=== PATIENT | female | born 1990 | race Caucasian/White ===

== ENCOUNTER → 2022-12-15 | Outpatient (CLI) | payer OTHER, SELFPAY ==
--- NOTE | 2022-12-15 13:31 | RAD_ITS ---
STUDY: X-RAY - RIGHT KNEE REASON FOR EXAM: Female, 32 years old. Pain and stiffness TECHNIQUE: 3 view(s) of the knee. COMPARISON: None. FINDINGS: Normal visualized distal femur. Normal visualized proximal tibia and fibula. Normal proximal tibiofibular articulation. Normal medial femorotibial compartment. Normal lateral femorotibial compartment. Normal patellofemoral articulation. The soft tissue structures are unremarkable. RAD/Knee 3 Views IMPRESSION: Normal x-ray examination of the knee. Electronically Signed: Damián Dumont MD at 14:25 EDT ,
== END | disposition home or self-care (01) ==
PROVIDERS: Referring Provider Physician Assistant; Visit Provider Physician Assistant
DX: M25.561 Pain in right knee (principal)
CPT/HCPCS: 73562

== ENCOUNTER 2022-12-22 06:54 | Outpatient (RCR) | payer OTHER, SELFPAY ==
--- NOTE | 2022-12-22 07:49 | HP.PTEVAL_ITS ---
Patient's Visit Information Visit Information Visit Information: NEERAJ CARR is a 32 year old F referred to Physical Therapy by JASMINA Fabian with a diagnosis of Right Knee. Date of Evaluation: 12/22/22 Physical Therapist: Miranda Damon DPT Visit Plan Frequency: 2x /Week Duration: 4 Weeks Plan: Hold- will follow up with ortho- if ortho recommends PT will do aquatic PT- focus on LE and core strength/stabilization, ROM and functional mobility Subjective Subjective: Her co-workers made her go to the doctors as she was limping around at work and they think she has a torn meniscus in her right knee. This has been going on for about 2 weeks- insidious onset- nothing that sticks out. The doctor did x-rays- Ibuprofen and don't over do it, PT and sent her back to work. She has a follow up with Ortho. Pain in the knee is in the posterior knee. The knee is stiff and sore all day and if she bends or twists a certain way its excruciating. Worst in the last week: 12/23. Best: 10 Eases: Ibuprofen, taking the pressure off of it. Does not like ice. No radiating pain- no N/T in the toes. No crutches- she has an sujey bandage but doesn't really think it helps- does not wear a knee brace. Sleep: disturbed- hard to roll around. 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 She sometimes wears orthotics in her shoes but does not wear them very often- but she probably should. Objective Objective: Posture: FH, RS- can correct with verbal cues but does not maintain. Gait: antalgic- decreased stance on the right LE with decreased heel strike- slow meera no AD Observation: no edema notes HR/TR: able but reports discomfort and is hesitant due to pain SLS: 5 sec with reports instability and pain and has increased sway Sit to Stand: can do without UE A with weight shift to the left LE Stairs: asc/desc 8 NON recip with attempts to do recip with tears due to pain Palpation: tender along medial and lateral joint line- patella and posterior knee with light touch ROM: 10-50 degrees with severe discomfort at end ranges Flex: HS: severe Gastroc: severe Strength: Core: fair, Hip: 4/5 throughout, Knee Extn: 3+ Knee Flexion: 3+, Ankle: 5/5 Sensation: WNL to gross touch bilateral Balance/Special Test Scores Lower Extremity Functional Score: 46 Goals Goal 1:: Patient will be I with HEP and progression Goal Time Frame: 4-6 Weeks Goal 2:: Patient will ambulate >300 feet with a normalized gait pattern Goal Time Frame: 4-6 Weeks Goal 3:: Patient will asc/desc 8 stairs recip with no HR Goal Time Frame: 4-6 Weeks Goal 4:: Patient will demo 0-125 degrees ROM Goal Time Frame: 4-6 Weeks Goal 5:: Patient will report 80% improvement Goal Time Frame: 4-6 Weeks Rehabilitation Potential Physical Therapy Diagnosis: Patient presents with hypomobility- she has decreased pain free ROM, LE and core strength/stabilization, flex and muscular endurance leading to abnormal gait and increased pain with ADL's Rehabilitation Potential: Fair Anticipated Interventions Patient/Client Instruction: Educate patient on: Benefits of Fitness Program Therapeutic Exercise to Include: Strength training, Endurance training, Balance training, Coordination, Agility training, Body mechanics, Postural training, Flexibilty training, Gait and locomotor training, Neuromotor development, Relaxation training, In an aquatic setting , Passive ROM, Active ROM, Dynamic Lumbar Stabilization and Scapular Strength/Stabilization Text: Thank you for the opportunity to evaluate your patient. For Medicare and Medicare HMO plans, please review the plan of care and approve it. It will need to be FAXED BACK to us at [phone] for Medicare purposes. For Medicare only, by signing this I certify the plan of care. Please let me know if there are questions or concerns regarding this plan of care. Physician Signature: Date:
--- NOTE | 2023-05-12 09:00 | HP.PT.NRP ---
Patient Information Patient Information: NEERAJ CARR was seen in my office for initial evaluation on 12/22/22. The following Plan of Care was established for this patient: POC Established Initial Frequency: 2x /Week Initial Duration: 4 Weeks Anticipated Interventions Patient/Client Instruction: Educate patient on: Benefits of Fitness Program Therapeutic Exercise to Include: Strength training, Endurance training, Balance training, Coordination, Agility training, Body mechanics, Postural training, Flexibilty training, Gait and locomotor training, Neuromotor development, Relaxation training, In an aquatic setting , Passive ROM, Active ROM, Dynamic Lumbar Stabilization and Scapular Strength/Stabilization Last Seen Last Seen: This patient was last seen in our office . Pertinent comments regarding their Physical therapy will appear below: Patient has not attended PT since initial evaluation- appropriate to be discharged. At this point I will be discontinuing this patient from physical therapy. I would be happy to see this patient again in the future if found appropriate by the physician. Thank you! Miranda Damon, JUANT Balance/Gait/Functional tests Balance/Special Test Scores Lower Extremity Functional Score: 46
== END 2022-12-22 19:00 | disposition home or self-care (01) ==
LOC: PT 06:54
PROVIDERS: Referring Provider Physician Assistant; Visit Provider Physician Assistant
DX: M23.91 Unspecified internal derangement of right knee (principal); S86.911D Strain of unspecified muscle(s) and tendon(s) at lower leg level, right leg, subsequent encounter
CPT/HCPCS: 97162

== ENCOUNTER 2024-03-28 19:18 | Emergency (ER) | payer SELFPAY ==
[2024-03-28 19:18] VITALS: BP 169/90; PULSE 67; RESP 18; TEMP 36.3; O2SAT 100; BMI 43.9
--- NOTE | 2024-03-28 19:52 | EDS_ITS ---
HPI History of Present Illness Chief Complaint: Flank Pain Narrative Narrative: 33-year-old female presents with her significant other/boyfriend secondary to left flank pain that began a few hours ago. They state that they called intake and there was concern for either ovarian cyst or kidney stone. However, she denies any dysuria or hematuria, no problems with bowel movements, no exacerbating or alleviating factors except for seems to be worse with movement. She states it started happening all of a sudden, and it is mainly in her left low back/flank. She took an oxycodone that she had leftover from surgery which is not helping. No recent trauma. Pain does not radiate down her leg. Movement of her leg does not cause pain either. PFSH [facility] Medical History Strain of right knee Internal derangement of right knee FHx: cholecystectomy Home Medications ?Medication ?Instructions ?Recorded ?Last Taken ?Type meloxicam 15 mg tablet 15 mg PO DAILY Pain #30 tabs 01/21/23 Unknown Rx oxycodone-acetaminophen 5 mg-325 1 tab PO Q6H PRN pain 3 days #12 03/28/24 Unknown Rx mg tablet (Percocet) tabs Allergy/AdvReac Type Severity Reaction Status Date / Time No Known Allergies Allergy Verified 03/28/24 19:21 Family History Other Diabetes Surgical History H/O gastric sleeve History of delivery Social History Smoking Status: Never smoker alcohol intake: never ROS ROS ED ROS Narrative Constitutional: No fever, no chills. HEENT: No sore throat. No neck pain. No loss of vision. No rhinorrhea. Cardiovascular: No chest pain. No palpitations. No pedal edema. Respiratory: No cough, no shortness of breath. Abdominal: No abdominal pain. No nausea. No vomiting. Genitourinary: No dysuria. No hematuria. Positive left flank pain Musculoskeletal: No myalgias. No arthralgias. Positive left flank pain/low back pain. Neurologic: No headaches. No dizziness. No lightheadedness. Skin: No rash. No change in color. EXAM Physical Exam Narrative Exam Narrative: Afebrile. Vital signs noted. Nontoxic-appearing. Cardiovascular examination reveals a regular rate and rhythm. Lungs are clear to auscultation bilaterally. The abdomen is soft and nontender with normal active bowel sounds, no guarding or rebound. There is mild tenderness to palpation in the left flank with questionable CVA tenderness. More mildly reproducible. No vertebral point tenderness or bony step-off of the lumbar spine. Straight leg raising is negative, and she is able to flex and extend at the left hip. Const Vital Signs: 03/28/24 19:18 03/28/24 21:18 03/28/24 23:00 Temperature 97.4 F L Temperature Source Temporal Pulse Rate 67 57 L 61 Respiratory Rate 18 18 18 Blood Pressure 169/90 H Blood Pressure Mean 116 Pulse Ox 100 98 97 Oxygen Delivery Method Room Air Room Air Room Air MDM MDM MDM Narrative Medical decision making narrative: Differential diagnosis includes but not limited to ureterolithiasis versus pyelonephritis versus musculoskeletal back pain. I have low concern for ovarian cyst because the history and physical does not support this. She is not really having abdominal pain she is having more left flank pain. She was administered morphine and ketorolac for analgesia. Patient has history of remote hysterectomy so I do not feel that test is indicated. I feel she can go for imaging and we will obtain UA as well as CBC and BMP. I reviewed her laboratory work and she has slightly elevated white count of 11.7 which I think is nonspecific, hemoglobin 12.6 with hematocrit 37.6, platelet count normal at 257. Chloride is 111 with normal sodium of 141 and potassium 3.6. BUN normal at 15 with creatinine 0.92. Urinalysis is negative for infection with 0-5 WBCs and 0 RBCs. I reviewed the radiology report of the CT of the abdomen pelvis given her flank pain, and there is no evidence of ureterolithiasis or hydronephrosis. There is noted to be an 8 cm cystlike structure in the central pelvis, most likely ovarian in etiology. Given the size of the cyst, there would be concern for intermittent torsion as a cause of her pain, but she did have more pain in the flank. Patient states that she started having abdominal pain, then it shifted more to the left. Patient did have a hysterectomy at [facility] by Dr. Avelar with the [facility]. She states that she had a hysterectomy because of multiple ovarian cysts and pelvic issues. I reviewed her ultrasound which shows an 8.9 cm cystic structure most consistent with hemorrhagic cyst. There is good flow to both ovaries. Hence, I have lower suspicion for torsion. She started having slight return of her pain but it was improved over previous so she was administered fentanyl 50 mcg intravenously as she states the morphine made her lightheaded and she experienced side effects from it. I discussed patient with Dr. Garg [employer]PER[employer] on-call who agrees with close outpatient follow-up within the next few days to weeks. At this point in time, she was written a prescription for a few Percocet tablets and return instructions were reviewed. She is motivated for discharge. She will return with increased pain, intractable pain, fever, new or worsening symptoms. She states she will call her [employer] tomorrow morning. She was also given the number to the P[employer] M[employer] SUPERVISOR on-call. Disposition is discharged home in stable condition. History & Record Review Discussion w/independent historian: Patient Lab Data Attestation: I reviewed the patient's lab results. Labs: Laboratory Results - last 24 hr 03/28/24 03/28/24 19:55 20:19 WBC 11.7 H RBC 4.24 Hgb 12.6 Hct 37.6 MCV 88.7 MCH 29.7 MCHC 33.5 RDW Std Deviation 39.5 RDW Coeff of Deidre 12.3 Plt Count 257 MPV 10.4 Immature Gran % (Auto) 0.400 Neut % (Auto) 69.2 Lymph % (Auto) 24.4 [place] % (Auto) 4.3 Eos % (Auto) 1.4 Baso % (Auto) 0.3 Absolute Neuts (auto) 8.1 H Absolute Lymphs (auto) 2.86 Nucleated RBC % 0 Sodium 141 Potassium 3.6 Chloride 111 H Carbon Dioxide 24.0 Anion Gap 6 BUN 15 Creatinine 0.92 Estim Creat Clear Calc 106.80 Est GFR (MDRD) Af Amer 89 Est GFR (MDRD) Non-Af 74 BUN/Creatinine Ratio 16.3 Glucose 130 H Calcium 8.8 Urine Color Yellow Urine Clarity Clear Urine pH 6.0 Ur Specific [place] 1.025 Urine Protein Negative Urine Glucose (UA) Normal Urine Ketones Negative Urine Occult Blood 25 H Urine Nitrite Negative Urine Bilirubin Negative Urine Urobilinogen Normal Ur Leukocyte Esterase Negative Urine RBC 0 SEEN Urine WBC 0-5 SEEN Ur Squamous Epith Cells 0-5 SEEN Urine Bacteria RARE Urine Mucus 0 SEEN Radiography Diagnostic Testing: Clinical Impression(s) from Imaging Studies Abdomen/Pelvis CT 03/28/24 19:52 IMPRESSION: Large 8 cm Irregular thick-walled cystic lesion of the central pelvis, likely ovarian in origin. Although may represent hemorrhagic ovarian cyst, cystic neoplastic process is not excluded. Appendix is not definitely identified, however, there are no significant right lower quadrant inflammatory fat changes or focal fluid collection to suggest acute appendicitis. Otherwise, no acute abdominal abnormality is identified, to include no evidence of obstructing ureteral calculus. Electronically Signed: Sudhakar Miller MD at 21:57 EST , Transvaginal US 03/28/24 22:13 IMPRESSION: 9 cm hemorrhagic ovarian cyst. Recommend follow-up ultrasound imaging in 6-10 weeks to document resolution. Small 1.2 cm right ovarian dominant follicle. Electronically Signed: Sudhakar Miller MD at 23:43 EST , Discharge Plan Triage Chief Complaint: Flank Pain ED Provider: Tez Howard Dx/Rx/DC Orders Clinical Impression: Left flank pain, Hemorrhagic cyst of left ovary Instructions: ED Flank Pain, Uncertain Cause, ED Ovarian Cyst Prescriptions: New oxycodone-acetaminophen [Percocet] 5-325 mg tablet 1 tab PO Q6H PRN (Reason: pain) 3 Days Qty: 12 0RF No Action meloxicam 15 mg tablet 15 mg PO DAILY Qty: 30 0RF Rx Instructions: Do not take in conjunction with other NSAIDs. Tylenol is okay. Primary Care Provider: Care Physician,No Primary Referrals: Monica Garg MD [Med Staff - Active Staff] - 3-5 Days Care Physician,No Primary [Primary Care Provider] - Activity Restrictions/Additional Instructions: Return with increased pain, fever, new or worsening symptoms. Follow-up with your [facility] at [facility] within the next few days. Call first thing tomorrow morning. Return with increased pain, intractable pain as well. You are also given the number to Dr. Garg who is the P[employer] M[employer] SUPER[employer]OR on-call today. Print Language: Filipino Disposition Disposition: Home, Self Care
--- NOTE | 2024-03-28 19:52 | CT_ITS ---
INDICATION: Kidney Stone COMPARISON: None. A radiation dose optimization technique was used for this scan. RADIATION DOSAGE (If Supplied By Facility): CTDIvol/DLP = ( 21.47 ) / ( 1104.97 ) mGy/mGycm FINDINGS: Noncontrast serial CT axial images through the abdomen and pelvis with coronal and sagittal reformatted series. PANCREAS: No peripancreatic fat stranding. APPENDIX: Appendix is not definitely identified, however, there are no significant right lower quadrant inflammatory fat changes or focal fluid collection to suggest acute appendicitis. UTERUS/ADNEXA: Large 8 cm Irregular thick-walled cystic lesion of the central pelvis, likely ovarian in origin. Trace amount of bilateral dependent pelvic fluid. Uterus appears to be absent. BOWEL/MESENTERY: No dilated bowel loops. No free air. GALLBLADDER: Absent gallbladder with surgical clips in the gallbladder fossa. LIVER/STOMACH: Gastric suture line. URINARY COLLECTING SYSTEM/ KIDNEYS: No obstructing ureteral calculus. No significant renal parenchymal abnormality. LUNG BASES: Medial right posterior lung base linear atelectasis versus scarring. BONES: Unremarkable for age. CT/Abdomen/Pelvis without Cont IMPRESSION: Large 8 cm Irregular thick-walled cystic lesion of the central pelvis, likely ovarian in origin. Although may represent hemorrhagic ovarian cyst, cystic neoplastic process is not excluded. Appendix is not definitely identified, however, there are no significant right lower quadrant inflammatory fat changes or focal fluid collection to suggest acute appendicitis. Otherwise, no acute abdominal abnormality is identified, to include no evidence of obstructing ureteral calculus. Electronically Signed: Sudhakar Miller MD at 21:57 EST ,
[2024-03-28 20:06] LABS: Mucous, Urine 0 SEEN /hpf (<or=2+); Red Blood Cells-Urine 0 SEEN /hpf (0-5)
[2024-03-28 20:08] LABS: Color, Urine Yellow (Yellow); Glucose, Dipstick Normal (Normal); Ketone-Dipstick Negative (Negative); Leukocyte Esterase-Dipstick Negative /ul (Negative); Nitrite-Dipstick Negative (Negative); Occult Blood-Urine 25 /ul (Negative); Protein-Dipstick Negative (Negative); Specific Gravity, Urine 1.025 (1.002-1.030); Urine Bilirubin Dipstick Negative (Negative); Urine Clarity Clear (Clear); Urine Urobilinogen Normal (Normal)
[2024-03-28] MEDS: Morphine 4 MG/ML Syringe IV (20:14)
[2024-03-28] MEDS: Ketorolac 30 MG/ML Syringe IV (20:14)
[2024-03-28 20:17] LABS: Bacteria RARE /hpf (None Seen); Squamous Epithelial Cells - UA 0-5 SEEN /hpf (5-10); White Blood Cells 0-5 SEEN /hpf (0-5)
[2024-03-28 20:26] LABS: Absolute Lymphocyte Count 2.86 X10^3/uL (0.83-4.51); Absolute Neutrophil Count 8.1 X10^3/uL (2.0-7.7); Basophil# 0.03 X10^3/uL; Basophil% 0.3 % (0-1); Eosinophil# 0.16 X10^3/uL; Eosinophils% 1.4 % (0-5); Hematocrit 37.6 % (37-47); Hemoglobin 12.6 g/dL (12.0-15.0); Lymphocyte # 2.86 X10^3/ul (0.83-4.51); Lymphocyte % 24.4 % (19-41); Mean Corp Hgb Conc 33.5 g/dL (32-36); Mean Corpuscular Hgb 29.7 pg (27.0-32.0); Mean Corpuscular Volume 88.7 fL (81-99); Mean Platelet Vol. 10.4 fl (6.2-12.0); Monocyte% 4.3 % (0-10); NRBC Flagged by Analyzer 0 % (0-5); Neutrophil % 69.2 % (47-70); Platelet Count 257 K/mm3 (150-450); RBC Distribution Width CV 12.3 % (11.6-14.6); RBC Distribution Width SD 39.5 fl (35.1-43.9); Red Blood Count 4.24 M/mm3 (4.2-5.4); White Blood Count 11.7 K/mm3 (4.4-11.0)
[2024-03-28 20:40] LABS: Anion Gap 6 (5-15); BUN 15 mg/dL (7-18); BUN/Creat Ratio 16.3 RATIO (10-20); Calcium,Total 8.8 mg/dL (8.5-10.1); Chloride 111 mmol/L (98-107); Creatinine, Serum 0.92 mg/dL (0.55-1.02); EST Glomerular Filtration Rate 74 mL/min (>60); Est Glom Filt Rate - Afr Amer 89 mL/min (>60); Glucose 130 mg/dL (74-106); Potassium 3.6 mmol/L (3.5-5.1); Sodium Level 141 mmol/L (136-145)
[2024-03-28 21:18] VITALS: PULSE 57; RESP 18; O2SAT 98
--- NOTE | 2024-03-28 22:13 | US_ITS ---
INDICATION: pain=LLQ. Hysterectomy. EXAMINATION: Ultrasound US Transvaginal Non-OB COMPARISON: Abdominal CT earlier same day. FINDINGS: 59 grayscale ultrasound images of the pelvis obtained both transabdominally and transvaginally. In addition dedicated ovarian color Doppler and Doppler waveform interrogation was performed. UTERUS: Absent as per history. ADNEXA: Flow is documented to bilateral ovaries by color Doppler as well as Doppler waveform. Right ovarian small anechoic 1.2 cm lesion consistent with dominant follicle. Irregular thick-walled central pelvis 8.9 cm mixed cystic and solid lesion containing numerous internal lacelike septae, most consistent with left hemorrhagic ovarian cyst. Small amount of pelvic free fluid. US/Transvaginal Non- IMPRESSION: 9 cm hemorrhagic ovarian cyst. Recommend follow-up ultrasound imaging in 6-10 weeks to document resolution. Small 1.2 cm right ovarian dominant follicle. Electronically Signed: Sudhakar Miller MD at 23:43 EST ,
[2024-03-28 23:00] VITALS: PULSE 61; RESP 18; O2SAT 97
[2024-03-28] MEDS: fentaNYL 100 MCG/2 ML Ampul 50 MCG IV (23:51)
[2024-03-29 00:07] VITALS: BP 123/77; PULSE 88; RESP 18; TEMP 37.1; O2SAT 97
== END 2024-03-29 00:08 | disposition home or self-care (01) ==
PROVIDERS: Emergency Provider Emergency Medicine; Visit Provider Emergency Medicine
DX: N83.202 Unspecified ovarian cyst, left side (principal)
CPT/HCPCS: 74176; 76830; 80048; 81001; 85025; 93976; 96374; 96375; 96376; 99283; A4216

== ENCOUNTER 2024-03-29 15:00 | Emergency (ER) | payer OTHER, SELFPAY ==
[2024-03-29 15:01] VITALS: BP 132/45; PULSE 52; RESP 18; TEMP 36.6; O2SAT 96
--- NOTE | 2024-03-29 15:12 | US_ITS ---
STUDY: ULTRASOUND TRANSVAGINAL CLINICAL: Female, 33 years old. ov cyst. need aterial flow ?? TECHNIQUE: Transvaginal COMPARISON: CT scan 03/28/2024. FINDINGS: There has been hysterectomy. Normal right ovary, measuring 2.9 x 2.1 x 2.0 cm. There is a subcentimeter cyst. There is normal blood flow. Normal left ovary, measuring 8.4 x 8.6 x 6.0 cm. There is a hemorrhagic cyst measuring 7.5 x 6.2 x 5.6 cm. Recommend follow-up in one or 2 menstrual periods. There is normal blood flow. There is mild free fluid in the pelvis. Polycystic ovary disease: No. US/Transvaginal Non- IMPRESSION: 7.5 cm probable hemorrhagic cyst of the left ovary. Recommend follow-up in one or 2 menstrual periods. Normal blood flow to both ovaries/adnexa. Electronically Signed: Josue Edmonds MD at 16:38 EST ,
--- NOTE | 2024-03-29 16:53 | ED.VIS.FEGU ---
HPI HPI - Female History of Present Illness Chief Complaint: Female C/O Informant: patient and spouse/S.O. Pain Pain: Positive for Pelvic Pain Onset: Days Quality: Positive for Cramping and Sharp Current Severity: Moderate Worsened by: Movement Narrative Narrative: 33-year-old female with a history of left lower quadrant pelvic pain. Diagnosed yesterday Emergency Department ultrasound with 9 cm ovarian cyst. Pain worse today. History of prior and prior hysterectomy. Denies any dysuria. Yesterday treated with Toradol and morphine in the ER. Pain improved. She was discharged home on Percocet. She is try to get into a local [facility] office. She previously saw an PATENT PROSECUTION ATTORNEY in my [place] but is unable to get back into that office. She denies any fever. Prior similar symptoms: Yes Recent Illness/Hospitalization: No PFSH PFSH Medical History (Updated 03/29/24 @ 18:[address] Kota Walker MD) Ovarian cyst Strain of right knee Internal derangement of right knee FHx: cholecystectomy Home Medications ?Medication ?Instructions ?Recorded ?Last Taken ?Type meloxicam 15 mg tablet 15 mg PO DAILY Pain #30 tabs 01/21/23 Unknown Rx oxycodone-acetaminophen 5 mg-325 1 tab PO Q6H PRN pain 3 days #12 03/28/24 Unknown Rx mg tablet (Percocet) tabs ondansetron 4 mg disintegrating 4 mg PO Q6H PRN nausea and 03/29/24 Unknown Rx tablet vomiting #10 tabs Allergy/AdvReac Type Severity Reaction Status Date / Time No Known Allergies Allergy Verified 03/28/24 19:21 Family History Other Diabetes Surgical History H/O gastric sleeve History of delivery Social History Smoking Status: Never smoker alcohol intake: never ROS ROS ED ROS Narrative Denies recent illness. Left lower quadrant abdominal/pelvic pain. Constitutional Constitutional ED: Denies chills or fever(s) Eyes Eyes: Denies blurry vision ENT ENT ED: Denies ear pain Cardiovascular Cardiovascular: Denies chest pain Respiratory/Chest Respiratory/Chest: Denies cough or dyspnea Gastrointestinal Gastrointestinal: Reports abdominal pain; Denies constipation, diarrhea, melena, nausea or vomiting Genitourinary Genitourinary ED: Denies dysuria or hematuria Musculoskeletal Musculoskeletal: Denies arthralgias Integumentary Denies abscess Neurologic Neurologic: Denies headache(s) Psychiatric Psychiatric: Denies anxiety Endocrine Endocrinology: Denies heat intolerance Hematologic/Lymphatic Hematologic/Lymphatic: Denies easy bleeding Allergic/Immunologic Allergic/Immunologic ED: Denies mouth swelling or tongue swelling EXAM Physical Exam Narrative Exam Narrative: 33 female that I saw in triage room 2 due to the [employer] acuity time. Vital signs are stable. Current blood pressure 132/45. Heart rate 52. Complaining of pain. H EENT exam unremarkable. Neck nontender. Lungs clear to auscultation bilaterally. Heart regular rate rhythm rate about 60 no murmur. Abdomen soft nondistended. Diffusely tender worse over the left lower quadrant. Moving all 4 extremities. Nontender no edema. Back nontender. She is awake and alert. No focal motor deficits. Const Vital Signs: 03/29/24 15:01 03/29/24 17:10 Temperature 97.9 F Temperature Source Temporal Pulse Rate 52 L 52 L Respiratory Rate 18 18 Blood Pressure 132/45 H 126/75 H Blood Pressure Mean 74 92 Pulse Ox 96 100 Oxygen Delivery Method Room Air Room Air Positive well nourished and well developed; Negative for cachectic or contractures General Appearance ED: well developed; Negative for cachectic, contractures, NAD or pallor Nutritional Appearance: Negative for cachectic HEENT Reports moist mucous membranes Negative for trauma or tenderness Eyes PERRL and EOMs intact bilaterally General Eye ED: Negative for pale conjunctiva or scleral icterus Neck no lymphadenopathy and supple General: Negative for other Thyroid: Negative for tender Lymph Lymphatic: Negative for other Chest Wall inspection of chest normal and palpation of chest normal Resp normal respiratory effort and clear to auscultation bilaterally Effort and Inspection: Negative for pain with movement Auscultation: Negative for rales, rhonchi, wheezes or diminished lung sounds Cardio regular rate, regular rhythm, S1 normal heart sound, no murmurs and no JVD Rate: Negative for tachycardic Rhythm: Negative for abnormal rhythm GI normal to inspection, nondistended, normoactive bowel sounds, soft to palpation, non-distended and no masses; Negative for non-tender GI Narrative: Diffuse tenderness more so in the left lower quadrant. Auscultation: normoactive bowel sounds Palpation: Negative for tender, guarding or rigid Back/Spine no CVA tenderness Extremity normal to inspection and full ROM General Extremety ED: Negative for edema or tenderness General Extremity: Negative for edema Neuro oriented x3 and CN's II-XII intact bilaterally Sensorium / Orientation: alert, oriented to person, oriented to place and oriented to time; Negative for confused or lethargic Motor Exam: strength 5/5 throughout Psych mental status grossly normal Attitude: No agitated Speech: No other Mood & Affect: tearful; Negative for depressed or anxious Skin no rashes or lesions noted and no wounds General Skin Exam: Negative for jaundice or pallor Rashes: No rashes noted Trauma: Negative for other MDM MDM MDM Narrative Medical decision making narrative: 33-year-old female diagnosed with left ovarian cyst yesterday. Repeat ultrasound was done today. She has a 7.5 probable hemorrhagic cyst on left ovary. Normal blood flow is seen in both ovaries. No torsion. She seems to be in a significant mount of pain. Should be taken back to a room from triage have an IV placed and given Dilaudid, Toradol and Zofran for pain and to prevent nausea. She had labs yesterday. She has had a prior hysterectomy. Repeat exam at 5:50 PM patient doing well. We discussed her test results. She requested additional Zofran for nausea. I will call in a prescription for home. She will again follow-up with local [facility] group to see if she can get in sooner. She knows return if worse. She has Percocet at home and can use also Motrin for pain. Lab Data Attestation: I reviewed the patient's lab results. Lab results narrative: CBC shows normal white count of 9. H&H 13.1 and 39 which is actually a higher blood count than the other day. Platelets 251. Labs: Laboratory Results - last 24 hr 03/29/24 17:05 WBC 9.9 RBC 4.46 Hgb 13.1 Hct 39.4 MCV 88.3 MCH 29.4 MCHC 33.2 RDW Std Deviation 40.6 RDW Coeff of Deidre 12.5 Plt Count 251 MPV 9.9 Radiography Diagnostic Testing: Clinical Impression(s) from Imaging Studies Transvaginal US 03/29/24 15:12 IMPRESSION: 7.5 cm probable hemorrhagic cyst of the left ovary. Recommend follow-up in one or 2 menstrual periods. Normal blood flow to both ovaries/adnexa. Electronically Signed: Jsoue Edmonds MD at 16:38 EST , Discharge Plan Triage Chief Complaint: Female C/O ED Provider: Kota Walker Dx/Rx/DC Orders Clinical Impression: Cyst of left ovary Instructions: ED Ovarian Cyst Prescriptions: New ondansetron 4 mg tablet,disintegrating 4 mg PO Q6H PRN (Reason: nausea and vomiting) Qty: 10 0RF No Action meloxicam 15 mg tablet 15 mg PO DAILY Qty: 30 0RF Rx Instructions: Do not take in conjunction with other NSAIDs. Tylenol is okay. oxycodone-acetaminophen [Percocet] 5-325 mg tablet 1 tab PO Q6H PRN (Reason: pain) 3 Days Qty: 12 0RF Primary Care Provider: Care Physician,No Primary Referrals: Karuna Larios DO [Med Staff - Active Staff] - As soon as possible Care Physician,No Primary [Primary Care Provider] - Activity Restrictions/Additional Instructions: Continue your home Percocet for pain. May also use Motrin. Zofran for nausea. Call and follow-up with a local [facility] group tell them you were seen in the emergency department today that may help you get in sooner. Print Language: Stateless Disposition Disposition: Home, Self Care
[2024-03-29] MEDS: Ketorolac 15 MG/ML Vial IV (17:04)
[2024-03-29] MEDS: HYDROmorphone 1 MG/ML Syringe IV (17:04)
[2024-03-29] MEDS: Ondansetron 4 MG/2 ML Vial IV (17:04)
[2024-03-29 17:10] VITALS: BP 126/75; PULSE 52; RESP 18; O2SAT 100
[2024-03-29 17:12] VITALS: BMI 44.5
[2024-03-29 17:12] LABS: Hematocrit 39.4 % (37-47); Hemoglobin 13.1 g/dL (12.0-15.0); Mean Corp Hgb Conc 33.2 g/dL (32-36); Mean Corpuscular Hgb 29.4 pg (27.0-32.0); Mean Corpuscular Volume 88.3 fL (81-99); Mean Platelet Vol. 9.9 fl (6.2-12.0); Platelet Count 251 K/mm3 (150-450); RBC Distribution Width CV 12.5 % (11.6-14.6); RBC Distribution Width SD 40.6 fl (35.1-43.9); Red Blood Count 4.46 M/mm3 (4.2-5.4); White Blood Count 9.9 K/mm3 (4.4-11.0)
[2024-03-29 18:23] VITALS: BP 127/63; PULSE 76; RESP 15; TEMP 36.3; O2SAT 98
== END 2024-03-29 18:28 | disposition home or self-care (01) ==
PROVIDERS: Emergency Provider Emergency Medicine; Visit Provider Emergency Medicine
DX: N83.202 Unspecified ovarian cyst, left side (principal)
CPT/HCPCS: 76830; 85027; 96374; 96375; 99282; A4216; J2405

== ENCOUNTER 2024-04-15 17:24 | Day surgery (SDC) | payer OTHER, SELFPAY ==
[2024-04-15 17:25] VITALS: BP 117/80; PULSE 76; RESP 18; TEMP 36.6; O2SAT 100; BMI 44.2
--- NOTE | 2024-04-15 18:14 | CT_ITS ---
STUDY: CT Abdomen And Pelvis W/ Contrast Injection 04/15/2024 7:20 PM REASON FOR EXAM: Female, 33 years old. ABDOMINAL PAIN Abrupt right lower quadrant pain status post -- Salpingo-oophorectomy and appendectomy 10 days ago TECHNIQUE: Transaxial images were obtained without oral contrast, and IV 100mL Isovue-370 intravenous contrast. Individualized dose optimization techniques were used for this CT. COMPARISON: 03.28.24 FINDINGS: Stable 6 mm and 4.7 mm nodule in the right lower lobe . The visualized portions of the heart are within normal limits. Unremarkable liver. There are surgical clips in the gallbladder fossa consistent with a prior cholecystectomy. Unremarkable spleen. Unremarkable pancreas. Unremarkable bilateral adrenal glands. No acute findings of the right kidney. No acute findings of the left kidney. Unremarkable visualized stomach. Unremarkable small intestine. Unremarkable colon. There are surgical clips in the region of the appendix consistent with a prior appendectomy. There are no acute findings of the abdominal aorta. Unremarkable inferior vena cava. Subcentimeter mesenteric lymph nodes. Unremarkable urinary bladder. There is absence of the uterus consistent with a prior hysterectomy. 64 mm cystic lesion again noted in the right adnexa. Previously this had a dense one. Presently it only has a thickened wall. There is an umbilical hernia containing fat. There are diffuse degenerative changes of the visualized lumbar spine. CT/Abdomen/Pelvis W IV Cont ONLY IMPRESSION: (NOT LISTED IN ORDER OF SIGNIFICANCE) Cystic area in the right adnexa has changed in density since the prior study. This may represent resolution of the hemorrhagic component of a hemorrhagic cyst. Other findings as above. Electronically Signed: Meet Jennings MD at 19:43 EST ,
[2024-04-15 18:40] LABS: Absolute Lymphocyte Count 2.82 X10^3/uL (0.83-4.51); Absolute Neutrophil Count 4.7 X10^3/uL (2.0-7.7); Basophil# 0.02 X10^3/uL; Basophil% 0.2 % (0-1); Eosinophil# 0.17 X10^3/uL; Hematocrit 39.9 % (37-47); Lymphocyte # 2.82 X10^3/ul (0.83-4.51); Lymphocyte % 33.9 % (19-41); Mean Corp Hgb Conc 32.6 g/dL (32-36); Mean Corpuscular Hgb 29.3 pg (27.0-32.0); Mean Corpuscular Volume 89.9 fL (81-99); Mean Platelet Vol. 9.8 fl (6.2-12.0); Monocyte# 0.52 X10^3/uL; Monocyte% 6.3 % (0-10); NRBC Flagged by Analyzer 0 % (0-5); Neutrophil # 4.73 X10^3/uL (2.7-7.7); Platelet Count 372 K/mm3 (150-450); RBC Distribution Width CV 12.2 % (11.6-14.6); RBC Distribution Width SD 40.5 fl (35.1-43.9); Red Blood Count 4.44 M/mm3 (4.2-5.4); White Blood Count 8.3 K/mm3 (4.4-11.0)
[2024-04-15] MEDS: Ondansetron 4 MG/2 ML Vial IV (18:47)
[2024-04-15] MEDS: morphine 8 MG/ML Syringe IV (18:47)
[2024-04-15] MEDS: 0.9% Normal Saline (1000mL) 1,000 ML 250 ML IV (18:47)
--- NOTE | 2024-04-15 18:50 | EX.ED.DYSGE1 ---
HPI <Dr. Ruslan Mooney MD - Last Filed: 04/17/24 15:02> History of Present Illness Chief Complaint: Abd Pain Detail of Chief Complaint: Abrupt onset of right-sided abdominal pain and low back pain Informant: patient and spouse/S.O. Onset/Context/Timing Onset: Today and Hours Context: Sudden Onset Timing: Continuous Quality: Pain Location: Right lower quadrant right lower back Current Severity: Moderate Maximum Severity: Severe Worsened by: Movement Relieved by: Nothing Associated Symptoms Associated Symptoms: Lightheadedness and nausea Narrative Narrative: Patient is a 33-year-old woman. She was seen twice last month. She had a CAT scan and an ultrasound done on first visit which revealed a 9.5 cm right ovarian cyst. Second ultrasound revealed a complex/hemorrhagic right ovarian cyst. PFSH <Dr. Ruslan Mooney MD - Last Filed: 04/17/24 15:02> [facility] Medical History Ovarian cyst Strain of right knee Internal derangement of right knee FHx: cholecystectomy Home Medications ?Medication ?Instructions ?Recorded ?Last Taken ?Type NK 04/15/24 Unknown History oxycodone 5 mg tablet 5 mg PO Q6H PRN PRN severe pain 5 04/16/24 Unknown Rx days #20 TABLETS Allergy/AdvReac Type Severity Reaction Status Date / Time No Known Allergies Allergy Verified 04/15/24 17:44 Family History Other Diabetes Surgical History H/O gastric sleeve History of delivery Social History Smoking Status: Never smoker alcohol intake: never EXAM <Dr. Ruslan Mooney MD - Last Filed: 04/17/24 15:02> Physical Exam Const Vital Signs: 04/15/24 17:25 04/15/24 19:30 04/15/24 21:00 Temperature 97.8 F Temperature Source Temporal Pulse Rate 76 65 63 Respiratory Rate 18 16 16 Blood Pressure 117/80 119/69 128/74 H Blood Pressure Mean 92 85 92 Pulse Ox 100 96 99 Oxygen Delivery Method Room Air Room Air Room Air 04/15/24 23:00 Temperature Temperature Source Pulse Rate 56 L Respiratory Rate 16 Blood Pressure 123/70 H Blood Pressure Mean 87 Pulse Ox 97 Oxygen Delivery Method Room Air <Dr. Cassandra Wiley DO - Last Filed: 04/15/24 23:17> Physical Exam Const Vital Signs: 04/15/24 17:25 04/15/24 19:30 04/15/24 21:00 Temperature 97.8 F Temperature Source Temporal Pulse Rate 76 65 63 Respiratory Rate 18 16 16 Blood Pressure 117/80 119/69 128/74 H Blood Pressure Mean 92 85 92 Pulse Ox 100 96 99 Oxygen Delivery Method Room Air Room Air Room Air 04/15/24 23:00 Temperature Temperature Source Pulse Rate 56 L Respiratory Rate 16 Blood Pressure 123/70 H Blood Pressure Mean 87 Pulse Ox 97 Oxygen Delivery Method Room Air MDM <Dr. Ruslan Mooney MD - Last Filed: 04/17/24 15:02> [facility] MDM Narrative Medical decision making narrative: Patient has a surgical abdomen. She has peritoneal findings. In light of history, physical exam concerned this may represent a abscess, ruptured abscess, ruptured hematoma with bleeding since she gets orthostatic symptoms. Will obtain CBC to assess white count differential and H&H. Electrolyte panel was obtained to assess renal function. Lactate was ordered as well. Because she has peritoneal findings she was treated with 4.5 g of Zosyn. She was medicated with Zofran for nausea and 8 mg of morphine for pain. CT of the abdomen pelvis reveals what appears to be an abscess. There is no evidence of pneumoperitoneum. Awaiting formal read by radiologist. Since patient had surgery at [facility] will transfer to [facility] if radiologist agrees with my interpretation of the CAT scan. Lab Data Attestation: I reviewed the patient's lab results. Lab results narrative: White count is normal. Electrolyte panel is remarked for glucose of 141 with a normal CO2 anion gap. Lactate is elevated 2.4. Labs: Laboratory Results - last 24 hr 04/15/24 04/15/24 17:46 18:20 WBC 8.3 RBC 4.44 Hgb 13.0 Hct 39.9 MCV 89.9 MCH 29.3 MCHC 32.6 RDW Std Deviation 40.5 RDW Coeff of Deidre 12.2 Plt Count 372 MPV 9.8 Immature Gran % (Auto) 0.600 Neut % (Auto) 57.0 Lymph % (Auto) 33.9 Foster % (Auto) 6.3 Eos % (Auto) 2.0 Baso % (Auto) 0.2 Absolute Neuts (auto) 4.7 Absolute Lymphs (auto) 2.82 Nucleated RBC % 0 Sodium 142 Potassium 3.7 Chloride 109 H Carbon Dioxide 26.0 Anion Gap 7 BUN 13 Creatinine 0.94 Estim Creat Clear Calc 104.96 Est GFR (MDRD) Af Amer 88 Est GFR (MDRD) Non-Af 72 BUN/Creatinine Ratio 13.9 Glucose 141 H Lactic Acid 2.4 H* Calcium 8.7 Radiography Diagnostic Testing: Clinical Impression(s) from Imaging Studies Abdomen/Pelvis CT 04/15/24 18:14 IMPRESSION: (NOT LISTED IN ORDER OF SIGNIFICANCE) Cystic area in the right adnexa has changed in density since the prior study. This may represent resolution of the hemorrhagic component of a hemorrhagic cyst. Other findings as above. Electronically Signed: Meet Jennings MD at 19:43 EST , ADDENDUM: 04/15/242014 IMPRESSION: undefined Transvaginal US 04/15/24 21:26 IMPRESSION: 1. Right ovarian torsion. Torsion may be incomplete with a small amount of venous flow detected in a portion of the ovary with the remainder of the ovary avascular. 2. Stable 7.0 cm right hemorrhagic cyst. Electronically Signed: Lauro Dorantes DO at 23:11 EST , ADDENDUM: 04/15/24 2322 IMPRESSION: 1. Right ovarian torsion. Torsion may be incomplete with a small amount of venous flow detected in a portion of the ovary with the remainder of the ovary avascular. 2. Stable 7.0 cm right hemorrhagic cyst. N.B. : The above Results were Read Back by Lauro Dorantes DO to CASSANDRA WILEY MD, and understanding confirmed on 04/15/2024 23:15:12 (ET). Electronically Signed: Lauro Dorantes at 23:11 EST , ADDENDUM: 04/15/24 5681 IMPRESSION: undefined The impression/interpretation by radiologist was reviewed. Radiologist was contacted because patient had recent oophorectomy and appendectomy laparoscopically. Concern is that this represents an abscess and not a hemorrhagic cyst. Management Discussion w/another healthcare provider: Radiologist (Spoke with the radiologist. He states this does not have the appearance of an abscess. He believes it is a ovarian cyst. Unable to access records through [facility]. [facility] was contacted. The field secretary will contact the OB. Also asked for records from [facility] determine if sh) and Other (Records from [facility] revealed patient had a left oophorectomy and appendectomy. She now has developed a right ovarian cyst. With the abrupt onset of pain will contact radiology for stat ultrasound to rule out torsion. Patient is status post hysterectomy.) <Dr. Cassandra Wiley, DO - Last Filed: 04/15/24 23:17> [facility] MDM Narrative Medical decision making narrative: Patient has a surgical abdomen. She has peritoneal findings. In light of history, physical exam concerned this may represent a abscess, ruptured abscess, ruptured hematoma with bleeding since she gets orthostatic symptoms. Will obtain CBC to assess white count differential and H&H. Electrolyte panel was obtained to assess renal function. Lactate was ordered as well. Because she has peritoneal findings she was treated with 4.5 g of Zosyn. She was medicated with Zofran for nausea and 8 mg of morphine for pain. CT of the abdomen pelvis reveals what appears to be an abscess. There is no evidence of pneumoperitoneum. Awaiting formal read by radiologist. Since patient had surgery at [facility] my [facility] will transfer to [facility] if radiologist agrees with my interpretation of the CAT scan. Care of patient turned over to me awaiting pelvic ultrasound results for concern for possible torsion. Patient with lower abdominal pain that she continues to rated an 8 out of 10 therefore I did give her a milligram of Dilaudid IV. Patient ultrasound results do show torsion of the right ovary. I discussed case with Dr. Garg who is the COMMUNITY ASSOCIATE on-call for no doc who will present to the emergency department to evaluate the patient as she has continued ongoing severe pain. Final disposition will be per Dr. Garg however patient does want to have her ovary removed. Lab Data Labs: Laboratory Results - last 24 hr 04/15/24 04/15/24 17:46 18:20 WBC 8.3 RBC 4.44 Hgb 13.0 Hct 39.9 MCV 89.9 MCH 29.3 MCHC 32.6 RDW Std Deviation 40.5 RDW Coeff of Deidre 12.2 Plt Count 372 MPV 9.8 Immature Gran % (Auto) 0.600 Neut % (Auto) 57.0 Lymph % (Auto) 33.9 Foster % (Auto) 6.3 Eos % (Auto) 2.0 Baso % (Auto) 0.2 Absolute Neuts (auto) 4.7 Absolute Lymphs (auto) 2.82 Nucleated RBC % 0 Sodium 142 Potassium 3.7 Chloride 109 H Carbon Dioxide 26.0 Anion Gap 7 BUN 13 Creatinine 0.94 Estim Creat Clear Calc 104.96 Est GFR (MDRD) Af Amer 88 Est GFR (MDRD) Non-Af 72 BUN/Creatinine Ratio 13.9 Glucose 141 H Lactic Acid 2.4 H* Calcium 8.7 Radiography Diagnostic Testing: Clinical Impression(s) from Imaging Studies Abdomen/Pelvis CT 04/15/24 18:14 IMPRESSION: (NOT LISTED IN ORDER OF SIGNIFICANCE) Cystic area in the right adnexa has changed in density since the prior study. This may represent resolution of the hemorrhagic component of a hemorrhagic cyst. Other findings as above. Electronically Signed: Meet Jennings MD at 19:43 EST , ADDENDUM: 04/15/242014 IMPRESSION: undefined Transvaginal US 04/15/24 21:26 IMPRESSION: 1. Right ovarian torsion. Torsion may be incomplete with a small amount of venous flow detected in a portion of the ovary with the remainder of the ovary avascular. 2. Stable 7.0 cm right hemorrhagic cyst. Electronically Signed: Lauro Dorantes DO at 23:11 EST , ADDENDUM: 04/15/24 2322 IMPRESSION: 1. Right ovarian torsion. Torsion may be incomplete with a small amount of venous flow detected in a portion of the ovary with the remainder of the ovary avascular. 2. Stable 7.0 cm right hemorrhagic cyst. N.B. : The above Results were Read Back by Lauro Dorantes DO to CASSANDRA WILEY MD, and understanding confirmed on 04/15/2024 23:15:12 (ET). Electronically Signed: Lauro Dorantes DO at 23:11 EST , ADDENDUM: 04/15/242322 IMPRESSION: undefined Discharge Plan Dx/Rx/DC Orders Clinical Impression: Ovarian torsion, Abdominal pain Disposition Disposition: Acute Care Hospital [facility] Discharge Date/Time: 04/16/24 00:49
[2024-04-15 18:53] LABS: Anion Gap 7 (5-15); BUN 13 mg/dL (7-18); BUN/Creat Ratio 13.9 RATIO (10-20); Calcium,Total 8.7 mg/dL (8.5-10.1); Chloride 109 mmol/L (98-107); Creatinine, Serum 0.94 mg/dL (0.55-1.02); EST Glomerular Filtration Rate 72 mL/min (>60); Est Glom Filt Rate - Afr Amer 88 mL/min (>60); Estimated Creatinine Clearance 104.96 ml/min; Glucose 141 mg/dL (74-106); Potassium 3.7 mmol/L (3.5-5.1); Sodium Level 142 mmol/L (136-145)
[2024-04-15] MEDS: Piperacil/Tazobactam 4.5 GM in 0.9% Normal Saline (100mL MB+) 100 ML IV (19:07)
[2024-04-15 19:19] LABS: Lactic Acid 2.4 mmol/L (0.4-1.9)
[2024-04-15 19:30] VITALS: BP 119/69; PULSE 65; RESP 16; O2SAT 96
[2024-04-15] MEDS: Ketorolac 15 MG/ML Vial IV (20:52)
[2024-04-15] MEDS: Morphine 4 MG/ML Syringe IV (20:52)
[2024-04-15 21:00] VITALS: BP 128/74; PULSE 63; RESP 16; O2SAT 99
--- NOTE | 2024-04-15 21:26 | US_ITS ---
We are attempting to reach an attending provider to discuss findings. An addendum with communication details will be sent when the communication is complete. INDICATION: ovarian cyst, evaluate for torsion EXAMINATION: Ultrasound US Transvaginal Non-OB TECHNIQUE: Transvaginal sonographic images of the pelvis. Grayscale, spectral waveform, and color flow Doppler evaluation of the adnexa. COMPARISON: 03/29/2024 ultrasound and 04/15/2024 CT. FINDINGS: UTERUS: Status post hysterectomy. RIGHT OVARY: Stable 7.0 cm hemorrhagic cyst. Absent arterial and venous venous flow other than a small amount of venous flow detected in one portion of the ovary. LEFT OVARY: Status post oophorectomy. FREE FLUID: No significant free fluid. US/Transvaginal Non- IMPRESSION: 1. Right ovarian torsion. Torsion may be incomplete with a small amount of venous flow detected in a portion of the ovary with the remainder of the ovary avascular. 2. Stable 7.0 cm right hemorrhagic cyst. Electronically Signed: Lauro Dorantes DO at 23:11 EST ,
[2024-04-15 22:36] LABS: Reflex Lactate? Y
[2024-04-15 23:00] VITALS: BP 123/70; PULSE 56; RESP 16; O2SAT 97
[2024-04-15] MEDS: HYDROmorphone 1 MG/ML Syringe IV (23:13)
[2024-04-15 23:25] LABS: Lactic Acid 1.6 mmol/L (0.4-1.9)
--- NOTE | 2024-04-15 23:38 | PCM.HP.OB ---
HPI - General General Date of Admission: 04/15/24 Date of Service: 04/15/24 Chief Complaint: Abdominal pain HPI Narrative NEERAJ CARR, is a 33 F who presents to ED with abdominal pain. Had laparoscopic Left oopherectomy a week ago with ovarian torsion. Appy at that time as well. Today presents with 6 cm right ovarian cyst with minimal ovarian blood flow and uncontrolled pain PFSH PFSH Medical History Ovarian cyst Strain of right knee Internal derangement of right knee FHx: cholecystectomy Home Medications ?Medication ?Instructions ?Recorded ?Last Taken ?Type NK 04/15/24 Unknown History Allergy/AdvReac Type Severity Reaction Status Date / Time No Known Allergies Allergy Verified 04/15/24 17:44 Family History Other Diabetes Surgical History H/O gastric sleeve History of delivery Social History Smoking Status: Never smoker alcohol intake: never Vital Signs Vital Signs Vital Signs: 04/15/24 17:25 04/15/24 19:30 04/15/24 21:00 Temperature 97.8 F Temperature Source Temporal Pulse Rate 76 65 63 Respiratory Rate 18 16 16 Blood Pressure 117/80 119/69 128/74 H Blood Pressure Mean 92 85 92 Pulse Ox 100 96 99 Oxygen Delivery Method Room Air Room Air Room Air 04/15/24 23:00 Temperature Temperature Source Pulse Rate 56 L Respiratory Rate 16 Blood Pressure 123/70 H Blood Pressure Mean 87 Pulse Ox 97 Oxygen Delivery Method Room Air Weight Weight: 116.936 kg Body Mass Index (BMI) 44.2 Physical Exam Const alert and oriented x3 General Appearance: cooperative and in distress Positive for mild HEENT normocephalic Head and Scalp: atraumatic Eyes PERRL and EOMs intact bilaterally Neck full ROM Resp normal respiratory effort Cardio regular rate and regular rhythm GI soft to palpation; Negative for non-tender Palpation: tender Extremity normal to inspection Neuro moves all extremities Psych mental status grossly normal and affect normal Labs Labs Labs: Hct 39.9 % (37-47) Hgb 13.0 g/dL (12.0-15.0) Assessment & Plan (1) Torsion of right ovary: PLAN: Plan Consented to laparoscopic right oophorectomy. Aware that she will be surgically menopausal with the removal of her ovary. Hx of scar tissue with multiple abdominal surgeries. Discussed the risk of surgical injuries with multiple surgeries
[2024-04-15 23:49] VITALS: BP 115/59; PULSE 58; RESP 18; TEMP 36.8; O2SAT 98; BMI 44.2
[2024-04-16] VITALS (12 sets, daily range): BP systolic 111–129; BP diastolic 59–79; PULSE 54–99; RESP 16; TEMP 36.7–36.8; O2SAT 95–99
--- NOTE | 2024-04-16 00:46 | PRE.ANES_ITS ---
ASA Classification* ASA Classification ASA Classification: 3 and E Assessment & Plan Anesthesia* Anesthesia Assessment Anesthesia Assessment: Discussed sedation and/or anesthesia options, risks, benefits, and alternatives with patient/parents/legal guardian/POA. Questions invited. The patient/parents/legal guardian/POA seems to understand and agrees to proceed with anesthesia plan. Reviewed the physical assessment, medical history, allergy history and patient home medications list prior to surgery/procedure/anesthetic and documented any changes. Performed airway and anesthesia risk assessments. Anesthesia Type Anesthesia Type: General Anesthesia Focused Assessment* Temperature: 98.3 F Pulse Rate: 54 Blood Pressure: 115/59 Respiratory Rate: 16 Pulse Ox: 97 Airway Assessment Mouth opens: >3 cm Mallampati Score: II Focused Labs Anesthesia Preop lab: CBC WBC 8.3 K/mm3 (4.4-11.0) 04/15/24 17:46 RBC 4.44 M/mm3 (4.2-5.4) 04/15/24 17:46 Hgb 13.0 g/dL (12.0-15.0) 04/15/24 17:46 Hct 39.9 % (37-47) 04/15/24 17:46 Plt Count 372 K/mm3 (150-450) 04/15/24 17:46 CHEMISTRY Potassium 3.7 mmol/L (3.5-5.1) 04/15/24 17:46 Sodium 142 mmol/L (136-145) 04/15/24 17:46 BUN 13 mg/dL (7-18) 04/15/24 17:46 Creatinine 0.94 mg/dL (0.55-1.02) 04/15/24 17:46 Glucose 141 mg/dL (74-106) H 04/15/24 17:46 COAG Pre-Assessment Diagnosis/Proposed Procedure Planned Operative Procedure(s): laproscopic removal of torsed ovary Anesthesia History 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 When Was Last Pacemaker Check QUESTION #4 FULL TEXT: You/Your Family Experience fever (hyperthermia) with Anesthesia Last Oral Intake Last Oral intake: Last Oral Intake NPO since 16:00 04/15/24 23:49 Meds taken in AM with sips of water? Meds patient instructed to take am of surgery PONV PONV - railroad watchman: PONV - railroad watchman Female HX of Motion Sickness HX of N/V After Surgery Non-Smoker Duration of Surgery greater than 60 minutes Number of Risk Factors PONV Score Height & Weight Height & Weight: Anesthesia: Height & Weight Height 5 ft 4 in 04/15/24 23:49 Weight: 116.936 kg 04/15/24 23:49 Body Mass Index (BMI) 44.2 04/15/24 23:49 Respiratory Assessment Respiratory Assessment - railroad watchman: Respiratory Tract Infection Hx - railroad watchman Hx Respiratory Tract Infection STOP Sleep Apnea STOP Sleep Apnea - railroad watchman: STOP Sleep Apnea - railroad watchman Hx Hypertension No 04/15/24 23:49 Hx Sleep Apnea No 04/15/24 23:49 CPAP BIPAP Do you snore loudly (louder No 04/15/24 23:49 than talking or can be heard Do you often feel tired/ No 04/15/24 23:49 fatigued/ sleepy during daytime? Has anyone observed you stop No 04/15/24 23:49 breathing during sleep? STOP Results Negative 04/15/24 23:49 QUESTION #5 FULL TEXT : Do you snore loudly (louder than talking or can be heard through closed doors)? 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 Specify any problems Hx of Preganancy in last 3 Months Nurse Filling Out Transfusion & Questions: Date: Time: Patient unable to answer at this time (ie. confused, unrespo /Reproduction History /Reproductive History - railroad watchman: /Reproductive Hx- railroad watchman Hx Now No 04/15/24 23:49 Gestational Age (in weeks): EDC: Hx Hx Para Hx Section SAB No 04/15/24 23:49 PFSH Medical History Ovarian cyst Strain of right knee Internal derangement of right knee FHx: cholecystectomy Home Medications ?Medication ?Instructions ?Recorded ?Last Taken ?Type NK 04/15/24 Unknown History Allergy/AdvReac Type Severity Reaction Status Date / Time No Known Allergies Allergy Verified 04/15/24 17:44 Family History Other Diabetes Surgical History H/O gastric sleeve History of delivery Social History Smoking Status: Never smoker alcohol intake: never Review of Systems (Anesthesia) ROS Narrative System reviewed and no additional complaints, except as documented.
--- NOTE | 2024-04-16 01:00 | OV_PTH ---
PATIENT: NEERAJ CARR LOC: [facility] [place] U#:[id number] AGE/SX: 33/F ROOM: RE04/15/[address]: Dr. Monica Garg MD : 1990 BED: DIS: 04/16/2024 SPEC #: [id number] RECD: 04/16/24 09:07 STATUS: FRANCINE FAHAD #: [id number] MICHELLE: 04/16/24 01:[address]: Monica Garg DEPT: SURGICAL PATHOLOGY RECD BY: Sommer Kramer ENTERED: 04/16/24 10:05 SP TYPE: OVARY OTHR DR: Ava Primary Care Phys Tissues: Right ovary Procedures: Surgery Specimen Level IV HEADER OPERATION: Laparoscopic right oophorectomy PRE-OP DIAGNOSIS: Torsion of right ovary TISSUE SUBMITTED: Right ovary MICROSCOPIC DIAGNOSIS Right ovary, oophorectomy: Hemorrhagic infarction consistent with torsion. AM. 04/17/2024 MICROSCOPIC DESCRIPTION Slides are reviewed. GROSS DESCRIPTION Received in fixative is one container labeled with the patient's name and designated Right ovary. The specimen consists of a previously opened cystic ovary measuring 8.0 x 6.0 x 2.0cm. The external surface is smooth and glistening. The inner lining is hemorrhagic and irregular. No distinct mass lesions are identified. Sap Basis Administrator sections are submitted in four cassettes. 04/16/2024 TC:5 CPT:46880
--- NOTE | 2024-04-16 01:30 | PCM.OPRPT ---
Problems Associated Problem List Diagnoses (1) Torsion of right ovary: (2) Abdominal pain: Operative Report (Standard) Operative Information Surgery/Procedure Performed: laparoscopic right oophorectomy Surgeon: Monica Garg Date of Procedure: 04/16/24 Procedure Start Time: Procedure Stop Time: Pre-Operative Diagnosis: right ovarian torsion Post-Operative Diagnosis: same Select all DRAINS/GRAFTS/IMPLANTS that apply: None Type of Anesthesia: General Estimated Blood Loss: 10cc Specimen collected: Yes Description of specimen(s) removed: right ovary Description of surgery: Patient presented to the ED with abdominal pain. Approximately 2 weeks ago she had a left oophorectomy with appy for a left ovarian torsion. She has had a previous hysterectomy. Patient taken to the OR with IV fluids running. She was placed in a dorsal supine position. Anesthesia was induced and she was prepped and draped in the normal fashion. An incision was made in the umbilicus and the Veress needle was used to create a pneumoperitoneum. A 5 mm clear view trocar was placed into the abdominal cavity. She was then placed in Trendelenburg. The right ovary was enlarged and twisted several times on its pedicle. There were no other adhesions present. The was a moderated amount of pelvic fluid and minimal bleeding. The left and right lower ports were then placed under direct visualization. The ovary was elevated and a LigaSure was used to ligate the ovary. The ovary was drained of it fluid to collapse it. It was then placed in an EndoCatch bag and removed through the left lower port. The remaining fluid was removed. Hemostasis was achieved. The instruments were removed and the pneumoperitoneum released. The ports were removed. The incisions were closed with 0-Vicryl at the fascia and 4-0 on the skin. All counts were correct. 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
--- NOTE | 2024-04-16 01:45 | PCM.POST.ANE ---
Anesthesia: Postop Eval I Current Vital Signs Temperature: 98.2 F Pulse Rate: 99 Blood Pressure: 129/79 Respiratory Rate: 16 Pulse Ox: 95 Oxygen Delivery Method: Room Air Assessment Airway patent: Yes Spontaneous unlabored respirations: Yes Mental status: Awake nausea: No Vomiting: No Anesthesia Complication: No Fluid Hydration Crystalloid volume administer (ml): 500 Total IV fluid infused: 500 Progress Note Anesthesia document: Postop Eval 1 completed: Yes
--- NOTE | 2024-04-16 08:07 | PCM.POSTANE2 ---
Anesthesia Postop Eval I Sum Postop Eval Completion status Anesthesia document: Postop Eval 1 completed: Yes Anesthesia Postop Eval I Summary Anesthesia Postop Eval I Summary: Anesthesia Postop Eval I: Assessment Summary Airway patent Yes 04/16/24 08:06 Spontaneous unlabored Yes 04/16/24 08:06 respirations Mental status Awake 04/16/24 08:06 nausea No 04/16/24 08:06 Vomiting No 04/16/24 08:06 Anesthesia Postop Eval I: Fluid Summary Crystalloid volume administer 500 04/16/24 08:06 (ml) Colloids volume administered ( ml) Blood Product volume administered (ml) Total IV fluid infused 500 04/16/24 08:06 Anesthesia Postop Eval I: Summary Notes Anesthesia Complication No 04/16/24 08:06 Anesthesia Complication Comment: Post-operative progress note Anesthesia: Postop Eval II Evaluation Mental status: Awake Pain Level: 0 nausea: No Vomiting: No
== END 2024-04-16 02:39 | disposition home or self-care (01) ==
LOC: ED 23:17 → SDC 23:51 → AC 23:52
PROVIDERS: Emergency Provider Emergency Medicine; Visit Provider Obstetrics & Gynecology
PROC: (CPT 58720; principal; 2024-04-16 00:45)
DX: N83.511 Torsion of right ovary and ovarian pedicle (principal)
CPT/HCPCS: 58661; 00840; 74177; 76830; 80048; 83605; 85025; 86850; 86900; 86901; 88305; 93976; 99284; Q9967; A4216; J2405

== ENCOUNTER 2024-12-09 16:33 | Emergency (ER) | payer OTHER, SELFPAY ==
[2024-12-09 16:34] VITALS: BP 146/99; PULSE 84; RESP 16; TEMP 36.2; O2SAT 99; BMI 44.5
--- NOTE | 2024-12-09 16:46 | EDS_ITS ---
HPI HPI - Psych History of Present Illness Chief Complaint: Suicidal Narrative Narrative: 34-year-old female past surgical history of hysterectomy presents with her because of months of increasing depression and anxiety now with suicidal ideation. She states it is not over anything in particular but she has become more overwhelmed. She has decreased appetite, and insomnia. 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 She has had increasing suicidal ideation and states that she wants to take pills. While she may have history of depression and anxiety, she is currently not on medications. Additionally, she was last hospitalized for psychiatric reasons remotely, years ago. She denies any physical symptoms, no nausea or vomiting, no fevers or chills. [facility] Medical History Ovarian cyst Strain of right knee Internal derangement of right knee FHx: cholecystectomy Home Medications ?Medication ?Instructions ?Recorded ?Last Taken ?Type NK 04/15/24 Unknown History Allergy/AdvReac Type Severity Reaction Status Date / Time No Known Allergies Allergy Verified 12/09/24 16:33 Family History Other Diabetes Surgical History H/O gastric sleeve History of delivery Social History Smoking Status: Never smoker alcohol intake: never ROS ROS ED ROS Narrative Review of systems positive for decreased appetite, insomnia, increasing dep ression, suicidal ideation with plan to overdose on pills. Denies physical symptoms such as chest pain, shortness of breath, fever, chills, nausea, or vomiting. EXAM Physical Exam Narrative Exam Narrative: Afebrile. Vital signs noted. Cardiovascular examination regular rate and rhythm. Lungs are clear to auscultation bilaterally. Abdomen is soft and nontender without guarding or rebound. Positive bowel sounds. Neurological examination nonfocal, nonlateralizing. Psychiatric examination shows depressed affect, tearful on examination, active suicidal ideation with plan to overdose on pills. No internal stimulation or active hallucinations. Const Vital Signs: 12/09/24 16:34 Temperature 97.1 F L Temperature Source Oral Pulse Rate 84 Respiratory Rate 16 Blood Pressure 146/99 H Blood Pressure Mean 114 Pulse Ox 99 MDM MDM MDM Narrative Medical decision making narrative: Concern is for depression, major and major depression without psychotic features and suicidal ideation with plan. Medical screening labs will be obtained. When she is medically cleared, she will be evaluated by case management versus crisis counselor. I reviewed her laboratory work and she has normal white count of 9.0 with hemoglobin normal at 13.0, platelet count normal at 313. Electrolyte panel is significant for carbon dioxide of 20.6 which think is nonspecific. Glucose normal at 98 with normal anion gap of 12. LFTs grossly unremarkable. Urine for drugs of abuse positive for cannabinoids. Ethyl alcohol negative at less than 10.1. At this point in time, I do feel she is medically cleared for evaluation by mental health. In discussion with case management, it was felt that she does require placement for her suicidality with plan to overdose on pills. It is reported that she has an appointment with psychiatry tomorrow where she would obtain pills, then would plan to overdose on them. Currently, she is awaiting placement at psychiatric facility. Should she not gain acceptance at a psychiatric facility, she will be signed out to the overnight physician to continue observation until placement can be made. Patient is in stable condition. History & Record Review Discussion w/independent historian: Patient Additional record(s) reviewed:: Prior ED visit (None for mental health) Lab Data Attestation: I reviewed the patient's lab results. Labs: Laboratory Results - last 24 hr 12/09/24 17:10 WBC 9.0 RBC 4.54 Hgb 13.0 Hct 40.0 MCV 88.1 MCH 28.6 MCHC 32.5 RDW Std Deviation 41.8 RDW Coeff of Deidre 13.0 Plt Count 313 MPV 9.8 Immature Gran % (Auto) 0.400 Neut % (Auto) 61.3 Lymph % (Auto) 30.5 [place] % (Auto) 5.1 Eos % (Auto) 2.4 Baso % (Auto) 0.3 Absolute Neuts (auto) 5.5 Absolute Lymphs (auto) 2.74 Nucleated RBC % 0 Sodium 139 Potassium 4.1 Chloride 106 Carbon Dioxide 20.6 L Anion Gap 12 BUN 16 Creatinine 0.74 Estim Creat Clear Calc 132.60 Est GFR (MDRD) Non-Af 107 BUN/Creatinine Ratio 21.0 H Glucose 98 Calcium 9.0 Total Bilirubin < 0.15 AST 17 ALT 11 Alkaline Phosphatase 86 Total Protein 6.9 Albumin 4.0 Globulin 2.9 Albumin/Globulin Ratio 1.4 Urine Opiates Screen NEGATIVE U Buprenorphine Qual NEGATIVE Ur Oxycodone Screen NEGATIVE Urine Methadone Screen NEGATIVE Urine Fentanyl Screen NEGATIVE Ur Barbiturates Screen NEGATIVE Ur Phencyclidine Scrn NEGATIVE Ur Amphetamines Screen NEGATIVE U Benzodiazepines Scrn NEGATIVE Urine Cocaine Screen NEGATIVE U Cannabinoids Screen PRESUMPTIVE POSITIVE Ethyl Alcohol < 10.1 Discharge Plan Triage Chief Complaint: Suicidal ED Provider: Tez Howard Dx/Rx/DC Orders Prescriptions: No Action NK Primary Care Provider: Care Physician,No Primary Referrals: Care Physician,No Primary [Primary Care Provider] - Print Language: Vietnamese
[2024-12-09 17:21] LABS: Hematocrit 40.0 % (37-47); Hemoglobin 13.0 g/dL (12.0-15.0); Immature Granulocytes Count 0.040 X10^3/uL (0.0-0.0); Mean Corp Hgb Conc 32.5 g/dL (32-36); Mean Corpuscular Volume 88.1 fL (81-99); Mean Platelet Vol. 9.8 fl (6.2-12.0); NRBC Flagged by Analyzer 0 % (0-5); Platelet Count 313 K/mm3 (150-450); RBC Distribution Width CV 13.0 % (11.6-14.6); RBC Distribution Width SD 41.8 fl (35.1-43.9); Red Blood Count 4.54 M/mm3 (4.2-5.4); White Blood Count 9.0 K/mm3 (4.4-11.0)
--- OUTSIDE RECORDS SUMMARY | 2024-12-09 17:36 | XMS RPT_ITS | CCD ---
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 Name Role Phone Christopher, Macon Unavailable Unavailable Unavailable, Family Physician Unavailable Un available Unavailable, Family Physician Unavailable Un available Christopher, [place]on Unavailable Unavailable Unavailable, Family Physician Unavailable Un available Unavailable, Family Physician Unavailable Un available Damion Flores MPritesh Unavailable Unavailable Unavailable, Family Physician Unavailable Un available Unavailable, Family Physician Unavailable Un available Damion Flores MPritesh Unavailable Unavailable Damion Flores MPritesh Unavailable Unavailable Unavailable, Family Physician Unavailable Un available Unavailable, Family Physician Unavailable Un available Damion Flores MPritesh Unavailable Unavailable Unavailable, Family Physician Unavailable Un available Unavailable, Family Physician Unavailable Un available Yanira Galicia Attending Unavailable MISHEL, SANDY Primary Care Unavailable Mishel, Sandy Primary Care Provider [phone] LOCO ABRAHAM Admitting Unavailable LOCO ABRAHAM Attending Unavailable MISHEL, SANDY Primary Care Unavailable RADHA PATTON Consulting Unavailable Sandy Quinteros MD Primary Care Provider Unavail able MISHEL, SANDY Primary Care Unavailable JOSH GARZA Attending Unavailable Unavailable Primary Care Provider UnavailVILMA Harp Attending UnavailVILMA Harp Referring Unavailabl anthony NO, PHYSICIAN Primary Care Unavailable TRIPP MONTANO Attending Unavailable NATASHA ONOFRE Attending Unavailable NO, PHYSICIAN Primary Care Unavailable JASMINA Cash Attending Provider PROVIDER, UNKNOWN Admitting Unavailable PROVIDER, UNKNOWN Attending Unavailable LUIS RIOS Referring Unavailable MISHEL, SANDY Primary Care Unavailable ELEANOR HOLM Attending Unavailable Care Physician, No Primary Primary Care Provider Unavailable Care Physician, No Primary Referring Provider Un available JASMINA Cisneros Attending Provider Unavailable Primary Care Provider MONICA Rice Referring Unavaila ble MONICA ALFARO Admitting Unavaila MONICA Garcia Attending Unavaila ble NEMUNAKATRIN, ROSENDO Warner Attending Unavailable MONICA ALFARO Attending Unavaila MONICA Rodríguez Attending Unavailable MONICA ALFARO Attending Unavaila KAILEY Aguirre Attending Unavailable RAMAKRISHNA MOTA Attending Unavailable SELF Referring Unavailable NEMUNAITIS, ROSENDO Warner Attending Unavailable NEMUNAKATRIN, ROSENDO Warner Attending Unavailable KAILEY CHANDLER Referring Unavailable NEMUNAITIS, ROSENDO Warner Attending Unavailable Adria Marin Attending Unavailable Adria Marin Admitting Unavailable NON STAFF Primary Care Unavailable Tez Howard Attending Unavailable Care Physician, No Primary Primary Care Unava ilable Care Physician, No Primary Primary Care Unava ilable Kota Walker Attending Unavailable Care Physician, No Primary Primary Care Unava ilable Tez Howard Attending Unavailable Care Physician, No Primary Primary Care Unava ilable Monica Garg Attending Unavailable Allergies Allergy Classification Reported Allergen(s) Allergy Type Date of Onset Reaction(s) Facility (1 source) No Known Medication Allergies; Translations: [No Known Medication Allergies] Propensity to adverse reactions (disorder) [facility] Repository Medications Current Medications Medication Drug Class(es) Dates Sig (Normalized) Sig (Original) Acetaminophen (3 sources) acetaminophen (TYLENOL ORAL) Take by mouth. Active [id number] 200 actuat albuterol 0.09 mg/actuat metered dose inhaler (1 source) beta2-Adrenergic Agonist Start: 03-19-2021 take 2 puff(s) by inhalation every four hours as needed for cough albuterol sulfate HFA (VENTOLIN HFA) 108 (90 Base) MCG/ACT inhaler Inhale 2 puffs into the lungs every 4 hours as needed for Wheezing or Shortness of Breath (cough) 18 g 0 03/19/2021 Active Start: 03-19-2021 take 2 puff(s) by in halation every four hours as needed for cough albuterol sulfate HFA (VENTOLIN HFA) 108 (90 Base) MCG/ACT inhaler Inhale 2 puffs into the lungs every 4 hours as needed for Wheezing or Shortness of Breath (cough) 18 g 0 03/19/2021 Active ascorbic acid 500 mg oral tablet (1 source) Vitamin C take 500 mg by mouth once daily Ascorbic Acid (VITAMIN C ER PO) Take 500 mg by mouth daily 0 Active azithromycin 250 mg oral tablet (1 source) Macrolide Antimicrobial Start: 03-19-20 End: 03-23-20 21 azithromycin (ZITHROMAX Z-ALTAF) 250 MG tablet Indications: COVID-19 Take 2 tablets (500 mg) on Day 1, and then take 1 tablet (250 mg) on days 2 through 5. 1 packet 0 03/19/2021 03/23/2021 Active b complex vitamins capsule (1 source) take 1 capsule by mouth once daily b complex vitamins capsule Take 1 capsule by mouth daily 0 Active cariprazine 3 mg oral capsule (14 sources) Atypical Antipsychotic take 1 capsule by mouth once daily cariprazine (VRAYLAR) 3 mg capsule Take 3 mg by mouth once daily. Active diclofenac sodium 0.01 mg/mg topical gel (14 sources) Nonsteroidal Anti-inflammatory Drug Start: 10-16-19 24 diclofenac (VOLTAREN ARTHRITIS PAIN) 1 % topical gel Apply 2 g to affected area four times daily. 200 g 10/16/2023 Active Elastic Bandages & Supports (NEOPRENE KNEE BRACE) [facility] [place] (3 sources) Start: 02-29-20 20 Elastic Bandages & Supports (NEOPRENE KNEE BRACE) [facility] [place] Indications: Acute pain of left knee Use as directed 1 each 0 02/29/2020 Active Start: 10-19-2018 End: 02-27-2019 Elastic Bandages & Supports (NEOPRENE KNEE BRACE) [facility] [place] Indications: Acute pain of left knee Use as directed 1 each 0 10/19/2018 02/27/2019 Discontinued Start: 10-19-2018 Elastic Bandag es & Supports (NEOPRENE KNEE BRACE) MIS Indications: Acute pain of left knee Use as directed 1 each 0 10/19/2018 Active estradiol 0.5 mg oral tablet (5 sources) Estrogen Start: 07-04-2024 take 1 tablet by mouth once daily estradiol (ESTRACE) 0.5 mg tablet Take 1 tablet by mouth once daily. 90 tablet 4 07/04/2024 Active Start: 04-17-2024 End: 07-04-2024 estradiol (CLIMARA) 0.05 mg/ 24 hr patch Apply 1 Patch as directed one time a week. 12 Patch 4 04/17/2024 07/04/2024 Discontinued ferrous sulfate 325 mg oral tablet (1 source) take 1 tablet by mouth once daily at breakfast ferrous sulfate (IRON 325) 325 (65 Fe) MG tablet Take 325 mg by mouth daily (with breakfast) 0 Active HYDROmorphone hydrochloride 2 mg oral tablet (2 sources) Opioid Agonist Start: End: take 1 tablet by mouth every six hours as needed HYDROmorphone 2 mg tablet Indications: Ovarian cyst rupture Take 1 tablet by mouth every 6 hours as needed for up to 3 days. 12 tablet 03/30/2024 04/02/2024 Active hydrOXYzine hydrochloride 25 mg oral tablet (14 sources) Antihistamine take 1 tablet by mouth every eight hours as needed hydrOXYzine HCl (ATARAX) 25 mg tablet Take 25 mg by mouth three times a day as needed. Active 3 ml liraglutide 6 mg/ml pen injector (1 source) GLP-1 Receptor Agonist Start: liraglutide-weight management 18 MG/3ML SOPN Indications: BMI 32.0-32.9,adult Inject 0.6 mg into the skin daily 1 pen 3 04/16/2020 Active lurasidone hydrochloride 40 mg oral tablet (1 source) Atypical Antipsychotic take 1 tablet by mouth once daily lurasidone (LATUDA) 40 MG TABS tablet Take 40 mg by mouth daily 0 Active melatonin 3 mg oral tablet (1 source) Start: take 1 tablet by mouth once daily as needed melatonin 3 MG TABS tablet Take 1 tablet by mouth nightly as needed (insomnia) 14 tablet 0 03/04/2019 Active Start: 03-04-2019 take 1 tablet by ankur th once daily as needed melatonin 3 MG TABS tablet Take 1 tablet by mouth nightly as needed (insomnia) 14 tablet 0 03/04/2019 Active meloxicam 15 mg oral tablet (2 sources) Nonsteroidal Anti-inflammatory Drug Start: 12-24-2022 End: 01-21-2023 take 15 mg by mouth once daily Meloxicam Active 15 MG PO DAILY January 21, 2023 7:39am Do not take in conjunction with other NSAIDs. Tylenol is okay. methylPREDNISolone (3 sources) Corticosteroid Start: 11-11-2023 End: 11-17-2023 methylPREDNISolone (MEDROL, ALTAF,) 4 mg Dose-Pack Take as directed 21 tablet 0 11/11/2023 11/17/2023 Active Start: 10-19-2018 End: 02-27-2019 methylPREDNISolone (MEDROL, ALTAF,) 4 MG tablet Indications: Acute pain of left knee Take by mouth. 1 kit 0 10/19/2018 02/27/2019 Discontinued oxyCODONE hydrochloride 5 mg oral tablet (3 sources) Opioid Agonist Start: 04-04-2024 End: 04-09-2024 take 1 tablet by mouth every eight hours as needed for pain oxyCODONE IR (ROXICODONE) 5 mg immediate release tablet Indications: Post-op pain Take 1 tablet by mouth every 8 hours as needed for pain for up to 5 days. 15 tablet 04/04/2024 04/09/2024 Active predniSONE 20 mg oral tablet (2 sources) Start: 03-19-2021 End: 03-23-2021 take 2 tablets by mouth once daily predniSONE (DELTASONE) 20 MG tablet Take 2 tablets by mouth daily for 4 days 8 tablet 0 03/19/2021 03/23/2021 Active Start: 03-19-2021 End: 03-19-2021 predniSONE (DELTASONE) table t 40 mg divalproex sodium 500 mg delayed release oral tablet (2 sources) Mood Stabilizer, Anti-epileptic Agent Start: 03-04-2019 divalproex (DEPAKOTE) [address] tablet Take 1 tablet by mouth 2 times daily at 0800 and 1400 28 tablet 0 03/04/2019 Active Start: 03-04-2019 take 1 tablet by ankur th once daily divalproex (DEPAKOTE) [address] tablet Take 1 tablet by mouth nightly 14 tablet 0 03/04/2019 Active Completed/Discontinued Medications Medication Drug Class(es) Dates Sig (Normalized) Sig (Original) busPIRone hydrochloride 10 mg oral tablet (1 source) Start: 08-02-2016 End: 04-26-2022 take 1 tablet by mouth twice daily busPIRone (BUSPAR) 10 mg tablet Take 1 tablet by mouth twice daily. 60 tablet 1 08/02/2016 04/26/2022 Discontinued Comment on above: Take 1 tablet by ankur th twice daily. clonazePAM 2 mg oral tablet (1 source) Benzodiazepine End: 03-04-2019 clonazePAM (KLONOPIN) 2 MG tablet Take 0.5 mg by mouth as needed. 0 03/04/2019 Discontinued (Stop Taking at Discharge) Ethinyl Estradiol / Ferrous fumarate / Norethindrone (8 sources) Estrogen Start: 06-02-2022 take 1 tablet by mouth once daily Norethin Fer-Eth Estrad-FE 1 mg-20 mcg (21)/75 mg (7) per tablet Take 1 tablet by mouth once daily. 28 tablet 11 06/02/2022 Active Start: 05-30-2022 take 1 tablet by ankur th once daily at bedtime Norethin Fer-Eth Estrad-FE 1 mg-20 mcg (21)/75 mg (7) per tablet Take 1 tablet by mouth daily at bedtime. 0 05/30/2022 Active Comment on above: Take 1 tablet by ankur th daily at bedtime. Take 1 tablet by ankur th once daily. ibuprofen 400 mg oral tablet (1 source) Nonsteroidal Anti-inflammatory Drug Start: 03-19-20 21 End: 03-19-20 21 ibuprofen (ADVIL;MOTRIN) tablet 800 mg ketorolac tromethamine 10 mg oral tablet (2 sources) Nonsteroidal Anti-inflammatory Drug, Cyclooxygenase Inhibitor Start: 05-07-20 22 take 1 tablet by mouth every six hours as needed keTORolac (TORADOL) 10 mg tablet Take 10 mg by mouth every 6 hours as needed. 0 05/07/2022 Active Comment on above: Take 10 mg by mouth every 6 hours as needed. lamoTRIgine 200 mg oral tablet (3 sources) Mood Stabilizer, Anti-epileptic Agent Start: 02-01-20 17 End: 03-04-20 19 lamoTRIgine (LAMICTAL) 200 MG tablet 200 mg daily 0 01/31/2017 03/04/2019 Discontinued (Stop Taking at Discharge) Start: 08-02-2016 End: 04-26-2022 take 1 tablet by mouth once daily at bedtime lamoTRIgine (LAMICTAL) 25 mg tablet Take 1 tablet by mouth daily at bedtime. Per Dr. Finch. Please follow-up with outpatient provider for titration of dosage. 30 tablet 1 08/02/2016 04/26/2022 Discontinued Comment on above: Take 1 tablet by ankur th daily at bedtime. Per Dr. Finch. Please follow-up with outpatient provider for titration of dosage. 10 ml lidocaine hydrochloride 10 mg/ml injection (3 sources) Antiarrhythmic, Amide Local Anesthetic Start: 11-11-2023 End: 11-11-2023 lidocaine (PF) 10 mg/mL (1 %) 6 mL injection (XYLOCAINE) Start: 02-04-2023 End: 02-04-2023 lidocaine (PF) 10 mg/mL (1 % ) 6 mL injection (XYLOCAINE) nystatin [id number] unt/ml topical cream (2 sources) Polyene Antifungal Start: 09-25-2018 End: 02-27-2019 nystatin (MYCOSTATIN) [id number] UNIT/GM cream apply to affected area two to three times a day 0 09/25/2018 02/27/2019 Discontinued Ondansetron (6 sources) Serotonin-3 Receptor Antagonist ondansetron HCl (ZOFRAN ORAL) Take by mouth. 0 Active Comment on above: Take by mouth. QUEtiapine 50 mg oral tablet (2 sources) Atypical Antipsychotic Start: 03-28-2018 End: 02-27-2019 QUEtiapine (SEROQUEL) 50 MG tablet sertraline 100 mg oral tablet (1 source) Serotonin Reuptake Inhibitor Start: 08-02-2016 End: 04-26-2022 take 1 tablet by mouth once daily sertraline (ZOLOFT) 100 mg tablet Take 1 tablet by mouth once daily. 30 tablet 1 08/02/2016 04/26/2022 Discontinued Comment on above: Take 1 tablet by ankur once daily. 1 ml triamcinolone acetonide 40 mg/ml injection (3 sources) Corticosteroid Start: 11-11-2023 End: 11-11-2023 triamcinolone acetonide 40 mg injection (KeNALog 40) Start: 02-04-2023 End: 02-04-2023 triamcinolone acetonide 40 m g injection (KeNALog 40) ziprasidone 40 mg oral capsule (3 sources) Atypical Antipsychotic End: 03-04-2019 take 1 capsule by mouth once daily ziprasidone (GEODON) 40 MG capsule Take 40 mg by mouth nightly 0 03/04/2019 Discontinued (Stop Taking at Discharge) End: 03-04-2019 take 1 capsule by mouth once daily at breakfast ziprasidone (GEODON) 20 MG capsule Take 20 mg by mouth daily (with breakfast) 0 03/04/2019 Discontinued (Stop Taking at Discharge) Problems Active Problems Problem Classification Problem Date Documented Date Episodic/Chronic Anxiety disorders (5 sources) Generalized anxiety disorder; Translations: [Panic disorder] Onset: 06-08-2016 12-21-2016 Chronic Benign neoplasm of uterus (1 source) Intramural leiomyoma of uterus; Translations: [Intramural leiomyoma of uterus] 02-16-2023 Episodic E Codes: Adverse effects of medical drugs (1 source) Sex hormones adverse reaction; Translations: [Adverse effect of other estrogens and progestogens, initial encounter] 04-26-2024 Episodic Immunizations and screening for infectious disease (2 sources) Contact with and (suspected) exposure to other viral communicable diseases; Translations: [Contact with and (suspected) exposure to other viral communicable diseases] Onset: 03-16-2023 Episodic Joint disorders and dislocations; trauma-related (4 sources) Derangement of right knee; Translations: [Unspecified internal derangement of right knee] Onset: 01-19-2023 12-15-2022 Chronic Joint disorders and dislocations; trauma-related (2 sources) Other internal derangements of left knee; Translations: [Unspecified internal derangement of knee] 01-21-2023 Chronic Menstrual disorders (20 sources) Irregular periods; Translations: [Menorrhagia] Onset: 03-04-2011 Resolved: 05-25-2023 06-08-2016 Chronic Mood disorders (20 sources) Recurrent major depressive episodes, mild ; Translations: [Depressed bipolar I disorder] Onset: 06-08-2016 12-21-2016 Chronic Other connective tissue disease (2 sources) Myalgia, other site; Translations: [Myalgia, other site] Onset: 03-16-2023 Episodic Other female genital disorders (1 source) History of gynecological disorder; Translations: [Personal history of other diseases of the female genital tract] 02-16-2023 Episodic Other lower respiratory disease (3 sources) Dyspnea; Translations: [Shortness of breath] 02-14-2017 Episodic Other nervous system disorders (1 source) Other chronic pain; Translations: [Chronic pain of right knee] Onset: 10-05-2024 Chronic Other non-traumatic joint disorders (20 sources) Pain in right knee; Translations: [Pain in joint, lower leg] Onset: 02-16-2023 02-04-2023 Episodic Other nutritional; endocrine; and metabolic disorders (20 sources) Morbid obesity; Translations: [Morbid (severe) obesity due to excess calories] Onset: 07-30-2016 07-30-2016 Chronic Other nutritional; endocrine; and metabolic disorders (14 sources) Obese class II; Translations: [Obesity, unspecified] Onset: 05-25-2023 05-25-2023 Chronic Other nutritional; endocrine; and metabolic disorders (5 sources) Body mass index 40+ - severely obese; Translations: [Morbid (severe) obesity due to excess calories] Onset: 04-05-2024 04-05-2024 Chronic Other screening for suspected conditions (not mental disorders or infectious disease) (2 sources) Cancer cervix screening status; Translations: [Encounter for screening for malignant neoplasm of cervix] Onset: 04-26-2022 Episodic Other upper respiratory infections (2 sources) Acute upper respiratory infection, unspecified; Translations: [Acute upper respiratory infection, unspecified] Onset: 03-16-2023 Episodic Residual codes; unclassified (3 sources) History of sleeve gastrectomy; Translations: [Acquired absence of stomach [part of]] Onset: 01-23-2020 01-23-2020 Episodic Residual codes; unclassified (2 sources) Family history of cholecystectomy; Translations: [Family history of other diseases of the digestive system] 12-15-2022 Episodic Residual codes; unclassified (3 sources) Postoperative state; Translations: [Other specified postprocedural states] 04-05-2024 Episodic Residual codes; unclassified (1 source) Menopause present; Translations: [Asymptomatic menopausal state] 07-04-2024 Episodic Residual codes; unclassified (2 sources) Pain; Translations: [Pain, unspecified] 10-02-2024 Episodic Residual codes; unclassified (1 source) Pain, unspecified; Translations: [Pain] Onset: 10-05-2024 Episodic Sprains and strains (3 sources) Strain of knee; Translations: [Strain of unspecified muscle(s) and tendon(s) at lower leg level, right leg, initial encounter] 12-15-2022 Episodic Thyroid disorders (14 sources) Hypothyroidism; Translations: [Hypothyroidism, unspecified] Onset: 05-06-2023 05-06-2023 Chronic Unclassified (2 sources) Drug therapy finding; Translations: [Controlled substance agreement signed] Onset: 09-02-2015 06-08-2016 Unclassified (1 source) Acute cough; Translations: [Acute cough] Onset: 03-16-2023 Unclassified (1 source) Adenomyosis; Translations: [Adenomyosis] Onset: 05-25-2023 Viral infection (1 source) Disease caused by 2019-nCoV; Translations: [COVID-19] Episodic Past or Other Problems Problem Classification Problem Date Documented Date Episodic/Chronic Abdominal pain (20 sources) Epigastric pain; Translations: [Epigastric pain] Onset: 04-09-2014 Resolved: 06-08-2016 06-08-2016 Episodic Contraceptive and procreative management (20 sources) Patient encounter status; Translations: [Genetic counseling and testing] Onset: 12-15-2009 12-15-2009 Episodic Deficiency and other anemia (3 sources) Anemia; Translations: [Anemia, unspecified] Onset: 03-04-2011 06-08-2016 Episodic Endometriosis (16 sources) Uterine adenomyosis; Translations: [Adenomyosis] Onset: 05-25-2023 Resolved: 05-25-2023 03-03-2023 Chronic Nausea and vomiting (3 sources) Nausea; Translations: [Nausea with vomiting, unspecified] Onset: 10-03-2020 Episodic Nonspecific chest pain (1 source) Chest pain, unspecified; Translations: [Chest pain, unspecified] Onset: 10-03-2020 Episodic Other aftercare (1 source) Drug therapy finding; Translations: [Other middle or intermediate school principal (current) drug therapy] Onset: 09-02-2015 06-08-2016 Episodic Other complications of (20 sources) Chromosomal abnormality in fetus affecting obstetrical care; Translations: [Maternal care for (suspected) chromosomal abnormality in fetus, not applicable or unspecified] Onset: 12-15-2009 Resolved: 03-30-2024 06-08-2016 Episodic Other female genital disorders (8 sources) Torsion of ovary; Translations: [Torsion of ovary and ovarian pedicle, unspecified side] Onset: 04-04-2024 Resolved: 04-04-2024 04-04-2024 Episodic Other nervous system disorders (1 source) Other acute postprocedural pain; Translations: [Post-op pain] Onset: 05-25-2023 Episodic Other non-traumatic joint disorders (1 source) Knee pain Onset: 10-16-2023 Episodic Ovarian cyst (8 sources) Ruptured cyst of ovary; Translations: [Unspecified ovarian cyst, unspecified side] Onset: 05-05-2022 Episodic Residual codes; unclassified (1 source) Other specified postprocedural states; Translations: [Post-operative state] Onset: 04-06-2024 Episodic Spondylosis; intervertebral disc disorders; other back problems (20 sources) Chronic low back pain; Translations: [Chronic midline low back pain without sciatica] Onset: 07-30-2016 07-30-2016 Episodic Suicide and intentional self-inflicted injury (2 sources) Suicidal thoughts; Translations: [Suicidal ideation] Episodic Unclassified (1 source) Acute cough; Translations: [Acute cough] Onset: 03-16-2023 Unclassified (14 sources) NO SHOW Onset: 05-14-2014 Resolved: 04-26-2022 04-26-2022 Results Test Name Value Interpretation Reference Range Facility CBC W/Diff, Automatedon 07-2 Absolute Lymph 2.74 X10 3/uL Normal 0.83-4.51 [facility] Comment on above: Performed By: #### L 100.0100 #### [facility] [address] [place], [address] Absolute Neut 5.5 X10 3/uL Normal 2.0-7.7 [facility] Comment on above: Performed By: #### L 100.0100 #### [facility] [address] [place], [address] Basophils/100 WBC (Bld) 0.3 % Normal 0-1 [facility] Comment on above: Performed By: #### L 100.0100 #### [facility] [address] [place], [address] Eosinophils/100 WBC (Bld) 2.4 % Normal 0-5 [facility] Comment on above: Performed By: #### L 100.0100 #### [facility] [address] [place], [address] Erythrocyte distribution width (RBC) [Ratio] 13.0 % Normal 11.6-14.6 [facility] Comment on above: Performed By: #### L 100.0100 #### [facility] [address] [place], [address] Hematocrit (Bld) [Volume fraction] 40.0 % Normal 37-47 [facility] Comment on above: Performed By: #### L 100.0100 #### [facility] [address] [place], [address] Hemoglobin (Bld) [Mass/Vol] 13.0 g/dL Normal 12.0-15.0 [facility] Comment on above: Performed By: #### L 100.0100 #### [facility] [address] [place], [address] IG% 0.400 Normal 0.0-0.9 [facility] Comment on above: Result Comment: IG% - Immature Granulocytes (promyelocytes, myelocytes and metamyelocytes) > 1% indicates that a LEFT SHIFT is Present. Performed By: #### L 100.0100 #### [facility] [address] [place], [address] Lymphocytes/100 WBC (Bld) 30.5 % Normal 19-41 [facility] Comment on above: Performed By: #### L 100.0100 #### [facility] [address] [place], [address] MCH (RBC) [Entitic mass] 28.6 pg Normal 27.0-32.0 [facility] Comment on above: Performed By: #### L 100.0100 #### [facility] [address] [place], [address] MCHC (RBC) [Mass/Vol] 32.5 g/dL Normal 32-36 [facility] Comment on above: Performed By: #### L 100.0100 #### [facility] [address] [place], [address] MCV (RBC) [Entitic vol] 88.1 fL Normal 81-99 [facility] Comment on above: Performed By: #### L 100.0100 #### [facility] [address] [place], [address] Monocytes/100 WBC (Bld) 5.1 % Normal 0-10 [facility] Comment on above: Performed By: #### L 100.0100 #### [facility] [address] [place], [address] Neutrophils/100 WBC (Bld) 61.3 % Normal 47-70 [facility] Comment on above: Performed By: #### L 100.0100 #### [facility] [address] [place], [address] Nucleated RBC (Bld) [#/Vol] 0 10*3/uL Normal 0-5 [facility] Comment on above: Performed By: #### L 100.0100 #### [facility] [address] [place], [address] Platelet mean volume (Bld) [Entitic vol] 9.8 fL Normal 6.2-12.0 [facility] Comment on above: Performed By: #### L 100.0100 #### [facility] [address] [place], [address] Platelets (Bld) [#/Vol] 313 10*3/uL Normal 150-450 [facility] Comment on above: Performed By: #### L 100.0100 #### [facility] [address] [place], [address] RBC (Bld) [#/Vol] 4.54 10*6/uL Normal 4.2-5.4 [facility] Comment on above: Performed By: #### L 100.0100 #### [facility] [address] [place], [address] RDW SD 41.8 fl Normal 35.1-43.9 [facility] Comment on above: Performed By: #### L 100.0100 #### [facility] [address] [place], [address] WBC (Bld) [#/Vol] 9.0 10*3/uL Normal 4.4-11.0 [facility] Comment on above: Performed By: #### L 100.0100 #### [facility] [address] [place], [address] CNOVon 10-05-2024 CNOV Office Visit (SUDHAKAR ) PADMINI CARR ([id number]) 1990 F Date Time Provider Department 10/05/24 3:30 PM RAMAKRISHNA MOTA During your visit today, we recorded the following information about you: Ramakrishna Mota PA-C 10/05/2024 3:52 PM Signed The patient is followed in the orthopedic clinic for chronic chondral changes in the right knee. She has previously performed physical therapy. She underwent an intra-articular steroid injection with Dr. Chandler on 11/11/2023. Interval History: Padmini Carr returns today for evaluation of the right knee. The patient reports diffuse pain. It is worse with activity or prolonged sitting. She has not had relief with oral NSAIDs. The patient has tried physical therapy in the past but does not think it is worth the time. She has received relief from steroid injections in the past. She denies any adverse effects to prior injections. The patient is not diabetic. Review of Systems: CV: No chest pain Pulm: No short of breath HEENT: No head ache General: no fevers, chills, nausea/vomiting, malaise Physical Examination: This is a well appearing, well nourishedl patient in no acute distress. Head is normocephalic and atraumatic. White sclera and pink conjunctiva. Mucous membranes are moist. Patient breathes easily and has normal chest wall excursion. Affect is normal. Examination of the right knee reveals loss of normal contour. There is no visible erythema or skin lesions. The patient is able to perform a straight leg raise. Active range of motion 0-110 degrees. There is tenderness with palpation of the medial joint line. There is not significant tenderness palpation of the lateral joint line. There is pain and crepitus with patellofemoral grinding. Negative posterior drawer. Negative Alcides's. There is no laxity with valgus or varus stress testing. Mel's test results and diffuse knee pain. Imaging: Plain films from [facility] are personally reviewed by me and demonstrate degenerative changes. Procedure: The risk of intra-articular steroid injections are reviewed with the patient. These include tissue breakdown. Following this discussion, the patient wishes to proceed with a steroid injection. Large Joint Arthro/Inj: R knee joint 10/05/2024 3:51 PM The procedure site was prepped in the usual sterile fashion. Site: R knee joint Medications: 40 mg triamcinolone acetonide 40 mg/mL Anesthetics: 5 mL lidocaine (PF) 10 mg/mL (1 %) Outcome: Tolerated well, no immediate complications Post-injection instructions were reviewed with the patient and the patient voiced understanding of these instructions. Informed Consent Consent Obtained: Verbal Eastern Protocol A moment to CARE was completed. SIGN IN Personnel directly involved with the procedure wore the appropriate PPE. Special Equipment: N/A Patient/Surrogate Stated/Verified: Patient name, Date of , Relevant allergies and Intended procedure TIME OUT Relevant labs, photos, and/or imaging studies have been reviewed. Intended patient and procedure match source documents. Consent obtained and matches the intended procedure. Correct side/site marked and visible. Medications required for procedure verified. No fire risk assessment and interventions applicable. No implant(s) inserted. SIGN OUT No specimen collected. All instruments, equipment, possible retained foreign bodies accounted for. The post-procedure POC has been communicated to the patient or surrogate. No post-procedure POC communication to the patient's multidisciplinary team (including the bedside nurse for hospitalized patients) applicable. Impression: Padmini Carr is a 33 year old female here with a diagnosis of chronic right knee pain. Plan: The patient tolerated her injection well. She is given verbal and written postinjection instructions. She is encouraged to remain active. She may return to the orthopedic clinic on a as needed basis. Ramakrishna Mota PA-C I spent a total of 30 minutes on the date of the service which included preparing to see the patient, [id number] patient care, and completing clinical documentation. Ramakrishna Mota PA-C 10/05/2024 3:40 PM Signed Thank you for seeing us today in the Orthopaedics Department. Today we discussed your condition and next steps in management. You received a steroid injection today. You may notice improvement of your symptoms following your injection. It is important to avoid strenuous activity, excessive weightbearing, prolonged standing, jogging, or heavy lifting for 24 hours following your injection. Occasionally, individuals will notice increase pressure and soreness following an injection. This will improve over time. You may utilize ice and antiinflammatory medication if you are able to take this. Other patients may experience facial flush (more content not included)... Normal [facility] XR KNEE 4V AP/PA BOTH+LAT/ME R RTon 10-05-2024 XR KNEE 4V AP/PA BOTH+LAT/AGGIE RT * * *Final Report* * * DATE OF EXAM: Oct 05 2024 3:11PM STX 5203 - XR KNEE 4V AP/PA BOTH+LAT/AGGIE RT / PROCEDURE REASON: Pain * * * * Physician Interpretation * * * * KNEE RADIOGRAPHS - BILATERAL HISTORY: Pain TECHNOLOGIST PROVIDED HISTORY (if applicable): RIGHT KNEE PAIN TECHNIQUE: XR KNEE 4V AP/PA/AGGIE BOTH+LAT RT COMPARISON: Right knee 10/16/2023 RESULT: Normal bone mineralization. No evidence of fracture or dislocation. Normal alignment. There is mild medial and [id number] patellofemoral compartment joint space narrowing. Some degenerative sclerosis and peripheral osteophytes. Mild degenerative beaking of the tibial spines. Patellar enthesophytes. Small enthesophyte right anterior tibial tubercle. No osseous erosions. Tiny right suprapatellar knee joint effusion. Soft tissues are within normal limits. IMPRESSION: 1. Mild osteoarthropathy of the knees bilaterally. 2. Patellar enthesophytes. 3. Tiny right knee suprapatellar joint effusion. 4. No acute osseous finding. Sales Consulting Director: MISHA Transcribe Date/Time: Oct 08 2024 11:21A Dictated by : SUDHAKAR MONTEJO MD This examination was interpreted and the report reviewed and electronically signed by: SUDHAKAR MONTEJO MD on Oct 08 2024 11:23AM EST [id number] Normal [facility] CNOVon 04-26-2024 CNOV Office Visit (OBHCMO ) PADMINI CARR ([id number]) 1990 F Date Time Provider Department 04/26/24 11:30 AM ROSENDO GAGNON OBHCMO During your visit today, we recorded the following information about you: Blood pressure Weight 118/64 113.4 kg Rosendo Gagnon DO 04/26/2024 11:53 AM Signed HISTORY AND PHYSICAL EXAMINATION SERVICE DATE: 04/26/2024 SERVICE TIME: 11:49 AM PRIMARY CARE PHYSICIAN: No primary care provider on file. Subjective CHIEF COMPLAINT: post op state HPI: This is a 33 year old female who presents with hx of LAVH, LSO due to torsion then RSO due to torsion. Currently with some left sided pain, normal BM and urination. FUNCTIONAL STATUS: Independent PAST MEDICAL HISTORY Diagnosis Date Chronic midline low back pain without sciatica 07/30/2016 Depression at least 5 yrs H/O total vaginal hysterectomy Hypothyroidism Morbid obesity due to excess calories (HCC) 07/30/2016 PAST SURGICAL HISTORY Procedure Laterality Date APPENDECTOMY 04/04/2024 CHG DELIVERY 05/16/2010 CHOLECYSTECTOMY HX 05/16/2010 LAP SLEEVE GASTRECTOMY 2018 REMOVAL OF OVARY(S) Left 04/04/2024 torsion REMOVAL OF OVARY(S) Right 04/16/2024 [facility]/ Torsion VAGINAL HYSTERECTOMY 05/25/2023 vNOTES with bilateral salpingectomy FAMILY HISTORY Problem Relation Age of Onset Diabetes Mother Diabetes Maternal Grandmother Anesthesia Problems No Family History Social History Tobacco Use Smoking status: Never Smokeless tobacco: Never Vaping Use Vaping status: Never Used Substance Use Topics Alcohol use: No Drug use: No (Not in a hospital admission) ALLERGIES No Known Allergies COMPLETE REVIEW OF SYSTEMS: GENERAL: No weight loss, malaise or fevers NECK: Negative for lumps, goiter, pain and significant neck swelling RESPIRATORY: Negative for cough, hemoptysis, wheezing, COPD, dyspnea or shortness of breath CARDIOVASCULAR: Negative for chest pain, leg swelling, hypertension, CHF or palpitations GI: No nausea, vomiting, or diarrhea : No history of dysuria, frequency or incontinence Objective PHYSICAL EXAM: Physical Exam Performed: GENERAL: Alert, no distress, cooperative ABDOMEN: Abdomen soft, non-tender, BS normal, No masses or organomegaly and incisions healing BP 118/64 Wt 250 lb (113.4kg) LMP 04/04/2023 DATA: Diagnostic tests reviewed for today's visit: Most recent labs and imaging results. Assessment/Plan Post op state- we discussed the need for estrogen replacement - climara previously prescribed. Pt to virtual visit in 2 mths for assessment for climara use. Active Hospital Problems No active problems on problem list @OBESITYCLASS@ Assessment AND Plan Post-operative state Adverse effect of female hormone replacement therapy, initial encounter Medication and Non-Pharmacologic VTE Prophylaxis/Anticoagulants VTE Prophylaxis: VTE prophylaxis appropriate Medical Decision Making: Problems: Moderate: New problem with uncertain prognosis Data: Unique source(s) for external note(s) reviewed: 2 Unique test result(s) reviewed: 2 Risk: Moderate: Moderate risk from testing/treatment Medical Decision Making Level: 4 - Moderate SIGNATURE: Rosendo Gagnon DO PATIENT NAME: Padmini Carr DATE: April 26, 2024 TIME: 11:49 AM Allergies As of Date: 04/26/2024 (No Known Allergies) Date Reviewed: 04/26/2024 Reviewed by: Ana Richard MA - Fully Assessed Reason for Visit: Post Op [174] Cmt: APPENDECTOMY/OOPORECTOMY Primary Visit Diagnosis:Post-operative state [Z98.890] Other Visit Diagnosis:Adverse effect of female hormone replacement therapy, initial encounter [T38.5X5A] Prescriptions as of 04/26/2024 - acetaminophen (TYLENOL ORAL) Take by mouth. - estradiol (CLIMARA) 0.05 mg/24 hr patch Apply 1 Patch as directed one time a week. - diclofenac (VOLTAREN ARTHRITIS PAIN) 1 % topical gel Apply 2 g to affected area four times daily. - hydrOXYzine HCl (ATARAX) 25 mg tablet Take 25 mg by mouth three times a day as needed. - cariprazine (VRAYLAR) 3 mg capsule Take 3 mg by mouth once daily. 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 Normal [facility] MR/POSTOP.Joce 04-16-2024 MR/POSTOP.KARINA VELAZQUEZ [facility] Medical Records Department [address] [place] [address] Anesthesia Postop Eval I 04/16/24144 MR#: [id number] Acct: [id number] Name: PADMINI CARR Rep #: [id number] : 1990 33 From: Deangelo Vieyra MD PCP: Care Physician,No Primary Status:[facility] Y Race: C Location: [facility] [place] Anesthesia: Postop Eval I Current Vital Signs Temperature: 98.2 F Pulse Rate: 99 Blood Pressure: 129/79 Respiratory Rate: 16 Pulse Ox: 95 Oxygen Delivery Method: Room Air Assessment Airway patent: Yes Spontaneous unlabored respirations: Yes Mental status: Awake nausea: No Vomiting: No Anesthesia Complication: No Fluid Hydration Crystalloid volume administer (ml): 500 Total IV fluid infused: 500 Progress Note Anesthesia document: Postop Eval 1 completed: Yes 04/16/24 08 Date [facility] Signature: Date CC: Signed Normal [facility] MR/[id number] 04-16-2024 /[facility] Medical Records Department [address] [place] [address] Anesthesia Postop Eval II 04/16/24 0807 MR#: [id number] Acct: [id number] Name: PADMINI CARR Rep #: [id number] : 1990 33 From: Deangelo Vieyra MD PCP: Care Physician,No Primary Status:[facility] Y Race: C Location: [facility] [place] Anesthesia Postop Eval I Sum Postop Eval Completion status Anesthesia document: Postop Eval 1 completed: Yes Anesthesia Postop Eval I Summary Anesthesia Postop Eval I Summary: Anesthesia Postop Eval I: Assessment Summary Airway patent Yes 04/16/24 08:06 Spontaneous unlabored Yes 04/16/24 08:06 respirations Mental status Awake 04/16/24 08:06 nausea No 04/16/24 08:06 Vomiting No 04/16/24 08:06 Anesthesia Postop Eval I: Fluid Summary Crystalloid volume administer 500 04/16/24 08:06 DR.BWEEMA (ml) Colloids volume administered ( ml) Blood Product volume administered (ml) Total IV fluid infused 500 04/16/24 08:06 Anesthesia Postop Eval I: Summary Notes Anesthesia Complication No 04/16/24 08:06 Anesthesia Complication Comment: Post-operative progress note Anesthesia: Postop Eval II Evaluation Mental status: Awake Pain Level: 0 nausea: No Vomiting: No 04/16/24 0807 Date Deangelo Palominoignkamila Signature: Date CC: Signed Normal [facility] Operative Reporton 4 Operative Report [facility] Medical Records Department [address] [place] [address] Operative Report 04/16/24 0130 MR#: [id number] Acct: [id number] Name: PADMINI CARR Rep #: [id number] : 1990 33 From: Monica Garg MD PCP: Care Physician,No Primary Status:[facility] Location: [facility] [place] Problems Associated Problem List Diagnoses (1) Torsion of right ovary: (2) Abdominal pain: Operative Report (Standard) Operative Information Surgery/Procedure Performed: laparoscopic right oophorectomy Surgeon: Monica Garg Date of Procedure: 04/16/24 Procedure Start Time: 01:08 Procedure Stop Time: 01:34 Pre-Operative Diagnosis: right ovarian torsion Post-Operative Diagnosis: same Select all DRAINS/GRAFTS/IMPLANTS that apply: None Type of Anesthesia: General Estimated Blood Loss: 10cc Specimen collected: Yes Description of specimen(s) removed: right ovary Description of surgery: Patient presented to the ED with abdominal pain. Approximately 2 weeks ago she had a left oophorectomy with appy for a left ovarian torsion. She has had a previous hysterectomy. Patient taken to the OR with IV fluids running. She was placed in a dorsal supine position. Anesthesia was induced and she was prepped and draped in the normal fashion. An incision was made in the umbilicus and the Veress needle was used to create a pneumoperitoneum. A 5 mm clear view trocar was placed into the abdominal cavity. She was then placed in Trendelenburg. The right ovary was enlarged and twisted several times on its pedicle. There were no other adhesions present. The was a moderated amount of pelvic fluid and minimal bleeding. The left and right lower ports were then placed under direct visualization. The ovary was elevated and a LigaSure was used to ligate the ovary. The ovary was drained of it fluid to collapse it. It was then placed in an EndoCatch bag and removed through the left lower port. The remaining fluid was removed. Hemostasis was achieved. The instruments were removed and the pneumoperitoneum released. The ports were removed. The incisions were closed with 0- Vicryl at the fascia and 4-0 on the skin. All counts were correct. Surgical Findings: right ovary twisted on its pedicle Welder Operator corporate banking officer: Yes Coin Machine Operator: Estiven Eldridge Tasks completed by events administrative assistant: Closing, Insert Trochanter and Retracting Additional business office assistant?: No Complications Complications: No Admit VTE Documentation VTE Present on Admission: No VTE Mechan Device Prophylaxis: SCD's 04/16/24 0657 Cosigner Signature (if applicable): CC: Dr. Monica Garg MD; No Primary Care Physician Signed Normal [facility] Surgery Specimen Level Belinda 04-16-2024 Surgery Specimen Level IV ----- Patient Age/Sex Location Account Attending Physician ----- PADMINI CARR 33/F [facility] [place] [facility] [id number] Dr. Monica Garg MD ----- Specimen: [id number] Received: 04/16/24 Status: FRANCINE Gomez Num: [id number] Spec Type: OVARY Subm Dr: Dr. Monica Garg MD HEADER OPERATION: Laparoscopic right oophorectomy PRE-OP DIAGNOSIS: Torsion of right ovary TISSUE SUBMITTED: Right ovary ----- MICROSCOPIC DIAGNOSIS Right ovary, oophorectomy: Hemorrhagic infarction consistent with torsion. AM. 04/17/2024 MICROSCOPIC DESCRIPTION Slides are reviewed. GROSS DESCRIPTION Received in fixative is one container labeled with the patient's name and designated Right ovary. The specimen consists of a previously opened cystic ovary measuring 8.0 x 6.0 x 2.0cm. The external surface is smooth and glistening. The inner lining is hemorrhagic and irregular. No distinct mass lesions are identified. Dupligraph Operator sections are submitted in four cassettes. AM. 04/16/2024 TC:5 CPT:71617 ----- Patient Age/Sex Location Account Attending Physician ----- PADMINI CARR 33/F [facility] [place] [facility] [id number] Dr. Monica Garg MD ----- Signed (signature on file) Dr. Diaz Aparicio DO 04/17/24 1202 ----- Normal [facility] Comment on above: Performed By: #### L 500.2500, L100.0100 #### [facility] [address] [place], [place], [id number] Type AND Screenon 04-16-2024 ABO and Rh group Nom (Bld) Blood group A Rh(D) negative Normal [facility] Comment on above: Order Comment: S Performed By: #### L 500.2500, L100.0100 #### [facility] Laboratory [address] [place], [address] Abdomen/Pelvis W IV Cont ONL Yon 04-15-2024 Abdomen/Pelvis W IV Cont ONLY [facility] Imaging Services [address] [place] [address] Abdomen/Pelvis W IV Cont ONLY MR#: [id number] Acct: [id number] Name: PADMINI CARR Rep #: [id number] : 1990 F 33 From: Meet Zuniga PCP: Care Physician,No Primary Status: REG ER Study: Abdomen/Pelvis W IV Cont ONLY Date of Exam: Exam# [id number] Ordering Dr: Ruslan Mooney MD ADDENDUM by Dr. Meet Jennings MD on 04/15/24 at 2007 ADDENDUM [id number] Critical finding called and case discussed. 04/15/2024 8:06 PM RUSLAN Right adnexal finding is less likely a abscess. Although this is not entirely excluded. There has been appendectomy changes. The finding in the right adnexa was previously noted on the prior study. However currently is smaller and less hyperdense. Electronically Signed: Meet Jennings MD at 20:08 EST , 04/15/242007 Date cc: Dr. Ruslan Mooney MD; No Primary Care Physician * Signed ADDENDUM by Dr. Meet Jennings MD on 04/15/[address]/Abdomen/Pelvis W IV Cont ONLY IMPRESSION: undefined 04/15/242014 Date cc: Dr. Ruslan Mooney MD; No Primary Care Physician * Signed [id number] STUDY: CT Abdomen And Pelvis W/ Contrast Injection 04/15/2024 7:20 PM REASON FOR EXAM: Female, 33 years old. ABDOMINAL PAIN Abrupt right lower quadrant pain status post -- Salpingo-oophorectomy and appendectomy 10 days ago TECHNIQUE: Transaxial images were obtained without oral contrast, and IV 100mL Isovue-370 intravenous contrast. Individualized dose optimization techniques were used for this CT. COMPARISON: 03.28.24 FINDINGS: Stable 6 mm and 4.7 mm nodule in the right lower lobe . The visualized portions of the heart are within normal limits. Unremarkable liver. There are surgical clips in the gallbladder fossa consistent with a prior cholecystectomy. Unremarkable spleen. Unremarkable pancreas. Unremarkable bilateral adrenal glands. No acute findings of the right kidney. No acute findings of the left kidney. Unremarkable visualized stomach. Unremarkable small intestine. Unremarkable colon. There are surgical clips in the region of the appendix consistent with a prior appendectomy. There are no acute findings of the abdominal aorta. Unremarkable inferior vena cava. Subcentimeter mesenteric lymph nodes. Unremarkable urinary bladder. There is absence of the uterus consistent with a prior hysterectomy. 64 mm cystic lesion again noted in the right adnexa. Previously this had a dense one. Presently it only has a thickened wall. There is an umbilical hernia containing fat. There are diffuse degenerative changes of the visualized lumbar spine. CT/Abdomen/Pelvis W IV Cont ONLY IMPRESSION: (NOT LISTED IN ORDER OF SIGNIFICANCE) Cystic area in the right adnexa has changed in density since the prior study. This may represent resolution of the hemorrhagic component of a hemorrhagic cyst. Other findings as above. Electronically Signed: Meet Jennings MD at 19:43 EST Reading Location ID and State: [facility] / [place] , Service support , CC: Dr. Ruslan Mooney MD; No Primary Care Physician Sales Consulting Director: Signed Normal [facility] Basic Metabolic Profile (BMP )on 04-15-2024 BUN/CRE 13.9 RATIO Normal 10-20 [facility] Comment on above: Performed By: #### L 500.2500, L100.0100 #### [facility] Laboratory [address] [place], [address] CA,Total 8.7 mg/dL Normal 8.5-10.1 [facility] Comment on above: Performed By: #### L 500.2500, L100.0100 #### [facility] Laboratory [address] [place], [address] Chloride [Moles/Vol] 109 mmol/L High 98-107 [facility] Comment on above: Performed By: #### L 500.2500, L100.0100 #### [facility] [address] [place], [address] CO2 [Moles/Vol] 26.0 mmol/L Normal 21.0-32.0 [facility] Comment on above: Performed By: #### L 500.2500, L100.0100 #### [facility] [address] [place], [address] Creatinine [Mass/Vol] 0.94 mg/dL Normal 0.55-1.02 [facility] Comment on above: Result Comment: The validity of the calculated GFR GFRAA in patients over 70 years has not been determined. Clinical correlation is essential. Performed By: #### L 500.2500, L100.0100 #### [facility] [address] [place], [address] ECRCL 104.96 ml/min Normal [facility] Comment on above: Performed By: #### L 500.2500, L100.0100 #### [facility] [address] [place], [address] EST GFR - AA 88 mL/min Normal >60 [facility] Comment on above: Result Comment: Afri can Uzbek GFR Calc Performed By: #### L 500.2500, L100.0100 #### [facility] [address] [place], [address] GAP 7 Normal 5-15 [facility] Comment on above: Performed By: #### L 500.2500, L100.0100 #### [facility] [address] [place], [address] GFR/1.73 sq M.predicted among non-blacks MDRD (S/P/Bld) [Vol rate/Area] 72 mL/min/{1.73_m2} Normal >60 [facility] Comment on above: Result Comment: Non- GFR Calc Performed By: #### L 500.2500, L100.0100 #### [facility] [address] [place], [address] Glucose [Mass/Vol] 141 mg/dL High 74-106 [facility] Comment on above: Result Comment: Fast ing Glucose result greater than or equal to 126 mg/dL suggests DIABETES MELLITUS per A.D.A. criteria. Performed By: #### L 500.2500, L100.0100 #### [facility] [address] [place], [address] Potassium [Moles/Vol] 3.7 mmol/L Normal 3.5-5.1 [facility] Comment on above: Performed By: #### L 500.2500, L100.0100 #### [facility] [address] [place], [address] Sodium [Moles/Vol] 142 mmol/L Normal 136-145 [facility] Comment on above: Performed By: #### L 500.2500, L100.0100 #### [facility] [address] [place], [address] Urea nitrogen [Mass/Vol] 13 mg/dL Normal 7-18 [facility] Comment on above: Performed By: #### L 500.2500, L100.0100 #### [facility] [address] [place], [address] CBC W/Diff, Automatedon 12-0 -2023 Absolute Lymph 2.82 X10 3/uL Normal 0.83-4.51 [facility] Comment on above: Performed By: #### L 500.2500, L100.0100 #### [facility] [address] [place], [address] Absolute Neut 4.7 X10 3/uL Normal 2.0-7.7 [facility] Comment on above: Performed By: #### L 500.2500, L100.0100 #### [facility] [address] [place], [address] Basophils/100 WBC (Bld) 0.2 % Normal 0-1 [facility] Comment on above: Performed By: #### L 500.2500, L100.0100 #### [facility] [address] [place], [address] Eosinophils/100 WBC (Bld) 2.0 % Normal 0-5 [facility] Comment on above: Performed By: #### L 500.2500, L100.0100 #### [facility] [address] [place], [address] Erythrocyte distribution width (RBC) [Ratio] 12.2 % Normal 11.6-14.6 [facility] Comment on above: Performed By: #### L 500.2500, L100.0100 #### [facility] [address] [place], [address] Hematocrit (Bld) [Volume fraction] 39.9 % Normal 37-47 [facility] Comment on above: Performed By: #### L 500.2500, L100.0100 #### [facility] [address] [place], [address] Hemoglobin (Bld) [Mass/Vol] 13.0 g/dL Normal 12.0-15.0 [facility] Comment on above: Performed By: #### L 500.2500, L100.0100 #### [facility] [address] [place], [address] IG% 0.600 Normal 0.0-0.9 [facility] Comment on above: Result Comment: IG% - Immature Granulocytes (promyelocytes, myelocytes and metamyelocytes) > 1% indicates that a LEFT SHIFT is Present. Performed By: #### L 500.2500, L100.0100 #### [facility] [address] [place], [address] Lymphocytes/100 WBC (Bld) 33.9 % Normal 19-41 [facility] Comment on above: Performed By: #### L 500.2500, L100.0100 #### [facility] [address] [place], [address] MCH (RBC) [Entitic mass] 29.3 pg Normal 27.0-32.0 [facility] Comment on above: Performed By: #### L 500.2500, L100.0100 #### [facility] [address] [place], [address] MCHC (RBC) [Mass/Vol] 32.6 g/dL Normal 32-36 [facility] Comment on above: Performed By: #### L 500.2500, L100.0100 #### [facility] [address] [place], [address] MCV (RBC) [Entitic vol] 89.9 fL Normal 81-99 [facility] Comment on above: Performed By: #### L 500.2500, L100.0100 #### [facility] [address] [place], [address] Monocytes/100 WBC (Bld) 6.3 % Normal 0-10 [facility] Comment on above: Performed By: #### L 500.2500, L100.0100 #### [facility] [address] [place], [address] Neutrophils/100 WBC (Bld) 57.0 % Normal 47-70 [facility] Comment on above: Performed By: #### L 500.2500, L100.0100 #### [facility] [address] [place], [address] Nucleated RBC (Bld) [#/Vol] 0 10*3/uL Normal 0-5 [facility] Comment on above: Performed By: #### L 500.2500, L100.0100 #### [facility] [address] [place], [address] Platelet mean volume (Bld) [Entitic vol] 9.8 fL Normal 6.2-12.0 [facility] Comment on above: Performed By: #### L 500.2500, L100.0100 #### [facility] [address] [place], [address] Platelets (Bld) [#/Vol] 372 10*3/uL Normal 150-450 [facility] Comment on above: Performed By: #### L 500.2500, L100.0100 #### [facility] [address] [place], [address] RBC (Bld) [#/Vol] 4.44 10*6/uL Normal 4.2-5.4 [facility] Comment on above: Performed By: #### L 500.2500, L100.0100 #### [facility] [address] [place], [address] RDW SD 40.5 fl Normal 35.1-43.9 [facility] Comment on above: Performed By: #### L 500.2500, L100.0100 #### [facility] [address] [place], [address] WBC (Bld) [#/Vol] 8.3 10*3/uL Normal 4.4-11.0 [facility] Comment on above: Performed By: #### L 500.2500, L100.0100 #### [facility] [address] [place], [address] Emergency Department Summary on 04-15-2024 Emergency Department Summary [facility] Medical Records Department [address] [place] [address] Emergency Department Summary 04/15/24 MR#: [id number] Acct: [id number] Name: PADMINI CARR Rep #: [id number] : 1990 33 From: Ruslan Mooney MD PCP: Care Physician,No Primary Status:DEP [facility] Location: [facility] History of Present Illness Chief Complaint: Abd Pain Detail of Chief Complaint: Abrupt onset of right-sided abdominal pain and low back pain Informant: patient and spouse/S.O. Onset/Context/Timing Onset: Today and Hours Context: Sudden Onset Timing: Continuous Quality: Pain Location: Right lower quadrant right lower back Current Severity: Moderate Maximum Severity: Severe Worsened by: Movement Relieved by: Nothing Associated Symptoms Associated Symptoms: Lightheadedness and nausea Narrative Narrative: Patient is a 33-year-old woman. She was seen twice last month. She had a CAT scan and an ultrasound done on first visit which revealed a 9.5 cm right ovarian cyst. Second ultrasound revealed a complex/hemorrhagic right ovarian cyst. [facility] Medical History Ovarian cyst Strain of right knee Internal derangement of right knee FHx: cholecystectomy Home Medications ???Medication ???Instructions ???Recorded ???Last Taken ???Type NK 04/15/24 Unknown History oxycodone 5 mg tablet 5 mg PO Q6H PRN PRN severe pain 5 12/02/24 Unknown Rx days #20 TABLETS Allergy/AdvReac Type Severity Reaction Status Date / Time No Known Allergies Allergy Verified 04/15/24 17:44 Family History Other Diabetes Surgical History H/O gastric sleeve History of delivery Social History Smoking Status: Never smoker alcohol intake: never EXAM Physical Exam Const Vital Signs: 04/15/24 17:25 04/15/24 19:30 04/15/24 21:00 Temperature 97.8 F Temperature Source Temporal Pulse Rate 76 65 63 Respiratory Rate 18 16 16 Blood Pressure 117/80 119/69 128/74 H Blood Pressure Mean 92 85 92 Pulse Ox 100 96 99 Oxygen Delivery Method Room Air Room Air Room Air 04/15/24 23:00 Temperature Temperature Source Pulse Rate 56 L Respiratory Rate 16 Blood Pressure 123/70 H Blood Pressure Mean 87 Pulse Ox 97 Oxygen Delivery Method Room Air Physical Exam Const Vital Signs: 04/15/24 17:25 04/15/24 19:30 04/15/24 21:00 Temperature 97.8 F Temperature Source Temporal Pulse Rate 76 65 63 Respiratory Rate 18 16 16 Blood Pressure 117/80 119/69 128/74 H Blood Pressure Mean 92 85 92 Pulse Ox 100 96 99 Oxygen Delivery Method Room Air Room Air Room Air 04/15/24 23:00 Temperature Temperature Source Pulse Rate 56 L Respiratory Rate 16 Blood Pressure 123/70 H Blood Pressure Mean 87 Pulse Ox 97 Oxygen Delivery Method Room Air MDM MDM MDM Narrative Medical decision making narrative: Patient has a surgical abdomen. She has peritoneal findings. In light of history, physical exam concerned this may represent a abscess, ruptured abscess, ruptured hematoma with bleeding since she gets orthostatic symptoms. Will obtain CBC to assess white count differential and H H. Electrolyte panel was obtained to assess renal function. Lactate was ordered as well. Because she has peritoneal findings she was treated with 4.5 g of Zosyn. She was medicated with Zofran for nausea and 8 mg of morphine for pain. CT of the abdomen pelvis reveals what appears to be an abscess. There is no evidence of pneumoperitoneum. Awaiting formal read by radiologist. Since patient had surgery at [facility] my [facility] will transfer to my [facility] if radiologist agrees with my interpretation of the CAT scan. Lab Data Attestation: I reviewed the patient's lab results. Lab results narrative: White count is normal. Electrolyte panel is remarked for glucose of 141 with a normal CO2 anion gap. Lactate is elevated 2.4. Labs: Laboratory Results - last 24 hr 04/15/24 04/15/24 17:46 18:20 WBC 8.3 RBC 4.44 Hgb 13.0 Hct 39.9 MCV 89.9 MCH 29.3 MCHC 32.6 RDW Std Deviation 40.5 RDW Coeff of Deidre 12.2 Plt Count 372 MPV 9.8 Immature Gran % (Auto) 0.600 Neut % (Auto) 57.0 Lymph % (Auto) 33.9 [place] % (Auto) 6.3 Eos % (Auto) 2.0 Baso % (Auto) 0.2 Absolute Neuts (auto) 4.7 Absolute Lymphs (auto) 2.82 Nucleated RBC % 0 Sodium 142 Potassium 3.7 Chloride 109 H Carbon Dioxide 26.0 Anion Gap 7 BUN 13 Creatinine 0.94 Estim Creat Clear Calc 104.96 Est GFR (MDRD) A (more content not included)... Normal [facility] H AND P Exam - OB/GYNon 12 H&P Exam - OLIVE GROWER [facility] Medical Records Department [address] [place] [address] H P Exam - OLIVE GROWER 04/15/24 2338 MR#: [id number] Acct: [id number] Name: PADMINI CARR Rep #: [id number] : 1990 33 From: Monica Garg MD PCP: Care Physician,No Primary Status:REG ER Location: ED HPI - General General Date of Admission: 04/15/24 Date of Service: 04/15/24 Chief Complaint: Abdominal pain HPI Narrative PADMINI CARR, is a 33 F who presents to ED with abdominal pain. Had laparoscopic Left oopherectomy a week ago with ovarian torsion. Appy at that time as well. Today presents with 6 cm right ovarian cyst with minimal ovarian blood flow and uncontrolled pain PFSH PFSH Medical History Ovarian cyst Strain of right knee Internal derangement of right knee FHx: cholecystectomy Home Medications ???Medication ???Instructions ???Recorded ???Last Taken ???Type NK 04/15/24 Unknown History Allergy/AdvReac Type Severity Reaction Status Date / Time No Known Allergies Allergy Verified 04/15/24 17:44 Family History Other Diabetes Surgical History H/O gastric sleeve History of delivery Social History Smoking Status: Never smoker alcohol intake: never Vital Signs Vital Signs Vital Signs: 04/15/24 17:25 04/15/24 19:30 04/15/24 21:00 Temperature 97.8 F Temperature Source Temporal Pulse Rate 76 65 63 Respiratory Rate 18 16 16 Blood Pressure 117/80 119/69 128/74 H Blood Pressure Mean 92 85 92 Pulse Ox 100 96 99 Oxygen Delivery Method Room Air Room Air Room Air 04/15/24 23:00 Temperature Temperature Source Pulse Rate 56 L Respiratory Rate 16 Blood Pressure 123/70 H Blood Pressure Mean 87 Pulse Ox 97 Oxygen Delivery Method Room Air Weight Weight: 116.936 kg Body Mass Index (BMI) 44.2 Physical Exam Const alert and oriented x3 General Appearance: cooperative and in distress Positive for mild HEENT normocephalic Head and Scalp: atraumatic Eyes PERRL and EOMs intact bilaterally Neck full ROM Resp normal respiratory effort Cardio regular rate and regular rhythm GI soft to palpation; Negative for non-tender Palpation: tender Extremity normal to inspection Neuro moves all extremities Psych mental status grossly normal and affect normal Labs Labs Labs: Hct 39.9 % (37-47) Hgb 13.0 g/dL (12.0-15.0) Assessment Plan (1) Torsion of right ovary: PLAN: Plan Consented to laparoscopic right oophorectomy. Aware that she will be surgically menopausal with the removal of her ovary. Hx of scar tissue with multiple abdominal surgeries. Discussed the risk of surgical injuries with multiple surgeries 04/15/24 6506 Cosigner Signature (if applicable): CC: Dr. Monica Garg MD; No Primary Care Physician Signed Normal [facility] Lactic Acidon 04-15-2024 Lactate [Moles/Vol] 1.6 mmol/L Normal 0.4-1.9 [facility] Comment on above: Performed By: #### L 503.6005 #### [facility] [address] [place], [place], [address] Lactate [Moles/Vol] 2.4 mmol/L Invalid Interpretation Code 0.4-1.9 [facility] Comment on above: Order Comment: Y Result Comment: Crit ical Result(s) Called at: 19:17:21 04/15/2024 by:Susannah Carrion to Mayela Harris. Results read back by same. Performed By: #### L 503.6005 #### [facility] [address] [place], [place], [address] Transvaginal Non-on 04-15-2024 Transvaginal Non- [facility] Imaging Services [address] [place], [place] [address] Transvaginal Non- MR#: [id number] Acct: [id number] Name: PADMINI CARR Rep #: [id number] : 1990 F 33 From: Lauro Dorantes MD PCP: Care Physician,No Primary Status: [facility] ER Study: Transvaginal Non- Date of Exam: Exam# [id number] Ordering Dr: Ruslan Mooney MD ADDENDUM by Dr. Lauro Dorantes MD on 04/15/24 at 2316 ADDENDUM [id number] Cassandra Trevizo was notified of these findings on 04/15/2024 at 10:14 PM Central time telephonically by myself. Electronically Signed: Lauro Dorantes DO at 23:16 EST Reading Location ID and State: [facility] / [place] Tel , Service support , N.B. : The above Results were Read Back by Lauro Dorantes DO to CASSANDRA WILEY MD, and understanding confirmed on 04/15/2024 23:15:12 (ET). 04/15/242315 Date cc: Dr. Ruslan Mooney MD; No Primary Care Physician * Signed ADDENDUM by Dr. Lauro Dorantes MD on 04/15/24 at 2311 [id number] INDICATION: ovarian cyst, evaluate for torsion EXAMINATION: Ultrasound US Transvaginal Non-OB TECHNIQUE: Transvaginal sonographic images of the pelvis. Grayscale, spectral waveform, and color flow Doppler evaluation of the adnexa. COMPARISON: 03/29/2024 ultrasound and 04/15/2024 CT. FINDINGS: UTERUS: Status post hysterectomy. RIGHT OVARY: Stable 7.0 cm hemorrhagic cyst. Absent arterial and venous venous flow other than a small amount of venous flow detected in one portion of the ovary. LEFT OVARY: Status post oophorectomy. FREE FLUID: No significant free fluid. 04/15/24 2311 Date cc: Dr. Ruslan Mooney MD; No Primary Care Physician * Signed ADDENDUM by Dr. Lauro Dorantes MD on 04/15/24 at 2316 US/Transvaginal Non- IMPRESSION: undefined 04/15/242322 Date cc: Dr. Ruslan Mooney MD; No Primary Care Physician * Signed ADDENDUM by Dr. Lauro Dorantes MD on 04/15/24 at 2311 US/Transvaginal Non- IMPRESSION: 1. Right ovarian torsion. Torsion may be incomplete with a small amount of venous flow detected in a portion of the ovary with the remainder of the ovary avascular. 2. Stable 7.0 cm right hemorrhagic cyst. N.B. : The above Results were Read Back by Lauro Dorantes DO to CASSANDRA WILEY MD, and understanding confirmed on 04/15/2024 23:15:12 (ET). Electronically Signed: Lauro Dorantse DO at 23:11 EST Reading Location ID and State: [facility] / [place] Tel , Service support , 04/15/242321 Date cc: Dr. Ruslan Mooney MD; No Primary Care Physician * Signed We are attempting to reach an attending provider to discuss findings. An addendum with communication details will be sent when the communication is complete. [id number] INDICATION: ovarian cyst, evaluate for torsion EXAMINATION: Ultrasound US Transvaginal Non-OB TECHNIQUE: Transvaginal sonographic images of the pelvis. Grayscale, spectral waveform, and color flow Doppler evaluation of the adnexa. COMPARISON: 03/29/2024 ultrasound and 04/15/2024 CT. FINDINGS: UTERUS: Status post hysterectomy. RIGHT OVARY: Stable 7.0 cm hemorrhagic cyst. Absent arterial and venous venous flow other than a small amount of venous flow detected in one portion of the ovary. LEFT OVARY: Status post oophorectomy. FREE FLUID: No significant free fluid. US/Transvaginal Non- IMPRESSION: 1. Right ovarian torsion. Torsion may be incomplete with a small amount of venous flow detected in a portion of the ovary with the remainder of the ovary avascular. 2. Stable 7.0 cm right hemorrhagic cyst. Electronically Signed: Lauro Dorantes DO at 23:11 EST , CC: Dr. Ruslan Mooney MD; No Primary Care Physician Sales Consulting Director: Signed [facility] 04-05-2024 [facility] Telephone (PREANME) PADMINI CARR ([id number]) 1990 F Date Time Provider Department 04/05/24 ANTON DACOSTA PREMIGEL During your visit today, we recorded the following information about you: Anton Dacosta LPN 04/05/2024 8:24 AM Signed Patient was scheduled for in person [facility] appt at 0800 today. Patient did not check in for appt, called patient at 0820 to see if they were planning on coming. Unable to lm- appears pt had emergency surgery yesterday. Allergies As of Date: 04/05/2024 (No Known Allergies) Date Reviewed: 04/04/2024 Reviewed by: Mariana Zambrano, RN - Fully Assessed Prescriptions as of 04/05/2024 - oxyCODONE IR (ROXICODONE) 5 mg immediate release tablet Take 1 tablet by mouth every 8 hours as needed for pain for up to 5 days. - diclofenac (VOLTAREN ARTHRITIS PAIN) 1 % topical gel Apply 2 g to affected area four times daily. - hydrOXYzine HCl (ATARAX) 25 mg tablet Take 25 mg by mouth three times a day as needed. - cariprazine (VRAYLAR) 3 mg capsule Take 3 mg by mouth once daily. 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 03/30/2024 Acute epigastric pain [R10.13] 04/09/2014 NO SHOW [928937] 05/14/2014 04/26/2022 Major depressive disorder [F32.9] 07/29/2016 Secondary amenorrhea [N91.1] 07/30/2016 Morbid obesity due to excess calories (HCC) [E6*07/30/2016 Chronic midline low back pain without sciatica *07/30/2016 Acute pain of right knee [M25.561] 02/16/2023 Hypothyroidism [E03.9] 05/06/2023 Obesity, Class II, BMI 35-39.9 [E66.812] 05/25/2023 Adenomyosis [N80.03] 05/25/2023 05/25/2023 Dysmenorrhea [N94.6] 05/25/2023 05/25/2023 Ovarian torsion [N83.519] 04/04/2024 04/04/2024 Encounter Status:Closed by ANTON DACOSTA on 04/05/24 [facility] 04-04-2024 [facility] HNO ID: [id number] Author: WOODY BALES CT Service: Radiology Author Type: Technologist Type: [facility] Filed: 04/04/2024 10:40 Note Text: Radiology Service Progress Note PATIENT NAME: Padmini Carr DATE OF SERVICE: April 04, 2024 TIME: 10:40 AM PATIENT IDENTITY VERIFICATION COMPLETED USING TWO (2) IDENTIFIERS: Name and Date of confirmed by patient verbally. FALL SCREENING: Has the patient had 2 falls in the last year or 1 fall with injury or currently using an Ambulatory Assistive Device (Walker, Cane, Wheelchair, Crutches, etc.)? Emergency Room Patient: Screened in ED PATIENT GENDER DATA: Female. status: : No status: NO. PATIENT RELEVANT IMPLANT DATA REVIEWED: Not Applicable PATIENT PRESENTS WITH AN IMPLANTABLE OR ATTACHED [employer]: No RADIOLOGY DEPARTMENT: General X-ray: Exam(s) Completed: Chest X-Ray PERIPHERAL IV DATA: Not applicable SIGNED BY: ITA [place] April 04, 2024 10:40 AM [facility] ANES POSTPROC EVALon 024 ANES POSTPROC EVAL HNO ID: [id number] Author: PHILIP RG MD Service: ? Author Type: Anesthesiologist Type: Anesthesia Postprocedure Evaluation Filed: 04/04/2024 15:39 Note Text: POST ANESTHESIA EVALUATION NOTE : 1990 Procedure Summary Date: 04/04/24 Room / Location: CO OR / CO OR Anesthesia Start: 1348 Anesthesia Stop: Procedures: LAPAROSCOPIC APPENDECTOMY ADULT LAPAROSCOPIC OOPHORECTOMY (Left) LAPAROSCOPY DIAGNOSTIC ENTEROLYSIS ADULT (Abdomen) Diagnosis: Ovarian torsion (Ovarian torsion [N83.519]) Surgeons: Monica Alfaro MD Responsible Provider: Philip Rg MD Anesthesia Type: general ASA Status: 2 - Emergent Anesthesia Type: general Airway Type: ETT Last Vitals Vitals Value Taken Time BP 147/90 04/04/24 1536 Temp 38.3 04/04/24 1537 Pulse 88 04/04/24 1536 Resp 16 04/04/24 1537 SpO2 99 % 04/04/24 1536 Post Anesthesia Patient Status Patient Evaluation: bedside. Anticipated Disposition: inpatient floor planned admission. Neurological Status: aware and responsive. Pulmonary Status: breathing comfortably on supplemental oxygen Airway Control: returned to baseline unsupported. Cardiovascular Status: stable. Pain Management: clinically adequate Postoperative Hydration: acceptable. Intraoperative Events: no significant anesthesia events Post Operative Nausea/Vomiting Status: no significant post operative nausea or vomiting Recommendation: continue current plan of care. Anesthesia Observations No Documentation SIGNATURE: Philip Rg MD PATIENT NAME: Padmini Carr DATE: April 04, 2024 TIME: 3:37 PM CSN: [id number] [facility] ANES PRE-OPon 04-04-2024 ANES PRE-OP HNO ID: [id number] Author: PHILIP RG MD Service: ? Author Type: Anesthesiologist Type: Anesthesia Preprocedure Evaluation Filed: 04/04/2024 13:59 Note Text: ANESTHESIOLOGY DAY OF SURGERY NOTE : 1990 Procedure Information Anesthesia Start Date/Time: 04/04/24 1348 Procedure: LAPROSCOPIC OVARY CYSTECTOMY (Left: Pelvis) Location: [facility] OR / [facility] OR Surgeons: Monica Alfaro MD Estimated body mass index is 42.91 kg/m? as calculated from the following: Height as of this encounter: 162.6 cm (5' 4). Weight as of this encounter: 113.4 kg (250 lb). Most recent hematocrit and potassium results: Hematocrit 37.2 04/04/2024 Potassium 4.6 04/04/2024 Relevant Problems ENDO (+) Hypothyroidism I - PHYSICAL EVALUATION AIRWAY Patient intubated: No. Tracheostomy tube not present Mallampati: II. TM distance: >3 FB. Neck ROM: full ROM without neurological symptoms. Mouth opening: adequate. Short neck: no. Thick neck: no Marcos present: no DENTAL Dental findings: teeth intact. Additional exam findings: yes. CARDIOVASCULAR Rhythm: regular Rate: normal PULMONARY Breath sounds clear to auscultation. II - ANESTHESIA PLAN ASA Score: 2; emergent. Anesthetic Plan: general Airway type: ETT The patient is not a current smoker. NPO Status: adequate Anesthetic plan additional comments: RSI. Beta Fernanda Monitoring Plan Monitoring plan: standard ASA. Post Procedure Analgesic Plan Postoperative analgesic plan: multimodal analgesia. Informed Consent Anesthetic risks, benefits, alternatives, personnel and consent discussed: yes. Patient / Responsible Constitution Party agrees to proceed: yes Patient / Surrogate agrees to blood products: Yes DNR status not reviewed with patient and/or family prior to surgery. Significant changes in the patient condition since the History and Physical, not otherwise documented in primary service progress note: no. Potential Anesthesia issues that may suggest increased risk of complications or contraindication to planned procedure: none. Vitals Value Taken Time BP 114/64 04/04/24 1300 Pulse 62 04/04/24 1300 Resp Temp SpO2 99 % 04/04/24 1300 Facility-Administered Medications as of 04/04/2024 Medication Dose Route Frequency [COMPLETED] ondansetron (PF) 4 mg injection (ZOFRAN) 4 mg INTRAVENOUS ONCE [COMPLETED] HYDROmorphone 0.5 mg injection (DILAUDID) 0.5 mg INTRAVENOUS ONCE Outpatient Medications as of 04/04/2024 Medication Sig diclofenac (VOLTAREN ARTHRITIS PAIN) 1 % topical gel Apply 2 g to affected area four times daily. hydrOXYzine HCl (ATARAX) 25 mg tablet Take 25 mg by mouth three times a day as needed. cariprazine (VRAYLAR) 3 mg capsule Take 3 mg by mouth once daily. I have interviewed and examined the patient. I have reviewed the medical record and/or the pre-anesthesia evaluation, pertinent labs, and test results. This contains updated information obtained within 48 hours of Surgery/Procedure. SIGNATURE: Philip Rg MD PATIENT NAME: Padmini Carr DATE: April 04, 2024 TIME: 1:58 PM CSN: [id number] [facility] BRIEF OP NOTon 04-04-2024 BRIEF OP NOT HNO ID: [id number] Author: PADMINI CRUM MD Service: General Surgery Author Type: Physician Type: Brief Op Note Filed: 04/04/2024 15:23 Note Text: BRIEF OPERATIVE / PROCEDURE NOTE LOG ID: [id number] SURGERY/PROCEDURE DATE: 04/04/2024 INCISION/PROCEDURE START TIME: 2:25 PM INCISION CLOSE/PROCEDURE END TIME: SURGEON(S)/PROCEDURALIST(S) AND SCANNING SUPERVISOR(S): Surgeons and Role: * Monica Alfaro MD - Primary * Padmini Crum MD - Assisting * Izabel Tony MD - Resident - Assisting Physician Engineer [employer]: Shama Gay PA-C; Padmini Reyes PA-C SURGERY/PROCEDURE(S): lap appy ANESTHESIA: * No anesthesia type entered * FINDINGS: see report ESTIMATED BLOOD LOSS: min SPECIMENS: 1 COMPLICATIONS: None CLOSURE TECHNIQUE: Primary PRE-OP/PRE-PROCEDURE DIAGNOSIS: ovarian torsion POST-OP/POST-PROCEDURE DIAGNOSIS: thickened appendix # [id number] SIGNATURE: Padmini Crum MD PATIENT NAME: Padmini Carr DATE: April 04, 2024 TIME: 3:20 PM [facility] Basic metabolic 2000 panelon 04-04-2024 Anion gap [Moles/Vol] 11 mmol/L Normal 8-15 [facility] Comment on above: Order Comment: Speci men Type: BLOOD SPECIMENOrdering Facility: [facility] Address: [address] [place] [address] Performed By: #### 2 4321-2 ####[facility] LABORATORYCLIA [id number] [place] [address] [place] Calcium [Mass/Vol] 8.6 mg/dL Normal 8.5-10.2 [facility] Comment on above: Order Comment: Speci men Type: BLOOD SPECIMENOrdering Facility: [facility] Address: [address] [place] [address] Performed By: #### 2 4321-2 ####[facility] LABORATORYCLIA [id number] [place] [address] [place] Chloride [Moles/Vol] 103 mmol/L Normal 98-107 [facility] Comment on above: Order Comment: Speci men Type: BLOOD SPECIMENOrdering Facility: [facility] Address: [address] [place] [address] Performed By: #### 2 4321-2 ####[facility] LABORATORYCLIA [id number] [place] [address] [place] CO2 [Moles/Vol] 24 mmol/L Normal 22-30 [facility] Comment on above: Order Comment: Speci men Type: BLOOD SPECIMENOrdering Facility: [facility] Address: [address] [place] [address] Performed By: #### 2 4321-2 ####[facility] LABORATORYCLIA [id number] [place] [address] [place] Creatinine [Mass/Vol] 0.71 mg/dL Normal 0.58-0.96 [facility] Comment on above: Order Comment: Speci men Type: BLOOD SPECIMENOrdering Facility: [facility] Address: [address] [place] [address] Performed By: #### 2 4321-2 ####[facility] LABORATORYCLIA [id number] [place] [address] [place] Creatinine and Glomerular filtration rate.predicted panel (S/P/Bld) 114 mL/min/1.73m??? Normal >=60 [facility] Comment on above: Order Comment: Mike gonzales Type: BLOOD SPECIMENOrdering Facility: [facility] Address: [address] [place] [address] Result Comment: Sanjuana mated Glomerular Filtration Rate (eGFR) is calculated using the 2020 CKD-EPI creatinine equation. This equation utilizes serum creatinine, sex, and age as parameters. The creatinine assay has traceable calibration to isotope dilution-mass spectrometry. Refer to KDIGO guidelines for clinical interpretation. In patients with unstable renal function, e.g. those with acute kidney injury, the eGFR may not accurately reflect actual GFR. Performed By: #### 2 4321-2 ####[facility] LABORATORYCLIA [id number] [place] [address] [place] Glucose [Mass/Vol] 94 mg/dL Normal 74-99 [facility] Comment on above: Order Comment: Mike gonzales Type: BLOOD SPECIMENOrdering Facility: [facility] Address: [address] [place] [address] Result Comment: The [place] [employer] (ADA) provides guidance for cutoff values for fasting glucose and random glucose. The ADA defines fasting as no caloric intake for at least 8 hours. Fasting plasma glucose results between 100 to 125 mg/dL indicate increased risk for diabetes (prediabetes). Fasting plasma glucose results greater than or equal to 126 mg/dL meet the criteria for diagnosis of diabetes. In the absence of unequivocal hyperglycemia, results should be confirmed by repeat testing. In a patient with classic symptoms of hyperglycemia or hyperglycemic crisis, random plasma glucose results greater than or equal to 200 mg/dL meet the criteria for diagnosis of diabetes. Reference: Standards of Medical Care in Diabetes 2016, [place] [employer]. Diabetes Care. 2016.39(Suppl 1). Performed By: #### 2 4321-2 ####[facility] LABORATORYCLIA [id number] [place] [id number] [place] Potassium [Moles/Vol] 4.6 mmol/L Normal 3.7-5.1 [facility] Comment on above: Order Comment: Mike gonzales Type: BLOOD SPECIMENOrdering Facility: [facility] Address: [address] [place] [id number] Performed By: #### 2 4321-2 ####[facility] LABORATORYCLIA [id number] [address] [place] [facility] Sodium [Moles/Vol] 138 mmol/L Normal 136-144 [facility] Comment on above: Order Comment: Speci men Type: BLOOD SPECIMENOrdering Facility: [facility] Address: [address] [place] [address] Performed By: #### 2 4321-2 ####[facility] LABORATORYCLIA [id number] [address] [place] [facility] Urea nitrogen [Mass/Vol] 14 mg/dL Normal 7-21 [facility] Comment on above: Order Comment: Speci men Type: BLOOD SPECIMENOrdering Facility: [facility] Address: [address] [place] [address] Performed By: #### 2 4321-2 ####[facility] LABORATORYCLIA [id number] [address] [place] [facility] CBC W Auto Differential pane l (Bld)on 04-04-2024 Basophils (Bld) [#/Vol] 10*3/uL Normal <0.11 [facility] Comment on above: Order Comment: Speci men Type: BLOOD SPECIMENOrdering Facility: [facility] Address: [address] [place] [address] Performed By: #### 5 7021-8 ####[facility] LABORATORYCLIA [id number] [address] Basophils/100 WBC (Bld) 0.2 % Normal [facility] Comment on above: Order Comment: Speci men Type: BLOOD SPECIMENOrdering Facility: [facility] Address: [address] [place] [address] Performed By: #### 5 7021-8 ####[facility] LABORATORYCLIA [id number] [address] Differential cell count method Nom (Bld) Auto Normal [facility] Comment on above: Order Comment: Speci men Type: BLOOD SPECIMENOrdering Facility: [facility] Address: [address] [place] [address] Performed By: #### 5 7021-8 ####[facility] LABORATORYCLIA [id number] [place] [address] [facility] [place] Eosinophils (Bld) [#/Vol] 0.16 10*3/uL Normal <0.46 [facility] Comment on above: Order Comment: Speci men Type: BLOOD SPECIMENOrdering Facility: [facility] Address: [address] [place] [address] Performed By: #### 5 7021-8 ####[facility] LABORATORYCLIA [id number] [address] [place] Eosinophils/100 WBC (Bld) 1.9 % Normal [facility] Comment on above: Order Comment: Speci men Type: BLOOD SPECIMENOrdering Facility: [facility] Address: [address] [place] [address] Performed By: #### 5 7021-8 ####[facility] LABORATORYCLIA [id number] [address] [place] Erythrocyte distribution width (RBC) [Ratio] 12.2 % Normal 11.5-15.0 [facility] Comment on above: Order Comment: Speci men Type: BLOOD SPECIMENOrdering Facility: [facility] Address: [address] [place] [address] Performed By: #### 5 7021-8 ####[facility] LABORATORYCLIA [id number] [address] [place] Hematocrit (Bld) [Volume fraction] 37.2 % Normal 36.0-46.0 [facility] Comment on above: Order Comment: Speci men Type: BLOOD SPECIMENOrdering Facility: [facility] Address: [address] [place] [address] Performed By: #### 5 7021-8 ####[facility] LABORATORYCLIA [id number] [address] [place] Hemoglobin (Bld) [Mass/Vol] 12.3 g/dL Normal 11.5-15.5 [facility] Comment on above: Order Comment: Speci men Type: BLOOD SPECIMENOrdering Facility: [facility] Address: [address] [place] [address] Performed By: #### 5 7021-8 ####[facility] LABORATORYCLIA [id number] [place] [address] [place] Immature granulocytes (Bld) [#/Vol] 0.04 10*3/uL Normal <0.10 [facility] Comment on above: Order Comment: Speci men Type: BLOOD SPECIMENOrdering Facility: [facility] Address: [address] [place] [address] Performed By: #### 5 7021-8 ####[facility] LABORATORYCLIA [id number] [address] [place] [facility] Immature granulocytes/100 WBC (Bld) 0.5 % Normal [facility] Comment on above: Order Comment: Speci men Type: BLOOD SPECIMENOrdering Facility: [facility] Address: [address] [place] [address] Performed By: #### 5 7021-8 ####[facility] LABORATORYCLIA [id number] [place] [address] [place] Lymphocytes (Bld) [#/Vol] 1.98 10*3/uL Normal 1.00-4.00 [facility] Comment on above: Order Comment: Speci men Type: BLOOD SPECIMENOrdering Facility: [facility] Address: [address] [place] [address] Performed By: #### 5 7021-8 ####[facility] LABORATORYCLIA [id number] [address] Lymphocytes/100 WBC (Bld) 23.8 % Normal [facility] Comment on above: Order Comment: Speci men Type: BLOOD SPECIMENOrdering Facility: [facility] Address: [address] [place] [address] Performed By: #### 5 7021-8 ####[facility] LABORATORYCLIA [id number] [place] [address] [place] MCH (RBC) [Entitic mass] 29.3 pg Normal 26.0-34.0 [facility] Comment on above: Order Comment: Speci men Type: BLOOD SPECIMENOrdering Facility: [facility] Address: [address] [place] [address] Performed By: #### 5 7021-8 ####[facility] LABORATORYCLIA [id number] [place] [address] [place] MCHC (RBC) [Mass/Vol] 33.1 g/dL Normal 30.5-36.0 [facility] Comment on above: Order Comment: Speci men Type: BLOOD SPECIMENOrdering Facility: [facility] Address: [address] [place] [address] Performed By: #### 5 7021-8 ####[facility] LABORATORYCLIA [id number] [place] [address] [place] MCV (RBC) [Entitic vol] 88.6 fL Normal 80.0-100.0 [facility] Comment on above: Order Comment: Speci men Type: BLOOD SPECIMENOrdering Facility: [facility] Address: [address] [place] [address] Performed By: #### 5 7021-8 ####[facility] LABORATORYCLIA [id number] [place] [address] [place] Monocytes (Bld) [#/Vol] 0.52 10*3/uL Normal <0.87 [facility] Comment on above: Order Comment: Speci men Type: BLOOD SPECIMENOrdering Facility: [facility] Address: [address] [place] [address] Performed By: #### 5 7021-8 ####[facility] LABORATORYCLIA [id number] [address] Monocytes/100 WBC (Bld) 6.2 % Normal [facility] Comment on above: Order Comment: Speci men Type: BLOOD SPECIMENOrdering Facility: [facility] Address: [address] [place] [address] Performed By: #### 5 7021-8 ####[facility] LABORATORYCLIA [id number] [place] [address] [place] Neutrophils (Bld) [#/Vol] 5.61 10*3/uL Normal 1.45-7.50 [facility] Comment on above: Order Comment: Speci men Type: BLOOD SPECIMENOrdering Facility: [facility] Address: [address] [place] [address] Performed By: #### 5 7021-8 ####[facility] LABORATORYCLIA [id number] [address] Neutrophils/100 WBC (Bld) 67.4 % Normal [facility] Comment on above: Order Comment: Speci men Type: BLOOD SPECIMENOrdering Facility: [facility] Address: [address] [place] [address] Performed By: #### 5 7021-8 ####[facility] LABORATORYCLIA [id number] [place] [address] [place] Nucleated RBC (Bld) [#/Vol] 10*3/uL Normal <0.01 [facility] Comment on above: Order Comment: Speci men Type: BLOOD SPECIMENOrdering Facility: [facility] Address: [address] [place] [address] Performed By: #### 5 7021-8 ####[facility] LABORATORYCLIA [id number] [address] [place] Nucleated RBC/100 WBC (Bld) [Ratio] 0.0 /100 WBC Normal [facility] Comment on above: Order Comment: Speci men Type: BLOOD SPECIMENOrdering Facility: [facility] Address: [address] [place] [address] Performed By: #### 5 7021-8 ####[facility] LABORATORYCLIA [id number] [address] [place] Platelet mean volume (Bld) [Entitic vol] 9.7 fL Normal 9.0-12.7 [facility] Comment on above: Order Comment: Speci men Type: BLOOD SPECIMENOrdering Facility: [facility] Address: [address] [place] [address] Performed By: #### 5 7021-8 ####[facility] LABORATORYCLIA [id number] [place] [address] [facility] [place] Platelets (Bld) [#/Vol] 302 10*3/uL Normal 150-400 [facility] Comment on above: Order Comment: Speci men Type: BLOOD SPECIMENOrdering Facility: [facility] Address: [address] [place] [address] Performed By: #### 5 7021-8 ####[facility] LABORATORYCLIA [id number] [place] [address] [facility] [place] RBC (Bld) [#/Vol] 4.20 10*6/uL Normal 3.90-5.20 [facility] Comment on above: Order Comment: Speci men Type: BLOOD SPECIMENOrdering Facility: [facility] Address: [address] [place] [id number] Performed By: #### 5 7021-8 ####[facility] LABORATORYCLIA [id number] [address] [place] WBC (Bld) [#/Vol] 8.33 10*3/uL Normal 3.70-11.00 [facility] Comment on above: Order Comment: Speci men Type: BLOOD SPECIMENOrdering Facility: [facility] Address: [address] [place], [place] [address] [id number] Performed By: #### 5 7021-8 ####[facility] LABORATORYCLIA [id number] [address] CNPNon 04-04-2024 CNPN Telephone (OBEM) PADMINI CARR ([id number]) 1990 F Date Time Provider [facility] today, we recorded the following information about you: Mine James RN 04/04/2024 4:23 PM Signed Short term Disability paperwork completed and faxed along with chart notes to [employer]. Transmission verified. Copy to scan file. Mine James RN Allergies As of Date: 04/04/2024 (No Known Allergies) Date Reviewed: 04/04/2024 Reviewed by: Mariana Zambrano RN - Fully Assessed Reason for Visit: STD [102] Prescriptions as of 04/04/2024 - oxyCODONE IR (ROXICODONE) 5 mg immediate release tablet Take 1 tablet by mouth every 8 hours as needed for pain for up to 5 days. - diclofenac (VOLTAREN ARTHRITIS PAIN) 1 % topical gel Apply 2 g to affected area four times daily. - hydrOXYzine HCl (ATARAX) 25 mg tablet Take 25 mg by mouth three times a day as needed. - cariprazine (VRAYLAR) 3 mg capsule Take 3 mg by mouth once daily. 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 03/30/2024 Acute epigastric pain [R10.13] 04/09/2014 NO SHOW [488870] 05/14/2014 04/26/2022 Major depressive disorder [F32.9] 07/29/2016 Secondary amenorrhea [N91.1] 07/30/2016 Morbid obesity due to excess calories (HCC) [E6*07/30/2016 Chronic midline low back pain without sciatica *07/30/2016 Acute pain of right knee [M25.561] 02/16/2023 Hypothyroidism [E03.9] 05/06/2023 Obesity, Class II, BMI 35-39.9 [E66.812] 05/25/2023 Adenomyosis [N80.03] 05/25/2023 05/25/2023 Dysmenorrhea [N94.6] 05/25/2023 05/25/2023 Ovarian torsion [N83.519] 04/04/2024 04/04/2024 Encounter Status:Closed by POOLALBERTOAlanaELIJAHMINE on 04/04/24 [facility] COM[facility]TE[facility] 04-04-2024 ECG COMPLETE Ventricular Rate : 8 2 BPM Atrial Rate : 85 BPM P-R Interval : 132 ms QRS Duration : 80 ms Q-T Interval : 380 ms QTC Calculation(Bazett) : 443 ms Calculated P [place] : 31 degrees Calculated R [place] : 20 degrees Calculated T [place] : 27 degrees NORMAL SINUS RHYTHM WITH SINUS ARRHYTHMIA NORMAL ECG NO STEMI Confirmed by JENNIFER CHAVEZ DO ([id number]), editor dictionary SUSAN KENYON ([id number]) on 04/04/2024 12:04:24 PM NAME : PADMINI CARR PID : [id number] : 1990 Gender : Female Race : ORD : [id number] Procedure Date : Apr 04 2024 10:30:54 Edit Date : Apr 04 2024 12:04:26 Diagnosis: NORMAL SINUS RHYTHM WITH SINUS ARRHYTHMIA NORMAL ECG NO STEMI Confirmed by JENNIFER CHAVEZ DO ([id number]), editor dictionary SUSAN KENYON ([id number]) on 04/04/2024 12:04:24 PM Test Reason : Pre-OP Location : 1 : ER ED Overread By : JENNIFER CHAVEZ DO Edited By : SUSAN KENYON Referred By : , Acquired by : , [facility] ED NOTEon 04-04-2024 ED NOTE HNO ID: [id number] Author: JANELLE AGUIRRE RN Service: ? Author Type: Registered Nurse Type: ED Notes Filed: 04/04/2024 12:56 Note Text: Spoke with [facility] RN. They will be coming to take pt to OR shortly. [facility] ED NOTE HNO ID: [id number] Author: JANELLE AGUIRRE RN Service: ? Author Type: Registered Nurse Type: ED Notes Filed: 04/04/2024 11:38 Note Text: Dr. Alfaro at bedside with team. [facility] ED NOTE HNO ID: [id number] Author: FREDY STEEL RN Service: ? Author Type: Registered Nurse Type: ED Notes Filed: 04/04/2024 10:31 Note Text: Pt presents to ED from US for torsion. Pt states she has been having lower ABD pain for 1 week. She went to [place] ED last week and US and was diagnosed with a cyst and told to follow up. She followed up and had another US last and was told that there was bleeding which is why she was having pain, was given medications for pain. Plan for surgery next week but provider wanted another US a week before surgery which is why she went today. Torsion noted on US today, sent to ED for further evaluation and treatment. [facility] ED PROV NOTEon 04-04-2024 ED PROV NOTE HNO ID: [id number] Author: JENNIFER CHAVEZ DO Service: Emergency Medicine Author Type: Physician Type: ED Provider Notes Filed: 04/04/2024 15:33 Note Text: ED Provider Note Patient Name: Padmini Carr : 1990 SERVICE DATE: 04/04/24 History Patient presents with: Pelvic Pain: Sent by US for r/o ovarian torsion. Has been having pelvic pain x 1 wk History provided by: Patient 33-year-old female with thyroid disease presents for evaluation of pelvic pain. Patient reports she started having pelvic and abdominal pain a couple of weeks ago. She was found to have a 9 cm left ovarian cyst and has been seen by her train gateman Dr. Alfaro with plan for surgical management next week. Reports that last Tuesday she had significantly intensified pain and was seen at a facility in [place] Tuesday night. She had an ultrasound that showed a 9cm cyst without torsion. She had a repeat ultrasound on due to persistent pain and they told her that the cyst was leaking but again no torsion. She presented today for a routinely scheduled pelvic ultrasound 1 week preop and was instructed to come to the ED with concern for ovarian torsion today. Reports she has had severe pain since last Tuesday with associated nausea and vomiting. No fevers. PAST MEDICAL HISTORY Diagnosis Date Chronic midline low back pain without sciatica 07/30/2016 Depression at least 5 yrs Hypothyroidism Morbid obesity due to excess calories (HCC) 07/30/2016 PAST SURGICAL HISTORY Procedure Laterality Date CHG DELIVERY 05/16/2010 CHOLECYSTECTOMY HX 05/16/2010 LAP SLEEVE GASTRECTOMY 2018 VAGINAL HYSTERECTOMY 05/25/2023 vNOTES with bilateral salpingectomy FAMILY HISTORY Problem Relation Age of Onset Diabetes Mother Diabetes Maternal Grandmother Anesthesia Problems No Family History Social History Tobacco Use Smoking status: Never Smokeless tobacco: Never Vaping Use Vaping status: Never Used Substance and Sexual Activity Alcohol use: No Drug use: No Sexual activity: Yes Partners: Male ALLERGIES No Known Allergies Review of Systems Gastrointestinal: Positive for nausea and vomiting. Genitourinary: Positive for pelvic pain. Physical Exam Vitals [04/04/24 1002] BP Pulse Temp Temp src Resp SpO2 Weight Height 131/63 69 36.6 ?C (97.8 ?F) Temporal 16 100 % 113.4 kg (250 lb) 1.626 m (5' 4) Physical Exam Vitals and nursing note reviewed. Constitutional: General: She is not in acute distress. Appearance: Normal appearance. She is not toxic-appearing or diaphoretic. HENT: Head: Normocephalic and atraumatic. Mouth/Throat: Mouth: Mucous membranes are moist. Eyes: Extraocular Movements: Extraocular movements intact. Conjunctiva/sclera: Conjunctivae normal. Cardiovascular: Rate and Rhythm: Normal rate and regular rhythm. Pulmonary: Effort: Pulmonary effort is normal. Breath sounds: Normal breath sounds. Abdominal: Palpations: Abdomen is soft. Tenderness: There is generalized abdominal tenderness and tenderness in the left lower quadrant. There is guarding. Musculoskeletal: Cervical back: Normal range of motion. Skin: General: Skin is warm. Neurological: General: No focal deficit present. Mental Status: She is alert and oriented to person, place, and time. Psychiatric: Mood and Affect: Mood normal. Speech: Speech normal. Diagnostic Testing ED Labs Ordered and Reviewed ACTIVATED PARTIAL THROMBOPLASTIN TIME - Normal Narrative: Unfractionated Heparin Therapeutic Ranges: Standard Heparin Nomogram: 53 to 78 seconds (anti-Xa level of 0.3 to 0.7 U/ml) Low Dose/ACS Nomogram: 49 to 67 seconds (anti-Xa level of 0.2 to 0.5 U/ml) Stroke Treatment Nomogram: 49 to 67 seconds (anti-Xa level of 0.2 to 0.5 U/ml) Note: The APTT therapeutic range has been determined for the current lot of laboratory APTT reagent in use throughout the [facility]. BASIC METABOLIC PANEL - Normal PROTHROMBIN TIME - Normal COMPLETE BLOOD COUNT AND DIFFERENTIAL TYPE + SCREEN Results for orders placed or performed during the hospital encounter of 04/04/24 ECG COMPLETE Impression NORMAL SINUS RHYTHM WITH SINUS ARRHYTHMIA NORMAL ECG NO STEMI Confirmed by JENNIFER CHAVEZ DO ([id number]), editor dictionary SUSAN KENYON ([id number]) on 04/04/2024 12:04:24 PM Procedures ED Course / Clinical Impression ED Course as of 04/04/24 1533 Jennifer Chavez's Documentation TueApr 04, 2024 1135 EKG: Heart rate 82. NE 132. QTc 443. NSR. No ST elevations consistent with HI. Nonspecific T changes. 1135 Patient evaluated by me. Patient resting comfortably in bed in no acute distress. Patient answering questions. Patient states that she has had pelvic pain for about a week. Patient is updated on findings and likely admission. Patient comfortable with the plan. Others' Documentation TueApr 04, 2024 [address] Cruz (more content not included)... [facility] HISTORY PHYSICALon HISTORY PHYSICAL HNO ID: [id number] Author: MONICA ALFARO MD Service: Gynecology Author Type: Physician Type: H&P Filed: 04/04/2024 12:13 Note Text: HISTORY AND PHYSICAL EXAMINATION SERVICE DATE: 04/04/2024 SERVICE TIME: 12:07 PM PRIMARY CARE PHYSICIAN: No primary care provider on file. Subjective HPI 33 yo presented to radiology today for pelvic US after previous imaging showed left adnexal cystic mass without evidence of torsion. Today the cystic mass is similar in size to previously seen, 8.2 x 7.7 x 6.3 cm, however the left ovary is now without vascular flow. She was sent to the ED from radiology to expedite surgical care and pain control. FUNCTIONAL STATUS: Independent PAST MEDICAL HISTORY Diagnosis Date Chronic midline low back pain without sciatica 07/30/2016 Depression at least 5 yrs Hypothyroidism Morbid obesity due to excess calories (HCC) 07/30/2016 PAST SURGICAL HISTORY Procedure Laterality Date CHG DELIVERY 05/16/2010 CHOLECYSTECTOMY HX 05/16/2010 LAP SLEEVE GASTRECTOMY 2018 VAGINAL HYSTERECTOMY 05/25/2023 vNOTES with bilateral salpingectomy FAMILY HISTORY Problem Relation Age of Onset Diabetes Mother Diabetes Maternal Grandmother Anesthesia Problems No Family History Social History Tobacco Use Smoking status: Never Smokeless tobacco: Never Vaping Use Vaping status: Never Used Substance Use Topics Alcohol use: No Drug use: No (Not in a hospital admission) ALLERGIES No Known Allergies COMPLETE REVIEW OF SYSTEMS: Review of Systems Objective PHYSICAL EXAM: Physical Exam BP 131/63 Pulse 69 Temp 36.6 ?C (97.8 ?F) (Temporal) Resp 16 Ht 162.6 cm (5' 4) Wt 113.4 kg (250 lb) LMP 04/04/2023 (Approximate) SpO2 100% BMI 42.91 kg/m? Body mass index is 42.91 kg/m?. PE Gen - well nurished, no distress HEENT - atraumatic, pink moist mucus membranes Resp - no distress Cardio - RRR Abd - soft, obesity - deferred Ext - +5 strength bilaterally DATA: Diagnostic tests reviewed for today's visit: Most recent labs and imaging results. Assessment/Plan Laparoscopic left ovarian cystectomy vs oophorectomy. Consent signed SIGNATURE: Monica Alfaro MD PATIENT NAME: Padmini Carr DATE: April 04, 2024 TIME: 12:07 PM [facility] No Panel Informationon 04-04 IMPRESSION: Enlarged left ovary with hemorrhagic cysts and lack of vascular flow suspicious for ovarian torsion. Findings were discussed with the ordering physician's office and patient was sent to the ER for further management. Sales Consulting Director: MISHA Transcribe Date/Time: Apr 04 2024 9:39A Dictated by : Cindy HART MD This examination was interpreted and the report reviewed and electronically signed by: Cindy AHRT MD on Apr 04 2024 9:45AM [facility] No Panel InformationOrdered By: Ccf Provider on 04-04-2024 [facility] OPERATIVE NOon 04-04-2024 OPERATIVE NO HNO ID: [id number] Author: MONICA ALFARO MD Service: Gynecology Author Type: Physician Type: Operative Report Filed: 04/04/2024 15:29 Note Text: OPERATIVE / PROCEDURE NOTE LOG ID: [id number] SURGERY/PROCEDURE DATE: 04/04/2024 INCISION/PROCEDURE START TIME: 2:25 PM INCISION CLOSE/PROCEDURE END TIME: SURGEON(S)/PROCEDURALIST(S) AND SCANNING SUPERVISOR(S): Surgeons and Role: * Monica Alfaro MD - Primary - performed diagnostic laparoscopy, left oophorectomy, lysis of adhesions * Padmini Crum MD - Primary - performed appendectomy and closure Physician Engineer Design [employer] Construction: Shama Gay PA-C; Padmini Reyes PA-C - provided laparoscopic assistance SURGERY/PROCEDURE(S): Diagnostic laparoscopy, left oophorectomy, lysis of adhesions, appendectomy ANESTHESIA: General FINDINGS: left ovarian torsion, adhesions of left adnexa to bowel including appendix ESTIMATED BLOOD LOSS: 25 mls SPECIMENS: left adnexa, appendix COMPLICATIONS: None CLOSURE TECHNIQUE: Primary PRE-OP/PRE-PROCEDURE DIAGNOSIS: pelvic pain, suspect left ovarian torsion POST-OP/POST-PROCEDURE DIAGNOSIS: Same as Preop Antibiotic: added intra-op - as ordered by Dr. Crum Procedure Details: Patient was taken to the operating room where the sign-in and time out were completed. General anesthesia was induced and found to be adequate. Once anesthesia was found to be adequate, her arms were then tucked to the side, she was placed in a supine position. SCDs were placed and turned on for DVT prophylaxis. A Pompa catheter was placed in the urinary bladder under sterile conditions. Patient was prepped and draped in the usual fashion. Prior to making the incision the area was injected with 0.25% Marcaine 5 cc. , A 5 mm supraumbilical incision was made with the knife., and A Veress needle was placed into the intra-abdominal cavity. Entry was verified using the saline-drop technique. The abdomen was insufflated with CO2 gas. The Veress needle was removed. The trochar was placed into the peritoneal cavity. . The abdomen was insufflated with carbon dioxide. The lower abdominal wall was transilluminated and an avascular site was selected in the Bilateral lower abdominal quadrant. Under direction visualization the following trochars were placed RLQ 5 mm and LLQ 12 mm . Through these sites a 5 and 12 mm trochar and sleeve were inserted under direct visualization. Findings: Uterus: absent Right Ovary: Normal Left Ovary: Adhesions and Torsion Right Fallopian Tube: absent Left Fallopian Tube: absent Posterior cul-de-sac: Normal Appendix: adherent to left adnexa, firm texture noted Liver: Seen: normal Other: bowel adhesions to left adnexa Additional techniques Include: LYSIS OF ADHESIONS: Adhesions were identified and gentle lysis of adhesions was performed bluntly. Lysis of adhesions mobilized bowel away from the left adnexa and mobilized the appendix off of the left ovary OOPHORECTOMY: Attention was turned towards the left ovary. The necrotic ovarian tissue was placed in the surgical containment bag as it became detached during dissection of tissue from bowel and pelvic side wall. Placing the LigaSure across the infundibulopelvic ligament the ovary was transected. The remaining ovary was peeled off the pelvic side wall. The ureter was visualized assuring it was well away. Once this was completed, inspection of the pedicle demonstrated hemostasis. The tissue was removed through the 12mm port site. Dr. Crum joined the operating room. She took over the case at this point to perform the appendectomy and completion of case including closure. Please see her dictation for remainder of case. Specimens: left adnexa SIGNATURE: Monica Alfaro MD PATIENT NAME: Padmini Carr DATE: April 04, 2024 TIME: 3:12 PM [facility] OPERATIVE NO HNO ID: [id number] Author: PADMINI CRUM MD Service: General Surgery Author Type: Physician Type: Operative Report Filed: 04/05/2024 09:37 Note Text: [facility] - Operative Report PADMNII CARR : 1990 AGE: 33. SEX: F PATIENT TYPE: E [facility] [place]: [facility] LOCATION: [facility] ATTENDING PHYSICIAN: JENNIFER CHAVEZ [facility] NUMBER: [id number] DATE OF SURGERY/PROCEDURE: 04/04/2024 INCISION/PROCEDURE START TIME: 2:25 p.m. INCISION CLOSE/PROCEDURE END TIME: 3:29 PM PREOPERATIVE DIAGNOSIS: Ovarian torsion. POSTOPERATIVE DIAGNOSIS: Thickened appendix. SURGEON: Padmini Crum M.D. SCANNING SUPERVISOR: JASMINA Santillan. SURGERY/PROCEDURE: Laparoscopic appendectomy. ANESTHESIA: General anesthesia. BLOOD LOSS: Minimal. INDICATIONS FOR PROCEDURE: The patient is a 33-year-old female undergoing laparoscopy with Dr. Alfaro for a left ovarian torsion. She was found to have a thickened appendix involved with the inflammation. I was consulted intraoperatively to evaluate her appendix. DESCRIPTION OF PROCEDURE: The patient was undergoing laparoscopy for left ovarian torsion. The appendix had a very thickened tip. I elected to proceed with appendectomy. At the conclusion of the left oophorectomy, I identified the base of the appendix. This was from the mesoappendix using [place] dissector. The base of the appendix was then divided with an Endo-HANY stapler. The mesoappendix was divided with the LigaSure. Specimen was placed into an EndoCatch bag and removed through the left lower quadrant 12 mm trocar site. The abdomen was copiously irrigated. No other pathology was visualized. The 12 mm trocar fascia was closed using #1 Maxon with a army helicopter pilot guide x2. The port sites were injected with 0.25% Marcaine without evidence for bleeding. Incisions were closed with 3-0 Vicryl, 5-0 Vicryl, and Dermabond. All counts were correct at the end of the case. The patient tolerated the procedure well. She was taken to recovery room in good condition. Padmini Crum M.D. CARMITA:[id number] /[id number] [facility] PT panel Coag (PPP)on 2023 INR Coag (PPP) [Relative time] 1.0 {INR} Normal 0.9-1.3 [facility] Comment on above: Order Comment: Speci men Type: BLOOD SPECIMENOrdering Facility: [facility] Address: [address] [place] [address] Result Comment: Mai min K Antagonist (VKA) Therapeutic Range: INR 2 to 3 (Target INR of 2.5) Note: For patients treated with VKA drugs, such as warfarin, the [employer] 2012 Guideline recommends a therapeutic INR range of 2 to 3 (target INR of 2.5). This recommendation includes high-risk patients with antiphospholipid syndrome with previous arterial or venous thromboembolism, current-generation mechanical or bioprosthetic aortic heart valve replacement. Note: Patients with mechanical aortic valve replacement and additional risk factors for thromboembolic events (atrial fibrillation, previous thromboembolism, LV dysfunction, hypercoagulable conditions) or an older generation mechanical AVR (i.e., ball in-Cage) or any mechanical MVR should have a INR therapeutic range of 2.5 to 3.5 (target INR of 3). Brad DAVALOS, et al. Chest 2012, 141:7S-47S Megan BRANNON et al. [facility] 2017, 70: 252-289 Performed By: #### 3 4528-0, 24263-3 ####[facility] LABORATORYCLIA [id number] [place] [id number] [facility] PT Coag (PPP) [Time] 10.3 s Normal 9.7-13.0 [facility] Comment on above: Order Comment: Speci men Type: BLOOD SPECIMENOrdering Facility: [facility] Address: [address] [place] [address] Performed By: #### 3 4528-0, 72210-6 ####[facility] LABORATORYCLIA [id number] [place] [id number] [facility] SURGICAL PATHOLOGYon 024 CASE REPORT [facility] Comment on above: Order Comment: Speci men Type: TISSUE SPECIMENOrdering Facility: [facility] Address: [address] [place] [address] Result Comment: Surg ical Pathology Report Case: [id number] Authorizing Provider: Monica Alfaro, Collected: 04/04/2024 03:05 PM [facility]ing [facility] Surgery Received: 04/04/2024 04:05 PM Pathologist: Francis Solo MD Specimens: A) - Adnexa, Left, Resection (Describe), left ovary B) - Appendix, Appendectomy Performed By: #### S ####[facility] LABORATORYCLIA [id number] [address] CLINICAL HISTORY [facility] Comment on above: Order Comment: Speci men Type: TISSUE SPECIMENOrdering Facility: [facility] Address: [address] [place] [address] Result Comment: Pre- op diagnosis: Ovarian torsion [N83.519] Performed By: #### S ####BREAN[facility] LABORATORYCLIA [id number] [place] [id number] [facility] DIAGNOSIS COMMENT B. Part B was review ed by Dr. Clair Carver from the section of Gastrointestinal Pathology with concurrence. [facility] Comment on above: Order Comment: Speci men Type: TISSUE SPECIMENOrdering Facility: [facility] Address: [address] [place] [address] Performed By: #### S ####[facility] LABORATORYCLIA [id number] [place] [id number] [facility] FINAL DIAGNOSIS [facility] Comment on above: Order Comment: Speci men Type: TISSUE SPECIMENOrdering Facility: [facility] Address: [address] [place] [address] Result Comment: A. L eft ovary, oophorectomy: - Fragments of ovarian parenchyma with marked hemorrhage, fibrin deposition and ischemic necrosis, compatible with torsion. B. Appendix, excision: - Appendix with fibrolipomatous obliteration of the lumen, acute serositis, and fibrovascular adhesions (see comment). [facility] 04/09/2024 Performed By: #### S ####[facility] LABORATORYCLIA [id number] [address] FINAL PERFORMING LAB [facility] Comment on above: Order Comment: Speci men Type: TISSUE SPECIMENOrdering Facility: [facility] Address: [address] [place] [address] Result Comment: Diag nostic interpretation performed at [facility], [address] [place] [address] CLIA# [id number] Promotion Producer: Francis Solo M.D. Performed By: #### S ####WAGNER LABORATORYIA [id number] [address] GROSS DESCRIPTION [facility] Comment on above: Order Comment: Speci [facility] Type: TISSUE SPECIMENOrdering Facility: [facility] Address: [address] [place] [address] Result Comment: A. A bennettexa, Left, Resection (Describe) Received in formalin labeled as left ovary are multiple irregular hemorrhagic segments of tissue aggregating to 13.0 x 8.0 x 2.5 cm and weighing 52.9 g. Sectioning reveals diffusely hemorrhagic cut surfaces. No grossly viable tissue is appreciated. Dupligraph Operator sections are sampled at 1/cm in 13 cassettes. Gross examination performed at [facility], [address] [place] [address] CLIA# [id number] [facility] 04/05/24 3:02 PM B. Appendix, Appendectomy Received in formalin labeled as appendix is an appendix measuring 5.5 cm in length by 0.5 cm in diameter with attached mesoappendiceal fat measuring 7 x 3 x 1.2 cm. The staple line resection is inked blue. Sectioning reveals a fibrous cut surface with a pinpoint lumen and a 0.3 cm wall thickness. No perforation or ulceration is identified. The appendix is submitted as follows: B1 inked line of resection and multiple cross-sections from middle, B2 bisected perpendicular tip and remainder of cross-sections from middle (mesoappendiceal fat has not been totally submitted). Gross examination performed at [facility], [address] [place] [address] CLIA# [id number] [facility] 04/05/24 3:08 PM Performed By: #### S ####[facility] [id number] [address] OF [facility] TYPE + SCREENon 04-04-2024 ABO A [facility] Comment on above: Order Comment: Speci men Type: BLOOD SPECIMENOrdering Facility: [facility] Address: [address] [place] [address] Performed By: #### T SCR ####[facility] BLO[facility] BANKCLIA [id number] [address] Rh Nom (Bld) Negative [facility] Comment on above: Order Comment: Speci men Type: BLOOD SPECIMENOrdering Facility: [facility] Address: [address] [place] [address] Performed By: #### T SCR ####[facility]LO[facility] BANKCLIA [id number] [address] TYPE AND SCREEN EXPIRATION 04/07/2024 23:59 [facility] Comment on above: Order Comment: Speci men Type: BLOOD SPECIMENOrdering Facility: [facility] Address: [address] [place] [address] Performed By: #### T SCR ####[facility] BLOOD BANKIA [id number] [place] [address] [place] US DOPPLER COMPLETEon 2023 US DOPPLER COMPLETE * * *Final Report* * * DATE OF EXAM: Apr 04 2024 9:33AM JOYCE 1033 - US DOPPLER COMPLETE / PROCEDURE REASON: R10.2-Pelvic pain in female * * * * Physician Interpretation * * * * EXAMINATION: TRANSVAGINAL AND LIMITED TRANSABDOMINAL FEMALE PELVIC ULTRASOUND CLINICAL HISTORY: Pelvic pain, left ovarian cyst TECHNIQUE: Sonography of the pelvis was performed by transvaginal and transabdominal (limited) techniques. Images were obtained and stored in a permanent archive. MQ: [facility]_2021 COMPARISON: 02/16/2023 RESULT: Uterus: Surgically absent. Right Ovary: 3.6 x 2.4 x 1.8 cm - Normal sonographic appearance with follicles. Doppler imaging showed normal arterial and venous flow throughout the ovary. Left Ovary: 8.4 x 8.5 x 7.5 cm - Approximately 7.7 x 8.2 x 6.3 cm cystic mass with lacelike reticular internal echoes favoring hemorrhagic cyst. Adjacent avascular 4.9 cm transverse cystic mass with internal echoes. No vascular flow demonstrated within the left ovary. Free Fluid: No abnormal free fluid is present. IMPRESSION: Enlarged left ovary with hemorrhagic cysts and lack of vascular flow suspicious for ovarian torsion. Findings were discussed with the ordering physician's office and patient was sent to the ER for further management. Sales Consulting Director: [facility] H[facility]PITALWild Transcribe Date/Time: Apr 04 2024 9:39A Dictated by : Cindy HART MD This examination was interpreted and the report reviewed and electronically signed by: Cindy HART MD on Apr 04 2024 9:45AM EST [id number] [facility] US FEMALE PELVIS TRANSVAGon 04-04-2024 US FEMALE PELVIS TRANSVAG * * *Final Report* * * DATE OF EXAM: Apr 04 2024 9:33AM JOYCE 1060 - US FEMALE PELVIS TRANSVAG / PROCEDURE REASON: N83.202-Ovarian cyst, left * * * * Physician Interpretation * * * * EXAMINATION: TRANSVAGINAL AND LIMITED TRANSABDOMINAL FEMALE PELVIC ULTRASOUND CLINICAL HISTORY: Pelvic pain, left ovarian cyst TECHNIQUE: Sonography of the pelvis was performed by transvaginal and transabdominal (limited) techniques. Images were obtained and stored in a permanent archive. MQ: [facility]_2021 COMPARISON: 02/16/2023 RESULT: Uterus: Surgically absent. Right Ovary: 3.6 x 2.4 x 1.8 cm - Normal sonographic appearance with follicles. Doppler imaging showed normal arterial and venous flow throughout the ovary. Left Ovary: 8.4 x 8.5 x 7.5 cm - Approximately 7.7 x 8.2 x 6.3 cm cystic mass with lacelike reticular internal echoes favoring hemorrhagic cyst. Adjacent avascular 4.9 cm transverse cystic mass with internal echoes. No vascular flow demonstrated within the left ovary. Free Fluid: No abnormal free fluid is present. IMPRESSION: Enlarged left ovary with hemorrhagic cysts and lack of vascular flow suspicious for ovarian torsion. Findings were discussed with the ordering physician's office and patient was sent to the ER for further management. Sales Consulting Director: [facility]ITALWild Transcribe Date/Time: Apr 04 2024 9:39A Dictated by : Cindy HART MD This examination was interpreted and the report reviewed and electronically signed by: Cindy HART MD on Apr 04 2024 9:45AM EST [id number] [facility] US Pelvis transvaginalon * * *Final Report* * * DATE OF EXAM: Apr 04 2024 9:33AM MDU 1060 - US FEMALE PELVIS TRANSVAG / PROCEDURE REASON: N83.-Ovarian cyst, left * * * * Physician Interpretation * * * * EXAMINATION: TRANSVAGINAL AND LIMITED TRANSABDOMINAL FEMALE PELVIC ULTRASOUND CLINICAL HISTORY: Pelvic pain, left ovarian cyst TECHNIQUE: Sonography of the pelvis was performed by transvaginal and transabdominal (limited) techniques. Images were obtained and stored in a permanent archive. MQ: [facility]_2021 COMPARISON: 02/16/2023 RESULT: Uterus: Surgically absent. Right Ovary: 3.6 x 2.4 x 1.8 cm - Normal sonographic appearance with follicles. Doppler imaging showed normal arterial and venous flow throughout the ovary. Left Ovary: 8.4 x 8.5 x 7.5 cm - Approximately 7.7 x 8.2 x 6.3 cm cystic mass with lacelike reticular internal echoes favoring hemorrhagic cyst. Adjacent avascular 4.9 cm transverse cystic mass with internal echoes. No vascular flow demonstrated within the left ovary. Free Fluid: No abnormal free fluid is present. [facility] Provider, Sary Kelly [facility] - 04/04/2024 * * *Final Report* * * DATE OF EXAM: Apr 04 2024 9:33AM MDU 1060 - US FEMALE PELVIS TRANSVAG / PROCEDURE REASON: N83.202-Ovarian cyst, left * * * * Physician Interpretation * * * * EXAMINATION: TRANSVAGINAL AND LIMITED TRANSABDOMINAL FEMALE PELVIC ULTRASOUND CLINICAL HISTORY: Pelvic pain, left ovarian cyst TECHNIQUE: Sonography of the pelvis was performed by transvaginal and transabdominal (limited) techniques. Images were obtained and stored in a permanent archive. MQ: [facility]_2021 COMPARISON: 02/16/2023 RESULT: Uterus: Surgically absent. Right Ovary: 3.6 x 2.4 x 1.8 cm - Normal sonographic appearance with follicles. Doppler imaging showed normal arterial and venous flow throughout the ovary. Left Ovary: 8.4 x 8.5 x 7.5 cm - Approximately 7.7 x 8.2 x 6.3 cm cystic mass with lacelike reticular internal echoes favoring hemorrhagic cyst. Adjacent avascular 4.9 cm transverse cystic mass with internal echoes. No vascular flow demonstrated within the left ovary. Free Fluid: No abnormal free fluid is present. IMPRESSION IMPRESSION: Enlarged left ovary with hemorrhagic cysts and lack of vascular flow suspicious for ovarian torsion. Findings were discussed with the ordering physician's office and patient was sent to the ER for further management. Sales Consulting Director: [facility] Transcribe Date/Time: Apr 04 2024 9:39A Dictated by : Cindy HART MD This examination was interpreted and the report reviewed and electronically signed by: Cindy HART MD on Apr 04 2024 9:45AM EST [facility] Radiology Study observation (narrative) [facility] US.doppler Unspecified body regionon 04-04-2024 * * *Final Report* * * DATE OF EXAM: Apr 04 2024 9:33AM U 1033 - US DOPPLER COMPLETE / PROCEDURE REASON: R10.2-Pelvic pain in female * * * * Physician Interpretation * * * * EXAMINATION: TRANSVAGINAL AND LIMITED TRANSABDOMINAL FEMALE PELVIC ULTRASOUND CLINICAL HISTORY: Pelvic pain, left ovarian cyst TECHNIQUE: Sonography of the pelvis was performed by transvaginal and transabdominal (limited) techniques. Images were obtained and stored in a permanent archive. MQ: [facility]_2021 COMPARISON: 02/16/2023 RESULT: Uterus: Surgically absent. Right Ovary: 3.6 x 2.4 x 1.8 cm - Normal sonographic appearance with follicles. Doppler imaging showed normal arterial and venous flow throughout the ovary. Left Ovary: 8.4 x 8.5 x 7.5 cm - Approximately 7.7 x 8.2 x 6.3 cm cystic mass with lacelike reticular internal echoes favoring hemorrhagic cyst. Adjacent avascular 4.9 cm transverse cystic mass with internal echoes. No vascular flow demonstrated within the left ovary. Free Fluid: No abnormal free fluid is present. [facility] Provider, [facility] - 04/04/2024 * * *Final Report* * * DATE OF EXAM: Apr 04 2024 9:33AM MDU 1033 - US DOPPLER COMPLETE / PROCEDURE REASON: R10.2-Pelvic pain in female * * * * Physician Interpretation * * * * EXAMINATION: TRANSVAGINAL AND LIMITED TRANSABDOMINAL FEMALE PELVIC ULTRASOUND CLINICAL HISTORY: Pelvic pain, left ovarian cyst TECHNIQUE: Sonography of the pelvis was performed by transvaginal and transabdominal (limited) techniques. Images were obtained and stored in a permanent archive. MQ: [id number] COMPARISON: 02/16/2023 RESULT: Uterus: Surgically absent. Right Ovary: 3.6 x 2.4 x 1.8 cm - Normal sonographic appearance with follicles. Doppler imaging showed normal arterial and venous flow throughout the ovary. Left Ovary: 8.4 x 8.5 x 7.5 cm - Approximately 7.7 x 8.2 x 6.3 cm cystic mass with lacelike reticular internal echoes favoring hemorrhagic cyst. Adjacent avascular 4.9 cm transverse cystic mass with internal echoes. No vascular flow demonstrated within the left ovary. Free Fluid: No abnormal free fluid is present. IMPRESSION IMPRESSION: Enlarged left ovary with hemorrhagic cysts and lack of vascular flow suspicious for ovarian torsion. Findings were discussed with the ordering physician's office and patient was sent to the ER for further management. Sales Consulting Director: [facility] Transcribe Date/Time: Apr 04 2024 9:39A Dictated by : Cindy HART MD This examination was interpreted and the report reviewed and electronically signed by: Cindy HART MD on Apr 04 2024 9:45AM EST [facility] Radiology Study observation (narrative) [facility] XR CHEST 1V FRONTAL PORTon 1 06-04-2023 XR CHEST 1V FRONTAL PORT * * *Final Report* * * DATE OF EXAM: Apr 04 2024 10:39AM MDX [id number] - XR CHEST 1V FRONTAL PORT / PROCEDURE REASON: Pre-op noncardiac surgery, low risk * * * * Physician Interpretation * * * * EXAMINATION: CHEST RADIOGRAPH (PORTABLE SINGLE VIEW AP) Exam Date/Time: 04/04/2024 10:39 AM CLINICAL HISTORY: Pre-op noncardiac surgery, low risk, Pre-op MQ: XCPR_5 Comparison: None RESULT: Lines, tubes, and devices: None. Lungs and pleura: No focal consolidation. No suspicious nodule. No pleural effusion or pneumothorax. Calcified granulomas at the right base. Cardiomediastinal silhouette: Normal cardiomediastinal silhouette. Other: . IMPRESSION: No acute radiographic abnormality. Sales Consulting Director: [facility] Transcribe Date/Time: Apr 04 2024 10:43A Dictated by : ZIYAD CHAPMAN MD This examination was interpreted and the report reviewed and electronically signed by: ZIYAD CHAPMAN MD on Apr 04 2024 10:44AM EST [id number] Normal [facility] aPTT PPPon 04-04-2024 aPTT Coag (PPP) [Time] 26.7 s Normal 23.0-32.4 [facility] Comment on above: Order Comment: Speci men Type: BLOOD SPECIMENOrdering Facility: [facility] Address: [address] [place] [address] Performed By: #### 3 4528-0, 48931-6 ####[facility] [id number] [place] [address] [place] CNPJuli 04-02-2024 CNPN Telephone [facility] PADMINI CARR ([id number]) 1990 F Date Time Provider Department 04/02/24 ANTON CLARK During your visit today, we recorded the following information about you: Allergies As of Date: 04/02/2024 (No Known Allergies) Date Reviewed: 03/30/2024 Reviewed by: Monica Garg MD - Fully Assessed Prescriptions as of 04/02/2024 - HYDROmorphone 2 mg tablet Take 1 tablet by mouth every 6 hours as needed for up to 3 days. - diclofenac (VOLTAREN ARTHRITIS PAIN) 1 % topical gel Apply 2 g to affected area four times daily. - hydrOXYzine HCl (ATARAX) 25 mg tablet Take 25 mg by mouth three times a day as needed. - cariprazine (VRAYLAR) 3 mg capsule Take 3 mg by mouth once daily. 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 03/30/2024 Acute epigastric pain [R10.13] 04/09/2014 NO SHOW [981641] 05/14/2014 04/26/2022 Major depressive disorder [F32.9] 07/29/2016 Secondary amenorrhea [N91.1] 07/30/2016 Morbid obesity due to excess calories (HCC) [E6*07/30/2016 Chronic midline low back pain without sciatica *07/30/2016 Acute pain of right knee [M25.561] 02/16/2023 Hypothyroidism [E03.9] 05/06/2023 Obesity, Class II, BMI 35-39.9 [E66.812] 05/25/2023 Adenomyosis [N80.03] 05/25/2023 05/25/2023 Dysmenorrhea [N94.6] 05/25/2023 05/25/2023 Encounter Status:Closed by MINE JAMES on 04/02/24 [facility] CNOVon 03-30-2024 CNOV Office Visit (OBGYWM ) PADMINI CARR ([id number]) 1990 F Date Time Provider Department 03/30/24 10:20 AM MONICA GARG [facility] During your visit today, we recorded the following information about you: Blood pressure Weight 120/80 115.3 kg Monica Garg MD 03/30/2024 12:33 PM Signed Padmini Carr is a 33 year old female who presents for problem visit ED follow up for . HPI: ED visit twice this week with pain. Left hemorrhagic cyst. 9 cm on Tuesday and now 7.5 cm. Nausea with the pain. Percocet does not work at all for her pain. Did better with dilaudid in the ED. Has had cysts in the past. This is the worst. Had a TLH earlier this year for adenomyosis. Discussed possible depo for menstrual suppression. 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 History Comments: Sexual Activity: Yes; Male Contraception: No contraception data on record PAST MEDICAL HISTORY Diagnosis Date Chronic midline low back pain without sciatica 07/30/2016 Depression at least 5 yrs Hypothyroidism Morbid obesity due to excess calories (HCC) 07/30/2016 PAST SURGICAL HISTORY Procedure Laterality Date CHG DELIVERY 05/16/2010 CHOLECYSTECTOMY HX 05/16/2010 LAP SLEEVE GASTRECTOMY 2018 VAGINAL HYSTERECTOMY 05/25/2023 vNOTES with bilateral salpingectomy FAMILY HISTORY Problem Relation Age of Onset Diabetes Mother Diabetes Maternal Grandmother Anesthesia Problems No Family History Social History Tobacco Use Smoking status: Never Smokeless tobacco: Never Vaping Use Vaping status: Never Used Substance Use Topics Alcohol use: No Drug use: No Current Outpatient Medications Medication Sig diclofenac (VOLTAREN ARTHRITIS PAIN) 1 % topical gel Apply 2 g to affected area four times daily. hydrOXYzine HCl (ATARAX) 25 mg tablet Take 25 mg by mouth three times a day as needed. cariprazine (VRAYLAR) 3 mg capsule Take 3 mg by mouth once daily. No current facility-administered medications for this visit. Allergies As of Date: 03/30/2024 (No Known Allergies) Fully Assessed 03/30/2024 REVIEW OF SYSTEMS Abdomen: Nausea, bloating and abd pain Bladder: No dysuria, gross hematuria, urinary frequency, urinary urgency, or incontinence. Breast: No breast lumps, nipple d/c, overlying skin changes, redness or skin retraction. Expanded ROS: N/A Allergies and current medication updated:Yes SENSITIVE EXAM: Sensitive exam not performed. EXAM: BP 120/80 Wt 254 lb 3.2 oz (115.3kg) LMP 04/04/2023 GENERAL: pleasant, female in moderate distress HEENT: Normocephalic, atraumatic, mucus membranes moist, and no lesions NECK: Supple, full range of motion, no adenopathy, and thyroid normal DERMATOLOGY: Normal, without lesions, non-icteric, and non-hirsute BREAST: deferred CHEST: Normal inspiratory effort ABDOMEN: Deferred PELVIC: deferred BIMANUAL: deferred NEURO: alert and oriented x3,exam grossly non-focal EXTREMITIES: normal ASSESSMENT AND PLAN: Assessment AND Plan Ovarian cyst rupture Encouraged minimal activity and to stay hydrated. Motrin and zofran and dilaudid po for the weekend. Considering depo suppression Orders: HYDROmorphone 2 mg tablet; Take 1 tablet by mouth every 6 hours as needed for up to 3 days. Monica Garg MD Allergies As of Date: 03/30/2024 (No Known Allergies) Date Reviewed: 03/30/2024 Reviewed by: Monica Garg MD - Fully Assessed Reason for Visit: Follow Up [171] Cmt: From ER Primary Visit Diagnosis:Ovarian cyst rupture [N83.209] Order(s):HYDROmorphone 2 mg tabletTake 1 tablet by mouth every 6 hours as needed for up to 3 days.Disp: 12 tabletRfl: 0 Prescriptions as of 03/30/2024 - HYDROmorphone 2 mg tablet Take 1 tablet by mouth every 6 hours as needed for up to 3 days. - diclofenac (VOLTAREN ARTHRITIS PAIN) 1 % topical gel Apply 2 g to affected area four times daily. - hydrOXYzine HCl (ATARAX) 25 mg tablet Take 25 mg by mouth three times a day as needed. - cariprazine (VRAYLAR) 3 mg capsule Take 3 mg by mouth once daily. 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 Normal [facility] CBC-Complete Blood Cnt No Di ffon 03-29-2024 Erythrocyte distribution width (RBC) [Ratio] 12.5 % Normal 11.6-14.6 [facility] Comment on above: Performed By: #### L 100.0500 #### [facility] [address] [place], [address] Hematocrit (Bld) [Volume fraction] 39.4 % Normal 37-47 [facility] Comment on above: Performed By: #### L 100.0500 #### [facility] [address] [facility] [place], [place], [id number] (539) Hemoglobin (Bld) [Mass/Vol] 13.1 g/dL Normal 12.0-15.0 [facility] Comment on above: Performed By: #### L 100.0500 #### [facility] [address] [place], [address] MCH (RBC) [Entitic mass] 29.4 pg Normal 27.0-32.0 [facility] Comment on above: Performed By: #### L 100.0500 #### [facility] [address] [place], [address] MCHC (RBC) [Mass/Vol] 33.2 g/dL Normal 32-36 [facility] Comment on above: Performed By: #### L 100.0500 #### [facility] [address] [place], [address] MCV (RBC) [Entitic vol] 88.3 fL Normal 81-99 [facility] Comment on above: Performed By: #### L 100.0500 #### [facility] [address] [place], [address] Platelet mean volume (Bld) [Entitic vol] 9.9 fL Normal 6.2-12.0 [facility] Comment on above: Performed By: #### L 100.0500 #### [facility] [address] [place], [address] Platelets (Bld) [#/Vol] 251 10*3/uL Normal 150-450 [facility] Comment on above: Performed By: #### L 100.0500 #### [facility] [address] [place], [address] RBC (Bld) [#/Vol] 4.46 10*6/uL Normal 4.2-5.4 [facility] Comment on above: Performed By: #### L 100.0500 #### [facility] [address] [place], [address] RDW SD 40.6 fl Normal 35.1-43.9 [facility] Comment on above: Performed By: #### L 100.0500 #### [facility] [address] [place], [address] WBC (Bld) [#/Vol] 9.9 10*3/uL Normal 4.4-11.0 [facility] Comment on above: Performed By: #### L 100.0500 #### [facility] [address] [place], [address] Emergency Department Summary on 03-29-2024 Emergency Department Summary [facility] Medical Records Department [address] [place] [address] Emergency Department Summary 03/29/24 MR#: [id number] Acct: [id number] Name: PADMINI CARR Rep #: [id number] : 1990 33 From: Kota Walker MD PCP: Care Physician,No Primary Status:REG ER Location: ED HPI HPI - Female History of Present Illness Chief Complaint: Female C/O Informant: patient and spouse/S.O. Pain Pain: Positive for Pelvic Pain Onset: Days Quality: Positive for Cramping and Sharp Current Severity: Moderate Worsened by: Movement Narrative Narrative: 33-year-old female with a history of left lower quadrant pelvic pain. Diagnosed yesterday Emergency Department ultrasound with 9 cm ovarian cyst. Pain worse today. History of prior and prior hysterectomy. Denies any dysuria. Yesterday treated with Toradol and morphine in the ER. Pain improved. She was discharged home on Percocet. She is try to get into a local [employer] office. She previously saw an [facility] [employer] in my [place] but is unable to get back into that office. She denies any fever. Prior similar symptoms: Yes Recent Illness/Hospitalization: No PFSH PFSH Medical History (Updated 03/29/24 @ 18:[address] Kota Walker MD) Ovarian cyst Strain of right knee Internal derangement of right knee FHx: cholecystectomy Home Medications ???Medication ???Instructions ???Recorded ???Last Taken ???Type meloxicam 15 mg tablet 15 mg PO DAILY Pain #30 tabs 01/21/23 Unknown Rx oxycodone-acetaminophen 5 mg-325 1 tab PO Q6H PRN pain 3 days #12 03/28/24 Unknown Rx mg tablet (Percocet) tabs ondansetron 4 mg disintegrating 4 mg PO Q6H PRN nausea and 03/29/24 Unknown Rx tablet vomiting #10 tabs Allergy/AdvReac Type Severity Reaction Status Date / Time No Known Allergies Allergy Verified 03/28/24 19:21 Family History Other Diabetes Surgical History H/O gastric sleeve History of delivery Social History Smoking Status: Never smoker alcohol intake: never ROS ROS ED ROS Narrative Denies recent illness. Left lower quadrant abdominal/pelvic pain. Constitutional Constitutional ED: Denies chills or fever(s) Eyes Eyes: Denies blurry vision ENT ENT ED: Denies ear pain Cardiovascular Cardiovascular: Denies chest pain Respiratory/Chest Respiratory/Chest: Denies cough or dyspnea Gastrointestinal Gastrointestinal: Reports abdominal pain; Denies constipation, diarrhea, melena, nausea or vomiting Genitourinary Genitourinary ED: Denies dysuria or hematuria Musculoskeletal Musculoskeletal: Denies arthralgias Integumentary Denies abscess Neurologic Neurologic: Denies headache(s) Psychiatric Psychiatric: Denies anxiety Endocrine Endocrinology: Denies heat intolerance Hematologic/Lymphatic Hematologic/Lymphatic: Denies easy bleeding Allergic/Immunologic Allergic/Immunologic ED: Denies mouth swelling or tongue swelling EXAM Physical Exam Narrative Exam Narrative: 33 female that I saw in triage room 2 due to the [employer] acuity time. Vital signs are stable. Current blood pressure 132/45. Heart rate 52. Complaining of pain. H EENT exam unremarkable. Neck nontender. Lungs clear to auscultation bilaterally. Heart regular rate rhythm rate about 60 no murmur. Abdomen soft nondistended. Diffusely tender worse over the left lower quadrant. Moving all 4 extremities. Nontender no edema. Back nontender. She is awake and alert. No focal motor deficits. Const Vital Signs: 03/29/24 15:01 03/29/24 17:10 Temperature 97.9 F Temperature Source Temporal Pulse Rate 52 L 52 L Respiratory Rate 18 18 Blood Pressure 132/45 H 126/75 H Blood Pressure Mean 74 92 Pulse Ox 96 100 Oxygen Delivery Method Room Air Room Air Positive well nourished and well developed; Negative for cachectic or contractures General Appearance ED: well developed; Negative for cachectic, contractures, NAD or pallor Nutritional Appearance: Negative for cachectic HEENT Reports moist mucous membranes Negative for trauma or tenderness Eyes PERRL and EOMs intact bilaterally General Eye ED: Negative for pale conjunctiva or scleral icterus Neck no lymphadenopathy and supple General: Negative for other Thyroid: Negative for tender Lymph Lymphatic: Negative for other Chest Wall inspection of chest normal and palpation of chest normal Resp normal respiratory effort and clear to auscultation bilaterally Effort and Inspection: Negative for pain with movement Auscultation: Negative for rales, rhonchi, wheezes or diminished lung sounds Cardio regular rate, regular rhythm, S1 normal heart sound, no murmurs and no JVD (more content not included)... Normal [facility] Transvaginal Non-on 03-29-2024 Transvaginal Non- [facility] [address] [place] [id number] Transvaginal Non- MR#: [id number] Acct: [id number] Name: PADMINI CARR Rep #: [id number] : 1990 F 33 From: Josue díaz MD PCP: Care Physician,No Primary Status: PRE ER Study: Transvaginal Non- Date of Exam: Exam# [id number] Ordering Dr: Kota Walker MD [id number] STUDY: ULTRASOUND TRANSVAGINAL CLINICAL: Female, 33 years old. ov cyst. need aterial flow ?? TECHNIQUE: Transvaginal COMPARISON: CT scan 03/28/2024. FINDINGS: There has been hysterectomy. Normal right ovary, measuring 2.9 x 2.1 x 2.0 cm. There is a subcentimeter cyst. There is normal blood flow. Normal left ovary, measuring 8.4 x 8.6 x 6.0 cm. There is a hemorrhagic cyst measuring 7.5 x 6.2 x 5.6 cm. Recommend follow-up in one or 2 menstrual periods. There is normal blood flow. There is mild free fluid in the pelvis. Polycystic ovary disease: No. US/Transvaginal Non- IMPRESSION: 7.5 cm probable hemorrhagic cyst of the left ovary. Recommend follow-up in one or 2 menstrual periods. Normal blood flow to both ovaries/adnexa. Electronically Signed: Josue Edmonds MD at 16:38 EST , CC: Dr. Kota Walker MD; No Primary Care Physician Sales Consulting Director: Signed Normal [facility] Abdomen/Pelvis without Conto n 03-28-2024 Abdomen/Pelvis without Cont [facility] [address] [place] [address] Abdomen/Pelvis without Cont MR#: [id number] Acct: [id number] Name: PADMINI CARR Rep #: [id number] : 1990 F 33 From: Sudhakar Miller MD PCP: Care Physician,No Primary Status: REG ER Study: Abdomen/Pelvis without Cont Date of Exam: 03/16 08/06 Exam# [id number] Ordering Dr: Tez Howard MD [id number] INDICATION: Kidney Stone COMPARISON: None. A radiation dose optimization technique was used for this scan. RADIATION DOSAGE (If Supplied By Facility): CTDIvol/DLP = ( 21.47 ) / ( 1104.97 ) mGy/mGycm FINDINGS: Noncontrast serial CT axial images through the abdomen and pelvis with coronal and sagittal reformatted series. PANCREAS: No peripancreatic fat stranding. APPENDIX: Appendix is not definitely identified, however, there are no significant right lower quadrant inflammatory fat changes or focal fluid collection to suggest acute appendicitis. UTERUS/ADNEXA: Large 8 cm Irregular thick-walled cystic lesion of the central pelvis, likely ovarian in origin. Trace amount of bilateral dependent pelvic fluid. Uterus appears to be absent. BOWEL/MESENTERY: No dilated bowel loops. No free air. GALLBLADDER: Absent gallbladder with surgical clips in the gallbladder fossa. LIVER/STOMACH: Gastric suture line. URINARY COLLECTING SYSTEM/ KIDNEYS: No obstructing ureteral calculus. No significant renal parenchymal abnormality. LUNG BASES: Medial right posterior lung base linear atelectasis versus scarring. BONES: Unremarkable for age. CT/Abdomen/Pelvis without Cont IMPRESSION: Large 8 cm Irregular thick-walled cystic lesion of the central pelvis, likely ovarian in origin. Although may represent hemorrhagic ovarian cyst, cystic neoplastic process is not excluded. Appendix is not definitely identified, however, there are no significant right lower quadrant inflammatory fat changes or focal fluid collection to suggest acute appendicitis. Otherwise, no acute abdominal abnormality is identified, to include no evidence of obstructing ureteral calculus. Electronically Signed: Sudhakar Miller MD at 21:57 EST , CC: Dr. Tez Howard MD; No Primary Care Physician Sales Consulting Director: Signed Normal [facility] Basic Metabolic Profile (BMP )on 03-28-2024 BUN/CRE 16.3 RATIO Normal 10-20 [facility] Comment on above: Performed By: #### L 500.2500, L100.0100 #### [facility] [address] [place], [address] CA,Total 8.8 mg/dL Normal 8.5-10.1 [facility] Comment on above: Performed By: #### L 500.2500, L100.0100 #### [facility] [address] [place], [address] Chloride [Moles/Vol] 111 mmol/L High 98-107 [facility] Comment on above: Performed By: #### L 500.2500, L100.0100 #### [facility] [address] [place], [address] CO2 [Moles/Vol] 24.0 mmol/L Normal 21.0-32.0 [facility] Comment on above: Performed By: #### L 500.2500, L100.0100 #### [facility] [address] [place], [address] Creatinine [Mass/Vol] 0.92 mg/dL Normal 0.55-1.02 [facility] Comment on above: Result Comment: The validity of the calculated GFR GFRAA in patients over 70 years has not been determined. Clinical correlation is essential. Performed By: #### L 500.2500, L100.0100 #### [facility] [address] [place], [address] ECRCL 106.80 ml/min Normal [facility] Comment on above: Performed By: #### L 500.2500, L100.0100 #### [facility] [address] [place], [address] EST GFR - AA 89 mL/min Normal >60 [facility] Comment on above: Result Comment: Afri can Uzbek GFR Calc Performed By: #### L 500.2500, L100.0100 #### [facility] [address] [place], [address] GAP 6 Normal 5-15 [facility] Comment on above: Performed By: #### L 500.2500, L100.0100 #### [facility] [address] [place], [address] GFR/1.73 sq M.predicted among non-blacks MDRD (S/P/Bld) [Vol rate/Area] 74 mL/min/{1.73_m2} Normal >60 [facility] Comment on above: Result Comment: Non- GFR Calc Performed By: #### L 500.2500, L100.0100 #### [facility] [address] [place], [address] Glucose [Mass/Vol] 130 mg/dL High 74-106 [facility] Comment on above: Result Comment: Fast ing Glucose result greater than or equal to 126 mg/dL suggests DIABETES MELLITUS per A.D.A. criteria. Performed By: #### L 500.2500, L100.0100 #### [facility] [address] [place], [address] Potassium [Moles/Vol] 3.6 mmol/L Normal 3.5-5.1 [facility] Comment on above: Performed By: #### L 500.2500, L100.0100 #### [facility] [address] [place], [address] Sodium [Moles/Vol] 141 mmol/L Normal 136-145 [facility] Comment on above: Performed By: #### L 500.2500, L100.0100 #### [facility] [address] [place], [address] Urea nitrogen [Mass/Vol] 15 mg/dL Normal 7-18 [facility] Comment on above: Performed By: #### L 500.2500, L100.0100 #### [facility] [address] [place], [address] CBC W/Diff, Automatedon 03-16 Absolute Lymph 2.86 X10 3/uL Normal 0.83-4.51 [facility] Comment on above: Performed By: #### L 500.2500, L100.0100 #### [facility] [address] [place], [address] Absolute Neut 8.1 X10 3/uL High 2.0-7.7 [facility] Comment on above: Performed By: #### L 500.2500, L100.0100 #### [facility] [address] [place], [address] Basophils/100 WBC (Bld) 0.3 % Normal 0-1 [facility] Comment on above: Performed By: #### L 500.2500, L100.0100 #### [facility] [address] [place], [address] Eosinophils/100 WBC (Bld) 1.4 % Normal 0-5 [facility] Comment on above: Performed By: #### L 500.2500, L100.0100 #### [facility] [address] [place], [address] Erythrocyte distribution width (RBC) [Ratio] 12.3 % Normal 11.6-14.6 [facility] Comment on above: Performed By: #### L 500.2500, L100.0100 #### [facility] [address] [place], [address] Hematocrit (Bld) [Volume fraction] 37.6 % Normal 37-47 [facility] Comment on above: Performed By: #### L 500.2500, L100.0100 #### [facility] [address] [place], [address] Hemoglobin (Bld) [Mass/Vol] 12.6 g/dL Normal 12.0-15.0 [facility] Comment on above: Performed By: #### L 500.2500, L100.0100 #### [facility] [address] [place], [address] IG% 0.400 Normal 0.0-0.9 [facility] Comment on above: Result Comment: IG% - Immature Granulocytes (promyelocytes, myelocytes and metamyelocytes) > 1% indicates that a LEFT SHIFT is Present. Performed By: #### L 500.2500, L100.0100 #### [facility] [address] [place], [address] Lymphocytes/100 WBC (Bld) 24.4 % Normal 19-41 [facility] Comment on above: Performed By: #### L 500.2500, L100.0100 #### [facility] [address] [place], [address] MCH (RBC) [Entitic mass] 29.7 pg Normal 27.0-32.0 [facility] Comment on above: Performed By: #### L 500.2500, L100.0100 #### [facility] [address] [place], [address] MCHC (RBC) [Mass/Vol] 33.5 g/dL Normal 32-36 [facility] Comment on above: Performed By: #### L 500.2500, L100.0100 #### [facility] [address] [place], [address] MCV (RBC) [Entitic vol] 88.7 fL Normal 81-99 [facility] Comment on above: Performed By: #### L 500.2500, L100.0100 #### [facility] [address] [place], [address] Monocytes/100 WBC (Bld) 4.3 % Normal 0-10 [facility] Comment on above: Performed By: #### L 500.2500, L100.0100 #### [facility] [address] [place], [address] Neutrophils/100 WBC (Bld) 69.2 % Normal 47-70 [facility] Comment on above: Performed By: #### L 500.2500, L100.0100 #### [facility] [address] [place], [address] Nucleated RBC (Bld) [#/Vol] 0 10*3/uL Normal 0-5 [facility] Comment on above: Performed By: #### L 500.2500, L100.0100 #### [facility] [address] [place], [address] Platelet mean volume (Bld) [Entitic vol] 10.4 fL Normal 6.2-12.0 [facility] Comment on above: Performed By: #### L 500.2500, L100.0100 #### [facility] [address] [place], [address] Platelets (Bld) [#/Vol] 257 10*3/uL Normal 150-450 [facility] Comment on above: Performed By: #### L 500.2500, L100.0100 #### [facility] [address] [place], [address] RBC (Bld) [#/Vol] 4.24 10*6/uL Normal 4.2-5.4 [facility] Comment on above: Performed By: #### L 500.2500, L100.0100 #### [facility] [address] [place], [address] RDW SD 39.5 fl Normal 35.1-43.9 [facility] Comment on above: Performed By: #### L 500.2500, L100.0100 #### [facility] [address] [place], [address] WBC (Bld) [#/Vol] 11.7 10*3/uL High 4.4-11.0 [facility] Comment on above: Performed By: #### L 500.2500, L100.0100 #### [facility] [address] [place], [address] Emergency Department Summary on 03-28-2024 Emergency Department Summary [facility] Medical Records Department [address] [place] [address] Emergency Department Summary 03/28/24 MR#: [id number] Acct: [id number] Name: PADMINI CARR Rep #: [id number] : 1990 33 From: Tez Howard MD PCP: Care Physician,No Primary Status:REG ER Location: ED HPI History of Present Illness Chief Complaint: Flank Pain Narrative Narrative: 33-year-old female presents with her significant other/boyfriend secondary to left flank pain that began a few hours ago. They state that they called intake and there was concern for either ovarian cyst or kidney stone. However, she denies any dysuria or hematuria, no problems with bowel movements, no exacerbating or alleviating factors except for seems to be worse with movement. She states it started happening all of a sudden, and it is mainly in her left low back/flank. She took an oxycodone that she had leftover from surgery which is not helping. No recent trauma. Pain does not radiate down her leg. Movement of her leg does not cause pain either. PFSH PFSH Medical History Strain of right knee Internal derangement of right knee FHx: cholecystectomy Home Medications ???Medication ???Instructions ???Recorded ???Last Taken ???Type meloxicam 15 mg tablet 15 mg PO DAILY Pain #30 tabs 01/21/23 Unknown Rx oxycodone-acetaminophen 5 mg-325 1 tab PO Q6H PRN pain 3 days #12 03/28/24 Unknown Rx mg tablet (Percocet) tabs Allergy/AdvReac Type Severity Reaction Status Date / Time No Known Allergies Allergy Verified 03/28/24 19:21 Family History Other Diabetes Surgical History H/O gastric sleeve History of delivery Social History Smoking Status: Never smoker alcohol intake: never ROS ROS ED ROS Narrative Constitutional: No fever, no chills. HEENT: No sore throat. No neck pain. No loss of vision. No rhinorrhea. Cardiovascular: No chest pain. No palpitations. No pedal edema. Respiratory: No cough, no shortness of breath. Abdominal: No abdominal pain. No nausea. No vomiting. Genitourinary: No dysuria. No hematuria. Positive left flank pain Musculoskeletal: No myalgias. No arthralgias. Positive left flank pain/low back pain. Neurologic: No headaches. No dizziness. No lightheadedness. Skin: No rash. No change in color. EXAM Physical Exam Narrative Exam Narrative: Afebrile. Vital signs noted. Nontoxic-appearing. Cardiovascular examination reveals a regular rate and rhythm. Lungs are clear to auscultation bilaterally. The abdomen is soft and nontender with normal active bowel sounds, no guarding or rebound. There is mild tenderness to palpation in the left flank with questionable CVA tenderness. More mildly reproducible. No vertebral point tenderness or bony step-off of the lumbar spine. Straight leg raising is negative, and she is able to flex and extend at the left hip. Const Vital Signs: 03/28/24 19:18 03/28/24 21:18 03/28/24 23:00 Temperature 97.4 F L Temperature Source Temporal Pulse Rate 67 57 L 61 Respiratory Rate 18 18 18 Blood Pressure 169/90 H Blood Pressure Mean 116 Pulse Ox 100 98 97 Oxygen Delivery Method Room Air Room Air Room Air MDM MDM MDM Narrative Medical decision making narrative: Differential diagnosis includes but not limited to ureterolithiasis versus pyelonephritis versus musculoskeletal back pain. I have low concern for ovarian cyst because the history and physical does not support this. She is not really having abdominal pain she is having more left flank pain. She was administered morphine and ketorolac for analgesia. Patient has history of remote hysterectomy so I do not feel that test is indicated. I feel she can go for imaging and we will obtain UA as well as CBC and BMP. I reviewed her laboratory work and she has slightly elevated white count of 11.7 which I think is nonspecific, hemoglobin 12.6 with hematocrit 37.6, platelet count normal at 257. Chloride is 111 with normal sodium of 141 and potassium 3.6. BUN normal at 15 with creatinine 0.92. Urinalysis is negative for infection with 0-5 WBCs and 0 RBCs. I reviewed the radiology report of the CT of the abdomen pelvis given her flank pain, and there is no evidence of ureterolithiasis or hydronephrosis. There is noted to be an 8 cm cystlike structure in the central pelvis, most likely ovarian in etiology. Given the size of the cyst, there would be concern for intermittent torsion as a cause of her pain, but she did have more pain in the flank. Patient states that she started having abdominal pain, then it shifted more to the left. Patient d (more content not included)... Normal [facility] ,Serum,hCG Quali.on 03-28-2024 HCG, SERUM QUAL Normal [facility] Comment on above: Result Comment: Canc elled via OM: MD Ordered Performed By: #### L 700.6800 #### [facility] [address] [place], [address] INTERNAL QC OK? Normal [facility] Comment on above: Result Comment: Canc elled via OM: MD Ordered Performed By: #### L 700.6800 #### [facility] [address] [place], [address] RECORD KIT LOT# Normal [facility] Comment on above: Result Comment: Canc elled via OM: MD Ordered Performed By: #### L 700.6800 #### [facility] [address] [place], [address] Transvaginal Non-on 03-28-2024 Transvaginal Non- [facility] [address] [place] [address] Transvaginal Non- MR#: [id number] Acct: [id number] Name: PADMINI CARR Rep #: [id number] : 1990 F 33 From: Sudhakar Miller MD PCP: Care Physician,No Primary Status: REG ER Study: Transvaginal Non- Date of Exam: Exam# [id number] Ordering Dr: Tez Howard MD [id number] INDICATION: pain=LLQ. Hysterectomy. EXAMINATION: Ultrasound US Transvaginal Non-OB COMPARISON: Abdominal CT earlier same day. FINDINGS: 59 grayscale ultrasound images of the pelvis obtained both transabdominally and transvaginally. In addition dedicated ovarian color Doppler and Doppler waveform interrogation was performed. UTERUS: Absent as per history. ADNEXA: Flow is documented to bilateral ovaries by color Doppler as well as Doppler waveform. Right ovarian small anechoic 1.2 cm lesion consistent with dominant follicle. Irregular thick-walled central pelvis 8.9 cm mixed cystic and solid lesion containing numerous internal lacelike septae, most consistent with left hemorrhagic ovarian cyst. Small amount of pelvic free fluid. US/Transvaginal Non- IMPRESSION: 9 cm hemorrhagic ovarian cyst. Recommend follow-up ultrasound imaging in 6-10 weeks to document resolution. Small 1.2 cm right ovarian dominant follicle. Electronically Signed: Sudhakar Miller MD at 23:43 EST , CC: Dr. Tez Howard MD; No Primary Care Physician Sales Consulting Director: Signed Normal [facility] Urinalysis, Completeon 03-28 BACTERIA RARE Normal None Seen [facility] Comment on above: Order Comment: CLEAN CATCH Performed By: #### L 400.0001 #### [facility] [address] [place], [address] EPI,SQUAMOUS 0-5 SEEN Normal 5-10 [facility] Comment on above: Order Comment: CLEAN CATCH Performed By: #### L 400.0001 #### [facility] [address] [place], [address] WBC 0-5 SEEN Normal 0-5 [facility] Comment on above: Order Comment: CLEAN CATCH Performed By: #### L 400.0001 #### [facility] [address] [place], [address] BACTERIA Normal None Seen [facility] Comment on above: Order Comment: CLEAN CATCH Result Comment: DUPL ICATE ORDER Performed By: #### L 400.0001 #### [facility] [address] [place], [address] BILIRUBIN URINE Normal Negative [facility] Comment on above: Order Comment: CLEAN CATCH Result Comment: DUPL ICATE ORDER Performed By: #### L 400.0001 #### [facility] [address] [place], [address] Clarity (U) Normal Clear [facility] Comment on above: Order Comment: CLEAN CATCH Result Comment: DUPL ICATE ORDER Performed By: #### L 400.0001 #### [facility] [address] [place], [address] Color (U) Normal Yellow [facility] Comment on above: Order Comment: CLEAN CATCH Result Comment: DUPL ICATE ORDER Performed By: #### L 400.0001 #### [facility] [address] [place], [address] EPI,SQUAMOUS Normal 5-10 [facility] Comment on above: Order Comment: CLEAN CATCH Result Comment: DUPL ICATE ORDER Performed By: #### L 400.0001 #### [facility] [address] [place], [address] GLUCOSE, UR Normal Normal [facility] Comment on above: Order Comment: CLEAN CATCH Result Comment: DUPL ICATE ORDER Performed By: #### L 400.0001 #### [facility] [address] [place], [address] KETONE UR Normal Negative [facility] Comment on above: Order Comment: CLEAN CATCH Result Comment: DUPL ICATE ORDER Performed By: #### L 400.0001 #### [facility] [address] [place], [address] LEUK ESTERASE Normal Negative [facility] Comment on above: Order Comment: CLEAN CATCH Result Comment: DUPL ICATE ORDER Performed By: #### L 400.0001 #### [facility] [address] [place], [address] Mucus Ql (Urine sed) Normal [facility] Comment on above: Order Comment: CLEAN CATCH Result Comment: DUPL ICATE ORDER Performed By: #### L 400.0001 #### [facility] [address] [place], [address] Nitrite Ql (U) Normal Negative [facility] Comment on above: Order Comment: CLEAN CATCH Result Comment: DUPL ICATE ORDER Performed By: #### L 400.0001 #### [facility] [address] [place], [address] OCCULT BLOOD-UR Normal Negative [facility] Comment on above: Order Comment: CLEAN CATCH Result Comment: DUPL ICATE ORDER Performed By: #### L 400.0001 #### [facility] [address] [place], [address] pH UR Normal 5.0 - 8.0 [facility] Comment on above: Order Comment: CLEAN CATCH Result Comment: DUPL ICATE ORDER Performed By: #### L 400.0001 #### [facility] [address] [facility] [address] PROT DIPSTX Normal Negative [facility] Comment on above: Order Comment: CLEAN CATCH Result Comment: DUPL ICATE ORDER Performed By: #### L 400.0001 #### [facility] [address] [place], [address] RBC Normal 0-5 [facility] Comment on above: Order Comment: CLEAN CATCH Result Comment: DUPL ICATE ORDER Performed By: #### L 400.0001 #### [facility] [address] [place], [address] SP.GR. DIPSTX Normal 1.002-1.03 0 [facility] Comment on above: Order Comment: CLEAN CATCH Result Comment: DUPL ICATE ORDER Performed By: #### L 400.0001 #### [facility] [address] [place], [address] UR Preservative Normal [facility] Comment on above: Order Comment: CLEAN CATCH Result Comment: DUPL ICATE ORDER Performed By: #### L 400.0001 #### [facility] [address] [place], [address] UROBILI Normal Normal [facility] Comment on above: Order Comment: CLEAN CATCH Result Comment: DUPL ICATE ORDER Performed By: #### L 400.0001 #### [facility] [address] [place], [address] WBC Normal 0-5 [facility] Comment on above: Order Comment: CLEAN CATCH Result Comment: DUPL ICATE ORDER Performed By: #### L 400.0001 #### [facility] [address] [place], [address] Mucus Ql (Urine sed) 0 SEEN Normal [facility] Comment on above: Order Comment: CLEAN CATCH Performed By: #### L 400.0001 #### [facility] [address] [place], [address] RBC 0 SEEN Normal 0-5 [facility] Comment on above: Order Comment: CLEAN CATCH Performed By: #### L 400.0001 #### [facility] [address] [place], [address] CNOVon 11-11-2023 CNOV Office Visit (SPRTST ) PADMINI CARR ([id number]) 1990 F Date Time Provider Department 11/11/23 3:30 PM [facility]AILEY CHANDLER [facility] During your visit today, we recorded the following information about you: Kailey Chandler MD 11/11/2023 3:38 PM Signed Interval History: Padmini Carr returns today for evaluation of her neck/left upper extremity pain . Chief complaint is left upper extremity pain and neck pain. Physical Examination: This is a well appearing, well nourishedl patient in no acute distress. Head is normocephalic and atraumatic. White sclera and pink conjunctiva. Mucous membranes are moist. Patient breathes easily and has normal chest wall excursion. Affect is normal. Cervical irritability. Limited range of motion. + spurlings Shoulder exam fairly benign. Some +impingement No knee effusion. Review of Systems: CV: No chest pain Pulm: No short of breath HEENT: No head ache General: no fevers, chills, nausea/vomiting, malaise Imaging: none Procedure: After informed, verbal consent was obtained and a brief time out was taken, I injected the patient's right knee with 40mg of kenalog and 6 cc of lidocaine using aseptic technique. The patient tolerated the procedure well and without complaints. Impression: Padmini Carr is a 33 year old female here with a diagnosis of persistent right knee pain. Neck pain and radiculopathy . Plan: 1. Return to clinic: as necessary 2. Pharmacologic treatment: medrol dose pack 3. Physical therapy: Yes 4. Imaging: None 5. Other: referral to a medical staff specialist Kailey Chandler MD Large Joint Arthro/Inj: R knee joint Informed Consent Consent Obtained: Verbal Eastern Protocol A moment to CARE was completed. SIGN IN Personnel directly involved with the procedure wore the appropriate PPE. Special Equipment: N/A Patient/Surrogate Stated/Verified: Patient name, Date of , Relevant allergies and Intended procedure TIME OUT Intended patient and procedure match the source document(s). Consent documented and matches the intended procedure. Relevant labs, photos, and/or imaging studies have been reviewed. Correct side/site marked and visible. Medications required for procedure verified. No fire risk assessment and interventions applicable. No implant(s) inserted. 11/11/2023 3:37 PM The procedure site was prepped in the usual sterile fashion. Site: R knee joint Medications: 40 mg triamcinolone acetonide 40 mg/mL Anesthetics: 6 mL lidocaine (PF) 10 mg/mL (1 %) Outcome: Tolerated well, no immediate complications Post-injection instructions were reviewed with the patient and the patient voiced understanding of these instructions. SIGN OUT No specimen collected. All instruments, equipment, possible retained foreign bodies accounted for. Post-procedure follow-up management communicated and Plan of Care Visit completed when applicable Allergies As of Date: 11/11/2023 (No Known Allergies) Date Reviewed: 11/11/2023 Reviewed by: Yumiko Murphy MA - Fully Assessed Reason for Visit: Established Patient [175] Primary Visit Diagnosis:Neck pain [M54.2] Other Visit Diagnosis:Chronic pain of right knee [M25.561, G89.29] Order(s):CONSULT TO PHYSICAL THERAPY [90] Order #: [id number]: 1 FUTURE methylPREDNISolone (MEDROL, ALTAF,) 4 mg Dose-PackTake as directedDisp: 21 tabletRfl: 0 CONSULT TO [facility] [[id number]] Order #: [id number]: 1 FUTURE Large Joint Arthro/Inj: R knee joint [DMA097] Order #: [id number] [] lidocaine (PF) 10 mg/mL (1 %) 6 mL injection (XYLOCAINE)Disp: Rfl: [] triamcinolone acetonide 40 mg injection (KeNALog 40)Disp: Rfl: Prescriptions as of 11/11/2023 - methylPREDNISolone (MEDROL, ALTAF,) 4 mg Dose-Pack Take as directed - diclofenac (VOLTAREN ARTHRITIS PAIN) 1 % topical gel Apply 2 g to affected area four times daily. - hydrOXYzine HCl (ATARAX) 25 mg tablet Take 25 mg by mouth three times a day as needed. - cariprazine (VRAYLAR) 3 mg capsule Take 3 mg by mouth once daily. Problem List As Of Date 11/11/2023 Noted Resolved Genetic Counseling and Testing [[id number]] 12/15/2009 Chromo Abn-Antepart [O35.10X0] 12/15/2009 Acute epigastric pain [R10.13] 04/09/2014 NO SHOW [312280] 05/14/2014 04/26/2022 Major depressive disorder [F32.9] 07/29/2016 Secondary amenorrhea [N91.1] 07/30/2016 Morbid obesity due to excess calories (HCC) [E6*07/30/2016 Chronic midline low back pain without sciatica *07/30/2016 Acute pain of right knee [M25.561] 02/16/2023 Hypothyroidism [E03.9] 05/06/2023 Obesity, Class II, BMI 35-39.9 [E66.9] 05/25/2023 Adenomyosis [N80.03] 05/25/2023 05/25/2023 Dysmenorrhea [N94.6] 05/25/2023 05/25/2023 Prescriptions ordered this encounter Disp Refills Start End METHYLPREDNISOLONE 4 MG TABLETS IN A* 21 t* 0 11/11/2023 11/17/2023 Sig: Take as directed (more content not included)... Normal [facility] Large Joint Arthro/Inj: R kn ee jointon 11-11-2023 Kailey Chandler MD 11/11/2023 3:38 PM Large Joint Arthro/Inj: R knee joint Informed Consent Consent Obtained: Verbal Eastern Protocol A moment to CARE was completed. SIGN IN Personnel directly involved with the procedure wore the appropriate PPE. Special Equipment: N/A Patient/Surrogate Stated/Verified: Patient name, Date of , Relevant allergies and Intended procedure TIME OUT Intended patient and procedure match the source document(s). Consent documented and matches the intended procedure. Relevant labs, photos, and/or imaging studies have been reviewed. Correct side/site marked and visible. Medications required for procedure verified. No fire risk assessment and interventions applicable. No implant(s) inserted. 11/11/2023 3:37 PM The procedure site was prepped in the usual sterile fashion. Site: R knee joint Medications: 40 mg triamcinolone acetonide 40 mg/mL Anesthetics: 6 mL lidocaine (PF) 10 mg/mL (1 %) Outcome: Tolerated well, no immediate complications Post-injection instructions were reviewed with the patient and the patient voiced understanding of these instructions. SIGN OUT No specimen collected. All instruments, equipment, possible retained foreign bodies accounted for. Post-procedure follow-up management communicated and Plan of Care Visit completed when applicable [facility] ALLIED HEALTHon 10-16-2023 ALLIED HEALTH HNO ID: [id number] Author: ARTURO HERR RT(R) Service: ? Author Type: Technologist Type: Allied Health Filed: 10/16/2023 18:56 Note Text: Radiology Service Progress Note PATIENT NAME: Padmini Carr DATE OF SERVICE: October 16, 2023 TIME: 6:56 PM PATIENT IDENTITY VERIFICATION COMPLETED USING TWO (2) IDENTIFIERS: Name and Date of confirmed by patient verbally. FALL SCREENING: Has the patient had 2 falls in the last year or 1 fall with injury or currently using an Ambulatory Assistive Device (Walker, Cane, Wheelchair, Crutches, etc.)? Emergency Room Patient: Screened in ED PATIENT GENDER DATA: Female. status: : No status: NO. PATIENT RELEVANT IMPLANT DATA REVIEWED: Not Applicable PATIENT PRESENTS WITH AN IMPLANTABLE OR ATTACHED [employer] SPOTTER: No RADIOLOGY DEPARTMENT: General X-ray: Exam(s) Completed: Lower Extremity X-Ray(s): Knee, AP / LAT Right PERIPHERAL IV DATA: Not applicable SIGNED BY: RT Lottie(R) October 16, 2023 6:56 PM [facility] ED PROV NOTEon 10-16-2023 ED PROV NOTE HNO ID: [id number] Author: CELINA HOLT PA-C Service: ? Author Type: Physician Engineer [employer] Construction Type: ED Provider Notes Filed: 10/16/2023 19:14 Note Text: ED Provider Note Patient Name: Padmini Carr : 1990 SERVICE DATE: 10/16/23 History Patient presents with: Knee Pain: Patient presents to ED with right knee pain. Denies falls and injury 32-year-old female with a past medical history of chronic knee pain, presents for right knee pain exacerbation. Patient denies any known injury or trauma or falls, she states she has had this in the past, she has seen orthopedics for this in the past in which she has had physical therapy as well as steroid injection, over the last couple days her pain is worsened, today her pain was excruciating the morning. Denies fever, denies any other complaints PAST MEDICAL HISTORY Diagnosis Date Chronic midline low back pain without sciatica 07/30/2016 Depression at least 5 yrs Hypothyroidism Morbid obesity due to excess calories (HCC) 07/30/2016 PAST SURGICAL HISTORY Procedure Laterality Date CHG DELIVERY 05/16/2010 CHOLECYSTECTOMY HX 05/16/2010 LAP SLEEVE GASTRECTOMY 2018 VAGINAL HYSTERECTOMY 05/25/2023 vNOTES with bilateral salpingectomy FAMILY HISTORY Problem Relation Age of Onset Diabetes Mother Diabetes Maternal Grandmother Anesthesia Problems No Family History Social History Tobacco Use Smoking status: Never Smokeless tobacco: Never Vaping Use Vaping Use: Never used Substance and Sexual Activity Alcohol use: No Drug use: No Sexual activity: Yes Partners: Male ALLERGIES No Known Allergies Review of Systems Constitutional: Negative for chills and fever. HENT: Negative for drooling, ear discharge, hearing loss, mouth sores, postnasal drip, sneezing and voice change. Eyes: Negative for photophobia and visual disturbance. Respiratory: Negative for chest tightness, shortness of breath and wheezing. Cardiovascular: Negative for chest pain and palpitations. Gastrointestinal: Negative for abdominal distention, abdominal pain, anal bleeding, blood in stool, constipation, diarrhea, nausea, rectal pain and vomiting. Genitourinary: Negative for dysuria, flank pain, hematuria, pelvic pain, vaginal bleeding and vaginal discharge. Musculoskeletal: Positive for arthralgias. Negative for neck pain and neck stiffness. Skin: Negative for color change. Neurological: Negative for dizziness, numbness and headaches. Psychiatric/Behavioral: Negative for agitation and confusion. The patient is not hyperactive. Physical Exam Vitals [10/16/23 1821] BP Pulse Temp Temp src Resp SpO2 Weight Height 131/96 76 36.7 ?C (98.1 ?F) Oral 16 96 % 104.3 kg (230 lb) -- Physical Exam Constitutional: Appearance: She is well-developed. HENT: Head: Normocephalic and atraumatic. Nose: Nose normal. Eyes: Conjunctiva/sclera: Conjunctivae normal. Cardiovascular: Rate and Rhythm: Normal rate and regular rhythm. Pulmonary: Effort: Pulmonary effort is normal. No respiratory distress. Breath sounds: Normal breath sounds. No wheezing. Abdominal: General: Bowel sounds are normal. Palpations: Abdomen is soft. Musculoskeletal: General: Tenderness present. No swelling, deformity or signs of injury. Normal range of motion. Cervical back: Normal range of motion and neck supple. Comments: Tender to palpation over the right knee joint especially by the popliteal space, no obvious deformity, no ecchymosis, no redness or warmth, Skin: General: Skin is warm and dry. Neurological: Mental Status: She is alert and oriented to person, place, and time. Psychiatric: Behavior: Behavior normal. Diagnostic Testing ED Labs Ordered and Reviewed - No data to display Procedures ED Course / Clinical Impression Clinical Impressions as of 10/16/23 191 Acute pain of right knee Difficulty walking Percocet See ortho Flexeril Voltaren cream Dosepak Rest Home meds See pcp Return to ed if sx worsen MDM / Disposition / Plan The medical record is reviewed.Triage note is reviewed and incorporated.The nursing note is reviewed and consistent with patient's history and physical exam findings. The vital signs were reviewed and the vital signs are : BP 131/96 Pulse 76 Temp 36.7 ?C (98.1 ?F) (Oral) Resp 16 Wt 104.3 kg (230 lb) LMP 04/04/2023 (Approximate) SpO2 96% BMI 39.48 kg/m? ASSESSMENT AND PLAN: This is a 32 year old female who presents to the ED with a chief complaint of right knee pain. Plan is pain control patient presents for right knee pain, she has had a history of this in the past, denies injury or trauma, on exam there is no obvious deformity, no. . Evidence or signs for infection or septic arthritis, x-ray showed no acute findings, at this time patient will continue doing her knee brace and will follow closely with Ortho, will give her steroids and pain medic (more content not included)... [facility] XR KNEE 4V AP/LAT/OBLS RTon 10-16-2023 XR KNEE 4V AP/LAT/OBLS RT * * *Final Report* * * DATE OF EXAM: Oct 16 2023 6:56PM MDX [id number] - XR KNEE 4V AP/LAT/OBLS RT / PROCEDURE REASON: Trauma * * * * Physician Interpretation * * * * PROCEDURE: Right knee INDICATION: Trauma.Right knee pain since her 's TECHNIQUE: XR KNEE 4V AP/LAT/OBLS RT COMPARISON: None FINDINGS: Mild tricompartment osteoarthrosis. No fracture or dislocation. No significant joint effusion. IMPRESSION: No acute abnormality Sales Consulting Director: PSCB Transcribe Date/Time: Oct 16 2023 6:59P Dictated by : CLAIR CRAWFORD MD This examination was interpreted and the report reviewed and electronically signed by: CLAIR CRAWFORD MD on Oct 16 2023 6:59PM EST [id number] [facility] ANES POSTPROC EVALon 024 ANES POSTPROC EVAL HNO ID: [id number] Author: PHILIP RG MD Service: ? Author Type: Anesthesiologist Type: Anesthesia Postprocedure Evaluation Filed: 05/25/2023 14:07 Note Text: POST ANESTHESIA EVALUATION NOTE : 1990 Procedure Summary Date: 05/25/23 Room / Location: [place] [address] / [place] Anesthesia Start: 909 Anesthesia Stop: 1052 Procedures: LAPAROSCOPIC ASSISTED HYSTERECTOMY VAGINAL FOR UTERUS 250 G OR LESS; vNote vNOTES LAPAROSCOPY SALPINGECTOMY (Bilateral) CYSTOSCOPY Diagnosis: Adenomyosis Dysmenorrhea (Adenomyosis [N80.03]) (Dysmenorrhea [N94.6]) Surgeons: Monica Alfaro MD Responsible Provider: Philip Rg MD Anesthesia Type: general ASA Status: 2 Anesthesia Type: general Airway Type: ETT Last Vitals Vitals Value Taken Time BP 119/68 05/25/23 1145 Temp 36.7 ?C (98.1 ?F) 05/25/23 1048 HR SpO2 66 05/25/23 1048 Resp 24 05/25/23 1148 SpO2 97 % 05/25/23 1148 Vitals shown include unfiled device data. Post Anesthesia Patient Status Patient Evaluation: bedside. Anticipated Disposition: phase 2 then home. Neurological Status: aware and responsive. Pulmonary Status: breathing comfortably on room air Airway Control: returned to baseline unsupported. Cardiovascular Status: stable. Pain Management: clinically adequate Postoperative Hydration: acceptable. Intraoperative Events: no significant anesthesia events Post Operative Nausea/Vomiting Status: no significant post operative nausea or vomiting Recommendation: continue current plan of care. Anesthesia Observations No Documentation SIGNATURE: Philip Rg MD PATIENT NAME: Padmini Carr DATE: May 25, 2023 TIME: 2:07 PM CSN: [id number] [facility] ANES PRE-OPon 05-25-2023 ANES PRE-OP HNO ID: [id number] Author: PHILIP RG MD Service: ? Author Type: Anesthesiologist Type: Anesthesia Preprocedure Evaluation Filed: 05/25/2023 09:05 Note Text: ANESTHESIOLOGY DAY OF SURGERY NOTE : 1990 Procedure Information Date/Time: 05/25/23 0845 Procedures: LAPAROSCOPIC ASSISTED HYSTERECTOMY VAGINAL FOR UTERUS 250 G OR LESS; vNote vNOTES LAPAROSCOPY SALPINGECTOMY (Bilateral) CYSTOSCOPY Location: [place] OR06 / [place] Surgeons: Monica Alfaro MD Estimated body mass index is 39.31 kg/m? as calculated from the following: Height as of 05/06/23: 162.6 cm (5' 4). Weight as of 05/06/23: 103.9 kg (229 lb). Most recent hematocrit and potassium results: Hematocrit 38.7 05/06/2023 Potassium 4.0 05/06/2023 Relevant Problems ANESTHESIA (-) Sleep apnea CARDIO (-) Angina at rest (-) Angina of effort ENDO (+) Hypothyroidism PULMONARY (-) Asthma (-) Sleep apnea I - PHYSICAL EVALUATION AIRWAY Patient intubated: No. Tracheostomy tube not present Mallampati: II. TM distance: >3 FB. Neck ROM: full ROM without neurological symptoms. Mouth opening: adequate. Short neck: no. Thick neck: no Marcos present: no Additional exam findings: yes. CARDIOVASCULAR Rhythm: regular Rate: normal PULMONARY Breath sounds clear to auscultation. II - ANESTHESIA PLAN ASA Score: 2 Anesthetic Plan: general Airway type: ETT The patient is not a current smoker. NPO Status: adequate Beta Fernanda Monitoring Plan Monitoring plan: standard ASA. Post Procedure Analgesic Plan Postoperative analgesic plan: multimodal analgesia. Informed Consent Anesthetic risks, benefits, alternatives, personnel and consent discussed: yes. Patient / Responsible Constitution Party agrees to proceed: yes Patient / Surrogate agrees to blood products: Yes DNR status not reviewed with patient and/or family prior to surgery. Significant changes in the patient condition since the History and Physical, not otherwise documented in primary service progress note: no. Potential Anesthesia issues that may suggest increased risk of complications or contraindication to planned procedure: none. Vitals Value Taken Time BP 121/72 05/25/23 0755 Pulse Resp 16 05/25/23 0755 Temp 36.8 ?C (98.2 ?F) 05/25/23 0755 SpO2 98 % 05/25/23 0755 Facility-Administered Medications as of 05/25/2023 Medication Dose Route Frequency - lidocaine (PF) 10 mg/mL (1 %) 1-2 mg injection (XYLOCAINE) 0.1-0.2 mL INTRADERMAL PRN - lactated ringers iv infusion 5-30 mL/hr INTRAVENOUS CONTINUOUS - NaCl 0.9% iv flush bag 20 mL INTRAVENOUS PRN - ceFAZolin iv piggyback 2 g in D5W (iso-osmotic) 100 mL (ANCEF) 2 g INTRAVENOUS Pre-Op Once - acetaminophen 650 mg tab(s) (TYLENOL) 650 mg ORAL Pre-Op Once - promethazine 12.5 mg tab(s) (PHENERGAN) 12.5 mg ORAL Pre-Op Once Outpatient Medications as of 05/25/2023 Medication Sig - Norethin Fer-Eth Estrad-FE 1 mg-20 mcg (21)/75 mg (7) per tablet Take 1 tablet by mouth daily at bedtime. I have interviewed and examined the patient. I have reviewed the medical record and/or the pre-anesthesia evaluation, pertinent labs, and test results. This contains updated information obtained within 48 hours of Surgery/Procedure. SIGNATURE: Philip Rg MD PATIENT NAME: Padmini Carr DATE: May 25, 2023 TIME: 9:04 AM CSN: [id number] [facility] OPERATIVE NOon 05-25-2023 OPERATIVE NO HNO ID: [id number] Author: MONICA ALFARO MD Service: Gynecology Author Type: Physician Type: Operative Report Filed: 05/25/2023 10:45 Note Text: OPERATIVE / PROCEDURE NOTE LOG ID: [id number] SURGERY/PROCEDURE DATE: 05/25/2023 INCISION/PROCEDURE START TIME: 9:29 AM INCISION CLOSE/PROCEDURE END TIME: 10:39 AM SURGEON(S)/PROCEDURALIST(S) AND SCANNING SUPERVISOR(S): Surgeon(s) and Role: * Monica Alfaro MD - Primary - performed entire procedure with assistance * Libertad Graham MD - Resident - Assisting with laparoscopic visualization, cuff closure, and cystoscopy Registered Nurse Coin Machine Operator: Ana Altamirano RN - present without assistance required SURGERY/PROCEDURE(S): Laparoscopic assisted vaginal hysterectomy with bilateral salpingectomy using vNOTES, cystoscopy ANESTHESIA: General FINDINGS: enlarged uterus ESTIMATED BLOOD LOSS: 150 mls SPECIMENS: uterus, cervix, bilateral tubes with left tube attached COMPLICATIONS: None CLOSURE TECHNIQUE: Primary PRE-OP/PRE-PROCEDURE DIAGNOSIS: Dysmenorrhea, suspected adenomyosis POST-OP/POST-PROCEDURE DIAGNOSIS: Same as Preop Procedure Details: Patient was taken to the operating room where the sign-in and time out were completed. General anesthesia was induced and found to be adequate. She was placed in a dorsal lithotomy position. Exam under anesthesia was performed. The abdomen, perineum and vagina were prepped and draped in the usual sterile fashion. SCDs were placed and turned on for DVT prophylaxis. A Pompa catheter was placed in the urinary bladder under sterile conditions The cervix was grasped with a single tooth tenaculum. Cervix was injected circumferentially with a dilute solution of vasopressin, 20 units of vasopressin mixed in 100 mL. The vaginal mucosa was the dissected off the cervix circumferentially. Dissection proceeded anteriorly, opening the anterior cul-de-sac sharply. The dissection proceeded posteriorly entering the posterior cul-de-sac sharply. The uterosacral ligaments were then each identified, clamped, transected and suture ligated with 0 Vicryl on each side. These were tagged. The vNOTES ring was then placed into the anterior cul de sac using the introducer, followed by placement in the posterior cul de sac without difficulty. The gel port was attached and the abdomen insufflated with CO2 gas. The 5mm, 0 degree laparoscope was introduced with good visualization. The remainder of cardinal and broad ligament was grasped, cauterized and divided first on the patient left and then on the patient's right using the LigaSure device. The ureters were well clear of the operative site. The uterine ovarian was transected on the patient's right using the LigaSure device followed by transection of the uterine ovarian on the patient's left retracting the tube medially to remain attached. Excellent hemostasis was assured. Attention then turned to right salpingectomy. The right fimbriated end of the tube was grasped and the Ligasure device was used to transect the tube and remove through the gel port. The gel port was removed. The cervix was grasped with a single tooth tenaculum and the uterus was remove through the vagina. The gas was allowed to escape from the patient's abdomen. Hemostasis again noted. The vaginal cuff, including the posterior peritoneum, was closed with running 0-vicryl sutures vertically. The pompa catheter was removed. Cytoscopy was performed with good visualization of the bladder dome and trigone. No trauma noted. Bilateral ureteral jets noted. All instruments removed from the vagina. Counts correct. Vaginal sweep clear. The patient tolerated the procedure well and was taken to the recovery room in stable condition. Monica Alfaro MD SIGNATURE: Monica Alfaro MD PATIENT NAME: Padmini Carr DATE: May 25, 2023 TIME: 10:40 AM [facility] SURGICAL PATHOLOGYon 024 CASE REPORT [facility] Comment on above: Order Comment: Speci men Type: TISSUE SPECIMENOrdering Facility: [facility] Address: [address] [place] [address] Result Comment: Surg ical Pathology Report Case: [id number] Authorizing Provider: Monica Alfaro, Collected: 05/25/2023 10:10 AM Ordering Location: [facility] Surgery Received: 05/25/2023 11:17 AM Pathologist: Erick Garber MD Specimen: UTERUS, CERVIX, BILATERAL FALLOPIAN TUBES Performed By: #### S ####[facility] LABCLIA [id number] [address] [place] CLINICAL HISTORY [facility] Comment on above: Order Comment: Speci men Type: TISSUE SPECIMENOrdering Facility: [facility] Address: [address] [place] [address] Result Comment: Pre- op diagnosis: Adenomyosis [N80.03] Dysmenorrhea [N94.6] Performed By: #### S ####[facility] LABCLIA [id number] [address] OF [facility] FINAL DIAGNOSIS [facility] Comment on above: Order Comment: Speci men Type: TISSUE SPECIMENOrdering Facility: [facility] Address: [address] [place] [address] Result Comment: A. U terus, cervix and fallopian tubes; hysterectomy and bilateral salpingectomy: - Myometrial leiomyoma. - Adenomyosis. - Unremarkable cervix and fallopian tubes. ACV/dolores 05/27/2023 Performed By: #### S ####[facility] LABCLIA [id number] [address] [place] FINAL PERFORMING LAB [facility] Comment on above: Order Comment: Speci men Type: TISSUE SPECIMENOrdering Facility: [facility] Address: [address] [place] [address] Result Comment: Diag nostic interpretation performed at [facility], [address] [place] [address] CLIA# [id number] Promotion Producer: Hank Quinn M.D. Performed By: #### S ####[facility] LABCLIA [id number] [address] GROSS DESCRIPTION [facility] Comment on above: Order Comment: Speci men Type: TISSUE SPECIMENOrdering Facility: [facility] Address: [address] [place] [address] Result Comment: A. U TERUS, CERVIX, BILATERAL FALLOPIAN TUBES Received in formalin labeled as uterus, cervix, bilateral fallopian tubes is a hysterectomy specimen consisting of uterus with attached cervix, attached left fallopian tube, and detached right fallopian tube. The uterus with attached cervix is 9.8 x 7 x 6.5 cm, weighing 235.5 g. The pink-cordova ectocervical mucosa has a slitlike os. The pink-cordova serosa is smooth and glistening with some adhesions towards the posterior aspect. The uterus is opened to reveal an endocervical canal measuring 3 cm. The cordova-pink, mildly hyperemic stenotic endometrial cavity is 4.5 cm in length by 0.7 cm in width, with a 0.1 cm endometrial thickness. A single intramural nodule is identified measuring 1 x 0.7 x 0.5 cm, with cordova, whorled cut surfaces. The remaining pink-cordova myometrium is moderately trabeculated with a thickness ranging from 2.1 (anterior) to 3.3 cm (posterior). The right detached and left attached fimbriated fallopian tube segments are 5 and 5.5 cm in length, respectively, with a diameter ranging from 0.5 to 0.7 cm. A clamp site, consistent with a possible tubal ligation site, is identified on the right tube. [place]-cordova serosa is smooth and glistening. Sectioning reveals a 0.3 cm average lumen. Dupligraph Operator sections are submitted as follows: A1 anterior cervix bisected; A2-A3 posterior cervix bisected; A4 anterior uterus full-thickness section; A5 posterior uterus bisected; A6 entire intramural nodule; A7 left fallopian tube to include entire fimbria; A8 right fallopian tube to include entire fimbria. Gross examination performed at [facility], [facility] [address] CLIA#[id number] [facility] May 25, 2023 4:24 PM Performed By: #### S ####[facility] LABCLIA [id number] [facility] [id number] [id number] [facility] Office Visiton 03-16-2023 Follow-up visit [id number] Dylon Carr 1990 F Date Provider Department Center 03/16/2023 [facility] None Family History Problem Relation Age of Onset Thyroid disease Maternal Grandmother Diabetes Maternal Grandmother Diabetes Mother's Sister Diabetes Paternal Grandmother Diabetes Mother's Brother Thyroid disease Mother Thyroid disease Maternal Grandfather Diabetes Mother Family Status - Relation Status Age at Maternal Grandmother Notes: thyroid Mother's Sister Alive Paternal Grandmother Mother's Brother Alive Mother Alive Notes: thyroid Maternal Grandfather Alive Brother Alive Father Alive Level of Service:25467 NE OFFICE/OUTPATIENT ESTABLISHED LOW MDM 20-29 MIN Reason for Visit and Comments: Fatigue [46] - Lethargic since Tuesday did at home covid text negative Chest Pain [[id number]] Normal [facility] Progress Noteon 03-16-2023 Progress Note [facility] COUNTS INCLUDE 234 BEDS AT THE [facility] [address] [facility] [address] Dept: [phone] Dept Loc: [phone] Subjective Padmini Carr is a 32 y.o. year old female who presents to the office with the following complaint(s): Chief Complaint Patient presents with Fatigue Lethargic since Tuesday did at home covid text negative Chest Pain Patient is here today for symptoms that started 4 days ago. Patient reports feeling fatigued with some chest discomfort mostly with deep breathing and with movements. Does report that she is having some neck pain as well. Patient reports minimal dry cough and no nasal congestion or runny nose. She does report feeling feverish a few days ago. No GI symptoms reported. 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 She did take a home COVID test which was negative. History provided by: Patient Fatigue Severity: Moderate Onset quality: Gradual Duration: 4 days Timing: Constant Progression: Unchanged Chronicity: New Associated symptoms: chest pain (Tightness with movements and deep breathing), cough, fatigue, fever and myalgias Associated symptoms: no abdominal pain, no congestion, no diarrhea, no ear pain, no headaches, no loss of consciousness, no nausea, no rash, no rhinorrhea, no shortness of breath, no sore throat, no vomiting and no wheezing Chest pain: Quality: tightness (Breathing and movements) Quality: not sharp Severity: Moderate Cough: Cough characteristics: Non-productive Severity: Mild Fatigue: Severity: Moderate Fever: Temp source: Subjective Myalgias: Location: Generalized Review of Systems Constitutional: Positive for fatigue and fever. Negative for appetite change and chills. HENT: Negative for congestion, ear pain, postnasal drip, rhinorrhea, sinus pressure, sinus pain and sore throat. Respiratory: Positive for cough. Negative for chest tightness, shortness of breath and wheezing. Cardiovascular: Positive for chest pain (Tightness with movements and deep breathing). Negative for palpitations and leg swelling. Gastrointestinal: Negative for abdominal pain, diarrhea, nausea and vomiting. Musculoskeletal: Positive for myalgias and neck pain. Negative for back pain. Skin: Negative for rash. Neurological: Negative for dizziness, loss of consciousness, light-headedness and headaches. No Known Allergies Current Outpatient Medications on File Prior to Visit Medication Sig Dispense Refill hydrOXYzine HCl (Atarax) 25 MG tablet TAKE 1 TO 2 TABLETS BY MOUTH AT BEDTIME NEEDED Vraylar 1.5 MG capsule Take 1.5 mg by mouth daily. No current facility-administered medications on file prior to visit. 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 Panic disorder Controlled substance agreement signed Mild episode of recurrent major depressive disorder (HCC) KOKO (generalized anxiety disorder) SOB (shortness of breath) Secondary amenorrhea Morbid obesity due to excess calories (HCC) Major depressive disorder Genetic counseling and testing Chronic midline low back pain without sciatica Acute pain of right knee Acute epigastric pain Social History Socioeconomic History Marital status: Tobacco Use Smoking status: Never Smokeless tobacco: Never Substance and Sexual Activity Alcohol use: No Alcohol/week: 0.0 standard drinks of alcohol Drug use: No Social History Narrative Merged History Encounter Past Surgical History: Procedure Laterality Date SECTION (HISTORICAL) 06/18/10 SECTION (HISTORICAL) CHOLECYSTECTOMY CHOLECYSTECTOMY 07/16/10 SLEEVE GASTRECTOMY, LAPAROSCOPIC (HISTORICAL) 09/22/2017 Family History Problem Relation Name Age of Onset Thyroid disease Maternal Grandmother Diabetes Maternal Grandmother Diabetes Mother's Sister Diabetes Paternal Grandmother Diabetes Mother's Brother Thyroid disease Mother Thyroid disease Maternal Grandfather Diabetes Mother Objective BP 137/88 (BP Location: Left arm, Patient Position: Sitting, BP Cuff Size: Large adult long) Pulse 108 Temp 37.2 ?C (99 ?F) Resp 18 Ht 5' 4 (1.626 m) Wt 226 lb (103 kg) LMP 03/09/2023 (Exact Date) SpO2 96% BMI 38.79 kg/m? Physical Exam Vitals reviewed. Constitutional: General: She is not in acute distress. Appearance: Normal appearance. She is ill-appearing (Mildly). She is not toxic-appearing or diaphoretic. HENT: Right Ear: Tympanic membrane, ear canal and external ear normal. Tympanic membrane is not injected, scarred, perforated, erythematous, retracted or bulging. (more content not included)... Normal [facility] No Panel Informationon 02-16 [facility] MR KNEE RIGHT W/Oon 01-20-20 MR KNEE RIGHT W/O EXAMINATION: MR KNEE RIGHT W/OPRO/RT 01/19/2023 08:50 AM CLINICAL HISTORY: Knee pain, right ASSOCIATED DIAGNOSIS: Unspecified internal derangement of right knee ORDERING PROVIDER: LUIS RIOS TECHNOLOGISTS NOTE: COMPARISON: None TECHNIQUE: Patient questionnaire was completed, and was reviewed by MRI personnel prior to the patient entering the scanner. Multiplanar, multisequence MR imaging of the knee was performed without intravenous contrast. FINDINGS: Suboptimal evaluation due to the lack of comparison radiographs. Soft Tissue: No significant soft tissue swelling. Moderate-sized joint effusion. Small Mejia cyst. The visualized muscles are unremarkable Ligaments and Tendons: The anterior and posterior cruciate ligaments are intact. The medial and lateral collateral ligaments are intact. The extensor mechanism is intact. The biceps femoris and popliteus tendons are intact. The iliotibial band is intact. Menisci: The medial meniscus is intact. The lateral meniscus is intact. Cartilage: Small tricompartmental marginal osteophyte formation. Within the patellofemoral compartment, there is mild chondral fissuring of the medial and lateral patellar facets with focal thickness chondral defect of the femoral trochlea with subtle subchondral osseous edema. Within the medial compartment, there is a 6 x 6 mm (AP x TV) focal area of high-grade chondral thinning along the weightbearing medial femoral condyle without subchondral osseous abnormality. Within the lateral compartment, there is a 4 x 4 mm (AP x TV) focal full-thickness chondral defect without subchondral osseous abnormality. Bone: No acute osseous abnormality. There is red marrow reconversion. IMPRESSION: Mild tricompartmental degenerative changes and a moderate-sized joint effusion. Right knee MACRO: None Normal [facility] [employer] CT ABDOMEN PELVIS WITH IV CO NTRAST ONLYon 05-05-2022 CT ABDOMEN PELVIS WITH IV CONTRAST ONLY EXAMINATION: CT ABDOMEN AND PELVIS WITH IV CONTRAST ONLY HISTORY: ORDERING SYSTEM PROVIDED HISTORY: Abdominal pain, acute, nonlocalized, TECHNOLOGIST PROVIDED HISTORY: Illness/Other Reason for exam: Abdominal pain, acute, nonlocalized Encounter Type: Initial Additional signs and symptoms: nausea ORDERING SYSTEM PROVIDED DIAGNOSIS CODES: COMPARISON: CT abdomen and pelvis 04/11/2022. TECHNIQUE: CT examination of the abdomen and pelvis following the administration of intravenous contrast. Coronal and sagittal reformations were performed. Dose reduction techniques were achieved by using automated exposure control and/or adjustment of mA and/or kV according to patient size and/or use of iterative reconstruction technique. CONTRAST: IOPAMIDOL 370 MG IODINE/ML (76 %) INTRAVENOUS SOLUTION - 75 mL. FINDINGS: CT abdomen: The lung bases are clear. The gallbladder is surgically absent. The liver, spleen, pancreas, adrenal glands and kidneys are within normal limits. There are again postoperative changes of gastric sleeve procedure. A small sliding hiatal hernia may be present on the current study. Small-bowel loops show no signs of obstruction or appreciable loop thickening. There is no intraabdominal free air or free fluid. CT pelvis: The previously seen right adnexal cyst has resolved or significantly decreased in size. There is a new left ovarian cyst along the superior left lateral margin of the urinary bladder which measures approximately 4.9 x 3.7 cm (image 104). There is a small volume of free fluid within the left adnexa. The appendix is not visible with certainty but there are no secondary findings of acute appendicitis. There is mild patchy heterogeneous enhancement of the uterus which is questionable for underlying fibroids. Again present is bilateral L5 spondylolysis with no spondylolisthesis on the supine exam. No acute osseous abnormality. IMPRESSION: 1. There is a new left adnexal/ovarian oval-shaped 4.9 cm cyst. There is a small volume of free fluid in the left adnexa. 2. Significant decrease in size or resolution of the previously seen right ovarian cyst. 3. There is otherwise no findings of an acute process in the abdomen or pelvis. 4. Mild patchy heterogeneous enhancement of the uterus questionable for underlying fibroids. 5. Postoperative changes of hysterectomy and gastric sleeve. Possible small hiatal hernia. [employer] Workstation ID: [id number] Dictated by: LAURO BURGER on TueMay 05, 2022 2:05:57 PM EST Transcribed by: MERLE JOHNSTON on TueMay 05, 2022 2:12:15 PM EST Finalized by: LAURO BURGER on TueMay 05, 2022 4:21:22 PM EST Normal [facility] Comment on above: Order Comment: Injur y/Trauma or Illness?:Illness/Other How long have you had these symptoms (acute/chronic)?:Acute Reason for exam?:Abdominal pain, acute, nonlocalized Type of Exam?:Initial Additional signs and symptoms?:nausea CNOVon 05-03-2022 CNOV Office Visit (OBGWMA ) ALEXUS CARR ([id number]) 1990 F Date Time Provider Department 05/03/22 1:00 PM [employer] [facility] During your visit today, we recorded the following information about you: Referring Provider: VILMA ÁLVAREZ [[id number]] Allergies As of Date: 05/03/2022 (No Known Allergies) Date Reviewed: 04/26/2022 Reviewed by: Hortencia Lara LPN - Fully Assessed Reason for Visit: Us Procedure [4086] Visit Diagnosis:Dysmenorrhea [N94.6] Order(s):PELVIC US WHI [[id number]] Order #: [id number]. #:[id number] Qty: 1 Prescriptions as of 05/04/2022 - ondansetron HCl (ZOFRAN ORAL) Take by mouth. Problem List As Of Date 05/03/2022 Noted Resolved Genetic Counseling and Testing [[id number]] 12/15/2009 Chromo Abn-Antepart [O35.10X0] 12/15/2009 Acute epigastric pain [R10.13] 04/09/2014 NO SHOW [[id number]] 05/14/2014 04/26/2022 Major depressive disorder [F32.9] 07/29/2016 Secondary amenorrhea [N91.1] 07/30/2016 Morbid obesity due to excess calories (HCC) [E6*07/30/2016 Chronic midline low back pain without sciatica *07/30/2016 Encounter Status:Closed by SAMYM ZEE on 05/04/22 [facility] PELVIC US WHIon 05-03-2022 [facility] CNOVon 04-26-2022 CNOV Office Visit (OBGWMA ) ALEXUS CARR ([id number]) 1990 F Date Time Provider Department 04/26/22 11:30 AM VILMA ÁLVAREZ During your visit today, we recorded the following information about you: Blood pressure Weight Height Last Period 124 105.2 kg 1.626 m 04/22/22 Vilma Álvarez MD, MD 04/26/2022 12:02 PM Signed Padmini is a 31 year old who presents for an annual gynecologic exam with complaints, dysmenorrhea. Seen in [place] 2 wks ago for pain, ? Due to ov cyst that is improving. 4.7 cm physiologic cyst in CE. Menses: cycles every 30-150 days and 7 days of flow. 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 History Comments: Sexual Activity: Yes; Male Contraception: No contraception data on record PAST MEDICAL HISTORY Diagnosis Date Chronic midline low back pain without sciatica 07/30/2016 Depression at least 5 yrs Hypothyroidism Morbid obesity due to excess calories (HCC) 07/30/2016 PAST SURGICAL HISTORY Procedure Laterality Date CHG DELIVERY 05/16/2010 CHOLECYSTECTOMY HX 05/16/2010 LAP SLEEVE GASTRECTOMY 2018 FAMILY HISTORY Problem Relation Age of Onset Diabetes Mother Diabetes Maternal Grandmother SOCIAL HISTORY Social History Tobacco Use Smoking status: Never Substance Use Topics Alcohol use: No Drug use: No REVIEW OF SYSTEMS Abdomen: No abdominal pain, nausea, vomiting, diarrhea, or constipation. No bloating, early satiety, indigestion, or increased flatulence. Bladder: No dysuria, gross hematuria, urinary frequency, urinary urgency, or incontinence. Breast: No breast lumps, nipple d/c, overlying skin changes, redness or skin retraction. Allergies and current medication updated:Yes EXAM: BP 124/76 Ht 5' 4 (1.63m) Wt 232 lb (105.2kg) LMP 04/22/2022 BMI 39.80 kg/(m2). GENERAL: pleasant, female in no apparent distress HEENT: Normocephalic, atraumatic, mucus membranes moist, and no lesions NECK: Supple, full range of motion, no adenopathy, and thyroid normal DERMATOLOGY: Normal, without lesions, non-icteric, and non-hirsute BREAST: soft, non-tender, symmetric, no dominant mass, normal nipple-areolar complex, no lymphadenopathy, and no nipple discharge CHEST: Normal inspiratory effort ABDOMEN: soft, non-tender, and no masses PELVIC: external genitalia normal, normal Bartholin's glands, urethra, Vergas's glands, no vulvar lesions, no cervical lesions, good vaginal support, physiologic discharge present, normal appearing perineal body and perianal region BIMANUAL: uterus normal size, shape and consistency, no adnexal masses, non-tender, and no cervical motion tenderness RECTOVAGINAL: deferred. NEURO: alert and oriented x3,exam grossly non-focal EXTREMITIES: normal ASSESSMENT/PLAN: 1) Health maintenance: Pap done with HPV. Nutrition, exercise and routine health maintenance exams reviewed. 2) Contraception: none. Contraceptive options reviewed and information provided. 3) Dysmenorrhea- US next wk 4) Follow up one year or sooner as needed Vilma Álvarez MD, MD Allergies As of Date: 04/26/2022 (No Known Allergies) Date Reviewed: 04/26/2022 Reviewed by: Hortencia Lara LPN - Fully Assessed Reason for Visit: New Patient [172] Cmt: Cyst on ovary - painful; patient states excessive pain during period and symptoms of period when not on period Primary Visit Diagnosis:Encounter for gynecological examination (general) (routine) without abnormal findings [Z01.419] Other Visit Diagnoses:Screening for cervical cancer [Z12.4] Dysmenorrhea [N94.6] Order(s):PAP FLUID CERVICAL SCREENING [[id number]] Order #: [id number] PELVIC US WHI [[id number]] Order #: [id number]: 1 FUTURE Prescriptions as of 04/26/2022 - ondansetron HCl (ZOFRAN ORAL) Take by mouth. Problem List As Of Date 04/26/2022 Noted Resolved Genetic Counseling and Testing [[id number]] 12/15/2009 Chromo Abn-Antepart [O35.10X0] 12/15/2009 Acute epigastric pain [R10.13] 04/09/2014 NO SHOW [[id number]] 05/14/2014 04/26/2022 Major depressive disorder [F32.9] 07/29/2016 Secondary amenorrhea [N91.1] 07/30/2016 Morbid obesity due to excess calories (HCC) [E6*07/30/2016 Chronic midline low back pain without sciatica *07/30/2016 Medications Discontinued During This Encounter Prescriptions - lamoTRIgine (LAMICTAL) 25 mg tablet (Discontinued) Take 1 tablet by mouth daily at bedtime. Per Dr. Finch. Please follow-up with outpatient provider for titration of dosage. - sertraline (ZOLOFT) 100 mg tablet (Discontinued) Take 1 t (more content not included)... Normal [facility] HPV W/GENOTYPE THIN PREPon 1 06-27-2021 HPV 16 Ag Ql (Unsp spec) Negative Normal Negative for HPV DNA high risk type 16 by PCR [facility] Comment on above: Order Comment: Speci men Type: FLUID SPECIMEN Ordering Facility: [facility] Address: [address] [place] [address] Performed By: #### L [id number] #### [facility] CLIA [id number] [address] [place] [address] #### HPVHRT #### [facility] CLIA [id number] [address] [place] [address] HPV 18 Ag Ql (Unsp spec) Negative Normal Negative for HPV DNA high risk type 18 by PCR [facility] Comment on above: Order Comment: Speci men Type: FLUID SPECIMEN Ordering Facility: [facility] Address: [address] [place] [address] Performed By: #### L [id number] #### [facility] CLIA [id number] [address] #### HPVHRT #### [facility] CLIA [id number] [address] [place] [address] [place] HPV 31+33+35+39+45+51+5 2+56+58+59+66+68 DNA FÁTIMA+probe Ql (Cvx) Negative for HPV DNA high risk types: 31,33,35,39,45,51,52,56,58,59 ,66,68 by PCR. Normal Negative for HPV DNA high risk types: 31,33,35,3 9,45,51,52 ,56,58,59, 66,68 by PCR. [facility] Comment on above: Order Comment: Speci men Type: FLUID SPECIMEN Ordering Facility: [facility] Address: [address] [place] [address] Performed By: #### L [id number] #### [facility] CLIA [id number] [address] [place] [address] OF [facility] #### HPVHRT #### [facility] CLIA [id number] [address] [place] [address] OF [place] PAP FLUID CERVICAL SCREENING on 04-26-2022 CASE REPORT Normal [facility] Comment on above: Order Comment: Speci men Type: FLUID SPECIMEN Ordering Facility: [facility] Address: [address] [place] [address] Result Comment: Gyne cologic Cytology Report Case: [id number] Authorizing Provider: Vilma Álvarez MD Collected: 04/26/2022 12:57 PM Ordering Location: [facility] Received: 04/27/2022 04:09 AM General Obstetrics and Gynecology First Screen: Pallavi Singletoner, CT, ASCP Specimen: Pap, Manual, Screening, CERVICAL SCREENING FLUID Performed By: #### L [id number] #### [facility] CLIA [id number] [address] [place] [address] [place] #### HPVHRT #### [facility] CLIA [id number] [address] [place] [address] [place] CLINICAL HISTORY ROUTINE EXAM Normal [facility] Comment on above: Order Comment: Speci men Type: FLUID SPECIMEN Ordering Facility: [facility] Address: [address] [place] [address] Performed By: #### L [id number] #### [facility] CLIA [id number] [address] [place] #### HPVHRT #### [facility] CLIA [id number] [address] [place] CYTOLOGY INTERPRETATION PAP Normal [facility] Comment on above: Order Comment: Speci men Type: FLUID SPECIMEN Ordering Facility: [facility] Address: [address] [address] Result Comment: Nega tive for Intraepithelial lesion or malignancy. Performed By: #### L [id number] #### [facility] CLIA [id number] [address] STATES [facility] #### HPVHRT #### [facility] CLIA [id number] [address] [place] [address] FINAL DIAGNOSIS Normal [facility] Comment on above: Order Comment: Speci men Type: FLUID SPECIMEN Ordering Facility: [facility] Address: [address] [address] Result Comment: A - CERVICAL SCREENING FLUID Satisfactory for interpretation, No endocervical component Negative for Intraepithelial lesion or malignancy. Performed By: #### L [id number] #### [facility] CLIA [id number] [address] [place] #### HPVHRT #### [facility] CLIA [id number] [address] [place] FINAL PERFORMING LAB Normal [facility] Comment on above: Order Comment: Speci men Type: FLUID SPECIMEN Ordering Facility: [facility] Address: [address] [address] Result Comment: Tech nical component, jute bag clipper screening performed at [facility], [address] [place] [address] CLIA# [id number] Diagnostic interpretation performed at [facility], [address] [place] [address] CLIA# [id number] Promotion Producer: Vilma Martell M.D. Performed By: #### L [id number] #### [facility] CLIA [id number] [address] [place] #### HPVHRT #### [facility] CLIA [id number] [address] [place] [address] [place] HPV REQUESTED? Yes, automatic HPV p atients over 30 Normal [facility] Comment on above: Order Comment: Speci men Type: FLUID SPECIMEN Ordering Facility: [facility] Address: [address] [place] [address] Performed By: #### L [id number] #### [facility] CLIA [id number] [address] STATES [facility] #### HPVHRT #### [facility] CLIA [id number] [address] [place] [address] [place] LMP 04/22/2022(Unknown) Normal [facility] Comment on above: Order Comment: Speci men Type: FLUID SPECIMEN Ordering Facility: [facility] Address: [address] [place] [address] Performed By: #### L [id number] #### [facility] CLIA [id number] [address] [place] #### HPVHRT #### [facility] CLIA [id number] [address] [place] [address] [place] PAP DISCLAIMER COMMENT The Pap Smear is a screening test for cervical cancer. False negative results occur with all screening tests, emphasizing the need for rescreening at recommended intervals, and clinical correlation. Normal [facility] Comment on above: Order Comment: Speci men Type: FLUID SPECIMEN Ordering Facility: [facility] Address: [address] [place] [address] Performed By: #### L [id number] #### [facility] CLIA [id number] [address] [place] [address] [place] #### HPVHRT #### [facility] CLIA [id number] [address] [facility] [id number] [id number] [place] CT ABDOMEN PELVIS WITH IV CO NTRAST ONLYon 04-11-2022 CT ABDOMEN PELVIS WITH IV CONTRAST ONLY EXAMINATION: CT ABDOMEN PELVIS WITH IV CONTRAST ONLY HISTORY: ORDERING SYSTEM PROVIDED HISTORY: generalized abd pain with nausea that started earlier today, +TTP over epigastrium, patient unable to specify further, TECHNOLOGIST PROVIDED HISTORY: Illness/Other Reason for exam: abdominal pain Encounter Type: Initial Additional signs and symptoms: nausea ORDERING SYSTEM PROVIDED DIAGNOSIS CODES: COMPARISON: None TECHNIQUE: CT examination of the abdomen and pelvis following the administration of intravenous contrast. Coronal and sagittal reformations were performed. Dose reduction techniques were achieved by using automated exposure control and/or adjustment of mA and/or kV according to patient size and/or use of iterative reconstruction technique. CONTRAST: IOPAMIDOL 370 MG IODINE/ML (76 %) INTRAVENOUS SOLUTION - 75 mL, LUNG BASES Clear lung bases. No pleural or pericardial effusion. ABDOMEN Cholecystectomy. No biliary ductal dilatation. Normal liver, pancreas, spleen, adrenal glands, and kidneys. Changes of gastric sleeve surgery. Normal caliber bowel without wall thickening or inflammation. Normal appendix. Nonaneurysmal abdominal aorta. Patent abdominal vasculature. No abdominal adenopathy or ascites. PELVIS Right ovary 4.7 x 4.0 x 4.0 cm simple cyst. Normal left ovary, uterus, and bladder. No free pelvic fluid or adenopathy. MSK No acute osseous abnormality or suspicious osseous lesion. Bilateral L5 spondylolysis. IMPRESSION: 1. No acute abdominal or pelvic process. 2. Right ovary 4.7 cm cyst, likely physiologic. 3. Post cholecystectomy. 4. Bilateral L5 spondylolysis Workstation ID: [id number] Dictated by: ARGENTINA JONES on TueApr 11, 2022 3:07:49 PM EST Transcribed by: ARGENTINA JONES on TueApr 11, 2022 3:07:49 PM EST Finalized by: ARGENTINA JONES on TueApr 11, 2022 3:07:49 PM [facility] Comment on above: Order Comment: Injur y/Trauma or Illness?:Illness/Other How long have you had these symptoms (acute/chronic)?:Acute Reason for exam?:abdominal pain Type of Exam?:Initial Additional signs and symptoms?:nausea COVID-19on 03-19-2021 SARS-CoV-2 (COVID-19) RNA FÁTIMA+probe Ql (Unsp spec) Detected Invalid Interpretation Code Not Detect [facility] Comment on above: Order Comment: CALL [facility] LOER tel. [phone], Chemistry results called to and read back by modesto, 03/19/2021 06:44, by [email or web address] Result Comment: Yamile zuniga NAAT: Negative results should be treated as presumptive and, if inconsistent with clinical signs and symptoms or necessary for patient management, should be tested with an alternative molecular assay. Negative results do not preclude SARS-CoV-2 infection and should not be used as the sole basis for patient management decisions. This test has been authorized by the FDA under an Emergency Use Authorization (EUA) for use by authorized laboratories. Fact sheet for Healthcare Providers: https://www.fda.gov/media/740594/download Fact sheet for Patients: https://www.fda.gov/media/955961/download METHODOLOGY: Isothermal Nucleic Acid Amplification Performed By: #### C OVRG #### [facility] [address] [facility] [address] COVID-19, RapidOrdered By: Lillian Abbott on 03-19-2021 Interpretation and review of laboratory results Abnormal [facility] Work Phone: SARS-CoV-2 (COVID-19) RNA FÁTIMA+probe Ql (Unsp spec) Detected Abnormal Not Detected [facility] Phone: Comment on above: Rapid NAAT: Negative results should be treated as presumptive and, if inconsistent with clinical signs and symptoms or necessary for patient management, should be tested with an alternative molecular assay. Negative results do not preclude SARS-CoV-2 infection and should not be used as the sole basis for patient management decisions. This test has been authorized by the FDA under an Emergency Use Authorization (EUA) for use by authorized laboratories. Fact sheet for Healthcare Providers: https://www.fda.gov/media/207077/download Fact sheet for Patients: https://www.fda.gov/media/913078/download METHODOLOGY: Isothermal Nucleic Acid Amplification CALL Moshe CHAMPAGNE tel. [phone], Chemistry results called to and read back by modesto, 03/19/2021 06:44, by KRZYSZTOF [employer] Phone: [employer] Work Phone: Microscopic UrinalysisOrdere d By: Reva Abbott on 03-19-2021 Amorphous, UA 1+ [employer] Work Phone: Bacteria, UA RARE Abnormal Negative /HPF [employer] Phone: Epithelial Cells, UA 0-2 /HPF [employer] Phone: Interpretation and review of laboratory results Abnormal [employer] Phone: RBC, UA 0-2 [employer] Work Phone: WBC, UA 0-2 [employer] Phone: [employer] Phone: Urinalysis, reflex to cultur sandie 03-19-2021 Urine Reflexed to Culture Not Indicated Normal [facility] Comment on above: Performed By: #### U AR #### [facility] [address] [place] [address] Bilirubin Ql (U) Negative Normal Negative [facility] Comment on above: Performed By: #### U AR #### [facility] [address] [place] [address] Clarity (U) Clear Normal Clear [facility] Comment on above: Performed By: #### U AR #### [facility] [address] [place] [address] Color (U) Yellow Normal Straw/Ashley [facility] Comment on above: Performed By: #### U AR #### [facility] [address] [place] [address] Glucose Ql (U) Negative Normal Negative [facility] Comment on above: Performed By: #### U AR #### [facility] [address] [place] [address] Hemoglobin Ql (U) Negative Normal Negative [facility] Comment on above: Performed By: #### U AR #### [facility] [address] [place] [address] Ketones Ql (U) 15 mg/dL Abnormal Negative [facility] Comment on above: Performed By: #### U AR #### [facility] [address] [place] [address] Leukocyte esterase Test strip Ql (U) Negative Normal Negative [facility] Comment on above: Performed By: #### U AR #### [facility] [address] [place] [address] Nitrite Ql (U) Negative Normal Negative [facility] Comment on above: Performed By: #### U AR #### [facility] [address] [place] [address] pH (U) [pH] Normal 5.0-9.0 [facility] Comment on above: Performed By: #### U AR #### [facility] [address] [place] [address] Protein Ql (U) 30 mg/dL Abnormal Negative [facility] Comment on above: Performed By: #### U AR #### [facility] [address] [place] [address] Specific gravity (U) [Rel density] 1.015 Normal 1.005-1.03 [facility] Comment on above: Performed By: #### U AR #### [facility] [address] [place] [address] Urobilinogen Qn (U) 2.0 {Briana'U}/dL Abnormal < 2.0 [facility] Comment on above: Performed By: #### U AR #### [facility] [address] [place] [address] Urine Microscopicon 03-19-20 21 Epithelial cells LM Ql (Urine sed) 0-[address] [facility] Comment on above: Performed By: #### U RASHAUN #### [facility] [address] [place] [address] Urine Amorphous 1+ Normal [facility] Comment on above: Performed By: #### U RASHAUN #### [facility] [address] [place] [address] Urine Bacteria RARE Abnormal Negative [facility] Comment on above: Performed By: #### U RASHAUN #### [facility] [address] [place] [address] Urine RBC 0-2 Normal 0-2 [facility] Comment on above: Performed By: #### U RASHUAN #### [facility] [address] [place] [address] Urine WBC 0-2 Normal 0-5 [facility] Comment on above: Performed By: #### U RASHAUN #### [facility] [address] [place] [address] Urine Reflex to CultureOrder ed By: Reva Abbott on 03-19-2021 Bilirubin Urine Negative Negative [facility] Work Phone: Blood, Urine Negative Negative [employer] Work Phone: Clarity, UA Clear Clear [employer] Work Phone: Color, UA Yellow Straw/Ashley ow [employer] Work Phone: Glucose, Ur Negative Negative mg/dL [employer] Work Phone: Interpretation and review of laboratory results Abnormal [employer] Work Phone: Ketones Ql (U) 15 mg/dL Abnormal Negative [employer] Work Phone: Leukocyte esterase Test strip Ql (U) Negative Negative [employer] Work Phone: Nitrite, Urine Negative Negative [facility] Work Phone: pH, UA >=9.0 [employer] Phone: Protein (U) [Mass/Vol] 30 mg/dL Abnormal Negative [employer] Phone: Specific [place], UA 1.015 [employer] Phone: Urine Reflex to Culture Not Indicated [employer] Phone: Urobilinogen, Urine 2.0 Abnormal <2.0 E.U./dL [employer] Phone: [employer] Phone: XR CHEST PORTABLEon 03-19-20 XR CHEST PORTABLE EXAMINATION: XR CHES T PORTABLE CLINICAL HISTORY: SHORTNESS OF BREATH COMPARISONS: None available. FINDINGS: Osseous structures are intact. Cardiopericardial silhouette is normal. Pulmonary vasculature is normal. Lungs are clear. IMPRESSION: NO ACUTE CARDIOPULMONARY DISEASE. Interpreted by: Rodolfo Galeana MD Signed by: Rodolfo Galeana MD 03/19/[address] [facility] XR CHEST PORTABLEOrdered By: Reva Abbott on 03-19-2021 NO ACUTE CARDIOPULMO NARY DISEASE. [employer] Phone: EXAMINATION: XR CHES T PORTABLE CLINICAL HISTORY: SHORTNESS OF BREATH COMPARISONS: None available. FINDINGS: Osseous structures are intact. Cardiopericardial silhouette is normal. Pulmonary vasculature is normal. Lungs are clear. [employer] Phone: Cornelius, Chpo Incoming R adiant Results From [employer] - 03/19/2021 8:39 AM EDT EXAMINATION: XR CHEST PORTABLE CLINICAL HISTORY: SHORTNESS OF BREATH COMPARISONS: None available. FINDINGS: Osseous structures are intact. Cardiopericardial silhouette is normal. Pulmonary vasculature is normal. Lungs are clear. IMPRESSION: NO ACUTE CARDIOPULMONARY DISEASE. [employer] Phone: [facility]: CBCNDon 04-25-2019 Erythrocyte distribution width (RBC) [Ratio] 13.4 % Normal 11.5-14.5 [facility] Comment on above: Performed By: #### 1 [id number] #### [facility] [address] [place] [address] Client Care Representative: Denzel Rodriguez MD Hematocrit (Bld) [Volume fraction] 40.3 % Normal 36.0-46.0 [facility] Comment on above: Performed By: #### 1 [id number] #### [facility] [address] [place], [place] [id number] Client Care Representative: Denzel Rodriguez MD Hemoglobin (Bld) [Mass/Vol] 13.6 g/dL Normal 12.0-16.0 [facility] Comment on above: Performed By: #### 1 [id number] #### [facility] [place] [address] Client Care Representative: Denzel Rodriguez MD MCH (RBC) [Entitic mass] 31.0 pg Normal 27.0-34.0 [facility] Comment on above: Performed By: #### 1 [id number] #### [facility] [address] [place], [place] [id number] Client Care Representative: Denzel Rodriguez MD MCHC (RBC) [Mass/Vol] 33.8 g/dL Normal 32.0-37.0 [facility] Comment on above: Performed By: #### 1 [id number] #### [facility] [address] [place] [address] Client Care Representative: Denzel Rodriguez MD MCV (RBC) [Entitic vol] 91.5 fL Normal 80.0-100.0 [facility] Comment on above: Performed By: #### 1 [id number] #### [facility] [address] [place], [place] [phone] Client Care Representative: Denzel Rodriguez MD Platelet mean volume (Bld) [Entitic vol] 8.7 fL Normal 7.4-10.4 [facility] Comment on above: Performed By: #### 1 [id number] #### [facility] [address] [place] [address] Client Care Representative: Denzel Rodriguez MD Platelets (Bld) [#/Vol] 125 x1000 Low 150-450 [facility] Comment on above: Performed By: #### 1 [id number] #### [facility] [address] [place] [address] Client Care Representative: Denzel Rodriguez MD RBC (Bld) [#/Vol] 4.40 x10 Normal 4.20-5.40 [facility] Comment on above: Result Comment: Note : RBC morphology is normal unless otherwise stated. Evaluation performed only if differential is requested. Performed By: #### 1 [id number] #### [facility] [address] [place] [address] Client Care Representative: Denzel Rodriguez MD WBC (Bld) [#/Vol] 4.2 10*3/uL Normal [facility] Comment on above: Performed By: #### 1 [id number] #### [facility] [address] [place] [address] Client Care Representative: Denzel Rodriguez MD WBC (Bld) [#/Vol] 4.2 x10 Low 4.5-11.0 [facility] Comment on above: Performed By: #### 1 [id number] #### [facility] [address] [place] [address] Client Care Representative: Denzel Rodriguez MD STAT OP Call Backon 04-25-20 19 STAT OP Call Back Results Faxed Normal [facility] Comment on above: Order Comment: Added on by Discern Expert due to stat outpatient orders. Result Comment: FAXE D RESULTS TO [phone] ON 04/25/2019 09:35:29 EST MARÍA Performed By: #### 1 [id number] #### [facility] [address] [place] [address] Client Care Representative: Denzel Rodriguez MD Valproic Acid /Depakene Leve terri 03-03-2019 Valproic Acid 42.4 ug/mL Low 50.0-100.0 [facility] Comment on above: Performed By: #### V ALPR #### [facility] [address] [place] [address] Valproic acid level, totalon 03-03-2019 Interpretation and review of laboratory results Abnormal [place] Valproic Acid Lvl 42.4 ug/mL Low 50 - 100 ug/mL [place] Acetaminophenon 02-27-2019 Acetaminophen [Mass/Vol] <5 Low 10-30 [facility] Comment on above: Performed By: #### A CETM #### [facility] [address] [place] [address] Acetaminophen Levelon 2018 Acetaminophen [Mass/Vol] <5 Low 10 - 30 ug/mL [place] Alcoholon 02-27-2019 Ethanol [Mass/Vol] mg/dL Normal [facility] Comment on above: Performed By: #### A LCOH #### [facility] [address] [place] [address] Ethanol [Mass/Vol] Not indicated Normal [facility] Comment on above: Performed By: #### A LCOH #### [facility] [address] [place] [address] CK-MB Indexon 02-27-2019 CK.MB [Mass/Vol] ng/mL 0 - 3.8 ng/mL [place] CK.MB [Mass/Vol] 2.2 % 0 - 3.5 % [place] Total CK 46 U/L 0 - 170 U/L [place] CKMB with Indexon 02-27-2019 CK [Catalytic activity/Vol] 46 U/L Normal 0-170 [facility] Comment on above: Performed By: #### C KMBG #### [facility] [address] [place] [address] CK.MB [Mass/Vol] ng/mL Normal 0.0-3.8 [facility] Comment on above: Performed By: #### C KMBG #### [facility] [address] [place] [address] CK.MB [Mass/Vol] 2.2 % Normal 0.0-3.5 [facility] Comment on above: Performed By: #### C KMBG #### [facility] [address] [place] [address] Comprehensive Metabolic Pane terri 02-27-2019 Albumin [Mass/Vol] 4.5 g/dL 3.5 - 4.6 g/dL [place] ALP [Catalytic activity/Vol] 49 U/L 40 - 130 U/L [place] ALT [Catalytic activity/Vol] 13 U/L 0 - 33 U/L [place] Anion gap [Moles/Vol] 9 mmol/L [place] AST [Catalytic activity/Vol] 17 U/L 0 - 35 U/L [place] Bilirubin Ql (U) 0.6 mg/dL 0.2 - 0.7 mg/dL [place] Calcium [Mass/Vol] 9.0 mg/dL 8.5 - 9.9 mg/dL [place] Chloride [Moles/Vol] 106 mmol/L [place] CO2 [Moles/Vol] 29 mmol/L [place] Creatinine [Mass/Vol] 0.8 mg/dL 0.5 - 0.9 mg/dL [place] GFR >60.0 >60 [place] Comment on above: >60 mL/min/1.73m2 EG FR, calc. for ages 18 and older using the MDRD formula (not corrected for weight), is valid for stable renal function. GFR Non- >60.0 >60 [place] Comment on above: >60 mL/min/1.73m2 EG FR, calc. for ages 18 and older using the MDRD formula (not corrected for weight), is valid for stable renal function. Globulin (S) [Mass/Vol] 2.3 g/dL 2.3 - 3.5 g/dL [place] Glucose [Mass/Vol] 92 mg/dL 70 - 99 mg/dL [place] Potassium [Moles/Vol] 3.9 mmol/L [place] Protein [Mass/Vol] 6.8 g/dL 6.3 - 8 g/dL [place] Sodium [Moles/Vol] 144 mmol/L [place] Urea nitrogen [Mass/Vol] 17 mg/dL 6 - 20 mg/dL [place] EKG 12 Leadon 02-27-2019 Atrial Rate 66 BPM [place] P [place] 56 degrees [place] P-R Interval 132 ms [place] Q-T Interval 438 ms [place] QRS Duration 84 ms [place] QTc Calculation (Bazett) 459 ms [place] R [place] 44 degrees [place] T [place] 48 degrees [place] Ventricular Rate 66 BPM [place] Normal sinus rhythm Nonspecific T wave abnormality Abnormal ECG No previous ECGs available Confirmed by Adria Covarrubias ([id number]) on 02/27/2019 5:06:54 PM [place] Cornelius, Chpo Incoming R esults From [place] - 02/27/2019 5:07 PM EDT Normal sinus rhythm Nonspecific T wave abnormality Abnormal ECG No previous ECGs available Confirmed by Adria Covarrubias ([id number]) on 02/27/2019 5:06:54 PM [place] Ethanolon 02-27-2019 Ethanol Lvl <10 mg/dL [place] Ethanol percent Not indicated G/dL [place] Hematologyon 02-27-2019 Basophils (Bld) [#/Vol] 0.0 10*3/uL 0 - 0.2 K/uL [place] Basophils/100 WBC (Bld) 0.3 % [place] Eosinophils (Bld) [#/Vol] 0.1 10*3/uL 0 - 0.7 K/uL [place] Eosinophils/100 WBC (Bld) 2.1 % [place] Hematocrit (Bld) [Volume fraction] 42.2 % 37 - 47 % [place] Hemoglobin (Bld) [Mass/Vol] 13.8 g/dL 12 - 16 g/dL [place] Lymphocytes (Bld) [#/Vol] 1.6 10*3/uL 1 - 4.8 K/uL [place] Lymphocytes/100 WBC (Bld) 41.8 % [place] MCH (RBC) [Entitic mass] 31.1 pg 27 - 31.3 pg [place] MCV (RBC) [Entitic vol] 94.7 fL 82 - 100 fL [place] Monocytes (Bld) [#/Vol] 0.3 10*3/uL 0.2 - 0.8 K/uL [place] Monocytes/100 WBC (Bld) 6.4 % [place] Neutrophils/100 WBC (Bld) 49.4 % [place] Platelets (Bld) [#/Vol] 175 10*3/uL 130 - 400 K/uL [place] RBC (Bld) [#/Vol] 4.45 10*6/uL [place] WBC (Bld) [#/Vol] 4.0 10*3/uL Low 4.8 - 10.8 K/uL [place] Otheron 02-27-2019 Interpretation and review of laboratory results Abnormal [place] Erythrocyte distribution width (RBC) [Ratio] 12.5 % 11.5 - 14.5 % [place] Interpretation and review of laboratory results Abnormal [place] MCHC (RBC) [Mass/Vol] 32.8 % Low 33 - 37 % [place] Neutrophils Absolute 2.0 K/uL 1.4 - 6.5 K/uL [place] Bilirubin Urine Negative Negative [place] Blood, Urine Negative Negative [place] Clarity, UA Clear Clear [place] Color, UA Yellow Straw/Ashley ow [place] Glucose, Ur Negative Negative mg/dL [place] Nitrite, Urine Negative Negative [place] pH, UA 6.0 [place] Specific [place], UA >=1.030 [place] Urine Reflex to Culture Not Indicated [place] Comment on above: Corrected result; pr eviously reported as voided on 02/27/2019 at 08:45 by MARCUS Urobilinogen, Urine 0.2 <2.0 E.U./dL [place] Salicylateon 02-27-2019 Salicylate <0.3 Low 15.0-30.0 [facility] Comment on above: Result Comment: Anti -pyretic: 3.0-10.0 mg/dL Anti-inflammatory: 15.0-30.0 mg/dL Toxic: >30.0 mg/dL Performed By: #### S ALIC #### [facility] [address] [facility] [address] Salicylate, Serum <0.3 Low 15 - 30 mg/dL [place] Comment on above: Anti-pyretic: 3.0-10 .0 mg/dL Anti-inflammatory: 15.0-30.0 mg/dL Toxic: >30.0 mg/dL TSH w/out Reflexon 9 TSH Qn 1.320 uIU/mL Normal 0.440-3.86 [facility] Comment on above: Performed By: #### T SH #### [facility] [address] [facility] [address] TSH without Reflexon 019 TSH Qn 1.320 m[IU]/L [place] Urinalysison 02-27-2019 Beta HCG ( test) Ql (U) Negative Detects HCG level >20 MIU/mL [place] Ketones Ql (U) Negative Negative mg/dL [place] Leukocyte esterase Test strip Ql (U) Negative Negative [place] Protein (U) [Mass/Vol] Negative Negative mg/dL [place] CBC With Platelet and Differ entialon 11-17-2018 Basophils (Bld) [#/Vol] 0.0 10*3/uL Normal 0.0-0.2 [facility] Comment on above: Performed By: #### C BCWD #### [facility] [address] [place] [address] Basophils/100 WBC (Bld) 0.2 % Normal [facility] Comment on above: Performed By: #### C BCWD #### [facility] [address] [place] [address] Eosinophils (Bld) [#/Vol] 0.1 10*3/uL Normal 0.0-0.7 [facility] Comment on above: Performed By: #### C BCWD #### [facility] [address] [place] [address] Eosinophils/100 WBC (Bld) 1.8 % Normal [facility] Comment on above: Performed By: #### C BCWD #### [facility] [address] [place] [address] Erythrocyte distribution width (RBC) [Ratio] 13.9 % Normal 11.5-14.5 [facility] Comment on above: Performed By: #### C BCWD #### [facility] [address] [place] [address] Hematocrit (Bld) [Volume fraction] 39.6 % Normal 37.0-47.0 [facility] Comment on above: Performed By: #### C BCWD #### [facility] [address] [place] [address] Hemoglobin (Bld) [Mass/Vol] 13.3 g/dL Normal 12.0-16.0 [facility] Comment on above: Performed By: #### C BCWD #### [facility] [address] [place] [address] Lymphocytes (Bld) [#/Vol] 2.0 10*3/uL Normal 1.0-4.8 [facility] Comment on above: Performed By: #### C BCWD #### [facility] [address] [place] [address] Lymphocytes/100 WBC (Bld) 48.9 % Normal [facility] Comment on above: Performed By: #### C BCWD #### [facility] [address] [place] [address] MCH (RBC) [Entitic mass] 31.4 pg Critically high 27.0-31.3 [facility] Comment on above: Performed By: #### C BCWD #### [facility] [address] [place] [address] MCHC (RBC) [Mass/Vol] 33.5 % Normal 33.0-37.0 [facility] Comment on above: Performed By: #### C BCWD #### [facility] [address] [place] [address] MCV (RBC) [Entitic vol] 93.8 fL Normal 82.0-100.0 [facility] Comment on above: Performed By: #### C BCWD #### [facility] [address] [place] [address] Monocytes (Bld) [#/Vol] 0.2 10*3/uL Normal 0.2-0.8 [facility] Comment on above: Performed By: #### C BCWD #### [facility] [address] [place] [address] Monocytes/100 WBC (Bld) 6.2 % Normal [facility] Comment on above: Performed By: #### C BCWD #### [facility] [address] [place] [address] Neutrophils (Bld) [#/Vol] 1.7 10*3/uL Normal 1.4-6.5 [facility] Comment on above: Performed By: #### C BCWD #### [facility] [address] [place] [address] Neutrophils/100 WBC (Bld) 42.9 % Normal [facility] Comment on above: Performed By: #### C BCWD #### [facility] [address] [place] [address] Platelets (Bld) [#/Vol] 178 10*3/uL Normal 130-400 [facility] Comment on above: Performed By: #### C BCWD #### [facility] [address] [place] [address] RBC (Bld) [#/Vol] 4.22 10*6/uL Normal 4.20-5.40 [facility] Comment on above: Performed By: #### C BCWD #### [facility] [address] [place] [address] WBC (Bld) [#/Vol] 4.0 10*3/uL Low 4.8-10.8 [facility] Comment on above: Performed By: #### C BCWD #### [facility] [address] [place] [address] Comprehensive Metabolic Pane terri 11-17-2018 Albumin [Mass/Vol] 3.9 g/dL Normal 3.5-4.6 [facility] Comment on above: Performed By: #### C MP #### [facility] [address] [place] [address] ALP [Catalytic activity/Vol] 54 U/L Normal 40-130 [facility] Comment on above: Performed By: #### C MP #### [facility] [address] [place] [address] ALT [Catalytic activity/Vol] 14 U/L Normal 0-33 [facility] Comment on above: Performed By: #### C MP #### [facility] [address] [place] [address] Anion gap [Moles/Vol] 12 mmol/L Normal 9-15 [facility] Comment on above: Performed By: #### C MP #### [facility] [address] [place] [address] AST [Catalytic activity/Vol] 18 U/L Normal 0-35 [facility] Comment on above: Performed By: #### C MP #### [facility] [address] [place] [address] Bilirubin [Mass/Vol] 0.4 mg/dL Normal 0.2-0.7 [facility] Comment on above: Performed By: #### C MP #### [facility] [address] [place] [address] Calcium [Mass/Vol] 8.7 mg/dL Normal 8.5-9.9 [facility] Comment on above: Performed By: #### C MP #### [facility] [address] [place] [address] Chloride [Moles/Vol] 103 mmol/L Normal 95-107 [facility] Comment on above: Performed By: #### C MP #### [facility] [address] [place] [address] CO2 [Moles/Vol] 28 mmol/L Normal 20-31 [facility] Comment on above: Performed By: #### C MP #### [facility] [address] [place] [address] Creatinine [Mass/Vol] 0.73 mg/dL Normal 0.50-0.90 [facility] Comment on above: Performed By: #### C MP #### [facility] [address] [place] [address] GFR/1.73 sq M predicted among blacks MDRD (S/P/Bld) [Vol rate/Area] mL/min/{1.73_m2} Normal >60 [facility] Comment on above: Result Comment: >60 mL/min/1.73m2 EGFR, calc. for ages 18 and older using the MDRD formula (not corrected for weight), is valid for stable renal function. Performed By: #### C MP #### [facility] [address] [place] [address] GFR/1.73 sq M.predicted MDRD (S/P/Bld) [Vol rate/Area] mL/min/{1.73_m2} Normal >60 [facility] Comment on above: Result Comment: >60 mL/min/1.73m2 EGFR, calc. for ages 18 and older using the MDRD formula (not corrected for weight), is valid for stable renal function. Performed By: #### C MP #### [facility] [address] [place] [address] Globulin (S) [Mass/Vol] 2.4 g/dL Normal 2.3-3.5 [facility] Comment on above: Performed By: #### C MP #### [facility] [address] [place] [address] Glucose [Mass/Vol] 79 mg/dL Normal 70-99 [facility] Comment on above: Performed By: #### C MP #### [facility] [address] [place] [address] Potassium [Moles/Vol] 4.1 mmol/L Normal 3.4-4.9 [facility] Comment on above: Performed By: #### C MP #### [facility] [address] [place] [address] Protein [Mass/Vol] 6.3 g/dL Normal 6.3-8.0 [facility] Comment on above: Performed By: #### C MP #### [facility] [address] [place] [address] Sodium [Moles/Vol] 143 mmol/L Normal 135-144 [facility] Comment on above: Performed By: #### C MP #### [facility] [address] [place] [address] Urea nitrogen [Mass/Vol] 15 mg/dL Normal 6-20 [facility] Comment on above: Performed By: #### C MP #### [facility] [address] [place] [address] Lipid Panelon 11-17-2018 Cholesterol [Mass/Vol] 116 mg/dL Normal 0-199 [facility] Comment on above: Result Comment: ATP III Cholesterol classification is Desirable. Performed By: #### L IPID #### [facility] [address] [place] [address] Cholesterol in HDL [Mass/Vol] 39 mg/dL Low 40-59 [facility] Comment on above: Result Comment: ATP III HDL Cholestrol Classification is low. Expected Values: Males: >55 = No Risk 35-55 = Moderate Risk <35 = High Risk Females: >65 = No Risk 45-65 = Moderate Risk <45 = High Risk NCEP Guidelines: Third Report September 2000 >59 = negative risk factor for CHD <40 = major risk factor for CHD Performed By: #### L IPID #### [facility] [address] [place] [address] Cholesterol in LDL [Mass/Vol] 69 mg/dL Normal 0-129 [facility] Comment on above: Result Comment: ATP III LDL Classification is Optimal. Performed By: #### L IPID #### [facility] [address] [place] [address] Triglyceride [Mass/Vol] 40 mg/dL Normal 0-150 [facility] Comment on above: Result Comment: ATP III Triglycerides Classification is Normal. Performed By: #### L IPID #### [facility] [address] [place] [address] Measles (Rubeola) Ab, IgGon 05-01-2018 Measles (Rubeola) Ab, IgG 4.78 Normal >1.09 [facility] Comment on above: Result Comment: Interpretation: IMMUNE Reference Range: <0.91 Not Immune 0.91-1.09 Equivocal >1.09 Immune [facility] [employer] [address] [place] [address] Mumps Ab, IgGon 05-01-2018 Mumps Ab, IgG 2.30 Normal >1.09 [facility] Comment on above: Result Comment: Interpretation: IMMUNE Reference Range: <0.91 Not Immune 0.91-1.09 Equivocal >1.[address] [address] Rubella Ab, IgGon 04-26-2018 Rubella Ab, IgG 42.9 IU/mL Normal [facility] Comment on above: Result Comment: Cristine ent's result indicates immunity. Default Normal Ranges >=10 Presumed Immune <10 Presumed Not immune GLYCO HEMOon 12-27-2017 Hemoglobin A1c/Hemoglobin.tota l mass fraction (Bld) 5.3 % Normal 4.0-6.0 [facility] Comment on above: Performed By: #### L 500.79114, L500.24765, L500.37342, L500.04028, L500.05776, L500.69597 ####Test performed at: [place] [address]#### L550.30362 ####Test performed at: [facility] [place] [address] [place] [address] VIT D 25-OHon 12-27-2017 VIT D 25-OH 27.31 ng/mL Low 30-100 [facility] Comment on above: Result Comment: ADUL TS:Vitamin D Status Range -----Deficiency <20 ng/mLInsufficiency 20-<30 ng/mLSufficiency 30-100 ng/mLToxicity >100 ng/mL~\R\~\R\~\R\~\R\~\R\~\R\~\R\~\R\~\R\~\R\~\R\~\R\~\R\~\R\~\R\~ \R\~PEDIATRICS:Vitamin D Status Range -----Deficiency <15 ng/mLInsufficiency 15-<20 ng/mLSufficiency 20-100 ng/mLToxicity >100 ng/mLCertified procedure of the CDC Vitamin D StandardizationCertification Program (VDSCP) Performed By: #### L 500.23507, L500.44956, L500.02114, L500.58203, L500.19874, L500.35112 ####Test performed at: [place] [address]#### L550.31365 ####Test performed at: [address] [address] B12on 12-26-2017 Cobalamin (Vitamin B12) mass conc 430 pg/mL Normal 193-986 [facility] Comment on above: Performed By: #### L 500.61650, L500.70364, L500.18178, L500.31087, L500.36612, L500.60029 ####Test performed at: [place] [address]#### L550.93721 ####Test performed at: [place] [id number] CBC W/DIFFon 12-26-2017 BASO ABS 0.0 K/uL Normal 0.0-0.2 [facility] Comment on above: Performed By: #### L 500.10726, L500.04058, L500.57063, L500.54332, L500.32862, L500.89997 ####Test performed at: [place] [address]#### L550.26489 ####Test performed at: [place] [address] Basophils/100 WBC Auto (Bld) 0.2 % Normal [facility] Comment on above: Performed By: #### L 500.65358, L500.80516, L500.34265, L500.05954, L500.61673, L500.43542 ####Test performed at: [place] [address]#### L550.93097 ####Test performed at: [place] [address] EOS ABS 0.1 K/uL Normal 0.0-0.5 [facility] Comment on above: Performed By: #### L 500.10949, L500.79189, L500.44421, L500.28695, L500.06241, L500.26577 ####Test performed at: [address] [address]#### L550.77259 ####Test performed at: [address] [address] Eosinophils/100 WBC Auto (Bld) 0.8 % Normal [facility] Comment on above: Performed By: #### L 500.44982, L500.92182, L500.96819, L500.16780, L500.85181, L500.65232 ####Test performed at: [address] [address]#### L550.69072 ####Test performed at: [address] [address] IG % 0.3 % Normal [facility] Comment on above: Performed By: #### L 500.38500, L500.56428, L500.02161, L500.83411, L500.91709, L500.18127 ####Test performed at: [address] [address]#### L550.15215 ####Test performed at: [address] [address] IG ABS 0.02 K/uL Normal 0-0.05 [facility] Comment on above: Performed By: #### L 500.68678, L500.54928, L500.06122, L500.12417, L500.27202, L500.55760 ####Test performed at: [address] [address]#### L550.14942 ####Test performed at: [address] [address] Lymphocytes Auto #/vol (Bld) 1.9 10*3/uL Normal 1.2-3.5 [facility] Comment on above: Performed By: #### L 500.35128, L500.52686, L500.08098, L500.45071, L500.83575, L500.98783 ####Test performed at: [address] [address]#### L550.28196 ####Test performed at: [address] [address] Lymphocytes/100 WBC Auto (Bld) 29.8 % Normal [facility] Comment on above: Performed By: #### L 500.81692, L500.97437, L500.97869, L500.58031, L500.79992, L500.79513 ####Test performed at: [address] [address]#### L550.83132 ####Test performed at: [address] [address] MONO ABS 0.3 K/uL Normal 0.0-1.0 [facility] Comment on above: Performed By: #### L 500.23849, L500.52606, L500.60194, L500.77946, L500.50830, L500.07471 ####Test performed at: [address] [address]#### L550.07375 ####Test performed at: [address] [address] Monocytes/100 WBC Auto (Bld) 4.3 % Normal [facility] Comment on above: Performed By: #### L 500.95860, L500.62808, L500.86678, L500.45866, L500.55903, L500.80082 ####Test performed at: [address] [address]#### L550.69330 ####Test performed at: [address] [address] NEUTROPHIL ABS 4.1 K/uL Normal 1.4-6.6 [facility] Comment on above: Performed By: #### L 500.03874, L500.60233, L500.53354, L500.41368, L500.42288, L500.37045 ####Test performed at: [address] [address]#### L550.50748 ####Test performed at: [address] [address] Neutrophils/100 WBC Auto (Bld) 64.6 % Normal [facility] Comment on above: Performed By: #### L 500.25434, L500.81717, L500.13022, L500.49987, L500.78386, L500.86894 ####Test performed at: [place] [address]#### L550.99087 ####Test performed at: [address] [address] Erythrocyte distribution width Auto Ratio (RBC) 13.2 % Normal 11.5-14.5 [facility] Comment on above: Performed By: #### L 500.87578, L500.61597, L500.91937, L500.11331, L500.50574, L500.35447 ####Test performed at: [place] [id number]#### L550.79969 ####Test performed at: [address] [address] Hematocrit Auto Volume Fraction (Bld) 39.1 % Normal 36.0-48.0 [facility] Comment on above: Performed By: #### L 500.01187, L500.12191, L500.92058, L500.36116, L500.23030, L500.27259 ####Test performed [place]: [place] [address]#### L550.48105 ####Test performed at: [place] [address] Hemoglobin mass conc (Bld) 12.8 g/dL Normal 12.0-15.0 [facility] Comment on above: Performed By: #### L 500.07349, L500.91483, L500.00686, L500.26913, L500.92739, L500.78492 ####Test performed at: [place] [address]#### L550.46134 ####Test performed at: [place] [address] MCH Auto Entitic mass (RBC) 30.4 pg Normal 25.4-34.6 [facility] Comment on above: Performed By: #### L 500.87034, L500.62623, L500.71162, L500.46301, L500.75965, L500.71074 ####Test performed at: [place] [address]#### L550.14352 ####Test performed at: [place] [address] MCHC Auto mass conc (RBC) 32.7 g/dL Normal 31.5-36.5 [facility] Comment on above: Performed By: #### L 500.49969, L500.37659, L500.20410, L500.03460, L500.79209, L500.01088 ####Test performed at: [place] [address]#### L550.67604 ####Test performed at: [place] [address] MCV Auto Entitic volume (RBC) 92.9 fL Invalid Interpretation Code 79.0-98.0 [facility] Comment on above: Result Comment: Delt a: 87.0 on 09/23/17 Performed By: #### L 500.22061, L500.71514, L500.21998, L500.28466, L500.65993, L500.94893 ####Test performed at: [place] [address]#### L550.19293 ####Test performed at: [place] [address] Nucleated RBC #/vol (Bld) 0.000 10*3/uL Normal 0-0.012 [facility] Comment on above: Performed By: #### L 500.58077, L500.86287, L500.49301, L500.56732, L500.37145, L500.45492 ####Test performed at: [place] [address]#### L550.49421 ####Test performed at: [place] [address] Nucleated RBC/100 WBC Ratio (Bld) 0.0 /100 WBC Normal 0-0.2 [facility] Comment on above: Performed By: #### L 500.21146, L500.08288, L500.44648, L500.75838, L500.36412, L500.49856 ####Test performed at: [place] [address]#### L550.37532 ####Test performed at: [place] [address] Platelet mean volume Auto Entitic volume (Bld) 11.7 fL Normal 8.7-12.4 [facility] Comment on above: Performed By: #### L 500.71773, L500.32311, L500.10341, L500.78279, L500.29248, L500.07623 ####Test performed at: [address], [place] [address]#### L550.38331 ####Test performed at: [address] [address] Platelets Auto #/vol (Bld) 159 10*3/uL Normal 140-440 [facility] Comment on above: Performed By: #### L 500.46113, L500.45569, L500.20516, L500.26666, L500.86137, L500.48783 ####Test performed at: [place] [address]#### L550.03660 ####Test performed at: [place] [address] RBC Auto #/vol (Bld) 4.21 10*6/uL Normal 3.5-5.5 [facility] Comment on above: Performed By: #### L 500.99529, L500.56779, L500.20409, L500.52645, L500.74520, L500.05482 ####Test performed at: [place] [address]#### L550.90988 ####Test performed at: [place] [address] WBC Auto #/vol (Bld) 6.3 10*3/uL Normal 3.9-11.0 [facility] Comment on above: Performed By: #### L 500.45365, L500.98792, L500.03956, L500.39270, L500.00902, L500.85114 ####Test performed at: [place] [address]#### L550.83797 ####Test performed at: [address] [address] COMP META PANELon 12-26-2017 Albumin mass conc 3.9 g/dL Normal 3.4-5.0 [facility] Comment on above: Performed By: #### L 500.85247, L500.19047, L500.46574, L500.67874, L500.86310, L500.90576 ####Test performed at: [address] [address]#### L550.68891 ####Test performed at: [place] [address] ALK PHOS TOTAL 57 U/L Normal 45-117 [facility] Comment on above: Performed By: #### L 500.62308, L500.61902, L500.58063, L500.47563, L500.74604, L500.21725 ####Test performed at: [place] [address]#### L550.24450 ####Test performed at: [place] [address] ALT enzyme act/vol 21 U/L Normal 13-61 [facility] Comment on above: Performed By: #### L 500.51426, L500.84795, L500.94312, L500.20897, L500.89202, L500.87155 ####Test performed at: [address] [address]#### L550.54577 ####Test performed at: [place] [address] AST enzyme act/vol 19 U/L Normal 15-37 [facility] Comment on above: Performed By: #### L 500.11902, L500.63164, L500.33826, L500.84487, L500.21655, L500.85419 ####Test performed at: [address] [address]#### L550.35546 ####Test performed at: [place] [address] BILI TOTAL 0.4 mg/dL Normal 0.2-1.0 [facility] Comment on above: Performed By: #### L 500.42994, L500.47752, L500.88274, L500.76540, L500.44574, L500.82821 ####Test performed at: [place] [address]#### L550.54981 ####Test performed at: [place] [address] Calcium mass conc 8.6 mg/dL Normal 8.5-10.1 [facility] Comment on above: Performed By: #### L 500.47321, L500.16609, L500.94512, L500.20766, L500.89677, L500.38571 ####Test performed at: [place] [address]#### L550.64018 ####Test performed at: [place] [address] Chloride molar conc 109 mmol/L High 98-107 [facility] Comment on above: Performed By: #### L 500.67788, L500.00978, L500.18339, L500.83038, L500.01531, L500.63727 ####Test performed at: [place] [address]#### L550.93764 ####Test performed at: [place] [address] CO2 molar conc 31 mmol/L Normal 21-32 [facility] Comment on above: Performed By: #### L 500.65829, L500.55238, L500.83823, L500.35783, L500.25383, L500.91363 ####Test performed at: [place] [address]#### L550.71656 ####Test performed at: [place] [address] Creatinine mass conc 0.884 mg/dL Normal 0.550-1.02 0 [facility] Comment on above: Performed By: #### L 500.62982, L500.13213, L500.62120, L500.39264, L500.83479, L500.62665 ####Test performed at: [place] [address]#### L550.45930 ####Test performed at: [place] [address] Glucose mass conc 86 mg/dL Normal 74-106 [facility] Comment on above: Performed By: #### L 500.34652, L500.85375, L500.68555, L500.10199, L500.53579, L500.26092 ####Test performed at: [place] [address]#### L550.92925 ####Test performed at: [place] [address] Potassium molar conc 3.7 mmol/L Normal 3.5-5.1 [facility] Comment on above: Performed By: #### L 500.42199, L500.73534, L500.13376, L500.78637, L500.87419, L500.27981 ####Test performed at: [place] [address]#### L550.22528 ####Test performed at: [place] [address] Protein mass conc 6.4 g/dL Normal 6.4-8.2 [facility] Comment on above: Performed By: #### L 500.67589, L500.07180, L500.54385, L500.72453, L500.03393, L500.63229 ####Test performed at: [place] [address]#### L550.32298 ####Test performed at: [address] [address] Sodium molar conc 145 mmol/L Normal 136-145 [facility] Comment on above: Performed By: #### L 500.72412, L500.53241, L500.00658, L500.62099, L500.40625, L500.83765 ####Test performed at: [place] [address]#### L550.88343 ####Test performed at: [place] [id number] Urea nitrogen mass conc 14 mg/dL Normal 7-18 [facility] Comment on above: Performed By: #### L 500.66696, L500.92370, L500.15369, L500.97404, L500.41772, L500.20546 ####Test performed at: [place] [address]#### L550.82747 ####Test performed at: [place] [address] GFR ESTIMATEon 12-26-2017 IF AMER > 60 Normal > 60 [facility] Comment on above: Result Comment: eGFR (Estimated GFR) Units of measure:mL/min/1.73 meters sq.*CALCULATION REVISED 03/04/2015;IDMS-traceable MDRD equationeGFR is derived from the reexpressed MDRD Study equationusing the following parameters: serum creatinine, age,gender and race. An eGFR<60 mL/min/1.73m2 for >3 monthsis consistent with chronic kidney disease. Refer to KDOQIguidelines for clinical interpretation. Performed By: #### L 500.78499, L500.72534, L500.10411, L500.93881, L500.81929, L500.29422 ####Test performed at: [place] [address]#### L550.04781 ####Test performed at: [place] [address] IF non-AFR AMER > 60 Normal > 60 [facility] Comment on above: Performed By: #### L 500.10543, L500.29595, L500.80507, L500.30612, L500.70207, L500.96829 ####Test performed at: [place] [address]#### L550.52133 ####Test performed at: [place] [address] IRON PANELon 12-26-2017 Iron mass conc 33 ug/dL Low 50-170 [facility] Comment on above: Performed By: #### L 500.19786, L500.72355, L500.61302, L500.44994, L500.16807, L500.29797 ####Test performed at: [place] [address]#### L550.13747 ####Test performed at: [place] [address] IRON SAT 13 % Low 25-35 [facility] Comment on above: Performed By: #### L 500.96908, L500.97096, L500.11626, L500.65773, L500.62697, L500.30266 ####Test performed at: [place] [address]#### L550.95412 ####Test performed at: [place] [address] TIBC 250 ug/dL Normal 250-450 [facility] Comment on above: Performed By: #### L 500.59769, L500.50374, L500.06804, L500.38473, L500.52214, L500.19207 ####Test performed at: [address] [address]#### L550.58286 ####Test performed at: [address] [address] CBC W/DIFFon 09-23-2017 BASO ABS 0.0 K/uL Normal 0.0-0.2 [facility] Comment on above: Order Comment: Is pa tient fasting? NO Performed By: #### L 500.00909, L500.30406, L500.98564, L500.65894, L500.81971, L500.16716 ####Test performed at: [place] [address]#### L550.70886 ####Test performed at: [address] [address] Basophils/100 WBC Auto (Bld) 0.1 % Normal [facility] Comment on above: Order Comment: Is pa tient fasting? NO Performed By: #### L 500.38663, L500.40594, L500.04041, L500.30315, L500.36459, L500.18356 ####Test performed at: [place] [address]#### L550.27531 ####Test performed at: [place] [address] EOS ABS 0.0 K/uL Normal 0.0-0.5 [facility] Comment on above: Order Comment: Is pa tient fasting? NO Performed By: #### L 500.39088, L500.56773, L500.47236, L500.19536, L500.20178, L500.81608 ####Test performed at: [place] [address]#### L550.49424 ####Test performed at: [address] [address] Eosinophils/100 WBC Auto (Bld) 0.0 % Normal [facility] Comment on above: Order Comment: Is pa tient fasting? NO Performed By: #### L 500.31548, L500.37935, L500.10811, L500.29797, L500.24915, L500.98658 ####Test performed at: [address] [address]#### L550.97785 ####Test performed at: [address] [address] Erythrocyte distribution width Auto Ratio (RBC) 12.6 % Normal 11.5-14.5 [facility] Comment on above: Order Comment: Is pa tient fasting? NO Performed By: #### L 500.62060, L500.46353, L500.72924, L500.99415, L500.17183, L500.23853 ####Test performed at: [address] [address]#### L550.43029 ####Test performed at: [address] [address] Hematocrit Auto Volume Fraction (Bld) 35.4 % Low 36.0-48.0 [facility] Comment on above: Order Comment: Is pa tient fasting? NO Performed By: #### L 500.87242, L500.00626, L500.83945, L500.39753, L500.70439, L500.36729 ####Test performed at: [address] [address]#### L550.36248 ####Test performed at: [address] [address] Hemoglobin mass conc (Bld) 12.2 g/dL Normal 12.0-15.0 [facility] Comment on above: Order Comment: Is pa tient fasting? NO Performed By: #### L 500.47830, L500.52189, L500.16046, L500.72359, L500.62755, L500.91540 ####Test performed at: [place] [address]#### L550.12589 ####Test performed at: [place] [address] IG % 0.3 % Normal [facility] Comment on above: Order Comment: Is pa tient fasting? NO Performed By: #### L 500.83203, L500.81104, L500.50220, L500.61347, L500.26665, L500.92204 ####Test performed at: [place] [address]#### L550.61329 ####Test performed at: [place] [address] IG ABS 0.02 K/uL Normal 0-0.05 [facility] Comment on above: Order Comment: Is pa tient fasting? NO Performed By: #### L 500.06501, L500.27367, L500.35799, L500.55022, L500.59445, L500.87149 ####Test performed at: [place] [address]#### L550.41718 ####Test performed at: [place] [address] Lymphocytes Auto #/vol (Bld) 1.0 10*3/uL Low 1.2-3.5 [facility] Comment on above: Order Comment: Is pa tient fasting? NO Performed By: #### L 500.67889, L500.36013, L500.67140, L500.20895, L500.68465, L500.42899 ####Test performed at: [place] [address]#### L550.01241 ####Test performed at: [address] [address] Lymphocytes/100 WBC Auto (Bld) 13.4 % Normal [facility] Comment on above: Order Comment: Is pa tient fasting? NO Performed By: #### L 500.83654, L500.26431, L500.09206, L500.69165, L500.79866, L500.94645 ####Test performed at: [place] [address]#### L550.76157 ####Test performed at: [place] [address] MCH Auto Entitic mass (RBC) 30.0 pg Normal 25.4-34.6 [facility] Comment on above: Order Comment: Is pa tient fasting? NO Performed By: #### L 500.73345, L500.62810, L500.57138, L500.61413, L500.77470, L500.69039 ####Test performed at: [place] [address]#### L550.57543 ####Test performed at: [place] [address] MCHC Auto mass conc (RBC) 34.5 g/dL Normal 31.5-36.5 [facility] Comment on above: Order Comment: Is pa tient fasting? NO Performed By: #### L 500.39262, L500.52925, L500.78461, L500.50108, L500.32211, L500.85757 ####Test performed at: [place] [address]#### L550.28418 ####Test performed at: [place] [address] MCV Auto Entitic volume (RBC) 87.0 fL Normal 79.0-98.0 [facility] Comment on above: Order Comment: Is pa tient fasting? NO Performed By: #### L 500.64033, L500.96084, L500.48682, L500.20107, L500.61455, L500.61806 ####Test performed at: [address] [address]#### L550.59206 ####Test performed at: [address] [address] MONO ABS 0.3 K/uL Normal 0.0-1.0 [facility] Comment on above: Order Comment: Is pa tient fasting? NO Performed By: #### L 500.58465, L500.29729, L500.06194, L500.40788, L500.76131, L500.31056 ####Test performed at: [place] [address]#### L550.42526 ####Test performed at: [address] [address] Monocytes/100 WBC Auto (Bld) 4.6 % Normal [facility] Comment on above: Order Comment: Is pa tient fasting? NO Performed By: #### L 500.70773, L500.15581, L500.85870, L500.72668, L500.24130, L500.87985 ####Test performed at: [address] [address]#### L550.27011 ####Test performed at: [address] [address] NEUTROPHIL ABS 6.1 K/uL Normal 1.4-6.6 [facility] Comment on above: Order Comment: Is pa tient fasting? NO Performed By: #### L 500.85661, L500.43049, L500.21715, L500.85572, L500.52045, L500.21274 ####Test performed at: [address] [address]#### L550.74877 ####Test performed at: [address] [address] Neutrophils/100 WBC Auto (Bld) 81.6 % Normal [facility] Comment on above: Order Comment: Is pa tient fasting? NO Performed By: #### L 500.55674, L500.03867, L500.36225, L500.00028, L500.07682, L500.89995 ####Test performed at: [place] [address]#### L550.18897 ####Test performed at: [address] [address] Nucleated RBC #/vol (Bld) 0.000 10*3/uL Normal 0-0.012 [facility] Comment on above: Order Comment: Is pa tient fasting? NO Performed By: #### L 500.59521, L500.59197, L500.34125, L500.91691, L500.80884, L500.68439 ####Test performed at: [place] [address]#### L550.83533 ####Test performed at: [address] [address] Nucleated RBC/100 WBC Ratio (Bld) 0.0 /100 WBC Normal 0-0.2 [facility] Comment on above: Order Comment: Is pa tient fasting? NO Performed By: #### L 500.46937, L500.02876, L500.95117, L500.76221, L500.33834, L500.22871 ####Test performed at: [place] [address]#### L550.74416 ####Test performed at: [address], [place] [address] Platelet mean volume Auto Entitic volume (Bld) 10.9 fL Normal 8.7-12.4 [facility] Comment on above: Order Comment: Is pa tient fasting? NO Performed By: #### L 500.13079, L500.12993, L500.94964, L500.41827, L500.26919, L500.91999 ####Test performed at: [address] [address]#### L550.85202 ####Test performed at: [address] [address] Platelets Auto #/vol (Bld) 202 10*3/uL Normal 140-440 [facility] Comment on above: Order Comment: Is pa tient fasting? NO Performed By: #### L 500.58991, L500.86616, L500.62204, L500.00210, L500.24015, L500.47669 ####Test performed at: [address] [address]#### L550.60072 ####Test performed at: [address] [address] RBC Auto #/vol (Bld) 4.07 10*6/uL Normal 3.5-5.5 [facility] Comment on above: Order Comment: Is pa tient fasting? NO Performed By: #### L 500.18664, L500.91624, L500.73886, L500.88536, L500.75654, L500.91935 ####Test performed at: [place] [address]#### L550.84210 ####Test performed at: [address] [address] WBC Auto #/vol (Bld) 7.4 10*3/uL Normal 3.9-11.0 [facility] Comment on above: Order Comment: Is pa tient fasting? NO Performed By: #### L 500.63235, L500.94218, L500.04876, L500.30019, L500.56786, L500.99781 ####Test performed at: [place] [address]#### L550.33787 ####Test performed at: [place] [address] COMP META PANELon 09-23-2017 Albumin mass conc 3.4 g/dL Normal 3.4-5.0 [facility] [facility] Comment on above: Order Comment: Is pa tient fasting? NO Performed By: #### L 500.69641, L500.71391, L500.39588, L500.15983, L500.95211, L500.60773 ####Test performed at: [place] [address]#### L550.80149 ####Test performed at: [place] [address] ALK PHOS TOTAL 59 U/L Normal 45-117 [facility] Comment on above: Order Comment: Is pa tient fasting? NO Performed By: #### L 500.56600, L500.63452, L500.14701, L500.39602, L500.20631, L500.20963 ####Test performed at: [place] [address]#### L550.52129 ####Test performed at: [place] [address] ALT enzyme act/vol 15 U/L Normal 13-61 [facility] Comment on above: Order Comment: Is pa tient fasting? NO Performed By: #### L 500.65328, L500.33418, L500.89208, L500.93579, L500.81443, L500.43806 ####Test performed at: [address] [address]#### L550.65597 ####Test performed at: [facility] [address] [place] [address] AST enzyme act/vol 14 U/L Low 15-37 [facility] Comment on above: Order Comment: Is pa tient fasting? NO Performed By: #### L 500.57406, L500.71485, L500.23302, L500.53540, L500.01165, L500.00070 ####Test performed at: [address] [address]#### L550.62472 ####Test performed at: [place] [address] BILI TOTAL 0.3 mg/dL Normal 0.2-1.0 [facility] Comment on above: Order Comment: Is pa tient fasting? NO Performed By: #### L 500.87154, L500.44561, L500.49063, L500.73194, L500.91717, L500.72159 ####Test performed at: [place] [address]#### L550.28255 ####Test performed at: [address] [address] Calcium mass conc 8.0 mg/dL Low 8.5-10.1 [facility] Comment on above: Order Comment: Is pa tient fasting? NO Performed By: #### L 500.59521, L500.87158, L500.17519, L500.44730, L500.62680, L500.72612 ####Test performed at: [place] [address]#### L550.96963 ####Test performed at: [address] [address] Chloride molar conc 107 mmol/L Normal 98-107 [facility] Comment on above: Order Comment: Is pa tient fasting? NO Performed By: #### L 500.41372, L500.56604, L500.28975, L500.68666, L500.79231, L500.67451 ####Test performed at: [place] [address]#### L550.10531 ####Test performed at: [address] [address] CO2 molar conc 24 mmol/L Normal 21-32 [facility] Comment on above: Order Comment: Is pa tient fasting? NO Performed By: #### L 500.17181, L500.57148, L500.57845, L500.73761, L500.25715, L500.18515 ####Test performed at: [place] [address]#### L550.14992 ####Test performed at: [place] [address] Creatinine mass conc 0.662 mg/dL Normal 0.550-1.02 0 [facility] Comment on above: Order Comment: Is pa tient fasting? NO Performed By: #### L 500.12652, L500.03705, L500.61206, L500.83236, L500.91144, L500.16485 ####Test performed at: [place] [address]#### L550.98252 ####Test performed at: [place] [id number] Glucose mass conc 120 mg/dL High 74-106 [facility] Comment on above: Order Comment: Is pa tient fasting? NO Performed By: #### L 500.22469, L500.20619, L500.07458, L500.26691, L500.32995, L500.75980 ####Test performed at: [place] [address]#### L550.58315 ####Test performed at: [place] [address] Potassium molar conc 4.0 mmol/L Normal 3.5-5.1 [facility] Comment on above: Order Comment: Is pa tient fasting? NO Performed By: #### L 500.86166, L500.30688, L500.95912, L500.40690, L500.24132, L500.88704 ####Test performed at: [place] [address]#### L550.88436 ####Test performed at: [place] [address] Protein mass conc 6.1 g/dL Low 6.4-8.2 [facility] Comment on above: Order Comment: Is pa tient fasting? NO Performed By: #### L 500.73480, L500.18941, L500.28969, L500.91129, L500.89709, L500.11131 ####Test performed at: [place] [address]#### L550.50448 ####Test performed at: [place] [id number] Sodium molar conc 139 mmol/L Normal 136-145 [facility] Comment on above: Order Comment: Is pa tient fasting? NO Performed By: #### L 500.47753, L500.77663, L500.86949, L500.08448, L500.21179, L500.19526 ####Test performed at: [place] [address]#### L550.72164 ####Test performed at: [place] [address] Urea nitrogen mass conc 9 mg/dL Normal 7-18 [facility] Comment on above: Order Comment: Is pa tient fasting? NO Performed By: #### L 500.06601, L500.05722, L500.05740, L500.64812, L500.72643, L500.66024 ####Test performed at: [place] [address]#### L550.94123 ####Test performed at: [place] [address] EST. CREAT CLRon 09-23-2017 Creatinine mass conc 211.915 ML/MIN Normal [facility] Comment on above: Order Comment: Is pa tient fasting? NO Result Comment: This result is an ESTIMATED blood creatinine clearance valuewhich is derived from the patient age, sex, weight, andprevious blood creatinine result. Performed By: #### L 500.16072, L500.85825, L500.76312, L500.36444, L500.35850, L500.01572 ####Test performed at: [place] [address]#### L550.10018 ####Test performed at: [place] [address] GFR ESTIMATEon 09-23-2017 IF AMER > 60 Normal > 60 [facility] Comment on above: Order Comment: Is pa tient fasting? NO Result Comment: eGFR (Estimated GFR) Units of measure:mL/min/1.73 meters sq.*CALCULATION REVISED 03/04/2015;IDMS-traceable MDRD equationeGFR is derived from the reexpressed MDRD Study equationusing the following parameters: serum creatinine, age,gender and race. An eGFR<60 mL/min/1.73m2 for >3 monthsis consistent with chronic kidney disease. Refer to KDOQIguidelines for clinical interpretation. Performed By: #### L 500.76840, L500.92428, L500.35280, L500.26527, L500.15977, L500.71285 ####Test performed at: [place] [address] [address]#### L550.56131 ####Test performed at: [facility] [address] [place] [address] IF non-AFR AMER > 60 Normal > 60 [facility] Comment on above: Order Comment: Is pa tient fasting? NO Performed By: #### L 500.73951, L500.67697, L500.61516, L500.69002, L500.06583, L500.14276 ####Test performed at: [address] [address]#### L550.64194 ####Test performed at: [place] [address] GLUCOSE METERon 09-23-2017 Glucose mass conc 127 mg/dL High 70-110 [facility] Comment on above: Order Comment: Is pa tient fasting? NO Performed By: #### L 500.89057, L500.87853, L500.80241, L500.87925, L500.24168, L500.44448 ####Test performed at: [place] [address]#### L550.37068 ####Test performed at: [place] [address] Glucose mass conc 118 mg/dL High 70-110 [facility] Comment on above: Order Comment: Is pa tient fasting? NO Performed By: #### L 500.83435, L500.67803, L500.78507, L500.36918, L500.47689, L500.08222 ####Test performed at: [place] [id number]#### L550.67364 ####Test performed at: [place] [address] Glucose mass conc 140 mg/dL High 70-110 [facility] Comment on above: Order Comment: Is pa tient fasting? NO Performed By: #### L 500.75217, L500.77576, L500.06338, L500.45280, L500.18744, L500.56879 ####Test performed at: [facility] [address] [address]#### L550.85362 ####Test performed at: [facility] [address] [place] [address] Pulm/Crit Care Progress Note on 09-23-2017 Protein mass conc [facility] Pt Name: PADMINI CARR[address] R#: [id number] [address] ACCT: [id number] NOTE - Pulmonary/Critical Care : 86Service Date: 09/23/17 1524NAME: PADMINI CARRMR#: [id number] OF SERVICE: 09/23/2017PULMONARY/CRITICAL CARE PROGRESS NOTESUBJECTIVE: Ms. Carr had yesterday sleeve gastrectomy. Overnight, shedenied any fever, chills, nausea, vomiting. She has mild abdominaldiscomfort, which is improving. She was weaned off oxygen overnight and useher CPAP. She received DVT prophylaxis.PHYSICAL EXAMINATION:VITAL SIGNS: Reviewed. The patient is on room air. Afebrile overnight.HEENT: Head: Atraumatic, normocephalic. Eyes: Pupils reactive toaccommodation.LUNGS: Diminished breath sound on the left base.ABDOMEN: Soft, nontender. The patient has incentive spirometry drainingaround 1999.EXTREMITIES: No edema, cyanosis, or clubbing.ASSESSMENT:1. Obstructive sleep apnea, moderate.2. Mild left lower lobe atelectasis, clinically improving.3. Status post sleeve gastrectomy.4. Morbid obesity.PLAN:1. The patient will be discharged from Pulmonary standpoint.2. Continue incentive spirometry at home and frequent ambulation.3. Reassess sleep study and CPAP need when BMI approach 30. BASEL BRIT NEVES/MODL/[id number]: 09/23/2017 15:24:14 Electronically Signed eSign Date and TimeNa Neves MD 09/30/17 1555 Normal [facility] BASIC MET PANELon 09-22-2017 Anion gap 3 molar conc 12 mmol/L Normal 6-18 [facility] Comment on above: Order Comment: Is pa tient fasting? NO Performed By: #### L 500.29520, L500.08217, L500.77613, L500.39622, L500.07230, L500.91895 ####Test performed at: [place] [address]#### L550.82468 ####Test performed at: [place] [address] Calcium mass conc 8.7 mg/dL Normal 8.5-10.1 [facility] Comment on above: Order Comment: Is pa tient fasting? NO Performed By: #### L 500.19936, L500.18832, L500.13512, L500.01972, L500.12219, L500.37749 ####Test performed at: [place] [address]#### L550.27132 ####Test performed at: [place] [address] Chloride molar conc 105 mmol/L Normal 98-107 [facility] Comment on above: Order Comment: Is pa tient fasting? NO Performed By: #### L 500.12268, L500.04791, L500.39567, L500.05445, L500.05566, L500.91036 ####Test performed at: [address] [address]#### L550.42943 ####Test performed at: [place] [address] CO2 molar conc 27 mmol/L Normal 21-32 [facility] Comment on above: Order Comment: Is pa tient fasting? NO Performed By: #### L 500.30591, L500.86704, L500.27565, L500.62266, L500.63526, L500.79738 ####Test performed at: [address] [address]#### L550.48772 ####Test performed at: [address] [address] Creatinine mass conc 0.782 mg/dL Normal 0.550-1.02 0 [facility] Comment on above: Order Comment: Is pa tient fasting? NO Performed By: #### L 500.66395, L500.27268, L500.25343, L500.17779, L500.44547, L500.76324 ####Test performed at: [place] [address]#### L550.86492 ####Test performed at: [place] [address] Glucose mass conc 91 mg/dL Normal 74-106 [facility] Comment on above: Order Comment: Is pa tient fasting? NO Performed By: #### L 500.05084, L500.23038, L500.60076, L500.03737, L500.03598, L500.14077 ####Test performed at: [address] [address]#### L550.02402 ####Test performed at: [address] [address] OSM 289 mosm/kg Normal 270-300 [facility] Comment on above: Order Comment: Is pa tient fasting? NO Performed By: #### L 500.24417, L500.78867, L500.34936, L500.94641, L500.82680, L500.77330 ####Test performed at: [address] [address]#### L550.43144 ####Test performed at: [place] [address] Potassium molar conc 4.0 mmol/L Normal 3.5-5.1 [facility] Comment on above: Order Comment: Is pa tient fasting? NO Performed By: #### L 500.97286, L500.27620, L500.60549, L500.44692, L500.96771, L500.49078 ####Test performed at: [place] [address]#### L550.33576 ####Test performed at: [place] [address] Sodium molar conc 140 mmol/L Normal 136-145 [facility] Comment on above: Order Comment: Is pa tient fasting? NO Performed By: #### L 500.02418, L500.27095, L500.84089, L500.62580, L500.86285, L500.69503 ####Test performed at: [place] [address]#### L550.62231 ####Test performed at: [place] [address] Urea nitrogen mass conc 10 mg/dL Normal 7-18 [facility] Comment on above: Order Comment: Is pa tient fasting? NO Performed By: #### L 500.06256, L500.54835, L500.91435, L500.82859, L500.55282, L500.78436 ####Test performed at: [place] [address]#### L550.65012 ####Test performed at: [place] [address] CONSULTATION REPORTon 2017 CONSULTATION REPORT NAME: BLANCO CARR#: [id number]: Na Neves, MDDATE OF CONSULTATION: 09/22/2017CONSULTATIONREASON FOR CONSULTATION: Obstructive sleep apnea.HISTORY OF PRESENT ILLNESS: This 26-year-old female with a pasthistory of moderate to severe obstructive sleep apnea, on CPAP, depression,who underwent today sleeve gastrectomy. She denied any history of pulmonarydisease including COPD, asthma, bronchitis, or recent pneumonias. No recentpulmonary symptoms including no cough, no sputum production, no personalhistory of DVT or pulmonary emboli.PAST MEDICAL HISTORY: As outlined above.HOME MEDICATION: Include ferrous sulfate, Lamictal, multivitamin, andquetiapine. P.r.n. medication includes alprazolam and Tylenol with codeine inaddition to Zofran.OBJECTIVE: VITAL SIGNS: The patient was seen in PACU. Blood pressure 102/62,temperature 36.4, pulse 85, and respiration 18.HEENT: Head atraumatic, normocephalic. Eyes, pupils are reactive to lightand accomodation.NECK: No JVD. Mallampati score is 3. The patient is currently on 5 L nasalcannula.LUNGS: Bilateral air entry. Diminished breath sounds of the left.ABDOMEN: Status post laparoscopic surgery. No MELVI drains seen.GENITOURINARY: No Pompa catheter.EXTREMITIES: Bilateral SCDs applied.NEUROLOGIC: Awake and alert x3. She is still sleepy; however, recoveringfrom surgery.LABORATORY DATA: Showed sodium 140, potassium 4.0, chloride 105, CO2 of 27.ASSESSMENT:1. Obstructive sleep apnea, moderate severity.2. Compliant with CPAP.3. Status post sleeve gastrectomy.4. Depression.5. DVT prophylaxis.PLAN:1. Patient to continue CPAP on nightly basis.2. Incentive spirometry.[facility] PT NAME: PADMINI CARR#: [id number] [place] [address] ACCT: [id number]: [id number]. Early ambulation.4. Fractionated heparin/low molecular weight heparin.5. Avoid postoperative tachycardia.6. O2 for saturation of 92%. BRIT RAMIREZ/DARIN/[id number]: 09/23/2017 15:31:07 E/S: Na Neves MD09/30/17 1520Electronically [facility]igned[facility] PT NAME: PADMINI CARR#: [id number] [place] [address] ACCT: [id number]: 88CONSULTATION Normal [facility] EST. CREKARIN CLRon 09-22-2017 Creatinine mass conc 179.396 ML/MIN Normal [facility] Comment on above: Order Comment: Is pa tient fasting? NO Result Comment: This result is an ESTIMATED blood creatinine clearance valuewhich is derived from the patient age, sex, weight, andprevious blood creatinine result. Performed By: #### L 500.38289, L500.87169, L500.85663, L500.10456, L500.26573, L500.59432 ####Test performed at: [place] [address]#### L550.76495 ####Test performed at: [facility] [address] [place] [address] GFR ESTIMATEon 09-22-2017 IF AMER > 60 Normal > 60 [facility] Comment on above: Order Comment: Is pa tient fasting? NO Result Comment: eGFR (Estimated GFR) Units of measure:mL/min/1.73 meters sq.*CALCULATION REVISED 03/04/2015;IDMS-traceable MDRD equationeGFR is derived from the reexpressed MDRD Study equationusing the following parameters: serum creatinine, age,gender and race. An eGFR<60 mL/min/1.73m2 for >3 monthsis consistent with chronic kidney disease. Refer to [facility] for clinical interpretation. Performed By: #### L 500.69592, L500.92995, L500.92756, L500.76352, L500.06227, L500.22681 ####Test performed at: [place] [address]#### L550.27035 ####Test performed at: [facility] [address] [place] [address] IF non-AFR AMER > 60 Normal > 60 [facility] Comment on above: Order Comment: Is pa tient fasting? NO Performed By: #### L 500.00510, L500.38431, L500.83727, L500.86319, L500.74055, L500.79458 ####Test performed at: [place] [address]#### L550.07544 ####Test performed at: [place] [address] GLUCOSE METERon 09-22-2017 Glucose mass conc 124 mg/dL High 70-110 [facility] Comment on above: Order Comment: Is pa tient fasting? NO Result Comment: Foll ow protocol Performed By: #### L 500.53692, L500.16961, L500.25369, L500.29806, L500.30619, L500.53448 ####Test performed at: [place] [address]#### L550.30352 ####Test performed at: [place] [address] OPERATIVE REPORTon 8 OPERATIVE REPORT NAME: BLANCO CARR [facility]#: [id number]: Damion Flores, MDDATE OF SURGERY: 09/22/2017OPERATIVE REPORTPREOPERATIVE DIAGNOSES: Morbid obesity, diabetes.OPERATIVE PROCEDURES: Laparoscopic sleeve gastrectomy, operative endoscopy.POSTOPERATIVE DIAGNOSIS: Laparoscopic sleeve gastrectomy, operative endoscopy.SCANNING SUPERVISOR: Rafael Cardozo.ANESTHESIA: General.INDICATIONS: The patient presents with history of morbid obesity andcomorbidities, has successfully completed preop dietary, behavioral, andmedical clearances. Short-term and long-term options, risks, benefits werediscussed with the patient. Informed consent was obtained. She is broughtthis time for sleeve gastrectomy.DESCRIPTION OF PROCEDURE: After administration of satisfactory generalendotracheal anesthesia, the patient's abdomen was prepped and sterile drapeswere applied. After an appropriate time-out procedure, incision was made justleft of midline above the umbilicus. Using the 5 mm 0-degree laparoscope andvisible tip trocar, peritoneal cavity was entered under direct vision.Abdomen was insufflated with CO2 gas. We swapped out for a 45-degreelaparoscope. A right upper quadrant incision made, 5 mm trocar inserted.Right paramedian incision was made. A legtf-ylzgv-szxxnaqd tap block wasfirst done by injecting 20 cc of 0.25% Marcaine extraperitoneally inferior tothe right costal margin. Similar block was done on the left upper quadrant.Trocar incision made, 5 mm trocar inserted. Right paramedian incision made,15 mm trocar inserted. Left upper quadrant incision made, 5 mm trocarinserted. Epigastric incision made, 5 entrances retrograde through which weinserted in liver retractor. The left lobe of the liver was elevated. Thepatient was placed in reverse Trendelenburg position. We examined the hiatusand there was no evidence of hiatal hernia. We identified the pylorus andthen began devascularizing the greater curve beginning about 6 cm proximalpylorus advancing proximally up to the angle of His. This was accomplished byapplying LigaSure across the short gastric vessels on the surface of thestomach. Once this was done, Anesthesia removed the orogastric tube, insertedthe Ellik tube along the lesser curve. The [place] stapler with green loadand Christie-Strips was applied across the greater curve line parallel lateral totube. Anterior-posterior position was checked, stapler was fired. Advancedproximally up the stomach with the application of [place] stapler with greenST. [facility] NAME: PADMINI CARR#: [id number] [place] [id number] ACCT: [id number]: 88OPERATIVE REPORTload and Christie-Strips applied in a similar fashion. We then progressedproximal to the stomach with multiple applications initial stapler with blueload and Christie-Strips. Each time, aligning it parallel and lateral to theEllik tube checking position before firing. Some posterior attachments of thefundus that were taken down using the LigaSure in order to fully mobilize thefundus. Once this was completed, we were able to complete the sleevegastrectomy. Final Christie-Strip was cut using endoscopic scissors. The Elliktube was removed. A clamp was placed across the distal stomach. The patientwas placed supine. Peritoneal cavity filled with saline. The patient wasendoscoped from above. The scope was easily passed down the stomach to theclamp with the stomach distended with air under water or bubble seen with inthe peritoneal cavity. Within the lumen of the stomach, there was no twist orstenosis in the staple line. There was no active bleeding seen. The air wassuctioned out the stomach. The endoscope was removed. Saline suctioned outof the peritoneal cavity. Clamp was removed previously. The resected gastricspecimen was retrieved using EndoCatch and sent to Pathology. Fascial defectclosed with 0 Vicryl and the endoscopic closure tool. Liver retractor wasremoved under direct vision. Trocars were removed. Pneumoperitoneumevacuated. Skin incision was closed with 4-0 Monocryl and Dermabond.Estimated blood loss about 10 cc. Sponge, needle, and instrument counts werecorrect x2. LUDY LOYOLA/DARIN/[id number]: 09/22/2017 15:13:10 E/S: Damion Flores MD09/23/17 0841Electronically Signed[facility] PT NAME: PADMINI CARR#: [id number] [place] [address] ACCT: [id number]: 88OPERATIVE REPORT Normal [facility] PLT W/MPVon 09-22-2017 Platelet mean volume Auto Entitic volume (Bld) 10.1 fL Normal 8.7-12.4 [facility] Comment on above: Order Comment: Is pa tient fasting? NO Performed By: #### L 500.05752, L500.78524, L500.75332, L500.40859, L500.29396, L500.25184 ####Test performed at: [place] [address]#### L550.58368 ####Test performed at: [place] [address] Platelets Auto #/vol (Bld) 192 10*3/uL Normal 140-440 [facility] Comment on above: Order Comment: Is pa tient fasting? NO Performed By: #### L 500.58063, L500.27807, L500.08893, L500.55733, L500.50059, L500.59087 ####Test performed at: [place] [address]#### L550.06265 ####Test performed at: [place] [address] POC UR HCGon 09-22-2017 HCG Qn Negative Normal [facility] Comment on above: Order Comment: Is pa tient fasting? NO Performed By: #### L 500.81993, L500.99666, L500.53102, L500.01942, L500.61912, L500.69223 ####Test performed at: [place] [address]#### L550.27576 ####Test performed at: [place] [address] SURGon 09-22-2017 SURG Normal [facility] Comment on above: Result Comment: RUN DATE: 09/26/17 [facility] *LIVE* PAGE 1RUN TIME: 1308 Specimen InquiryRUN USER: [employer] Name: PADMINI CARR : 86 Sex:F Attend Dr: Damion Flores [facility]#: [id number] Unit#: [id number] Status: DIS IN Location: [place] [id number] Received: 09/23/17-454 Status: FRANCINE Patricia#: [id number]#: [id number] Collected: 09/22/17- [facility] Dr: Damion Flores MDTISSUES: A. PORTION OF STOMACH MICROSCOPIC EXAM: One slide examined. DIAGNOSIS: PORTION OF STOMACH, LAP SLEEVE PROCEDURE: - NO DIAGNOSTIC ABNORMALITY Signed Signature on File [place] HUTCHINS BERNABE 09/26/[address] [facility] Name: [place] Hosp Num: [id number] A [employer] of Age / Sex: 26/F [facility] Physician: Damion Flores MD [address] [place] [address] Location: NURSING UNIT END OF REPORT Performed By: #### L 500.76632, L500.29004, L500.49890, L500.65160, L500.07876, L500.80914 ####Test performed at: [place] [address]#### L550.73032 ####Test performed at: [place] [address] TSon 09-22-2017 ANTIBODY SCREEN Negative Normal [facility] Comment on above: Order Comment: Is pa tient fasting? NO Performed By: #### L 500.51967, L500.64779, L500.43183, L500.06973, L500.62760, L500.78791 ####Test performed at: [place] [address]#### L550.86649 ####Test performed at: [place] [address] BLOOD TYPE Negative Normal [facility] Comment on above: Order Comment: Is pa tient fasting? NO Performed By: #### L 500.00966, L500.86326, L500.12291, L500.18337, L500.19573, L500.24212 ####Test performed at: [place] [address]#### L550.08855 ####Test performed at: [place] [id number] B12on 09-05-2017 Cobalamin (Vitamin B12) mass conc 368 pg/mL Normal 193-986 [facility] Comment on above: Order Comment: Is pa tient fasting? NO Performed By: #### L 500.36730, L500.13745, L500.51021, L500.04513, L500.93345, L500.71731 ####Test performed at: [address] [address]#### L550.93597 ####Test performed at: [facility] [address] [place], [place] [address] CBC W/DIFFon 09-05-2017 BASO ABS 0.0 K/uL Normal 0.0-0.2 [facility] Comment on above: Order Comment: CBN: YESCampus: MAIN Performed By: #### L 600.82158 ####Test performed at: [address] [address] Basophils/100 WBC Auto (Bld) 0.4 % Normal [facility] Comment on above: Order Comment: CBN: YESCampus: MAIN Performed By: #### L 600.33557 ####Test performed at: [address] [address] EOS ABS 0.1 K/uL Normal 0.0-0.5 [facility] Comment on above: Order Comment: CBN: YESCampus: MAIN Performed By: #### L 600.66819 ####Test performed at: [address] [address] Eosinophils/100 WBC Auto (Bld) 1.8 % Normal [facility] Comment on above: Order Comment: CBN: YESCampus: MAIN Performed By: #### L 600.49401 ####Test performed at: [address] [address] Erythrocyte distribution width Auto Ratio (RBC) 13.2 % Normal 11.5-14.5 [facility] Comment on above: Order Comment: CBN: YESCampus: MAIN Performed By: #### L 600.22861 ####[place] Hematocrit Auto Volume Fraction (Bld) 37.7 % Normal 36.0-48.0 [facility] Comment on above: Order Comment: CBN: YESCampus: MAIN Performed By: #### L 600.71722 ####Test performed at: [address] [address] Hemoglobin mass conc (Bld) 12.6 g/dL Normal 12.0-15.0 [facility] Comment on above: Order Comment: CBN: YESCampus: MAIN Performed By: #### L 600.66385 ####Test performed at: [place] [address] IG % 0.2 % Normal [facility] Comment on above: Order Comment: CBN: YESCampus: MAIN Performed By: #### L 600.81768 ####Test performed at: [place] [id number] IG ABS 0.01 K/uL Normal 0-0.05 [facility] Comment on above: Order Comment: CBN: YESCampus: MAIN Performed By: #### L 600.90936 ####Test performed at: [address] [address] Lymphocytes Auto #/vol (Bld) 1.7 10*3/uL Normal 1.2-3.5 [facility] Comment on above: Order Comment: CBN: YESCampus: MAIN Performed By: #### L 600.73089 ####Test performed at: [place] [id number] Lymphocytes/100 WBC Auto (Bld) 33.1 % Normal [facility] Comment on above: Order Comment: CBN: YESCampus: MAIN Performed By: #### L 600.09459 ####Test performed at: [address] [address] MCH Auto Entitic mass (RBC) 29.6 pg Normal 25.4-34.6 [facility] Comment on above: Order Comment: CBN: YESCampus: MAIN Performed By: #### L 600.41239 ####Test performed at: [address] [address] MCHC Auto mass conc (RBC) 33.4 g/dL Normal 31.5-36.5 [facility] Comment on above: Order Comment: CBN: YESCampus: MAIN Performed By: #### L 600.82255 ####Test performed at: [address] [address] MCV Auto Entitic volume (RBC) 88.7 fL Normal 79.0-98.0 [facility] Comment on above: Order Comment: CBN: YESCampus: MAIN Performed By: #### L 600.75848 ####Test performed at: [address] [address] MONO ABS 0.2 K/uL Normal 0.0-1.0 [facility] Comment on above: Order Comment: CBN: YESCampus: MAIN Performed By: #### L 600.84686 ####Test performed at: [address] [address] Monocytes/100 WBC Auto (Bld) 4.5 % Normal [facility] Comment on above: Order Comment: CBN: YESCampus: MAIN Performed By: #### L 600.41004 ####Test performed at: [address] [address] NEUTROPHIL ABS 3.1 K/uL Normal 1.4-6.6 [facility] Comment on above: Order Comment: CBN: YESCampus: MAIN Performed By: #### L 600.56357 ####Test performed at: [address] [address] Neutrophils/100 WBC Auto (Bld) 60.0 % Normal [facility] Comment on above: Order Comment: CBN: YESCampus: MAIN Performed By: #### L 600.85586 ####Test performed at: [address] [address] Nucleated RBC #/vol (Bld) 0.000 10*3/uL Normal 0-0.012 [facility] Comment on above: Order Comment: CBN: YESCampus: MAIN Performed By: #### L 600.32480 ####Test performed at: [address] [address] Nucleated RBC/100 WBC Ratio (Bld) 0.0 /100 WBC Normal 0-0.2 [facility] Comment on above: Order Comment: CBN: YESCampus: MAIN Performed By: #### L 600.86032 ####Test performed at: [address] [address] Platelet mean volume Auto Entitic volume (Bld) 10.6 fL Normal 8.7-12.4 [facility] Comment on above: Order Comment: CBN: YESCampus: MAIN Performed By: #### L 600.22745 ####Test performed at: [address] [address] Platelets Auto #/vol (Bld) 198 10*3/uL Normal 140-440 [facility] Comment on above: Order Comment: CBN: YESCampus: MAIN Performed By: #### L 600.84455 ####Test performed at: [address] [address] RBC Auto #/vol (Bld) 4.25 10*6/uL Normal 3.5-5.5 [facility] Comment on above: Order Comment: CBN: YESCampus: MAIN Performed By: #### L 600.38766 ####Test performed at: [address] [address] WBC Auto #/vol (Bld) 5.1 10*3/uL Normal 3.9-11.0 [facility] Comment on above: Order Comment: CBN: YESCampus: MAIN Performed By: #### L 600.93800 ####Test performed at: [place] [address] COMP META PANELon 09-05-2017 Albumin mass conc 3.5 g/dL Normal 3.4-5.0 [facility] Comment on above: Order Comment: CBN: YESCampus: MAIN Performed By: #### L 600.70406 ####Test performed at: [place] [address] ALK PHOS TOTAL 63 U/L Normal 45-117 [facility] Comment on above: Order Comment: CBN: YESCampus: MAIN Performed By: #### L 600.65918 ####Test performed at: [address] [address] ALT enzyme act/vol 20 U/L Normal 13-61 [facility] Comment on above: Order Comment: CBN: YESCampus: MAIN Performed By: #### L 600.36905 ####Test performed at: [address] [address] AST enzyme act/vol 11 U/L Low 15-37 [facility] Comment on above: Order Comment: CBN: YESCampus: MAIN Performed By: #### L 600.10946 ####Test performed at: [place] [id number] BILI TOTAL 0.3 mg/dL Normal 0.2-1.0 [facility] Comment on above: Order Comment: CBN: YESCampus: MAIN Performed By: #### L 600.98640 ####Test performed at: [address] [address] Calcium mass conc 8.4 mg/dL Low 8.5-10.1 [facility] Comment on above: Order Comment: CBN: YESCampus: MAIN Performed By: #### L 600.91898 ####Test performed at: [place] [id number] Chloride molar conc 106 mmol/L Normal 98-107 [facility] Comment on above: Order Comment: CBN: YESCampus: MAIN Performed By: #### L 600.65006 ####Test performed at: [place] [address] CO2 molar conc 26 mmol/L Normal 21-32 [facility] Comment on above: Order Comment: CBN: YESCampus: MAIN Performed By: #### L 600.62963 ####Test performed at: [place] [id number] Creatinine mass conc 0.634 mg/dL Normal 0.550-1.02 0 [facility] Comment on above: Order Comment: CBN: YESCampus: MAIN Performed By: #### L 600.66431 ####Test performed at: [address] [address] Glucose mass conc 86 mg/dL Normal 74-106 [facility] Comment on above: Order Comment: CBN: YESCampus: MAIN Performed By: #### L 600.55257 ####Test performed at: [place] [id number] Potassium molar conc 4.2 mmol/L Normal 3.5-5.1 [facility] Comment on above: Order Comment: CBN: YESCampus: MAIN Performed By: #### L 600.72839 ####Test performed at: [place] [id number] Protein mass conc 6.5 g/dL Normal 6.4-8.2 [facility] Comment on above: Order Comment: CBN: YESCampus: MAIN Performed By: #### L 600.00576 ####Test performed at: [place] [address] Sodium molar conc 140 mmol/L Normal 136-145 [facility] Comment on above: Order Comment: CBN: YESCampus: MAIN Performed By: #### L 600.25150 ####Test performed at: [place] [address] Urea nitrogen mass conc 13 mg/dL Normal 7-18 [facility] Comment on above: Order Comment: CBN: YESCampus: MAIN Performed By: #### L 600.40766 ####Test performed at: [place] [address] GFR ESTIMATEon 09-05-2017 IF AMER > 60 Normal > 60 [facility] Comment on above: Order Comment: CBN: YESCampus: MAIN Result Comment: eGFR (Estimated GFR) Units of measure:mL/min/1.73 meters sq.*CALCULATION REVISED 03/04/2015;IDMS-traceable MDRD equationeGFR is derived from the reexpressed MDRD Study equationusing the following parameters: serum creatinine, age,gender and race. An eGFR<60 mL/min/1.73m2 for >3 monthsis consistent with chronic kidney disease. Refer to KDOQIguidelines for clinical interpretation. Performed By: #### L 600.46070 ####Test performed at: [place] [address] IF non-AFR AMER > 60 Normal > 60 [facility] Comment on above: Order Comment: CBN: YESCampus: MAIN Performed By: #### L 600.59680 ####Test performed at: [place] [address] GLYCO HEMOon 09-05-2017 Hemoglobin A1c/Hemoglobin.tota l mass fraction (Bld) 5.2 % Normal 4.0-6.0 [facility] Comment on above: Order Comment: CBN: YESCampus: MAIN Performed By: #### L 600.14896 ####Test performed at: [place] [address] IRON PANELon 09-05-2017 Iron mass conc 51 ug/dL Normal 50-170 [facility] Comment on above: Order Comment: CBN: YESCampus: MAIN Performed By: #### L 600.06340 ####Test performed at: [place] [address] IRON SAT 19 % Low 25-35 [facility] Comment on above: Order Comment: CBN: YESCampus: MAIN Performed By: #### L 600.57723 ####Test performed at: [place] [address] TIBC 275 ug/dL Normal 250-450 [facility] Comment on above: Order Comment: CBN: YESCampus: MAIN Performed By: #### L 600.49835 ####Test performed at: [place] [address] PROTIMEon 09-05-2017 INR Coag RelTime (PPP) 0.99 {INR} Normal 0.00-1.20 [facility] Comment on above: Order Comment: CBN: YESCampus: MAINList patient's anticoagulants for PT: NONE SPECIFIEDList patient's anticoagulant for PTT: NONE SPECIFIED Result Comment: Alphonso mmended therapeutic range is an INR of 2.0-3.0 exceptfor prevention of recurrent acute HI and mechanicalprosthetic heart valve where an INR of 2.5-3.5 isrecommended. Performed By: #### L 600.60017 ####Test performed at: [place] [address] PT SEC 10.5 seconds Normal 9.7-11.5 [facility] Comment on above: Order Comment: CBN: YESCampus: MAINList patient's anticoagulants for PT: NONE SPECIFIEDList patient's anticoagulant for PTT: NONE SPECIFIED Performed By: #### L 600.01424 ####Test performed at: [place] [address] PTTon 09-05-2017 aPTT Coag time (Bld) 26.7 s Normal 22.8-32.5 [facility] Comment on above: Order Comment: CBN: YESCampus: MAINList patient's anticoagulants for PT: NONE SPECIFIEDList patient's anticoagulant for PTT: NONE SPECIFIED Performed By: #### L 600.23346 ####Test performed at: [place] [address] TSH ULTRA SENSon 09-05-2017 Thyrotropin Qn 3.790 uIU/mL High 0.358-3.74 [facility] Comment on above: Order Comment: Is pa tient fasting? NO Performed By: #### L 500.38243, L500.44774, L500.87484, L500.66458, L500.79116, L500.88876 ####Test performed at: [place] [address]#### L550.58078 ####Test performed at: [facility] [place] [address] [place] [address] TSPATon 09-05-2017 ANTIBODY SCREEN Negative Normal [facility] Comment on above: Order Comment: CBN: YESCampus: MAINTransfusion Status: UNKNOWNBlood Bank service requested: TYPE AND SCREENSpecimen Comment: SURG 09/22 Performed By: #### L 600.07387 ####Test performed at: [place] [address] BLOOD TYPE Negative Normal [facility] Comment on above: Order Comment: CBN: YESCampus: MAINTransfusion Status: UNKNOWNBlood Bank service requested: TYPE AND SCREENSpecimen Comment: SURG 09/22 Performed By: #### L 600.40295 ####Test performed at: [place] [id number] UA COMPLETEon 09-05-2017 APPEARANCE CLEAR Normal CLEAR [facility] Comment on above: Order Comment: CBN: YESCampus: MAIN Performed By: #### L 600.01110 ####Test performed at: [place] [address] BILIRUBIN Negative Normal NEGATIVE [facility] Comment on above: Order Comment: CBN: YESCampus: MAIN Performed By: #### L 600.75068 ####Test performed at: [place] [id number] BLOOD Negative Normal NEGATIVE [facility] Comment on above: Order Comment: CBN: YESCampus: MAIN Performed By: #### L 600.74485 ####Test performed at: [address] [address] COLOR YELLOW Normal YELLOW [facility] Comment on above: Order Comment: CBN: YESCampus: MAIN Performed By: #### L 600.92182 ####Test performed at: [address] [address] GLUCOSE Negative Normal NEGATIVE [facility] Comment on above: Order Comment: CBN: YESCampus: MAIN Performed By: #### L 600.79649 ####Test performed at: [address] [address] KETONE Negative Normal NEGATIVE [facility] Comment on above: Order Comment: CBN: YESCampus: MAIN Performed By: #### L 600.51928 ####Test performed at: [address] [address] LEUK ESTERASE Negative Normal NEGATIVE [facility] Comment on above: Order Comment: CBN: YESCampus: MAIN Performed By: #### L 600.93967 ####Test performed at: [place] [id number] NITRITE Negative Normal NEGATIVE [facility] Comment on above: Order Comment: CBN: YESCampus: MAIN Performed By: #### L 600.80784 ####Test performed at: [place] [id number] PROTEIN Negative Normal NEGATIVE [facility] Comment on above: Order Comment: CBN: YESCampus: MAIN Performed By: #### L 600.21634 ####Test performed at: [place] [address] SPEC GRAV 1.021 Normal 1.005-1.03 0 [facility] Comment on above: Order Comment: CBN: YESCampus: MAIN Performed By: #### L 600.21965 ####Test performed at: [place] [address] UA ASC ACID Negative Normal [facility] Comment on above: Order Comment: CBN: YESCampus: MAIN Performed By: #### L 600.59139 ####Test performed at: [address] [address] UA PH 5.0 Normal 5.0-8.0 [facility] Comment on above: Order Comment: CBN: YESCampus: MAIN Performed By: #### L 600.76131 ####Test performed at: [address] [address] UROBIL NORMAL Normal NORMAL [facility] Comment on above: Order Comment: CBN: YESCampus: MAIN Performed By: #### L 600.77076 ####Test performed at: [place] [address] VIT D 25-OHon 09-05-2017 VIT D 25-OH 25.13 ng/mL Low 30-100 [facility] Comment on above: Order Comment: CBN: YESCampus: MAIN Result Comment: ADUL TS:Vitamin D Status Range -----Deficiency <20 ng/mLInsufficiency 20-<30 ng/mLSufficiency 30-100 ng/mLToxicity >100 ng/mL~\R\~\R\~\R\~\R\~\R\~\R\~\R\~\R\~\R\~\R\~\R\~\R\~\R\~\R\~\R\~ \R\~PEDIATRICS:Vitamin D Status Range -----Deficiency <15 ng/mLInsufficiency 15-<20 ng/mLSufficiency 20-100 ng/mLToxicity >100 ng/mLCertified procedure of the [facility] Vitamin D StandardizationCertification Program (VDSCP) Performed By: #### L 600.70952 ####Test performed at: [place] [address] H PYLORI ABon 04-22-2017 H PYLORI AB <0.9 Normal 0.0-0.8 [facility] Comment on above: Result Comment: Nega tive <0.9 Indeterminate 0.9 - 1.0 Positive >1.0Effective May 23, 2017 the reference interval will be changing to: Negative <0.8 Equivocal 0.8 Positive >0.8Performed At: [id number] [place] [address] [id number] Thang [id number] Performed By: #### L 750.94052 ####Test performed at: [facility] [id number] [address] [place], [place] [address] VIT D 25-OHon 04-20-2017 VIT D 25-OH 21.61 ng/mL Low [facility] Comment on above: Order Comment: Is pa tient fasting? NO Result Comment: ADUL TS:Vitamin D Status Range -----Deficiency <20 ng/mLInsufficiency 20-<30 ng/mLSufficiency 30-100 ng/mLToxicity >100 ng/mL~\R\~\R\~\R\~\R\~\R\~\R\~\R\~\R\~\R\~\R\~\R\~\R\~\R\~\R\~\R\~ \R\~PEDIATRICS:Vitamin D Status Range -----Deficiency <15 ng/mLInsufficiency 15-<20 ng/mLSufficiency 20-100 ng/mLToxicity >100 ng/mLCertified procedure of the [facility] Vitamin D StandardizationCertification Program (VDSCP) Performed By: #### L 500.96869, L500.39374, L500.98240, L500.48403, L500.08436, L500.10602 ####Test performed at: [place] [address]#### L550.17332 ####Test performed at: [place] [address] B12on 04-19-2017 Cobalamin (Vitamin B12) mass conc 386 pg/mL Normal 193-986 [facility] Comment on above: Order Comment: Is pa tient fasting? NO Performed By: #### L 500.48099, L500.51788, L500.48844, L500.23442, L500.50422, L500.00176 ####Test performed at: [place] [address]#### L550.46183 ####Test performed at: [place] [address] CBC W/DIFFon 04-19-2017 BASO ABS 0.0 K/uL Normal 0.0-0.2 [facility] Comment on above: Performed By: #### L 200.41783 ####Test performed at: [address] [address] Basophils/100 WBC Auto (Bld) 0.3 % Normal [facility] Comment on above: Performed By: #### L 200.50982 ####Test performed at: [address] [address] EOS ABS 0.2 K/uL Normal 0.0-0.5 [facility] Comment on above: Performed By: #### L 200.51618 ####Test performed at: [address] [address] Eosinophils/100 WBC Auto (Bld) 2.3 % Normal [facility] Comment on above: Performed By: #### L 200.58936 ####Test performed at: [place] [id number] Erythrocyte distribution width Auto Ratio (RBC) 13.1 % Normal 11.5-14.5 [facility] Comment on above: Performed By: #### L 200.08547 ####Test performed at: [place] [id number] Hematocrit Auto Volume Fraction (Bld) 39.9 % Normal 36.0-48.0 [facility] Comment on above: Performed By: #### L 200.19441 ####Test performed at: [address] [address] Hemoglobin mass conc (Bld) 13.1 g/dL Normal 12.0-15.0 [facility] Comment on above: Performed By: #### L 200.65949 ####Test performed at: [place] [address] IG % 0.2 % Normal [facility] Comment on above: Performed By: #### L 200.56895 ####Test performed at: [address], [place] [address] IG ABS 0.01 K/uL Normal 0-0.05 [facility] Comment on above: Performed By: #### L 200.32472 ####Test performed at: [place] [address] Lymphocytes Auto #/vol (Bld) 2.3 10*3/uL Normal 1.2-3.5 [facility] Comment on above: Performed By: #### L 200.96485 ####Test performed at: [place] [address] Lymphocytes/100 WBC Auto (Bld) 35.6 % Normal [facility] Comment on above: Performed By: #### L 200.40893 ####Test performed at: [place] [address] MCH Auto Entitic mass (RBC) 28.7 pg Normal 25.4-34.6 [facility] Comment on above: Performed By: #### L 200.30277 ####Test performed at: [place] [address] MCHC Auto mass conc (RBC) 32.8 g/dL Normal 31.5-36.5 [facility] Comment on above: Performed By: #### L 200.26214 ####Test performed at: [place] [id number] MCV Auto Entitic volume (RBC) 87.5 fL Normal 79.0-98.0 [facility] Comment on above: Performed By: #### L 200.75868 ####Test performed at: [place] [id number] MONO ABS 0.3 K/uL Normal 0.0-1.0 [facility] Comment on above: Performed By: #### L 200.06791 ####Test performed at: [place] [address] [address] Monocytes/100 WBC Auto (Bld) 5.0 % Normal [facility] Comment on above: Performed By: #### L 200.35841 ####Test performed at: [address] [address] NEUTROPHIL ABS 3.7 K/uL Normal 1.4-6.6 [facility] Comment on above: Performed By: #### L 200.85056 ####Test performed at: [address] [address] Neutrophils/100 WBC Auto (Bld) 56.6 % Normal [facility] Comment on above: Performed By: #### L 200.36357 ####Test performed at: [address] [address] Nucleated RBC #/vol (Bld) 0.000 10*3/uL Normal 0-0.012 [facility] Comment on above: Performed By: #### L 200.26071 ####Test performed at: [address] [address] Nucleated RBC/100 WBC Ratio (Bld) 0.0 /100 WBC Normal 0-0.2 [facility] Comment on above: Performed By: #### L 200.25188 ####Test performed at: [address] [address] Platelet mean volume Auto Entitic volume (Bld) 10.4 fL Normal 8.7-12.4 [facility] Comment on above: Performed By: #### L 200.83029 ####Test performed at: [address] [address] Platelets Auto #/vol (Bld) 244 10*3/uL Normal 140-440 [facility] Comment on above: Performed By: #### L 200.60827 ####Test performed at: [place] [address] RBC Auto #/vol (Bld) 4.56 10*6/uL Normal 3.5-5.5 [facility] Comment on above: Performed By: #### L 200.01298 ####Test performed at: [address] [address] WBC Auto #/vol (Bld) 6.4 10*3/uL Normal 3.9-11.0 [facility] Comment on above: Performed By: #### L 200.60097 ####Test performed at: [place] [address] COMP META PANELon 04-19-2017 Albumin mass conc 3.7 g/dL Normal 3.4-5.0 [facility] Comment on above: Order Comment: Is pa tient fasting? NO Performed By: #### L 500.16800, L500.69228, L500.40742, L500.49340, L500.37267, L500.81222 ####Test performed at: [place] [address]#### L550.40917 ####Test performed at: [facility] [address] [place] [address] ALK PHOS TOTAL 69 U/L Normal 45-117 [facility] Comment on above: Order Comment: Is pa tient fasting? NO Performed By: #### L 500.59385, L500.38846, L500.84675, L500.41433, L500.95180, L500.49732 ####Test performed at: [place] [address]#### L550.07076 ####Test performed at: [facility] [address] [place], [place] [address] ALT enzyme act/vol 18 U/L Normal 13-61 [facility] Comment on above: Order Comment: Is pa tient fasting? NO Performed By: #### L 500.38406, L500.41005, L500.55900, L500.65300, L500.25451, L500.21123 ####Test performed at: [place] [address]#### L550.41053 ####Test performed at: [place] [address] AST enzyme act/vol 14 U/L Low 15-37 [facility] Comment on above: Order Comment: Is pa tient fasting? NO Performed By: #### L 500.60831, L500.85538, L500.47772, L500.23184, L500.19106, L500.10830 ####Test performed at: [place] [address]#### L550.63991 ####Test performed at: [place] [address] BILI TOTAL 0.2 mg/dL Normal 0.2-1.0 [facility] Comment on above: Order Comment: Is pa tient fasting? NO Performed By: #### L 500.32551, L500.15987, L500.83615, L500.17846, L500.12111, L500.99837 ####Test performed at: [place] [address]#### L550.71673 ####Test performed at: [place] [address] Calcium mass conc 8.6 mg/dL Normal 8.5-10.1 [facility] Comment on above: Order Comment: Is pa tient fasting? NO Performed By: #### L 500.44821, L500.26712, L500.17386, L500.06898, L500.89618, L500.41663 ####Test performed at: [address] [address]#### L550.80929 ####Test performed at: [facility] [address] [place], [place] [address] Chloride molar conc 108 mmol/L High 98-107 [facility] Comment on above: Order Comment: Is pa tient fasting? NO Performed By: #### L 500.89840, L500.01521, L500.98820, L500.39330, L500.26631, L500.11474 ####Test performed at: [address] [address]#### L550.51706 ####Test performed at: [facility] [id number] [place], [place] [id number] CO2 molar conc 24 mmol/L Normal 21-32 [facility] Comment on above: Order Comment: Is pa tient fasting? NO Performed By: #### L 500.17027, L500.74932, L500.07887, L500.73929, L500.09650, L500.82904 ####Test performed at: [place] [address]#### L550.95747 ####Test performed at: [address] [address] Creatinine mass conc 0.781 mg/dL Normal 0.550-1.02 0 [facility] Comment on above: Order Comment: Is pa tient fasting? NO Performed By: #### L 500.90149, L500.01582, L500.41861, L500.55937, L500.06153, L500.10584 ####Test performed at: [place] [address]#### L550.40989 ####Test performed at: [facility] [address] [place], [place] [address] Glucose mass conc 87 mg/dL Normal 74-106 [facility] Comment on above: Order Comment: Is pa tient fasting? NO Performed By: #### L 500.81935, L500.56977, L500.52348, L500.73896, L500.89281, L500.71968 ####Test performed at: [place] [address]#### L550.31095 ####Test performed at: [place] [address] Potassium molar conc 4.1 mmol/L Normal 3.5-5.1 [facility] Comment on above: Order Comment: Is pa tient fasting? NO Performed By: #### L 500.57208, L500.81181, L500.87205, L500.57939, L500.98705, L500.37410 ####Test performed at: [place] [address]#### L550.31684 ####Test performed at: [place] [address] Protein mass conc 6.6 g/dL Normal 6.4-8.2 [facility] Comment on above: Order Comment: Is pa tient fasting? NO Performed By: #### L 500.92615, L500.85551, L500.67411, L500.19158, L500.46904, L500.53763 ####Test performed at: [place] [address]#### L550.99230 ####Test performed at: [place] [address] Sodium molar conc 139 mmol/L Normal 136-145 [facility] Comment on above: Order Comment: Is pa tient fasting? NO Performed By: #### L 500.55658, L500.40935, L500.87251, L500.59509, L500.28934, L500.78538 ####Test performed at: [place] [address]#### L550.33293 ####Test performed at: [facility] [address] [place], [place] [address] Urea nitrogen mass conc 15 mg/dL Normal 7-18 [facility] Comment on above: Order Comment: Is pa tient fasting? NO Performed By: #### L 500.87133, L500.70195, L500.92181, L500.03307, L500.72016, L500.94275 ####Test performed at: [place] [address]#### L550.93163 ####Test performed at: [place] [address] GFR ESTIMATEon 04-19-2017 IF AMER > 60 Normal > 60 [facility] Comment on above: Order Comment: Is pa tient fasting? NO Result Comment: eGFR (Estimated GFR) Units of measure:mL/min/1.73 meters sq.*CALCULATION REVISED 03/04/2015;IDMS-traceable MDRD equationeGFR is derived from the reexpressed MDRD Study equationusing the following parameters: serum creatinine, age,gender and race. An eGFR<60 mL/min/1.73m2 for >3 monthsis consistent with chronic kidney disease. Refer to KDOQIguidelines for clinical interpretation. Performed By: #### L 500.86588, L500.61618, L500.81285, L500.16755, L500.24350, L500.87157 ####Test performed at: [place] [id number]#### L550.99091 ####Test performed at: [facility] [address] [place] [address] IF non-AFR AMER > 60 Normal > 60 [facility] Comment on above: Order Comment: Is pa tient fasting? NO Performed By: #### L 500.34928, L500.31382, L500.46993, L500.29914, L500.07259, L500.01150 ####Test performed at: [place] [address]#### L550.81555 ####Test performed at: [place] [address] IRON PANELon 04-19-2017 Iron mass conc 38 ug/dL Low 50-170 [facility] Comment on above: Order Comment: Is pa tient fasting? NO Performed By: #### L 500.25990, L500.66872, L500.42204, L500.02073, L500.85882, L500.37212 ####Test performed at: [place] [address]#### L550.36905 ####Test performed at: [place] [address] IRON SAT 14 % Low 25-35 [facility] Comment on above: Order Comment: Is pa tient fasting? NO Performed By: #### L 500.96594, L500.60191, L500.86338, L500.91161, L500.52783, L500.98548 ####Test performed at: [place] [address]#### L550.16916 ####Test performed at: [place] [address] TIBC 280 ug/dL Normal 250-450 [facility] Comment on above: Order Comment: Is pa tient fasting? NO Performed By: #### L 500.74806, L500.85090, L500.30350, L500.77463, L500.52521, L500.20425 ####Test performed at: [place] [address]#### L550.89108 ####Test performed at: [place] [address] LIMIT UR TOXon 04-19-2017 UR AMPH Negative Normal Negative [facility] Comment on above: Result Comment: CUTO RN=2841 Performed By: #### L 600.14637 ####Test performed at: [place] [address] UR EWA Negative Normal Negative [facility] Comment on above: Result Comment: CUTO VV=159 Performed By: #### L 600.81288 ####Test performed at: [place] [address] UR PJ Positive Invalid Interpretation Code Negative [facility] Comment on above: Result Comment: CUTO IH=746 Performed By: #### L 600.74309 ####Test performed at: [place] [address] UR JOSE/THC Negative Normal Negative [facility] Comment on above: Result Comment: CUTO FF=50 Performed By: #### L 600.54122 ####Test performed at: [place] [address] UR CANDI Negative Normal Negative [facility] Comment on above: Result Comment: CUTO PU=325 Performed By: #### L 600.75753 ####Test performed at: [place] [address] UR ECSTASY Negative Normal Negative [facility] Comment on above: Result Comment: CUTO JT=697 Performed By: #### L 600.00376 ####Test performed at: [place] [address] UR METH Negative Normal Negative [facility] Comment on above: Result Comment: CUTO IX=777 Performed By: #### L 600.92957 ####Test performed at: [place] [id number] UR OPIAT Negative Normal Negative [facility] Comment on above: Result Comment: CUTO SP=608 Performed By: #### L 600.58357 ####Test performed at: [address] [address] UR OXYCOCONE Negative Normal Negative [facility] Comment on above: Result Comment: CUTO PM=206 Performed By: #### L 600.54733 ####Test performed at: [address] [address] UR PCP Negative Normal Negative [facility] Comment on above: Result Comment: CUTO FF=25 Performed By: #### L 600.50765 ####Test performed at: [place] [id number] PH TOX 6.0 Normal 5.0-8.0 [facility] Comment on above: Performed By: #### L 600.68652 ####Test performed at: [address] [address] TOX COMMENT *PLEASE NOTE: Normal [facility] Comment on above: Result Comment: UNCO NFIRMED Toxicology results. For MEDICAL purposes only. Performed By: #### L 600.85922 ####Test performed at: [address] [address] LIPID PROFILEon 04-19-2017 Cholesterol in HDL mass conc 30 mg/dL Low 40-60 [facility] Comment on above: Order Comment: Is pa tient fasting? NO Performed By: #### L 500.31062, L500.05088, L500.44716, L500.00310, L500.47407, L500.72148 ####Test performed at: [place] [id number]#### L550.52947 ####Test performed at: [facility] [address] [place], [place] [address] Cholesterol in LDL mass conc 98 mg/dL Normal 60-130 [facility] Comment on above: Order Comment: Is pa tient fasting? NO Performed By: #### L 500.45729, L500.72721, L500.51178, L500.92746, L500.74417, L500.58295 ####Test performed at: [place] [address]#### L550.60442 ####Test performed at: [place] [address] Cholesterol mass conc 150 mg/dL Normal <200 [facility] Comment on above: Order Comment: Is pa tient fasting? NO Result Comment: <200 mg/dL (Desirable) 200-240 mg/dL (Borderline) >240 mg/dL (High Risk) Performed By: #### L 500.12782, L500.07516, L500.12708, L500.02557, L500.52469, L500.52589 ####Test performed at: [place] [address]#### L550.83618 ####Test performed at: [place] [address] Triglyceride mass conc 136 mg/dL Normal <150 [facility] Comment on above: Order Comment: Is pa tient fasting? NO Result Comment: <150 mg/dL (Normal) 150-199 mg/dL (Borderline) 200-499 mg/dL (High) >500 mg/dL (Very High) Performed By: #### L 500.71442, L500.18798, L500.13230, L500.66048, L500.12012, L500.74613 ####Test performed at: [place] [address]#### L550.39374 ####Test performed at: [place] [address] TSH ULTRA SENSon 04-19-2017 Thyrotropin Qn 2.660 uIU/mL Normal 0.358-3.74 [facility] Comment on above: Order Comment: Is pa tient fasting? NO Performed By: #### L 500.88479, L500.38378, L500.63371, L500.70187, L500.48436, L500.70966 ####Test performed at: [facility] [address] [address]#### L550.72005 ####Test performed at: [facility] [address] [place], [place] [address] Large Joint Arthro/Inj: R kn ee joint [facility] Vital Signs Date Time Vital Sign Value Performing Clinician Faci paul 04-26-2024 11:17-0500 Body mass index (BMI) [Ratio] 42.91 kg/m2 Rosendo Nemunaitis DO Work Phone: [facility] 04-26-2024 11:17-0500 Body weight 113.4 kg Rosendo Nemunaitis DO Work Phone: [facility] 04-26-2024 11:17-0500 Diastolic blood pressure 64 mm[Hg] Rosendo Nemunaitis DO Work Phone: [facility] 04-26-2024 11:17-0500 Systolic blood pressure 118 mm[Hg] Rosendo Nemunaitis DO Work Phone: [facility] 03-30-2024 10:17-0500 Body mass index (BMI) [Ratio] 43.63 kg/m2 Monica Garg MD Work Phone: [facility] 03-30-2024 10:17-0500 Body weight 115.3 kg Monica Garg MD Work Phone: [facility] 03-30-2024 10:17-0500 Diastolic blood pressure 80 mm[Hg] Monica Garg MD Work Phone: [facility] 03-30-2024 10:17-0500 Systolic blood pressure 120 mm[Hg] Monica Garg MD Work Phone: [facility] 04-08-2023 15:14-0500 Body weight 102.8 kg Rosalina Malone MD Work Phone: [facility] 04-08-2023 15:14-0500 Diastolic blood pressure 80 mm[Hg] Rosalina Malone MD Work Phone: [facility] 04-08-2023 15:14-0500 Respiratory rate 18 /min Rosalina Malone MD Work Phone: [facility] 04-08-2023 15:14-0500 Systolic blood pressure 126 mm[Hg] Rosalina Malone MD Work Phone: [facility] 12-15-2022 13:26-0400 Body height 166.37 cm PA Keon Sinclair PA Work Phone: [facility] 12-15-2022 13:26-0400 Body mass index (BMI) [Ratio] 37.2 kg/m2 PA Keon Sinclair PA Work Phone: [facility] 12-15-2022 13:26-0400 Body temperature 98.4 [degF] PA Keon Sinclair PA Work Phone: [facility] 12-15-2022 13:26-0400 Body weight 103.07 kg PA Keon Sinclair PA Work Phone: [facility] 12-15-2022 13:26-0400 Diastolic blood pressure 89 mm[Hg] PA Keon Sinclair PA Work Phone: [facility] 12-15-2022 13:26-0400 Heart rate 73 /min PA Keon Sinclair PA Work Phone: [facility] 12-15-2022 13:26-0400 Respiratory rate 14 /min PA Keon Sinclair PA Work Phone: [facility] 12-15-2022 13:26-0400 SaO2% (BldA) [Mass fraction] 98 % PA Keon Sinclair PA Work Phone: [facility] 12-15-2022 13:26-0400 Systolic blood pressure 129 mm[Hg] PA Keon Sinclair PA Work Phone: [facility] 06-02-2022 13:23-0500 Body weight 106.94 kg Rosalina Malone MD Work Phone: [facility] 06-02-2022 13:23-0500 Diastolic blood pressure 80 mm[Hg] Rosalina Malone MD Work Phone: [facility] 06-02-2022 13:23-0500 Respiratory rate 18 /min Rosalina Malone MD Work Phone: [facility] 06-02-2022 13:23-0500 Systolic blood pressure 126 mm[Hg] Rosalina Malone MD Work Phone: [facility] 04-26-2022 11:21-0500 Body height 162.6 cm Vilma Álvarez MD Work Phone: [facility] 04-26-2022 11:21-0500 Body weight 105.23 kg Vilma Álvarez MD Work Phone: [facility] 04-26-2022 11:21-0500 Diastolic blood pressure 76 mm[Hg] Vilma Álvarez MD Work Phone: [facility] 04-26-2022 11:21-0500 Systolic blood pressure 124 mm[Hg] Vilma Álvarez MD Work Phone: [facility] 03-19-2021 08:05-0400 Diastolic blood pressure 88 mm[Hg] Reva [employer] Work Phone: 03-19-2021 08:05-0400 Heart rate 99 /min Reva Abbott [address] Work Phone: 03-19-2021 08:05-0400 Respiratory rate 18 /min Reva Abbott [address] Work Phone: 03-19-2021 08:05-0400 SaO2% (BldA) [Mass fraction] 97 % Reva Abbott [address] Work Phone: 03-19-2021 08:05-0400 Systolic blood pressure 128 mm[Hg] Reva Abbott [address] Work Phone: 03-19-2021 06:04-0400 Body height 162.6 cm Reva Abbott [facility] [employer] Phone: 03-19-2021 06:04-0400 Body temperature 98.49 [degF] Reva Abbott DO [facility] Phone: 03-04-2019 09:00-0400 Body Temperature 98.4 [degF] [facility] [place] 03-04-2019 09:00-0400 BP Diastolic 63 mm[Hg] [facility] [place] 03-04-2019 09:00-0400 BP Systolic 104 mm[Hg] [facility] [place] 03-04-2019 09:00-0400 Pulse (Heart Rate) 78 /min [facility] [place] 03-04-2019 09:00-0400 Pulse Oximetry 100 % [facility] [place] 03-04-2019 09:00-0400 Respiratory Rate 16 /min [facility] 02-27-2019 09:57-0400 BMI (Body Mass Index) 25.75 kg/m2 [facility] [place] 02-27-2019 09:57-0400 Body weight 68.04 kg [facility] [place] 02-27-2019 09:57-0400 Height 162.6 cm [facility] [place] 02-27-2019 08:56-0400 Body Temperature 98.2 [degF] [facility] 02-27-2019 08:56-0400 BP Diastolic 61 mm[Hg] [facility] 02-27-2019 08:56-0400 BP Systolic 107 mm[Hg] [facility] [place] 02-27-2019 08:56-0400 Pulse (Heart Rate) 64 /min [facility] [place] 02-27-2019 08:56-0400 Respiratory Rate 18 /min [place], [place] 02-27-2019 08:16-0400 BMI (Body Mass Index) 25.75 kg/m2 [place], [place] 02-27-2019 08:16-0400 Body weight 68.04 kg [place] 02-27-2019 08:16-0400 Height 162.6 cm [place] 02-27-2019 08:16-0400 Pulse Oximetry 100 % [place], [place] Encounters Encounter Date Encounter Type Care Provider Facility Start: 12-09-2024 ambulatory No Primary Car e Physician Facility:[facility] Start: 10-05-2024 End: 10-05-2024 ambulatory KAILEY CHANDLER Facility:[facility] Start: 10-01-2024 End: 10-02-2024 Orders Only Kailey Chandler MD Work Phone: [facility] Comment on above: Pain (Primary Dx) Start: 07-04-2024 End: 07-04-2024 ambulatory Rosendo Hillitis DO Work Phone: Obstetrics/Gynecology Comment on above: Menopause (Primary D x) Start: 07-04-2024 End: 07-04-2024 Telemedicine consultation with patient Rosendo Hillitis DO Work Phone: Obstetrics/Gynecology Start: 06-27-2024 ambulatory ROSENDO HILLITIS Faci lity:[facility] Start: 04-26-2024 End: 04-26-2024 ambulatory ROSENDO K NEMUNAITIS Facility:[facility] Start: 04-26-2024 End: 04-26-2024 Patient encounter procedure Rosendo Hillitis DO Work Phone: Obstetrics/Gynecology Comment on above: Post-operative state (Primary Dx); Adverse effect of female hormone replacement therapy, initial encounter Start: 04-24-2024 End: 04-24-2024 ambulatory ROSENDO NEMUNAITIS Facility:[facility] Start: 04-19-2024 End: 04-19-2024 ambulatory ROSENDO GAGNON Facility:[facility] Start: 04-17-2024 End: 04-17-2024 ambulatory Rosendo Gagnon DO Work Phone: Obstetrics/Gynecology Comment on above: Post-operative state (Primary Dx) Start: 04-17-2024 End: 04-17-2024 Telemedicine consultation with patient Rosendo Gagnon DO Work Phone: Obstetrics/Gynecology Start: 04-15-2024 End: 04-16-2024 ambulatory No Primary Care Physician Facility:[facility] Start: 04-06-2024 End: 04-06-2024 Telemedicine consultation with patient Monica Alfaro MD Work Phone: Obstetrics/Gynecology Start: 04-06-2024 End: 04-06-2024 ambulatory Monica Alfaro MD Work Phone: Obstetrics/Gynecology Comment on above: Post-operative state [Z98.890] (Primary Dx) Start: 04-05-2024 End: 04-05-2024 Telephone encounter Anton Dacosta LPN Pre Anesthesia Start: 04-04-2024 End: 04-04-2024 Telephone encounter Monica Alfaro MD Work Phone: Obstetrics/Gynecology Comment on above: STD Pelvic pain in femal e (Primary Dx) Opened In Error Start: 04-04-2024 Emergency department patient visit MONICA ALFARO Facility:[facility] Start: 04-04-2024 ambulatory MONICA ALFARO Facility:[facility] Start: 04-04-2024 End: 04-04-2024 Subsequent hospital visit by physician [facility] 1 Work Phone: Radiology Comment on above: Ovarian cyst, left [ N83.202] Start: 04-02-2024 End: 04-02-2024 Telephone encounter Anton Clark MD Work Phone: Obstetrics/Gynecology Start: 03-30-2024 End: 03-30-2024 ambulatory Monica Alfaro MD Work Phone: Obstetrics/Gynecology Comment on above: Ovarian cyst, left ( Primary Dx) Start: 03-30-2024 End: 03-30-2024 Telemedicine consultation with patient Monica Alfaro MD Work Phone: Obstetrics/Gynecology Start: 03-30-2024 End: 03-30-2024 ambulatory MONICA ALFARO Facility:[facility] Start: 03-30-2024 End: 03-30-2024 ambulatory MONICA GARG Facility:[facility] Start: 03-30-2024 End: 03-30-2024 Office outpatient visit 15 minutes Monica Garg MD Work Phone: OB/Gynecology Comment on above: Ovarian cyst rupture (Primary Dx) Start: 03-29-2024 End: 03-29-2024 Emergency department patient visit No Primary Care Physician Facility:[facility] Start: 03-28-2024 End: 03-29-2024 Emergency department patient visit Tez Howard Facility:[facility] Start: 11-11-2023 End: 11-11-2023 ambulatory KAILEY CHANDLER Facility:[facility] Start: 11-11-2023 End: 11-11-2023 Patient encounter procedure Kailey Chandler MD Work Phone: [facility] Comment on above: Neck pain (Primary D x); Chronic pain of right knee Start: 10-16-2023 Emergency department patient visit MONICA ALFARO Facility:[facility] Start: 05-25-2023 End: 05-25-2023 ambulatory MONICA ALFARO Facility:[facility] Start: 04-08-2023 End: 04-08-2023 Patient encounter procedure Rosalina Malone MD Work Phone: Obstetrics/Gynecology Comment on above: Adenomyosis (Primary Dx); Dysmenorrhea Start: 03-16-2023 End: 03-16-2023 ambulatory [facility] Start: 03-07-2023 End: 03-07-2023 ambulatory Eleanor Aguirre PT [facility] Comment on above: Acute pain of right knee (Primary Dx) Start: 03-02-2023 End: 03-02-2023 ambulatory Rosalina Malone MD Work Phone: Obstetrics/Gynecology Comment on above: Dysmenorrhea (Primar y Dx); Adenomyosis Start: 03-02-2023 End: 03-02-2023 Telemedicine consultation with patient Rosalina Malone MD Work Phone: [facility] Start: 02-16-2023 End: 02-16-2023 Subsequent hospital visit by physician [facility] 1 Work Phone: Radiology Comment on above: Intramural and submu cous leiomyoma of uterus [D25.1, D25.0] Start: 02-04-2023 End: 02-04-2023 Patient encounter procedure Kailey Chandler MD Work Phone: [facility] Comment on above: Acute pain of right knee (Primary Dx) Start: 01-21-2023 End: 01-21-2023 Patient encounter procedure No Primary Care Physician [facility] Work Phone: Start: 01-19-2023 End: 01-20-2023 ambulatory UNKNOWN PROVIDER Facility:[facility] Start: 12-15-2022 End: 12-15-2022 ambulatory JASMINA FREEDMAN Work Phone: [facility] Work Phone: Start: 12-15-2022 End: 12-15-2022 Patient encounter procedure JASMINA FREEDMAN Work Phone: [facility] Work Phone: Start: 06-02-2022 End: 06-02-2022 Patient encounter procedure Rosalina Malone MD Work Phone: Obstetrics/Gynecology Comment on above: Pelvic pain in femal e (Primary Dx); Ovarian cyst rupture Start: 05-05-2022 End: 05-05-2022 Emergency department patient visit PHYSICIAN [facility] Start: 05-05-2022 ambulatory Vilma Sim MD Work Phone: [facility] Ob[facility]etrics [facility]ne[facility] Comment on above: Question Start: 05-04-2022 ambulatory Vilma Sim MD Work Phone: [facility] Obstetrics and Gynecology Comment on above: Pain Start: 05-03-2022 End: 05-03-2022 ambulatory VILMA ÁLVAREZ Facility:[facility] Start: 05-03-2022 End: 05-03-2022 Patient encounter procedure Ultrasound [employer] Work Phone: [facility] Obstetrics and Gynecology Comment on above: Dysmenorrhea Start: 04-26-2022 End: 04-26-2022 ambulatory VILMA ÁLVAREZ Facility:[facility] Start: 04-26-2022 Encounter for gynecological examination (general) (routine) without abnormal findings VILMA ÁLVAREZ [facility] Start: 04-26-2022 End: 04-26-2022 Patient encounter procedure Vilma Álvarez MD Work Phone: [facility] Obstetrics and Gynecology Comment on above: Encounter for gyneco logical examination (general) (routine) without abnormal findings (Primary Dx); Screening for cervical cancer; Dysmenorrhea Start: 04-26-2022 End: 04-26-2022 Patient encounter status Vilma Álvarez MD Work Phone: [facility] Ob[facility]etrics [facility] Start: 04-11-2022 End: 04-11-2022 Emergency department patient visit [facility] Start: 03-19-2021 End: 03-19-2021 Emergency department patient visit [facility] Start: 03-19-2021 End: 03-19-2021 Emergency department patient visit Reva Abbott [facility] Comment on above: COVID-19 (Primary Dx ) Start: 10-03-2020 End: 10-03-2020 Emergency department patient visit Adria Marin Facility:[facility] Start: 02-27-2019 Patient encounter procedure [facility] [place] [place] Start: 02-27-2019 End: 03-04-2019 Evaluation and management of inpatient LOCO ABRAHAM [facility] Start: 02-27-2019 End: 02-27-2019 Emergency department patient visit Dave Calhoun Work Phone: [facility] Comment on above: Suicidal ideation (P rimary Dx) Start: 10-12-2018 Patient encounter procedure Yanira Galicia Facility:[id number] Start: 12-26-2017 Patient encounter Damion ColumbaPritesh Flores Daja acility:[facility] Start: 09-22-2017 End: 09-23-2017 Evaluation and management of inpatient Damion Flores Facility:[facility] Start: 09-05-2017 Patient encounter Damion WatermanPritesh Flores Daja acility:[facility] Start: 05-19-2017 Patient encounter Macon Christopher Facil ity:[facility] Start: 04-19-2017 Patient encounter Mary Christopher Facil ity:[facility] Procedures Date Procedure Procedure Detail Performing Clinician Start: 04-04-2024 Antibody screen MYLENE ALFARO Comment on above: Order Comment: Speci men Type: BLOOD SPECIMENOrdering Facility: [facility] Address: [address] [place] [address] Performed By: #### T SCR ####[facility] [id number] [place] [address] [place] Start: 04-04-2024 Dup-scan artl paola abdl/pel/scrot&/rpr orgn com Monica Alfaro MD Work Phone: Start: 04-04-2024 Us transvaginal Mylene Alfaro MD Work Phone: Start: 11-11-2023 Arthrocentesis aspir &/inj major jt/bursa w/o us Kailey Chandler MD Work Phone: Start: 02-16-2023 End: 02-16-2023 Us transvaginal Rosalina Malone MD Work Phone: Start: 02-16-2023 Dup-scan artl paola abdl/pel/scrot&/rpr orgn com Rosalina Malone MD Work Phone: Start: 02-04-2023 Arthrocentesis aspir &/inj major jt/bursa w/o us Leiatjulissa Chandler MD Work Phone: Start: 12-15-2022 Radiologic examinati on of knee PA Keon FREEDMAN Work Phone: Start: 05-03-2022 Us pelvic nonobstetr ic real-time image complete Vilma Álvarez MD Work Phone: Start: 03-19-2021 Urinalysis microscop ic only Reva S Abbott DO Start: 03-19-2021 Urnls dip stick/tabl et rgnt auto w/o microscopy Reva S Abbott DO Start: 03-19-2021 Radiologic exam ches t single view Reva S Abbott DO Start: 03-19-2021 COVID-19, RAPID Reva S Abbott DO Start: 03-19-2021 Ecg routine ecg w/le ast 12 lds w/i&r Reva S Abbott DO Start: 03-04-2019 DISCHARGE PATIENT KATHYA ABRAHAM Start: 03-03-2019 Drug assay valproic dipropylacetic acid total LOCO ZHOUAVANAN Start: 03-03-2019 Drug assay valproic dipropylacetic acid total Loco Abraham Work Phone: Start: 03-02-2019 DIETARY NUTRITION SUPPLEMENTS LOCO ABRAHAM Start: 03-01-2019 IP CONSULT TO DIETITIAN LOOC ABRAHAM Start: 02-27-2019 DIET GENERAL LOCO MATT Start: 02-27-2019 FULL CODE LOCO MATT Start: 02-27-2019 IP CONSULT TO HOSPITALIST LOCO ABRAHAM Start: 02-27-2019 NURSING COMMUNICATION Wild ABRAHAM Start: 02-27-2019 VITAL SIGNS LOCO MATT Start: 02-27-2019 PATIENT STATUS (FROM ED OR OR/PROCEDURAL) LOCO ABRAHAM Start: 02-27-2019 Assay of acetaminophen LOCO ABRAHAM Start: 02-27-2019 Assay of ethanol LOCO ABRAHAM Start: 02-27-2019 Assay of salicylate BAL LUANN ABRAHAM Start: 02-27-2019 Assay of thyroid stimulating hormone tsh LOCO ABRAHAM Start: 02-27-2019 CK-MB INDEX LOCO MATT Start: 02-27-2019 Assay of acetaminophen Jamel Frausto Work Phone: Start: 02-27-2019 Assay of ethanol Jamel Frausto Work Phone: Start: 02-27-2019 Assay of salicylate Surinder Frausto Work Phone: Start: 02-27-2019 Assay of thyroid stimulating hormone tsh Jamel Frausto Work Phone: Start: 02-27-2019 Creatine kinase mb fraction only Jamel Frausto Work Phone: Start: 02-27-2019 Drug screen, qualitate/multi [facility] Work Phone: Start: 02-27-2019 Ecg routine ecg w/le ast 12 lds i&r only [facility] Work Phone: Start: 02-27-2019 Ecg routine ecg w/le ast 12 lds w/i&r [facility] Work Phone: Start: 02-27-2019 Blood count complete auto&auto difrntl wbc [facility] Work Phone: Start: 02-27-2019 Comprehensive metabo lic panel [facility] Work Phone: Start: 02-27-2019 Urine test visual color cmprsn meths [facility] Work Phone: Start: 02-27-2019 Urnls dip stick/tabl et rgnt auto w/o microscopy [facility] Work Phone: H/O: section History of delivery JASMINA FREEDMAN Work Phone: Plan of Treatment Date Care Activity Detail Author Start: 04-26-2028 DTaP/Tdap/Td vaccine (2 - Td or Tdap) DTaP/Tdap/Td vaccine (2 - Td or Tdap) [facility] Work Phone: Start: 04-26-2028 DTaP/Tdap/Td vaccine (2 - Td) DTaP/Tdap/Td vaccine (2 - Td) [place], [place] Start: 04-26-2028 Urine microalbumin profile DTaP,Tdap,Td Vaccine (2 - Td or Tdap) [facility] Start: 04-26-2027 HPV TESTING HPV TESTING [facility] Start: 04-26-2027 PAP TESTING PAP TESTING [facility] Start: 04-26-2027 Screening for malign ant neoplasm of cervix Cervical Cancer Screening [facility] Start: 01-14-2025 Influenza vaccination Influenz a Vaccine (Season Ended) [facility] Start: 10-05-2024 End: 10-05-2024 Patient encounter procedure 10/05/2024 3:45 PM EDT Office Visit [facility] [address] [place] [address] Kailey Chandler MD [address] [place], [place] [id number] Right knee pain shot requested [facility] Comment on above: Right knee pain shot requested Start: 07-12-2024 End: 07-12-2024 Patient encounter procedure 07/12/2024 2:30 PM EST Office Visit Obstetrics/Gynecology [address] [facility] [address] [place] [address] Meenakshi Marin MD [address] [place] [address] [facility] Obstetrics/Gynecology Comment on above: [facility] Start: 06-27-2024 End: 06-27-2024 Follow-up encounter 06/27/2024 1:00 PM EST [facility] Obstetrics/Gynecology [address] [facility] [address] [place] [address] Rosendo Gagnon, [address] [place] [address] follow up Obstetrics/Gynecology Comment on above: follow up Start: 04-26-2024 End: 04-26-2024 Patient encounter procedure 04/26/2024 11:30 AM EST Office Visit Obstetrics/Gynecology [address] [place] [address] [place] [address] [place] [address] Post op Obstetrics/Gynecology Comment on above: Post op Start: 04-19-2024 End: 04-19-2024 Patient encounter procedure 04/19/2024 9:40 AM EST Office Visit [employer] [facility] [place] [address] home help aide for emergency surgery [employer] [facility] Comment on above: home help aide for em ergency surgery Start: 04-11-2024 End: 04-11-2024 Admission to same day surgery center 04/11/2024 3:33 PM EST - 04/11/2024 5:31 PM EST Surgery [facility] [address] [place] [address] Monica Alfaro MD [address] [address] LAPROSCOPIC OVARY CYSTECTOMY [facility] Comment on above: LAPROSCOPIC OVARY CY STECTOMY Start: 04-11-2024 End: 04-11-2024 Laps fulg/exc ovary viscera/peritoneal surface LAPROSCOPIC OVARY CYSTECTOMY Ovarian cyst, left 04/11/2024 3:33 PM EST ME OR Start: 04-11-2024 Subsequent hospital visit by physician [facility] Comment on above: Ovarian cyst, left [ N83.202] Start: 04-05-2024 End: 04-05-2024 Anesthesia consultation 04/05/2024 8:00 AM EST PAT Pre Anesthesia [address] [place] [address] 1, Pacc [place] [address] [place] [address] PACC Pre Anesthesia Comment on above: PACC Start: 04-04-2024 End: 04-04-2024 Laps fulg/exc ovary viscera/peritoneal surface ME OR Start: 04-04-2024 End: 04-04-2024 Patient encounter procedure 04/04/2024 8:15 AM EST Appointment Radiology [address] [place] [address] US PELVIS/TRANSVAGINAL Radiology Comment on above: US PELVIS/TRANSVAGIN AL Start: 01-15-2024 Covid-19 Vaccine ( season) Covid-19 Vaccine () [facility] Start: 01-15-2024 Influenza vaccination [facility] Start: 11-14-2023 End: 11-14-2023 ambulatory 11/14/2023 9:30 AM EDT OT/PT/Speech Visit [facility] [address] [place] [address] Janelle Moralez, PT, DPT [address] [place], [place] [id number] Neck pain [M54.2] [facility] Comment on above: Neck pain [M54.2] Start: 01-14-2023 Covid-19 Vaccine ( season) Covid-19 Vaccine ( season) [facility] Start: 01-14-2023 Influenza vaccination Influenza Vacc ine (#1) [facility] Start: 12-15-2022 Patient referral [facility] Work Phone: Start: 04-26-2022 End: 04-26-2023 PELVIC US WHI PELVIC US I Anc Imaging Routine Dysmenorrhea Expected: 04/26/2022, Expires: 04/26/2023 [facility] Work Phone: Comment on above: Expected: 04/26/2022 , Expires: 04/26/2023 Start: 01-14-2022 Influenza vaccination INFLUENZA (#1) [facility] Start: 08-06-2021 PAP TESTING PAP TESTING [facility] Start: 07-23-2021 COVID-19 VACCINE (2 - Booster for Long series) COVID-19 VACCINE (2 - Booster for Long series) [facility] Start: 01-14-2021 Influenza vaccination Flu vaccine (# 1) [facility] Phone: Start: 01-14-2019 Influenza vaccination Flu vaccine (# 1) [place], [place] Start: 2018 HPV TESTING HPV TESTING [facility] Start: 2018 [facility] Start: 07-21-2018 Cervical cancer screen Cervical canc er screen [place], [place] Start: 2009 Screening for malign ant neoplasm of cervix Pap smear [facility] Phone: Start: 10-29-2007 Hepatitis B Vaccine (1 of 3 - 19+ 3-dose series) Hepatitis B Vaccine (1 of 3 - 19+ 3-dose series) [facility] Start: 10-29-2007 Urine microalbumin profile [facility] Start: 2006 Annual PCP Team Nuclear Physician monroe Disease Visit Annual PCP Team Chronic Disease Visit [facility] Start: 2006 Anxiety Screening Anxiety Screening [facility] Start: 2006 HEPATITIS C SCREENING HEPATITIS C [facility] Start: 2006 Hepatitis C screening Hepatitis C [facility] Start: 2006 HIV SCREENING HIV SCREENING [facility] Start: 2006 HIV screening HIV Screening [facility] Start: 2001 Varicella Vaccine (1 of 2 - 13+ 2-dose series) Varicella Vaccine (1 of 2 - 13+ 2-dose series) [place], [place] Start: 2000 COVID-19 Vaccine (1) COVID-19 Vaccin e (1) [facility] [employer] Phone: Start: 1988 HEPATITIS B (1 of 3 - 3-dose series) HEPATITIS B (1 of 3 - 3-dose series) [facility] Start: 1988 Hepatitis B Vaccine (1 of 3 - 3-dose series) Hepatitis B Vaccine (1 of 3 - 3-dose series) [facility] Start: 1988 Hepatitis C screening Hepatitis C sc [facility] Phone: End: 02-27-2019 Comprehensive metabolic 2000 panel Comprehensive Metabolic Panel Lab STAT One Time for 1 Occurrences starting 02/27/2019 until 02/27/2019 [facility] Comment on above: One Time for 1 Occur rences starting 02/27/2019 until 02/27/2019 Comprehensive metabo lic 2000 panel Comprehensive Metabolic Panel Lab STAT 02/27/2019 8:47 AM EDT [facility] EKG 12 Lead [facility] [place] Laps fulg/exc ovary viscera/peritoneal surface LAPROSCOPIC OVARY CYSTECTOMY Ovarian cyst, left ME OR PAP FLUID CERVICAL SCREENING PAP FLUID CERVICAL SCREENING Lab Routine Screening for cervical cancer Ordered: 04/26/2022 [facility] Work Phone: Comment on above: Ordered: 04/26/2022 Patient referral [place] Work Phone: End: 02-27-2019 Urine Drug Screen Urine Drug Screen Lab STAT One Time for 1 Occurrences starting 02/27/2019 until 02/27/2019 [facility] Comment on above: One Time for 1 Occur rences starting 02/27/2019 until 02/27/2019 Urine Drug Screen Urine Drug Scr een Lab STAT 02/27/2019 8:40 AM EDT [facility] Urine Drug Screen, Comprehensive Urine Drug Screen, Comprehensive Lab STAT 02/27/2019 8:54 AM EDT [facility] End: 04-29-2025 US Pelvis transvaginal US FEMALE PELVIS TRANSVAG Radiology Routine Ovarian cyst, left 1 Occurrences starting 03/30/2024 until 04/29/2025 [facility] Work Phone: Comment on above: 1 Occurrences starti ng 03/30/2024 until 04/29/2025 End: 10-31-2025 XR Knee - right 4 Views XR KNEE GENERAL 4V AP BOTH/PA BOTH/LAT/MERC RIGHT Radiology Routine Pain 1 Occurrences starting 10/02/2024 until 10/31/2025 [facility] Work Phone: Comment on above: 1 Occurrences starti ng 10/02/2024 until 10/31/2025 [facility] Immunizations Immunization Date Immunization Notes Care Provider Fa nae 04-26-2018 tetanus toxoid, redu ammon diphtheria toxoid, and acellular pertussis vaccine, adsorbed [place], [place] Payers Date Payer Category Payer Unknown [id number] 2022 Private Health Insurance [id number] 2022 Private Health Insurance [id number] 2021 Unknown [employer] BLUE CARD PPO OOS [id number] 2021-Present [phone] [address] [place] [address] PPO [id number] 2021 Unknown [id number] 2020 Self-pay 2020 Unknown [id number] 2016 Unknown [id number] 2014 Unknown [id number] 2014 Unknown [employer] M [employer] [address] xxxxxxxxxxxx 2014-Present [phone] [address] [place] [address] xxxxxxxxxxxx [id number] 1988 Unknown [id number] 1988 Unknown [id number] 1988 Unknown [id number] 1988 Unknown [id number] 1988 Unknown [id number] 1988 Unknown [id number] Unknown [id number] Unknown [id number] Unknown [id number] Unknown [id number] Unknown [id number] Unknown [id number] Social History Date Type Detail Facility Start: 02-27-2019 End: 05-06-2023 Tobacco smoking status NHIS Never smoker [facility] Start: 02-27-2019 End: 05-06-2023 Alcohol intake No [facility] Start: 1988 Sex Assigned At Not on file M [place] [employer] [facility] [place] Start: 03-19-2021 End: 05-06-2023 Tobacco use and exposure Never used [employer] Start: 03-19-2021 End: 04-26-2024 Alcohol intake Current non-drinker of alcohol (finding) [facility] [employer] Work Phone: Start: 03-19-2021 End: 05-06-2023 Alcohol intake [facility] Exposure to SARS-CoV -2 (event) Not sure [facility] Start: 1990 Sex Assigned At Female [facility] Start: 12-15-2022 End: 01-21-2023 Tobacco smoking status AKIS Unknown if ever smoked [facility] Score (1-10 0), lower number is lower risk 66 [facility] Start: 09-17-2021 Gender identity Identifies as female gender (finding) [facility] Start: 09-17-2021 Sexual orientation Heterosexual (marva nair) [facility] Medical Equipment Procedure Code Equipment Code Equipment Origin al Text Equipment Identifier Dates 1 each by Does n ot apply route daily [id number] Start: 04-16-2020 Functional Status Date Assessment Result Facility 08-02-2016 Are you deaf, or do you have serious difficulty hearing No 08/02/2016 12:02 PM Alem Izaguirre (Rn) (Hist), RN No [facility] 08-02-2016 Are you blind, or do you have serious difficulty seeing, even when wearing glasses No 08/02/2016 12:02 PM Alem IzaguirreRn) (Hist), RN No [facility] 08-02-2016 Do you have serious difficulty walking or climbing stairs No 08/02/2016 12:02 PM Alem Izaguirre (Rn) (Hist), RN No [facility] 08-02-2016 Do you have difficul ty dressing or bathing No 08/02/2016 12:02 PM Alem Izaguirre (Rn) (Hist), RN No [facility] 08-02-2016 Because of a physica l, mental, or emotional condition, do you have difficulty doing errands alone such as visiting a physician's office or shopping No 08/02/2016 12:02 PM Alem Izaguirre) (Hist), RN No [facility] Mental Status Date Assessment Result Facility 08-02-2016 Because of a physica l, mental, or emotional condition, do you have serious difficulty concentrating, remembering, or making decisions No 08/02/2016 12:02 PM Alem Izaguirre) (Hist), RN No [facility] Clinical Notes 05-14-2014 to 10-05-2024 Rosendo Gagnon, DO - 07/04/2024 12:56 PM Rosendo Velarde, DO - 04/26/2024 11:41 AM Rosendo Velarde, DO - 04/17/2024 10:04 AM Monica Walsh MD - 04/05/2024 2:05 PM EST Note Date & Type Note Facility 10-05-2024 Note HNO ID: [id number] Author: RAMAKRISHNA MOTA PA-C Service: ? Author Type: Physician [employer] Type: Progress Notes Filed: 10/05/2024 15:52 Note Text: The patient is followed in the orthopedic clinic for chronic chondral changes in the right knee. She has previously performed physical therapy. She underwent an intra-articular steroid injection with Dr. Chandler on 11/11/2023. Interval History: Padmini Carr returns today for evaluation of the right knee. The patient reports diffuse pain. It is worse with activity or prolonged sitting. She has not had relief with oral NSAIDs. The patient has tried physical therapy in the past but does not think it is worth the time. She has received relief from steroid injections in the past. She denies any adverse effects to prior injections. The patient is not diabetic. Review of Systems: CV: No chest pain Pulm: No short of breath HEENT: No head ache General: no fevers, chills, nausea/vomiting, malaise Physical Examination: This is a well appearing, well nourishedl patient in no acute distress. Head is normocephalic and atraumatic. White sclera and pink conjunctiva. Mucous membranes are moist. Patient breathes easily and has normal chest wall excursion. Affect is normal. Examination of the right knee reveals loss of normal contour. There is no visible erythema or skin lesions. The patient is able to perform a straight leg raise. Active range of motion 0-110 degrees. There is tenderness with palpation of the medial joint line. There is not significant tenderness palpation of the lateral joint line. There is pain and crepitus with patellofemoral grinding. Negative posterior drawer. Negative Alcides's. There is no laxity with valgus or varus stress testing. Mel's test results and diffuse knee pain. Imaging: Plain films from [facility] are personally reviewed by me and demonstrate degenerative changes. Procedure: The risk of intra-articular steroid injections are reviewed with the patient. These include tissue breakdown. Following this discussion, the patient wishes to proceed with a steroid injection. Large Joint Arthro/Inj: R knee joint 10/05/2024 3:51 PM The procedure site was prepped in the usual sterile fashion. Site: R knee joint Medications: 40 mg triamcinolone acetonide 40 mg/mL Anesthetics: 5 mL lidocaine (PF) 10 mg/mL (1 %) Outcome: Tolerated well, no immediate complications Post-injection instructions were reviewed with the patient and the patient voiced understanding of these instructions. Informed Consent Consent Obtained: Verbal Eastern Protocol A moment to CARE was completed. SIGN IN Personnel directly involved with the procedure wore the appropriate PPE. Special Equipment: N/A Patient/Surrogate Stated/Verified: Patient name, Date of , Relevant allergies and Intended procedure TIME OUT Relevant labs, photos, and/or imaging studies have been reviewed. Intended patient and procedure match source documents. Consent obtained and matches the intended procedure. Correct side/site marked and visible. Medications required for procedure verified. No fire risk assessment and interventions applicable. No implant(s) inserted. SIGN OUT No specimen collected. All instruments, equipment, possible retained foreign bodies accounted for. The post-procedure POC has been communicated to the patient or surrogate. No post-procedure POC communication to the patient's multidisciplinary team (including the bedside nurse for hospitalized patients) applicable. Impression: Padmini Carr is a 33 year old female here with a diagnosis of chronic right knee pain. Plan: The patient tolerated her injection well. She is given verbal and written postinjection instructions. She is encouraged to remain active. She may return to the orthopedic clinic on a as needed basis. Ramakrishna Mota PA-C I spent a total of 30 minutes on the date of the service which included preparing to see the patient, [id number] patient care, and completing clinical documentation. [facility] 10-05-2024 Note HNO ID: [id number] Author: SUE BROWN CT Service: Radiology Author Type: Technologist Type: Progress Notes Filed: 10/05/2024 15:11 Note Text: Radiology Service Progress Note PATIENT NAME: Padmini Carr DATE OF SERVICE: October 05, 2024 TIME: 3:11 PM PATIENT IDENTITY VERIFICATION COMPLETED USING TWO (2) IDENTIFIERS: Name and Date of confirmed by patient verbally. FALL SCREENING: Has the patient had 2 falls in the last year or 1 fall with injury or currently using an Ambulatory Assistive Device (Walker, Cane, Wheelchair, Crutches, etc.)? No PATIENT GENDER DATA: Assigned female at . status: : No status: NO. PATIENT RELEVANT IMPLANT DATA REVIEWED: Not Applicable PATIENT PRESENTS WITH AN IMPLANTABLE OR ATTACHED [employer]: No RADIOLOGY DEPARTMENT: General X-ray: Exam(s) Completed: Lower Extremity X-Ray(s): Knee, AP / Lat / Tunne / Merchant Right and Wt. Bearing PERIPHERAL IV DATA: Not applicable SIGNED BY: ITA Mosley October 05, 2024 3:11 PM [facility] 07-04-2024 Note HNO ID: [id number] Author: ROSENDO GAGNON, DO Service: ? Author Type: Physician Type: Progress Notes Filed: 07/04/2024 13:57 Note Text: VIRTUAL VISIT PROGRESS NOTE This is a virtual visit using [employer] Zoom Video Visit. It required patient-provider interaction for the medical decision making as documented below. I have communicated my name and active licensure. The patient's identity and physical location were verified at the time of this visit. Either the patient or their legal sales representative education courses has been informed of the risks and benefits of -- and alternatives to -- treatment through a remote evaluation and consents to proceed with the evaluation remotely. Padmini Carr is a 33 year old female seen for menopause. Pt has been using climara, however, is complaining of itching at site of patch. Pt desires another option.. HISTORY REVIEWED (electronic chart updated): PAST MEDICAL HISTORY Diagnosis Date Chronic midline low back pain without sciatica 07/30/2016 Depression at least 5 yrs H/O total vaginal hysterectomy Hypothyroidism Morbid obesity due to excess calories (HCC) 07/30/2016 PAST SURGICAL HISTORY Procedure Laterality Date APPENDECTOMY 04/04/2024 CHG DELIVERY 05/16/2010 CHOLECYSTECTOMY HX 05/16/2010 LAP SLEEVE GASTRECTOMY 2018 REMOVAL OF OVARY(S) Left 04/04/2024 torsion REMOVAL OF OVARY(S) Right 04/16/2024 [facility] [place] VAGINAL HYSTERECTOMY 05/25/2023 vNOTES with bilateral salpingectomy FAMILY HISTORY Problem Relation Age of Onset Diabetes Mother Diabetes Maternal Grandmother Anesthesia Problems No Family History Social History Tobacco Use Smoking status: Never Smokeless tobacco: Never Vaping Use Vaping status: Never Used Substance Use Topics Alcohol use: No Drug use: No Current Outpatient Medications Medication Sig estradiol (ESTRACE) 0.5 mg tablet Take 1 tablet by mouth once daily. acetaminophen (TYLENOL ORAL) Take by mouth. diclofenac (VOLTAREN ARTHRITIS PAIN) 1 % topical gel Apply 2 g to affected area four times daily. (Patient not taking: Reported on 04/26/2024) hydrOXYzine HCl (ATARAX) 25 mg tablet Take 25 mg by mouth three times a day as needed. (Patient not taking: Reported on 04/26/2024) cariprazine (VRAYLAR) 3 mg capsule Take 3 mg by mouth once daily. (Patient not taking: Reported on 04/26/2024) No current facility-administered medications for this visit. ALLERGIES No Known Allergies REVIEW OF SYSTEMS: GENERAL: feeling well without fatigue, no recent change in weight RESPIRATORY: no cough, no wheezing or shortness of breath CARDIOVASCULAR: no chest pain, no palpitations GI: normal appetite, tolerating PO well, BMs normal, and no abdominal pain : urination is normal PHYSICAL EXAMINATION: VIDEO EXAM: (if completed, performed via video enabled technology) GENERAL: alert and appropriate, in no distress, well-hydrated, well nourished, and happy, smiling, interactive ASSESSMENT: (Z78.0) Menopause (primary encounter diagnosis) Morbid Obesity Class 3 PLAN: We discussed estradiol oral daily - pt desires to try, pt to stop patch. Counseling done There are no Patient Instructions on file for this visit. I spent a total of 30 minutes on the date of the service which included preparing to see the patient, [id number] patient care, completing clinical documentation, obtaining and/or reviewing separately obtained history, counseling and educating the patient/family/caregiver, and ordering medications, tests, or procedures Rosendo Gagnon DO [facility] 07-04-2024 History of Presen t illness Narrative VIRTUAL VISIT PROGRESS NOTE This is a virtual visit using Swagsyom Video Visit. It required patient-provider interaction for the medical decision making as documented below. I have communicated my name and active licensure. The patient's identity and physical location were verified at the time of this visit. Either the patient or their legal sales representative education courses has been informed of the risks and benefits of -- and alternatives to -- treatment through a remote evaluation and consents to proceed with the evaluation remotely. Padmini Carr is a 33 year old female seen for menopause. Pt has been using climara, however, is complaining of itching at site of patch. Pt desires another option.. HISTORY REVIEWED (electronic chart updated): PAST MEDICAL HISTORY Diagnosis Date Chronic midline low back pain without sciatica 07/30/2016 Depression at least 5 yrs H/O total vaginal hysterectomy Hypothyroidism Morbid obesity due to excess calories (HCC) 07/30/2016 PAST SURGICAL HISTORY Procedure Laterality Date APPENDECTOMY 04/04/2024 CHG DELIVERY 05/16/2010 CHOLECYSTECTOMY HX 05/16/2010 LAP SLEEVE GASTRECTOMY 2018 REMOVAL OF OVARY(S) Left 04/04/2024 torsion REMOVAL OF OVARY(S) Right 04/16/2024 [facility]/ [place] VAGINAL HYSTERECTOMY 05/25/2023 vNOTES with bilateral salpingectomy FAMILY HISTORY Problem Relation Age of Onset Diabetes Mother Diabetes Maternal Grandmother Anesthesia Problems No Family History Social History Tobacco Use Smoking status: Never Smokeless tobacco: Never Vaping Use Vaping status: Never Used Substance Use Topics Alcohol use: No Drug use: No Current Outpatient Medications Medication Sig estradiol (ESTRACE) 0.5 mg tablet Take 1 tablet by mouth once daily. acetaminophen (TYLENOL ORAL) Take by mouth. diclofenac (VOLTAREN ARTHRITIS PAIN) 1 % topical gel Apply 2 g to affected area four times daily. (Patient not taking: Reported on 04/26/2024) hydrOXYzine HCl (ATARAX) 25 mg tablet Take 25 mg by mouth three times a day as needed. (Patient not taking: Reported on 04/26/2024) cariprazine (VRAYLAR) 3 mg capsule Take 3 mg by mouth once daily. (Patient not taking: Reported on 04/26/2024) No current facility-administered medications for this visit. ALLERGIES No Known Allergies REVIEW OF SYSTEMS: GENERAL: feeling well without fatigue, no recent change in weight RESPIRATORY: no cough, no wheezing or shortness of breath CARDIOVASCULAR: no chest pain, no palpitations GI: normal appetite, tolerating PO well, BMs normal, and no abdominal pain : urination is normal PHYSICAL EXAMINATION: VIDEO EXAM: (if completed, performed via video enabled technology) GENERAL: alert and appropriate, in no distress, well-hydrated, well nourished, and happy, smiling, interactive ASSESSMENT: (Z78.0) Menopause (primary encounter diagnosis) Morbid Obesity Class 3 PLAN: We discussed estradiol oral daily - pt desires to try, pt to stop patch. Counseling done There are no Patient Instructions on file for this visit. I spent a total of 30 minutes on the date of the service which included preparing to see the patient, [id number] patient care, completing clinical documentation, obtaining and/or reviewing separately obtained history, counseling and educating the patient/family/caregiver, and ordering medications, tests, or procedures Rosendo Gagnon DO documented in this encounter [facility] 04-26-2024 Note HNO ID: [id number] Author: ROSENDO GAGNON DO Service: ? Author Type: Physician Type: Progress Notes Filed: 04/26/2024 11:53 Note Text: HISTORY AND PHYSICAL EXAMINATION SERVICE DATE: 04/26/2024 SERVICE TIME: 11:49 AM PRIMARY CARE PHYSICIAN: No primary care provider on file. Subjective CHIEF COMPLAINT: post op state HPI: This is a 33 year old female who presents with hx of LAVH, LSO due to torsion then RSO due to torsion. Currently with some left sided pain, normal BM and urination. FUNCTIONAL STATUS: Independent PAST MEDICAL HISTORY Diagnosis Date Chronic midline low back pain without sciatica 07/30/2016 Depression at least 5 yrs H/O total vaginal hysterectomy Hypothyroidism Morbid obesity due to excess calories (HCC) 07/30/2016 PAST SURGICAL HISTORY Procedure Laterality Date APPENDECTOMY 04/04/2024 CHG DELIVERY 05/16/2010 CHOLECYSTECTOMY HX 05/16/2010 LAP SLEEVE GASTRECTOMY 2018 REMOVAL OF OVARY(S) Left 04/04/2024 torsion REMOVAL OF OVARY(S) Right 04/16/2024 [facility]/ [place] VAGINAL HYSTERECTOMY 05/25/2023 vNOTES with bilateral salpingectomy FAMILY HISTORY Problem Relation Age of Onset Diabetes Mother Diabetes Maternal Grandmother Anesthesia Problems No Family History Social History Tobacco Use Smoking status: Never Smokeless tobacco: Never Vaping Use Vaping status: Never Used Substance Use Topics Alcohol use: No Drug use: No (Not in a hospital admission) ALLERGIES No Known Allergies COMPLETE REVIEW OF SYSTEMS: GENERAL: No weight loss, malaise or fevers NECK: Negative for lumps, goiter, pain and significant neck swelling RESPIRATORY: Negative for cough, hemoptysis, wheezing, COPD, dyspnea or shortness of breath CARDIOVASCULAR: Negative for chest pain, leg swelling, hypertension, CHF or palpitations GI: No nausea, vomiting, or diarrhea : No history of dysuria, frequency or incontinence Objective PHYSICAL EXAM: Physical Exam Performed: GENERAL: Alert, no distress, cooperative ABDOMEN: Abdomen soft, non-tender, BS normal, No masses or organomegaly and incisions healing BP 118/64 Wt 250 lb (113.4kg) LMP 04/04/2023 DATA: Diagnostic tests reviewed for today's visit: Most recent labs and imaging results. Assessment/Plan Post op state- we discussed the need for estrogen replacement - climara previously prescribed. Pt to virtual visit in 2 mths for assessment for climara use. Active Hospital Problems No active problems on problem list @OBESITYCLASS@ Assessment AND Plan Post-operative state Adverse effect of female hormone replacement therapy, initial encounter Medication and Non-Pharmacologic VTE Prophylaxis/Anticoagulants VTE Prophylaxis: VTE prophylaxis appropriate Medical Decision Making: Problems: Moderate: New problem with uncertain prognosis Data: Unique source(s) for external note(s) reviewed: 2 Unique test result(s) reviewed: 2 Risk: Moderate: Moderate risk from testing/treatment Medical Decision Making Level: 4 - Moderate SIGNATURE: Rosendo Gagnon DO PATIENT NAME: Padmini Carr DATE: April 26, 2024 TIME: 11:49 AM [facility] 04-26-2024 History of Presen t illness Narrative HISTORY AND PHYSICAL EXAMINATION SERVICE DATE: 04/26/2024 SERVICE TIME: 11:49 AM PRIMARY CARE PHYSICIAN: No primary care provider on file. Subjective CHIEF COMPLAINT: post op state HPI: This is a 33 year old female who presents with hx of LAVH, LSO due to torsion then RSO due to torsion. Currently with some left sided pain, normal BM and urination. FUNCTIONAL STATUS: Independent PAST MEDICAL HISTORY Diagnosis Date Chronic midline low back pain without sciatica 07/30/2016 Depression at least 5 yrs H/O total vaginal hysterectomy Hypothyroidism Morbid obesity due to excess calories (HCC) 07/30/2016 PAST SURGICAL HISTORY Procedure Laterality Date APPENDECTOMY 04/04/2024 CHG DELIVERY 05/16/2010 CHOLECYSTECTOMY HX 05/16/2010 LAP SLEEVE GASTRECTOMY 2018 REMOVAL OF OVARY(S) Left 04/04/2024 torsion REMOVAL OF OVARY(S) Right 04/16/2024 [facility]/ [place] VAGINAL HYSTERECTOMY 05/25/2023 vNOTES with bilateral salpingectomy FAMILY HISTORY Problem Relation Age of Onset Diabetes Mother Diabetes Maternal Grandmother Anesthesia Problems No Family History Social History Tobacco Use Smoking status: Never Smokeless tobacco: Never Vaping Use Vaping status: Never Used Substance Use Topics Alcohol use: No Drug use: No (Not in a hospital admission) ALLERGIES No Known Allergies COMPLETE REVIEW OF SYSTEMS: GENERAL: No weight loss, malaise or fevers NECK: Negative for lumps, goiter, pain and significant neck swelling RESPIRATORY: Negative for cough, hemoptysis, wheezing, COPD, dyspnea or shortness of breath CARDIOVASCULAR: Negative for chest pain, leg swelling, hypertension, CHF or palpitations GI: No nausea, vomiting, or diarrhea : No history of dysuria, frequency or incontinence Objective PHYSICAL EXAM: Physical Exam Performed: GENERAL: Alert, no distress, cooperative ABDOMEN: Abdomen soft, non-tender, BS normal, No masses or organomegaly and incisions healing BP 118/64 Wt 250 lb (113.4kg) LMP 04/04/2023 DATA: Diagnostic tests reviewed for today's visit: Most recent labs and imaging results. Assessment/Plan Post op state- we discussed the need for estrogen replacement - climara previously prescribed. Pt to virtual visit in 2 mths for assessment for climara use. Active Hospital Problems No active problems on problem list @OBESITYCLASS@ Assessment & Plan Post-operative state Adverse effect of female hormone replacement therapy, initial encounter Medication and Non-Pharmacologic VTE Prophylaxis/Anticoagulants VTE Prophylaxis: VTE prophylaxis appropriate Medical Decision Making: Problems: Moderate: New problem with uncertain prognosis Data: Unique source(s) for external note(s) reviewed: 2 Unique test result(s) reviewed: 2 Risk: Moderate: Moderate risk from testing/treatment Medical Decision Making Level: 4 - Moderate SIGNATURE: Rosendo Gagnon DO PATIENT NAME: Padmini Carr DATE: April 26, 2024 TIME: 11:49 AM documented in this encounter [facility] 04-17-2024 Note HNO ID: [id number] Author: ROSENDO GAGNON DO Service: ? Author Type: Physician Type: Progress Notes Filed: 04/17/2024 11:21 Note Text: VIRTUAL VISIT PROGRESS NOTE This is a virtual visit using Swagsyom Video Visit. It required patient-provider interaction for the medical decision making as documented below. I have communicated my name and active licensure. The patient's identity and physical location were verified at the time of this visit. Either the patient or their legal sales representative education courses has been informed of the risks and benefits of -- and alternatives to -- treatment through a remote evaluation and consents to proceed with the evaluation remotely. 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 Pt states she was in pain both times and informed she had ovarian torsions. Pt currently is doing well. 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 HISTORY REVIEWED (electronic chart updated): PAST MEDICAL HISTORY Diagnosis Date Chronic midline low back pain without sciatica 07/30/2016 Depression at least 5 yrs Hypothyroidism Morbid obesity due to excess calories (HCC) 07/30/2016 PAST SURGICAL HISTORY Procedure Laterality Date APPENDECTOMY 04/04/2024 CHG DELIVERY 05/16/2010 CHOLECYSTECTOMY HX 05/16/2010 LAP SLEEVE GASTRECTOMY 2018 REMOVAL OF OVARY(S) Left 04/04/2024 torsion REMOVAL OF OVARY(S) Right 04/16/2024 [facility] [place] VAGINAL HYSTERECTOMY 05/25/2023 vNOTES with bilateral salpingectomy FAMILY HISTORY Problem Relation Age of Onset Diabetes Mother Diabetes Maternal Grandmother Anesthesia Problems No Family History Social History Tobacco Use Smoking status: Never Smokeless tobacco: Never Vaping Use Vaping status: Never Used Substance Use Topics Alcohol use: No Drug use: No Current Outpatient Medications Medication Sig diclofenac (VOLTAREN ARTHRITIS PAIN) 1 % topical gel Apply 2 g to affected area four times daily. hydrOXYzine HCl (ATARAX) 25 mg tablet Take 25 mg by mouth three times a day as needed. cariprazine (VRAYLAR) 3 mg capsule Take 3 mg by mouth once daily. No current facility-administered medications for this visit. ALLERGIES No Known Allergies REVIEW OF SYSTEMS: GENERAL: feeling well without fatigue, no recent change in weight RESPIRATORY: no cough, no wheezing or shortness of breath CARDIOVASCULAR: no chest pain, no palpitations GI: normal appetite, tolerating PO well, BMs normal, and no abdominal pain PHYSICAL EXAMINATION: VIDEO EXAM: (if completed, performed via video enabled technology) GENERAL: alert and appropriate, in no distress, well-hydrated, well nourished, and happy, smiling, interactive ASSESSMENT: No diagnosis found. Post op visit- pt is to call [facility] To request her records to be sent to my office for review before her office visit. PLAN: We discussed the need for HRT, and exam s/p surgery. Pt will call to schedule There are no Patient Instructions on file for this visit. I spent a total of 30 minutes on the date of the service which included preparing to see the patient, [id number] patient care, completing clinical documentation, obtaining and/or reviewing separately obtained history, performing a medically appropriate examination, and counseling and educating the patient/family/caregiver Rosendo Gagnon DO [facility] 04-17-2024 History of Presen t illness Narrative VIRTUAL VISIT PROGRESS NOTE This is a virtual visit using [employer] Zoom Video Visit. It required patient-provider interaction for the medical decision making as documented below. I have communicated my name and active licensure. The patient's identity and physical location were verified at the time of this visit. Either the patient or their legal sales representative education courses has been informed of the risks and benefits of -- and alternatives to -- treatment through a remote evaluation and consents to proceed with the evaluation remotely. 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 Pt states she was in pain both times and informed she had ovarian torsions. Pt currently is doing well. 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 HISTORY REVIEWED (electronic chart updated): PAST MEDICAL HISTORY Diagnosis Date Chronic midline low back pain without sciatica 07/30/2016 Depression at least 5 yrs Hypothyroidism Morbid obesity due to excess calories (HCC) 07/30/2016 PAST SURGICAL HISTORY Procedure Laterality Date APPENDECTOMY 04/04/2024 CHG DELIVERY 05/16/2010 CHOLECYSTECTOMY HX 05/16/2010 LAP SLEEVE GASTRECTOMY 2018 REMOVAL OF OVARY(S) Left 04/04/2024 torsion REMOVAL OF OVARY(S) Right 04/16/2024 [facility]/ [place] VAGINAL HYSTERECTOMY 05/25/2023 vNOTES with bilateral salpingectomy FAMILY HISTORY Problem Relation Age of Onset Diabetes Mother Diabetes Maternal Grandmother Anesthesia Problems No Family History Social History Tobacco Use Smoking status: Never Smokeless tobacco: Never Vaping Use Vaping status: Never Used Substance Use Topics Alcohol use: No Drug use: No Current Outpatient Medications Medication Sig diclofenac (VOLTAREN ARTHRITIS PAIN) 1 % topical gel Apply 2 g to affected area four times daily. hydrOXYzine HCl (ATARAX) 25 mg tablet Take 25 mg by mouth three times a day as needed. cariprazine (VRAYLAR) 3 mg capsule Take 3 mg by mouth once daily. No current facility-administered medications for this visit. ALLERGIES No Known Allergies REVIEW OF SYSTEMS: GENERAL: feeling well without fatigue, no recent change in weight RESPIRATORY: no cough, no wheezing or shortness of breath CARDIOVASCULAR: no chest pain, no palpitations GI: normal appetite, tolerating PO well, BMs normal, and no abdominal pain PHYSICAL EXAMINATION: VIDEO EXAM: (if completed, performed via video enabled technology) GENERAL: alert and appropriate, in no distress, well-hydrated, well nourished, and happy, smiling, interactive ASSESSMENT: No diagnosis found. Post op visit- pt is to call [facility] To request her records to be sent to my office for review before her office visit. PLAN: We discussed the need for HRT, and exam s/p surgery. Pt will call to schedule There are no Patient Instructions on file for this visit. I spent a total of 30 minutes on the date of the service which included preparing to see the patient, [id number] patient care, completing clinical documentation, obtaining and/or reviewing separately obtained history, performing a medically appropriate examination, and counseling and educating the patient/family/caregiver Rosendo Gagnon DO documented in this encounter [facility] 04-05-2024 Note HNO ID: [id number] Author: MONICA ALFARO MD Service: ? Author Type: Physician Type: Progress Notes Filed: 04/05/2024 14:56 Note Text: Patient aware that I would be calling 04/05/24 Patient presents by phone and confirms name, , and consent to telephone post op. Padmini underwent a clinically uncomplicated laparoscopic left oophorectomy, lysis of adhesions, appendectomy on 04/04/24. Today she states she feels okay. Has more pain on left incision than the others. Has been taking motrin, tylenol, and oxycodone. Has not had a BM, but that is not unusual for her. No concerns with urination. Has been up back and forth to the restroom at home. Final pathology pending Reviewed intra-op findings, post op expectations and precautions. Chart updated to reflect surgical history. All questions and concerns addressed. A/P: POD#2 FU in 1 week to review final pathology and adjust restrictions Monica Alfaro MD April 05, 2024 10 min spent directly with patient and additional time on chart review, updating, documentation [facility] 04-05-2024 History of Presen t illness Narrative Patient aware that I would be calling 04/05/24 Patient presents by phone and confirms name, , and consent to telephone post op. Padmini underwent a clinically uncomplicated laparoscopic left oophorectomy, lysis of adhesions, appendectomy on 04/04/24. Today she states she feels okay. Has more pain on left incision than the others. Has been taking motrin, tylenol, and oxycodone. Has not had a BM, but that is not unusual for her. No concerns with urination. Has been up back and forth to the restroom at home. Final pathology pending Reviewed intra-op findings, post op expectations and precautions. Chart updated to reflect surgical history. All questions and concerns addressed. A/P: POD#2 FU in 1 week to review final pathology and adjust restrictions Monica Alfaro MD April 05, 2024 10 min spent directly with patient and additional time on chart review, updating, documentation documented in this encounter [facility] 04-05-2024 Telephone encounter Note Patient was scheduled for in person [facility] appt at 0800 today. Patient did not check in for appt, called patient at 0820 to see if they were planning on coming. Unable to lm- appears pt had emergency surgery yesterday. [facility] 04-05-2024 Miscellaneous Notes Patient was scheduled for in person [facility]ACC appt at 0800 today. Patient did not check in for appt, called patient at 0820 to see if they were planning on coming. Unable to lm- appears pt had emergency surgery yesterday. documented in this encounter [facility] 04-04-2024 Telephone encounter Note Short term Disability paperwork completed and faxed along with chart notes to [employer]. Transmission verified. Copy to scan file. Mine James RN [facility] 04-04-2024 Miscellaneous Notes Short term Disability paperwork completed and faxed along with chart notes to [employer]. Transmission verified. Copy to scan file. Mine James RN documented in this encounter [facility] 04-04-2024 Note HNO ID: [id number] Author: NIRMALA GUERRERO APRN.CRNA Service: Anesthesiology Author Type: Nurse Leak Gang Supervisor Type: Anesthesia Procedure Notes Filed: 04/04/2024 14:25 Note Text: ANESTHESIOLOGY PROCEDURE NOTE PIV General Information Procedure Start Time/Medication Administration: 04/04/2024 2:10 PM Procedure End Time: 04/04/2024 2:10 PM Patient Location: OR Staffing DAG SPRAYER: Nirmala Guerrero APRN.DAG SPRAYER Performed by: DAG SPRAYER Preparation Sterility Preparation: hand hygiene performed prior to procedure, surgical cap used, mask used, skin prep agent completely dried prior to procedure Site Prep: alcohol Procedure Details Indication: need for IV access Needle Size/Type: 20 gauge angiocath Orientation: Left Location: Hand Imaging Guidance Used: No SIGNATURE: Nirmala Guerrero APRN.DAG SPRAYER PATIENT NAME: Padmini Carr DATE: April 04, 2024 TIME: 2:25 PM CSN: [id number] [facility] 04-04-2024 Note HNO ID: [id number] Author: NIRMALA GUERRERO APRN.DAG SPRAYER Service: Anesthesiology Author Type: Nurse Leak Gang Supervisor Type: Anesthesia Procedure Notes Filed: 04/04/2024 14:23 Note Text: ANESTHESIOLOGY PROCEDURE NOTE Airway General Information Procedure Start Time/Medication Administration: 04/04/2024 1:54 PM Procedure End Time: 04/04/2024 1:54 PM Patient location during procedure: OR Timeout Performed Pre-procedure: timeout performed Consent Obtained: Yes Patient identity confirmed: arm band and patient Staffing DAG SPRAYER: Nirmala Guerrero APRN.DAG SPRAYER Performed by: DAG SPRAYER Indications and Patient Condition Indications for airway management: anesthesia Preoxygenated: yes anesthesia circuit Patient position: sniffing Method: rapid sequence Cricoid Pressure: No Manual In-Line Stabilization: No Difficult Mask: No Final Airway Details Final airway type: endotracheal airway Final Endotracheal Airway: ETT Cuffed: yes Successful intubation technique: direct laryngoscopy Endotracheal tube insertion site: oral Blade: Gio Blade size: #4 ETT size (mm): 7.0 Measured from: lips Measurement (cm): 22 Placement verified by: chest auscultation and capnometry Cormack-Lehane Classification: grade I - full view of glottis Number of attempts at approach: 1 Failed airway: no Unrecognized esophageal intubation: no Airway not difficult SIGNATURE: Nirmala Guerrero APRN.DAG SPRAYER PATIENT NAME: Padmini Carr DATE: April 04, 2024 TIME: 2:23 PM CSN: [id number] [facility] 04-04-2024 Telephone encounter Note Opened in error. June Fuentes LPN [facility] 04-04-2024 Miscellaneous Notes Opened in error. June Fuentes LPN documented in this encounter [facility] 04-04-2024 History of Presen t illness Narrative Radiology Service Progress Note PATIENT NAME: Padmini Carr DATE OF SERVICE: April 04, 2024 TIME: 9:39 AM PATIENT IDENTITY VERIFICATION COMPLETED USING TWO (2) IDENTIFIERS: Name and Date of confirmed by patient verbally and Name and Date of confirmed by identification band. FALL SCREENING: Has the patient had 2 falls in the last year or 1 fall with injury or currently using an Ambulatory Assistive Device (Walker, Cane, Wheelchair, Crutches, etc.)? No PATIENT GENDER DATA: Female. status: : No status: NO. PATIENT RELEVANT IMPLANT DATA REVIEWED: Not Applicable PATIENT PRESENTS WITH AN IMPLANTABLE OR ATTACHED [employer] GUN[employer]RE SPOTTER: No RADIOLOGY DEPARTMENT: Ultrasound PERIPHERAL IV DATA: Not applicable SIGNED BY: ITA Ghosh April 04, 2024 9:39 AM documented in this encounter [facility] 04-04-2024 Note HNO ID: [id number] Author: RACHEL NAVARRO CT Service: Radiology Author Type: Technologist Type: Progress Notes Filed: 04/04/2024 09:39 Note Text: Radiology Service Progress Note PATIENT NAME: Padmini Carr DATE OF SERVICE: April 04, 2024 TIME: 9:39 AM PATIENT IDENTITY VERIFICATION COMPLETED USING TWO (2) IDENTIFIERS: Name and Date of confirmed by patient verbally and Name and Date of confirmed by identification band. FALL SCREENING: Has the patient had 2 falls in the last year or 1 fall with injury or currently using an Ambulatory Assistive Device (Walker, Cane, Wheelchair, Crutches, etc.)? No PATIENT GENDER DATA: Female. status: : No status: NO. PATIENT RELEVANT IMPLANT DATA REVIEWED: Not Applicable PATIENT PRESENTS WITH AN IMPLANTABLE OR ATTACHED NAVAL GUNFIRE SPOTTER: No RADIOLOGY DEPARTMENT: Ultrasound PERIPHERAL IV DATA: Not applicable SIGNED BY: ITA Ghosh April 04, 2024 9:39 AM [facility] 03-30-2024 Note HNO ID: [id number] Author: MONICA ALFARO MD Service: ? Author Type: Physician Type: Progress Notes Filed: 03/30/2024 13:55 Note Text: Patient presents by phone and confirms name, , and consent to telephone visit. She was recently seen in ED with severe pain and was found to have a 9cm cystic lesion in the adnexa without evidence of torsion. She returned to the ED yesterday without much improvement in pain and repeat imaging suggested a slight decrease in size, now 8cm cystic lesion. Discussed possible spontaneous resolution vs risk of ovarian torsion. In absence of torsion she can expectantly manage for possible resolution however if unresolved, ovarian cystectomy vs oophorectomy would be indicated. Size and need for continued use of pain medication discussed as indications for surgery vs further expectant mgmt. Utility of repeat pelvic US the week prior to surgery discussed. Risks of surgery including bleeding, infection, damage to surrounding organs, development of scar tissue, recurrence of ovarian cyst discussed. Reviewed: PMHX PSHx FHx Meds Allergies A/P: Cystic adnexal mass, Multiple ED visits - laparoscopic left ovarian cystectomy, possible oophorectomy - Will attempt to find time in OR May 02 - reasonable time for spontaneous resolution while minimizing pain medication usage time. Discussed may need to occur sooner based on symptoms - if need be, will be done emergently Spoke to OR - next availability is in May - not acceptable for this patient - will work on getting it done in April as other surgeons do not have full schedules that we may be able to use. Monica Alfaro MD 12min directly with patient with additional time on chart review, documentation, and orders/scheduling [facility] 03-30-2024 History of Presen t illness Narrative Patient presents by phone and confirms name, , and consent to telephone visit. She was recently seen in ED with severe pain and was found to have a 9cm cystic lesion in the adnexa without evidence of torsion. She returned to the ED yesterday without much improvement in pain and repeat imaging suggested a slight decrease in size, now 8cm cystic lesion. Discussed possible spontaneous resolution vs risk of ovarian torsion. In absence of torsion she can expectantly manage for possible resolution however if unresolved, ovarian cystectomy vs oophorectomy would be indicated. Size and need for continued use of pain medication discussed as indications for surgery vs further expectant mgmt. Utility of repeat pelvic US the week prior to surgery discussed. Risks of surgery including bleeding, infection, damage to surrounding organs, development of scar tissue, recurrence of ovarian cyst discussed. Reviewed: PMHX PSHx FHx Meds Allergies A/P: Cystic adnexal mass, Multiple ED visits - laparoscopic left ovarian cystectomy, possible oophorectomy - Will attempt to find time in OR May 02 - reasonable time for spontaneous resolution while minimizing pain medication usage time. Discussed may need to occur sooner based on symptoms - if need be, will be done emergently Spoke to OR - next availability is in May - not acceptable for this patient - will work on getting it done in April as other surgeons do not have full schedules that we may be able to use. Monica Alfaro MD 12min directly with patient with additional time on chart review, documentation, and orders/scheduling documented in this encounter [facility] 03-30-2024 Note HNO ID: [id number] Author: MONICA GARG MD Service: ? Author Type: Physician Type: Progress Notes Filed: 03/30/2024 12:33 Note Text: Padmini Carr is a 33 year old female who presents for problem visit ED follow up for . HPI: ED visit twice this week with pain. Left hemorrhagic cyst. 9 cm on Tuesday and now 7.5 cm. Nausea with the pain. Percocet does not work at all for her pain. Did better with dilaudid in the ED. Has had cysts in the past. This is the worst. Had a TLH earlier this year for adenomyosis. Discussed possible depo for menstrual suppression. 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 History Comments: Sexual Activity: Yes; Male Contraception: No contraception data on record PAST MEDICAL HISTORY Diagnosis Date Chronic midline low back pain without sciatica 07/30/2016 Depression at least 5 yrs Hypothyroidism Morbid obesity due to excess calories (HCC) 07/30/2016 PAST SURGICAL HISTORY Procedure Laterality Date CHG DELIVERY 05/16/2010 CHOLECYSTECTOMY HX 05/16/2010 LAP SLEEVE GASTRECTOMY 2018 VAGINAL HYSTERECTOMY 05/25/2023 vNOTES with bilateral salpingectomy FAMILY HISTORY Problem Relation Age of Onset Diabetes Mother Diabetes Maternal Grandmother Anesthesia Problems No Family History Social History Tobacco Use Smoking status: Never Smokeless tobacco: Never Vaping Use Vaping status: Never Used Substance Use Topics Alcohol use: No Drug use: No Current Outpatient Medications Medication Sig diclofenac (VOLTAREN ARTHRITIS PAIN) 1 % topical gel Apply 2 g to affected area four times daily. hydrOXYzine HCl (ATARAX) 25 mg tablet Take 25 mg by mouth three times a day as needed. cariprazine (VRAYLAR) 3 mg capsule Take 3 mg by mouth once daily. No current facility-administered medications for this visit. Allergies As of Date: 03/30/2024 (No Known Allergies) Fully Assessed 03/30/2024 REVIEW OF SYSTEMS Abdomen: Nausea, bloating and abd pain Bladder: No dysuria, gross hematuria, urinary frequency, urinary urgency, or incontinence. Breast: No breast lumps, nipple d/c, overlying skin changes, redness or skin retraction. Expanded ROS: N/A Allergies and current medication updated:Yes SENSITIVE EXAM: Sensitive exam not performed. EXAM: BP 120/80 Wt 254 lb 3.2 oz (115.3kg) LMP 04/04/2023 GENERAL: pleasant, female in moderate distress HEENT: Normocephalic, atraumatic, mucus membranes moist, and no lesions NECK: Supple, full range of motion, no adenopathy, and thyroid normal DERMATOLOGY: Normal, without lesions, non-icteric, and non-hirsute BREAST: deferred CHEST: Normal inspiratory effort ABDOMEN: Deferred PELVIC: deferred BIMANUAL: deferred NEURO: alert and oriented x3,exam grossly non-focal EXTREMITIES: normal ASSESSMENT AND PLAN: Assessment AND Plan Ovarian cyst rupture Encouraged minimal activity and to stay hydrated. Motrin and zofran and dilaudid po for the weekend. Considering depo suppression Orders: HYDROmorphone 2 mg tablet; Take 1 tablet by mouth every 6 hours as needed for up to 3 days. Monica Garg MD [facility] 03-30-2024 History of Presen t illness Narrative Padmini Carr is a 33 year old female who presents for problem visit ED follow up for . HPI: ED visit twice this week with pain. Left hemorrhagic cyst. 9 cm on Tuesday and now 7.5 cm. Nausea with the pain. Percocet does not work at all for her pain. Did better with dilaudid in the ED. Has had cysts in the past. This is the worst. Had a TLH earlier this year for adenomyosis. Discussed possible depo for menstrual suppression. 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 History Comments: Sexual Activity: Yes; Male Contraception: No contraception data on record PAST MEDICAL HISTORY Diagnosis Date Chronic midline low back pain without sciatica 07/30/2016 Depression at least 5 yrs Hypothyroidism Morbid obesity due to excess calories (HCC) 07/30/2016 PAST SURGICAL HISTORY Procedure Laterality Date CHG DELIVERY 05/16/2010 CHOLECYSTECTOMY HX 05/16/2010 LAP SLEEVE GASTRECTOMY 2018 VAGINAL HYSTERECTOMY 05/25/2023 vNOTES with bilateral salpingectomy FAMILY HISTORY Problem Relation Age of Onset Diabetes Mother Diabetes Maternal Grandmother Anesthesia Problems No Family History Social History Tobacco Use Smoking status: Never Smokeless tobacco: Never Vaping Use Vaping status: Never Used Substance Use Topics Alcohol use: No Drug use: No Current Outpatient Medications Medication Sig diclofenac (VOLTAREN ARTHRITIS PAIN) 1 % topical gel Apply 2 g to affected area four times daily. hydrOXYzine HCl (ATARAX) 25 mg tablet Take 25 mg by mouth three times a day as needed. cariprazine (VRAYLAR) 3 mg capsule Take 3 mg by mouth once daily. No current facility-administered medications for this visit. Allergies As of Date: 03/30/2024 (No Known Allergies) Fully Assessed 03/30/2024 REVIEW OF SYSTEMS Abdomen: Nausea, bloating and abd pain Bladder: No dysuria, gross hematuria, urinary frequency, urinary urgency, or incontinence. Breast: No breast lumps, nipple d/c, overlying skin changes, redness or skin retraction. Expanded ROS: N/A Allergies and current medication updated:Yes SENSITIVE EXAM: Sensitive exam not performed. EXAM: BP 120/80 Wt 254 lb 3.2 oz (115.3kg) LMP 04/04/2023 GENERAL: pleasant, female in moderate distress HEENT: Normocephalic, atraumatic, mucus membranes moist, and no lesions NECK: Supple, full range of motion, no adenopathy, and thyroid normal DERMATOLOGY: Normal, without lesions, non-icteric, and non-hirsute BREAST: deferred CHEST: Normal inspiratory effort ABDOMEN: Deferred PELVIC: deferred BIMANUAL: deferred NEURO: alert and oriented x3,exam grossly non-focal EXTREMITIES: normal ASSESSMENT AND PLAN: Assessment & Plan Ovarian cyst rupture Encouraged minimal activity and to stay hydrated. Motrin and zofran and dilaudid po for the weekend. \ Considering depo suppression Orders: HYDROmorphone 2 mg tablet; Take 1 tablet by mouth every 6 hours as needed for up to 3 days. Monica Garg MD documented in this encounter [facility] 11-11-2023 Note HNO ID: [id number] Author: KAILEY CHANDLER MD Service: ? Author Type: Physician Type: Progress Notes Filed: 11/11/2023 15:38 Note Text: Interval History: Padmini Carr returns today for evaluation of her neck/left upper extremity pain . Chief complaint is left upper extremity pain and neck pain. Physical Examination: This is a well appearing, well nourishedl patient in no acute distress. Head is normocephalic and atraumatic. White sclera and pink conjunctiva. Mucous membranes are moist. Patient breathes easily and has normal chest wall excursion. Affect is normal. Cervical irritability. Limited range of motion. + spurlings Shoulder exam fairly benign. Some +impingement No knee effusion. Review of Systems: CV: No chest pain Pulm: No short of breath HEENT: No head ache General: no fevers, chills, nausea/vomiting, malaise Imaging: none Procedure: After informed, verbal consent was obtained and a brief time out was taken, I injected the patient's right knee with 40mg of kenalog and 6 cc of lidocaine using aseptic technique. The patient tolerated the procedure well and without complaints. Impression: Padmini Carr is a 33 year old female here with a diagnosis of persistent right knee pain. Neck pain and radiculopathy . Plan: 1. Return to clinic: as necessary 2. Pharmacologic treatment: medrol dose pack 3. Physical therapy: Yes 4. Imaging: None 5. Other: referral to a medical staff specialist Kailey Chanlder MD Large Joint Arthro/Inj: R knee joint Informed Consent Consent Obtained: Verbal Eastern Protocol A moment to CARE was completed. SIGN IN Personnel directly involved with the procedure wore the appropriate PPE. Special Equipment: N/A Patient/Surrogate Stated/Verified: Patient name, Date of , Relevant allergies and Intended procedure TIME OUT Intended patient and procedure match the source document(s). Consent documented and matches the intended procedure. Relevant labs, photos, and/or imaging studies have been reviewed. Correct side/site marked and visible. Medications required for procedure verified. No fire risk assessment and interventions applicable. No implant(s) inserted. 11/11/2023 3:37 PM The procedure site was prepped in the usual sterile fashion. Site: R knee joint Medications: 40 mg triamcinolone acetonide 40 mg/mL Anesthetics: 6 mL lidocaine (PF) 10 mg/mL (1 %) Outcome: Tolerated well, no immediate complications Post-injection instructions were reviewed with the patient and the patient voiced understanding of these instructions. SIGN OUT No specimen collected. All instruments, equipment, possible retained foreign bodies accounted for. Post-procedure follow-up management communicated and Plan of Care Visit completed when applicable [facility] 11-11-2023 History of Presen t illness Narrative Associated Order(s): Large Joint Arthro/Inj: R knee joint Post-Procedure Diagnose(s): Chronic pain of right knee Interval History: Padmini Carr returns today for evaluation of her neck/left upper extremity pain . Chief complaint is left upper extremity pain and neck pain. Physical Examination: This is a well appearing, well nourishedl patient in no acute distress. Head is normocephalic and atraumatic. White sclera and pink conjunctiva. Mucous membranes are moist. Patient breathes easily and has normal chest wall excursion. Affect is normal. Cervical irritability. Limited range of motion. + spurlings Shoulder exam fairly benign. Some +impingement No knee effusion. Review of Systems: CV: No chest pain Pulm: No short of breath HEENT: No head ache General: no fevers, chills, nausea/vomiting, malaise Imaging: none Procedure: After informed, verbal consent was obtained and a brief time out was taken, I injected the patient's right knee with 40mg of kenalog and 6 cc of lidocaine using aseptic technique. The patient tolerated the procedure well and without complaints. Impression: Padmini Carr is a 33 year old female here with a diagnosis of persistent right knee pain. Neck pain and radiculopathy . Plan: 1. Return to clinic: as necessary 2. Pharmacologic treatment: medrol dose pack 3. Physical therapy: Yes 4. Imaging: None 5. Other: referral to a medical staff specialist Kailey Chandler MD Large Joint Arthro/Inj: R knee joint Informed Consent Consent Obtained: Verbal Eastern Protocol A moment to CARE was completed. SIGN IN Personnel directly involved with the procedure wore the appropriate PPE. Special Equipment: N/A Patient/Surrogate Stated/Verified: Patient name, Date of , Relevant allergies and Intended procedure TIME OUT Intended patient and procedure match the source document(s). Consent documented and matches the intended procedure. Relevant labs, photos, and/or imaging studies have been reviewed. Correct side/site marked and visible. Medications required for procedure verified. No fire risk assessment and interventions applicable. No implant(s) inserted. 11/11/2023 3:37 PM The procedure site was prepped in the usual sterile fashion. Site: R knee joint Medications: 40 mg triamcinolone acetonide 40 mg/mL Anesthetics: 6 mL lidocaine (PF) 10 mg/mL (1 %) Outcome: Tolerated well, no immediate complications Post-injection instructions were reviewed with the patient and the patient voiced understanding of these instructions. SIGN OUT No specimen collected. All instruments, equipment, possible retained foreign bodies accounted for. Post-procedure follow-up management communicated and Plan of Care Visit completed when applicable documented in this encounter [facility] 05-25-2023 Note HNO ID: [id number] Author: GOKUL ARENAS RN Service: Nursing Author Type: Registered Nurse Type: Nursing Progress Note Filed: 05/25/2023 13:02 Note Text: Pt able to void prior to discharge. 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 DAG SPRAYER: Stephanie Royal APRN.DAG SPRAYER Performed by: [place] Indications and Patient Condition Indications for airway management: anesthesia Preoxygenated: yes anesthesia circuit Patient position: sniffing Method: asleep Cricoid Pressure: No Final Airway Details Final airway type: endotracheal airway Final Endotracheal Airway: ETT Cuffed: yes Successful intubation technique: direct laryngoscopy Endotracheal tube insertion site: oral Blade: Gio Blade size: #3 ETT size (mm): 7.0 Measured from: lips Measurement (cm): 20 Placement verified by: chest auscultation and capnometry Cormack-Lehane Classification: grade I - full view of glottis Number of attempts at approach: 1 Airway not difficult SIGNATURE: Stephanie Royal APRN.DAG SPRAYER PATIENT NAME: Padmini Carr DATE: May 25, 2023 TIME: 9:30 AM CSN: [id number] [facility] 04-08-2023 History of Presen t illness Narrative Padmini Carr is a 32 year old female who presents for discussion of possible hysterectomy for her painful periods due to adenomyosis. HPI: Her T/V US from 02/17/24 was positive for adenomyosis. She has been suffering from pelvic pain and painful periods all her life. She wants a radical treatment. 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 History Comments: Sexual Activity: Yes; Male Contraception: No contraception data on record PAST MEDICAL HISTORY Diagnosis Date Chronic midline low back pain without sciatica 07/30/2016 Depression at least 5 yrs Hypothyroidism Morbid obesity due to excess calories (HCC) 07/30/2016 PAST SURGICAL HISTORY Procedure Laterality Date CHG DELIVERY 05/16/2010 CHOLECYSTECTOMY HX 05/16/2010 LAP SLEEVE GASTRECTOMY 2018 FAMILY HISTORY Problem Relation Age of Onset Diabetes Mother Diabetes Maternal Grandmother Social History Tobacco Use Smoking status: Never Substance Use Topics Alcohol use: No Drug use: No Current Outpatient Medications Medication Sig Norethin Fer-Eth Estrad-FE 1 mg-20 mcg (21)/75 mg (7) per tablet Take 1 tablet by mouth daily at bedtime. No current facility-administered medications for this visit. Allergies As of Date: 04/08/2023 (No Known Allergies) Fully Assessed 04/08/2023 REVIEW OF SYSTEMS Abdomen: No bloating, early satiety, indigestion, or increased flatulence. No abdominal pain, nausea, vomiting, diarrhea, or constipation. Bladder: No dysuria, gross hematuria, urinary frequency, urinary urgency, or incontinence. Breast: No breast lumps, nipple d/c, overlying skin changes, redness or skin retraction. Expanded ROS: N/A Allergies and current medication updated:Yes EXAM: BP 126/80 Resp 18 Wt 226 lb 10.1 oz (102.8kg) LMP 04/04/2023 GENERAL: pleasant, female in no apparent distress HEENT: Normocephalic, atraumatic, mucus membranes moist, and no lesions NECK: Supple, full range of motion, no adenopathy, and thyroid normal DERMATOLOGY: Normal, without lesions, non-icteric, and non-hirsute CHEST: Normal inspiratory effort ABDOMEN: soft, non-tender, and no masses PELVIC: external genitalia normal, normal Bartholin's glands, urethra, Vergas's glands, no vulvar lesions, no cervical lesions, good vaginal support, physiologic discharge present, normal appearing perineal body and perianal region, uterus mobile on valsalva BIMANUAL: uterus normal size, shape and consistency, no adnexal masses, and non-tender and mobile on palpation NEURO: alert and oriented x3,exam grossly non-focal EXTREMITIES: normal ASSESSMENT AND PLAN: Encounter Diagnosis ICD-10-CM 1. Adenomyosis N80.03 2. Dysmenorrhea N94.6 Pt has a mobile uterus. We will proceed with total vaginal hysterectomy. Risks and benefits and alternatives d/w the patient and consent form is signed. I have spent 25 minutes with the patient during history taking, exam, review of chart, documentation in the chart, education, counselling and medical decision making. Rosalina Malone MD documented in this encounter [facility] 03-07-2023 History of Presen t illness Narrative Pt left without being seen. Eleanor Aguirre PT documented in this encounter [facility] 03-03-2023 History of Presen t illness Narrative Padmini Carr is a 32 year old female who presents for review of her ultrasound findings. I spent a total of 10 minutes on the date of the service which included preparing to see the patient via telephone encounter, completing clinical documentation, obtaining and/or reviewing separately obtained history, counseling and educating the patient/family/caregiver, ordering medications, tests, or procedures and communicating with other HCPs (not separately reported). HPI: Pt c/o painful periods. Has not been seeing periods x 10 months. On OCPs for a long-time. US reveals no fibroids or ovarian cysts, but adenomyosis. 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 History Comments: Sexual Activity: Yes; Male Contraception: No contraception data on record PAST MEDICAL HISTORY Diagnosis Date Chronic midline low back pain without sciatica 07/30/2016 Depression at least 5 yrs Hypothyroidism Morbid obesity due to excess calories (HCC) 07/30/2016 PAST SURGICAL HISTORY Procedure Laterality Date CHG DELIVERY 05/16/2010 CHOLECYSTECTOMY HX 05/16/2010 LAP SLEEVE GASTRECTOMY 2018 FAMILY HISTORY Problem Relation Age of Onset Diabetes Mother Diabetes Maternal Grandmother Social History Tobacco Use Smoking status: Never Substance Use Topics Alcohol use: No Drug use: No Current Outpatient Medications Medication Sig Norethin Fer-Eth Estrad-FE 1 mg-20 mcg (21)/75 mg (7) per tablet Take 1 tablet by mouth daily at bedtime. No current facility-administered medications for this visit. Allergies As of Date: 03/02/2023 (No Known Allergies) Fully Assessed 02/09/2023 REVIEW OF SYSTEMS Abdomen: No bloating, early satiety, indigestion, or increased flatulence. No abdominal pain, nausea, vomiting, diarrhea, or constipation. Bladder: No dysuria, gross hematuria, urinary frequency, urinary urgency, or incontinence. Breast: No breast lumps, nipple d/c, overlying skin changes, redness or skin retraction. Expanded ROS: N/A Allergies and current medication updated:Yes EXAM: There were no vitals taken for this visit. ASSESSMENT AND PLAN: Encounter Diagnosis ICD-10-CM 1. Dysmenorrhea N94.6 2. Adenomyosis N80.03 I have explained her that OCPS can be helpful with the period pain and she says that pain is better on OCPS, but she may opt for a more radical treatment for her adenomyosis. She will make an appointment for evaluation for a possible hysterectomy. I have spent 10 minutes with the patient during history taking, exam, review of chart, documentation in the chart, education, counselling and medical decision making. Rosalina Malone MD documented in this encounter [facility] 02-16-2023 History of Presen t illness Narrative Radiology Service Progress Note PATIENT NAME: Padmini Carr DATE OF SERVICE: February 16, 2023 TIME: 10:25 AM PATIENT IDENTITY VERIFICATION COMPLETED USING TWO (2) IDENTIFIERS: Name and Date of confirmed by patient verbally. FALL SCREENING: Has the patient had 2 falls in the last year or 1 fall with injury or currently using an Ambulatory Assistive Device (Walker, Cane, Wheelchair, Crutches, etc.)? No PATIENT GENDER DATA: Female. status: : No status: NO. PATIENT RELEVANT IMPLANT DATA REVIEWED: Not Applicable RADIOLOGY DEPARTMENT: Biopsy and Ultrasound PERIPHERAL IV DATA: Not applicable SIGNED BY: ITA Ghosh February 16, 2023 10:25 AM documented in this encounter [facility] 02-04-2023 History of Presen t illness Narrative Associated Order(s): Large Joint Arthro/Inj: R knee joint Post-Procedure Diagnose(s): Acute pain of right knee Large Joint Arthro/Inj: R knee joint Informed Consent Consent Obtained: Verbal Eastern Protocol A moment to CARE was completed. SIGN IN Personnel directly involved with the procedure wore the appropriate PPE. Special Equipment: N/A Patient/Surrogate Stated/Verified: Patient name, Date of , Relevant allergies and Intended procedure TIME OUT Intended patient and procedure match the source document(s). Consent documented and matches the intended procedure. Relevant labs, photos, and/or imaging studies have been reviewed. Correct side/site marked and visible. Medications required for procedure verified. No fire risk assessment and interventions applicable. No implant(s) inserted. 02/04/2023 11:02 AM The procedure site was prepped in the usual sterile fashion. Site: R knee joint Medications: 40 mg triamcinolone acetonide 40 mg/mL Anesthetics: 6 mL lidocaine (PF) 10 mg/mL (1 %) Outcome: Tolerated well, no immediate complications Post-injection instructions were reviewed with the patient and the patient voiced understanding of these instructions. SIGN OUT All instruments, equipment, possible retained foreign bodies accounted for. New Patient appointment History of present illness: Padmini Carr is a 32 year old female who comes in today with a chief complaint of right knee pain. Patient was told she has a right knee cyst with lack of cartilage in her right knee. The pain is located on the medial and inside of her knee . Pain radiates to the outside of her hip.This pain has been present for one month . This pain occurred with the following preceding injury: patient states she had been working 60hr weeks for one month straight . Pain is worse with long drives or bending for a long time. There is pain with squatting. There is pain at night. Patient has no swelling. There is not popping/clicking. There is locking. Has stiffness. There is not giving way. Prior treatment ice, meloxicam, seen at [facility] in [facility] states she was in too much pain to do PT . 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 keTORolac (TORADOL) 10 mg tablet Take 10 mg by mouth every 6 hours as needed. Norethin Fer-Eth Estrad-FE 1 mg-20 mcg (21)/75 mg (7) per tablet Take 1 tablet by mouth once daily. ondansetron HCl (ZOFRAN ORAL) Take by mouth. No current facility-administered medications on file prior to visit. FAMILY HISTORY Problem Relation Age of Onset Diabetes Mother Diabetes Maternal Grandmother Social History Tobacco Use Smoking status: Never Substance Use Topics Alcohol use: No Drug use: No Review of Systems: CV: No chest pain Pulm: No short of breath HEENT: No head ache General: no fevers, chills, nausea/vomiting, malaise Physical Examination: This is a well appearing, well nourished patient in no acute distress. Patient's head is normocephalic and atraumatic. Patient has white sclera and pink conjunctiva. Mucous membranes are moist. Patient breathes easily and has normal chest wall excursion. Patient has a Normal. affect. Body habitus obese . Focused exam of the knee: Normal. gait. Knee alignment: normal . Flexion contracture: None. Range of motion is 0/2-3/2 hand breaths . There is pain with patellofemoral compression. There is pain along medial facets. No effusion. There is not quadriceps atrophy. There is not patellofemoral crepitance. There is medial joint line pain on palpation. There is not lateral joint line pain on palpation. Ligamentous exam is negative . Mel's negative . Ipsilateral hip exam: There is good range of motion of the ipsilateral hip. No significant pain or restrictions with range of motion or log-rolling. Good strength. Normal stability. Negative straight leg raise. Contralateral knee exam: Examination of the contralateral knee reveals that there is normal stability, strength, range of motion and no pain on palpation. There is no significant effusion. Sensation grossly intact. Imaging: Magnetic Resonance Imaging from an outside facility is personally reviewed by me and demonstrates bakers cysts, osteophytes, and chondral changes. Chondral changes are most visible in the trochlea and the medial femoral condyle. These are likely chronic changes this MRI was downloaded into our system. Procedure: After informed, verbal consent was obtained and a brief time out was taken, I injected the patient's right knee with 40mg of kenalog and 6 cc of lidocaine using aseptic technique. The patient tolerated the procedure well and without complaints. Impression: Padmini Carr is a 32 year old female with right chronic chondral changes and Mejia's Cyst. She has a very irritable knee. She even has pain with light touch and any attempts at compression or examination. Spoke with patient about cortisone shot. Patient agreed to receive one. Put in consult to PT, virtual visit 4 weeks after PT for follow up. Plan: 1. Return to clinic for virtual visit 4 weeks after PT . 2. Physical therapy recommendation: Consult to PT 3. Pharmacologic treatment: None 4. Hopefully she improves with conservative management as I am not sure surgery should be recommended given her level of pain and the relative lack of significant findings on MRI By signing my name below, I Jaja Ramirez, attest that this documentation has been prepared under the direction and in the presence of Dr. Chandler Electronically signed, Jaja Guzmán, Medical Student/Scribe February 04, 2023 10:38 AM I agree with the Chief Complaint, ROS, and Past Histories independently gathered by the clinical developer support engineer and the remaining scribed note accurately describes my personal service to the patient. Kailey Chandler MD documented in this encounter [facility] 06-02-2022 Miscellaneous Notes Addended by: ROSALINA MALONE on: 06/02/2022 07:09 PM Modules accepted: Orders documented in this encounter [facility] 06-02-2022 History of Presen t illness Narrative Padmini Carr is a 31 year old female who presents for f/u on pelvic pain and 6.5 cm left ovarian cyst. HPI: Back in April 2022. Pt was seen in the ER for pelvic pain. She then received a pelvic US that showed 2.5 cm fibroid + 6.5 cm left ovarian cyst. Her pain has resolved for the most part. 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 History Comments: Sexual Activity: Yes; Male Contraception: No contraception data on record PAST MEDICAL HISTORY Diagnosis Date Chronic midline low back pain without sciatica 07/30/2016 Depression at least 5 yrs Hypothyroidism Morbid obesity due to excess calories (HCC) 07/30/2016 PAST SURGICAL HISTORY Procedure Laterality Date CHG DELIVERY 05/16/2010 CHOLECYSTECTOMY HX 05/16/2010 LAP SLEEVE GASTRECTOMY 2018 FAMILY HISTORY Problem Relation Age of Onset Diabetes Mother Diabetes Maternal Grandmother Social History Tobacco Use Smoking status: Never Substance Use Topics Alcohol use: No Drug use: No Current Outpatient Medications Medication Sig keTORolac (TORADOL) 10 mg tablet Take 10 mg by mouth every 6 hours as needed. Norethin Fer-Eth Estrad-FE 1 mg-20 mcg (21)/75 mg (7) per tablet Take 1 tablet by mouth daily at bedtime. ondansetron HCl (ZOFRAN ORAL) Take by mouth. No current facility-administered medications for this visit. Allergies As of Date: 06/02/2022 (No Known Allergies) Fully Assessed 06/02/2022 REVIEW OF SYSTEMS Abdomen: No bloating, early satiety, indigestion, or increased flatulence. No abdominal pain, nausea, vomiting, diarrhea, or constipation. Bladder: No dysuria, gross hematuria, urinary frequency, urinary urgency, or incontinence. Breast: No breast lumps, nipple d/c, overlying skin changes, redness or skin retraction. Expanded ROS: N/A Allergies and current medication updated:Yes EXAM: BP 126/80 Resp 18 Wt 235 lb 12 oz (106.9kg) LMP 05/26/2022 GENERAL: pleasant, female in no apparent distress HEENT: Normocephalic, atraumatic, mucus membranes moist, and no lesions NECK: Supple, full range of motion, no adenopathy, and thyroid normal DERMATOLOGY: Normal, without lesions, non-icteric, and non-hirsute CHEST: Normal inspiratory effort ABDOMEN: soft, non-tender, and no masses NEURO: alert and oriented x3,exam grossly non-focal EXTREMITIES: normal T/V US in office: 3 cm posterior wall fibroid + bilateral adnexa with no cyst, small amount of free fluid in the pelvis. ASSESSMENT AND PLAN: Encounter Diagnosis ICD-10-CM 1. Pelvic pain in female R10.2 2. Ovarian cyst rupture N83.209 Ruptured left ovarian cyst. Resolving. Continue with [facility] for PCOS, regulation, and possibly cyst suppression. I have spent 35 minutes with the patient during history taking, exam, review of chart, documentation in the chart, education, counselling and medical decision making. Rosalina Malone MD documented in this encounter [facility] 05-11-2022 Miscellaneous Notes The jpeg's are just dc paperwork, no actual imaging. Please have obtain CT and keep earliest appt. documented in this encounter [facility] 05-04-2022 Miscellaneous Notes Yes, have you tried alternating tylenol and motrin or alleve? If so and that is not helping then we rec going to the ER. documented in this encounter [facility] 04-26-2022 Note HNO ID: [id number] Author: Vilma Álvarez MD Service: ? Author Type: Physician Type: Progress Notes Filed: 04/26/2022 12:02 PM Note Text: Padmini is a 31 year old who presents for an annual gynecologic exam with complaints, dysmenorrhea. Seen in Er 2 wks ago for pain, ? Due to ov cyst that is improving. 4.7 cm physiologic cyst in CE. Menses: cycles every 30-150 days and 7 days of flow. 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 History Comments: Sexual Activity: Yes; Male Contraception: No contraception data on record PAST MEDICAL HISTORY Diagnosis Date Chronic midline low back pain without sciatica 07/30/2016 Depression at least 5 yrs Hypothyroidism Morbid obesity due to excess calories (HCC) 07/30/2016 PAST SURGICAL HISTORY Procedure Laterality Date CHG DELIVERY 05/16/2010 CHOLECYSTECTOMY HX 05/16/2010 LAP SLEEVE GASTRECTOMY 2018 FAMILY HISTORY Problem Relation Age of Onset Diabetes Mother Diabetes Maternal Grandmother SOCIAL HISTORY Social History Tobacco Use Smoking status: Never Substance Use Topics Alcohol use: No Drug use: No REVIEW OF SYSTEMS Abdomen: No abdominal pain, nausea, vomiting, diarrhea, or constipation. No bloating, early satiety, indigestion, or increased flatulence. Bladder: No dysuria, gross hematuria, urinary frequency, urinary urgency, or incontinence. Breast: No breast lumps, nipple d/c, overlying skin changes, redness or skin retraction. Allergies and current medication updated:Yes EXAM: BP 124/76 Ht 5' 4 (1.63m) Wt 232 lb (105.2kg) LMP 04/22/2022 BMI 39.80 kg/(m2). GENERAL: pleasant, female in no apparent distress HEENT: Normocephalic, atraumatic, mucus membranes moist, and no lesions NECK: Supple, full range of motion, no adenopathy, and thyroid normal DERMATOLOGY: Normal, without lesions, non-icteric, and non-hirsute BREAST: soft, non-tender, symmetric, no dominant mass, normal nipple-areolar complex, no lymphadenopathy, and no nipple discharge CHEST: Normal inspiratory effort ABDOMEN: soft, non-tender, and no masses PELVIC: external genitalia normal, normal Bartholin's glands, urethra, Vergas's glands, no vulvar lesions, no cervical lesions, good vaginal support, physiologic discharge present, normal appearing perineal body and perianal region BIMANUAL: uterus normal size, shape and consistency, no adnexal masses, non-tender, and no cervical motion tenderness RECTOVAGINAL: deferred. NEURO: alert and oriented x3,exam grossly non-focal EXTREMITIES: normal ASSESSMENT/PLAN: 1) Health maintenance: Pap done with HPV. Nutrition, exercise and routine health maintenance exams reviewed. 2) Contraception: none. Contraceptive options reviewed and information provided. 3) Dysmenorrhea- US next wk 4) Follow up one year or sooner as needed Vilma Álvarez MD, MD [facility] 04-26-2022 History of Presen t illness Narrative Padmini is a 31 year old who presents for an annual gynecologic exam with complaints, dysmenorrhea. Seen in Er 2 wks ago for pain, ? Due to ov cyst that is improving. 4.7 cm physiologic cyst in CE. Menses: cycles every 30-150 days and 7 days of flow. 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 History Comments: Sexual Activity: Yes; Male Contraception: No contraception data on record PAST MEDICAL HISTORY Diagnosis Date Chronic midline low back pain without sciatica 07/30/2016 Depression at least 5 yrs Hypothyroidism Morbid obesity due to excess calories (HCC) 07/30/2016 PAST SURGICAL HISTORY Procedure Laterality Date CHG DELIVERY 05/16/2010 CHOLECYSTECTOMY HX 05/16/2010 LAP SLEEVE GASTRECTOMY 2018 FAMILY HISTORY Problem Relation Age of Onset Diabetes Mother Diabetes Maternal Grandmother SOCIAL HISTORY Social History Tobacco Use Smoking status: Never Substance Use Topics Alcohol use: No Drug use: No REVIEW OF SYSTEMS Abdomen: No abdominal pain, nausea, vomiting, diarrhea, or constipation. No bloating, early satiety, indigestion, or increased flatulence. Bladder: No dysuria, gross hematuria, urinary frequency, urinary urgency, or incontinence. Breast: No breast lumps, nipple d/c, overlying skin changes, redness or skin retraction. Allergies and current medication updated:Yes EXAM: BP 124/76 Ht 5' 4 (1.63m) Wt 232 lb (105.2kg) LMP 04/22/2022 BMI 39.80 kg/(m^2). GENERAL: pleasant, female in no apparent distress HEENT: Normocephalic, atraumatic, mucus membranes moist, and no lesions NECK: Supple, full range of motion, no adenopathy, and thyroid normal DERMATOLOGY: Normal, without lesions, non-icteric, and non-hirsute BREAST: soft, non-tender, symmetric, no dominant mass, normal nipple-areolar complex, no lymphadenopathy, and no nipple discharge CHEST: Normal inspiratory effort ABDOMEN: soft, non-tender, and no masses PELVIC: external genitalia normal, normal Bartholin's glands, urethra, Vergas's glands, no vulvar lesions, no cervical lesions, good vaginal support, physiologic discharge present, normal appearing perineal body and perianal region BIMANUAL: uterus normal size, shape and consistency, no adnexal masses, non-tender, and no cervical motion tenderness RECTOVAGINAL: deferred. NEURO: alert and oriented x3,exam grossly non-focal EXTREMITIES: normal ASSESSMENT/PLAN: 1) Health maintenance: Pap done with HPV. Nutrition, exercise and routine health maintenance exams reviewed. 2) Contraception: none. Contraceptive options reviewed and information provided. 3) Dysmenorrhea- US next wk 4) Follow up one year or sooner as needed Vilma Álvarez MD, MD documented in this encounter [facility] 05-14-2014 History of Past i llness Narrative Problem Noted Date Resolved Date NO SHOW 05/14/2014 04/26/2022 documented as of this encounter (statuses as of 04/26/2022) [facility] History of Past illness Narrative* Problem Noted Date Resolved Date NO SHOW 05/14/2014 04/26/2022 documented as of this encounter (statuses as of 05/04/2022) [facility] History of Past illness Narrative* Problem Noted Date Resolved Date NO SHOW 05/14/2014 04/26/2022 documented as of this encounter (statuses as of 05/04/2022) [facility] History of Past illness Narrative* Problem Noted Date Resolved Date NO SHOW 05/14/2014 04/26/2022 documented as of this encounter (statuses as of 05/16/2022) [facility] History of Past illness Narrative* Problem Noted Date Resolved Date NO SHOW 05/14/2014 04/26/2022 documented as of this encounter (statuses as of 06/03/2022) [facility] History of Past illness Narrative* Problem Noted Date Diagnosed Date Resolved Date NO SHOW 05/14/2014 04/26/2022 documented as of this encounter (statuses as of 02/04/2023) [facility] History of Past illness Narrative* Problem Noted Date Diagnosed Date Resolved Date NO SHOW 05/14/2014 04/26/2022 documented as of this encounter (statuses as of 02/18/2023) [facility] History of Past illness Narrative* Problem Noted Date Diagnosed Date Resolved Date NO SHOW 05/14/2014 04/26/2022 documented as of this encounter (statuses as of 03/03/2023) [facility] History of Past illness Narrative* Problem Noted Date Diagnosed Date Resolved Date NO SHOW 05/14/2014 04/26/2022 documented as of this encounter (statuses as of 03/08/2023) [facility] History of Past illness Narrative* Problem Noted Date Diagnosed Date Resolved Date NO SHOW 05/14/2014 04/26/2022 documented as of this encounter (statuses as of 04/08/2023) [facility] COVID-19- Primary documented in this encounter [facility] Work Phone: evaluation note* Diagnosis Encounter for gynecological examination (general) (routine) without abnormal findings- Primary Screening for cervical cancer Screening for malignant neoplasm of the cervix Dysmenorrhea [facility] D[facility]menorrhea [facility] Diagnosis Pelvic pain in female- Primary Unspecified symptom associated with female genital organs Ovarian cyst rupture Other and unspecified ovarian cyst [facility] Diagnosis Onset Date Resolution Status Internal derangement of right knee acute Strain of right knee acute [facility] Work Phone: Evaluation note* Diagnosis Acute pain of right knee- Primary [facility] Diagnosis Intramural and submucous leiomyoma of uterus History of ovarian cyst Personal history of other genital system and obstetric disorders Secondary amenorrhea Absence of menstruation [facility] Diagnosis Dysmenorrhea- Primary Adenomyosis Endometriosis of uterus [facility] Diagnosis Acute pain of right knee- Primary [facility] Diagnosis Adenomyosis- Primary Endometriosis of uterus Dysmenorrhea documented in this encounter [facility] note* Diagnosis Onset Date Resolution Status Chondral defect of condyle of left femur noneactive Chondral defect of left patella noneactive Right knee pain noneactive [facility] Work Phone: Evaluation note* Diagnosis Neck pain- Primary Cervicalgia Chronic pain of right knee documented in this encounter [facility] note* Diagnosis Pre-op evaluation- Primary Preoperative examination, unspecified Morbid obesity due to excess calories (HCC) Severe episode of recurrent major depressive disorder, without psychotic features (HCC) Hypothyroidism, unspecified type Ovarian cyst rupture- Primary Other and unspecified ovarian cyst documented in this encounter [facility] note* Diagnosis Pre-op evaluation- Primary Preoperative examination, unspecified Morbid obesity due to excess calories (HCC) Severe episode of recurrent major depressive disorder, without psychotic features (HCC) Hypothyroidism, unspecified type Ovarian cyst, left- Primary Other and unspecified ovarian cyst [facility] Diagnosis Pre-op evaluation- Primary Preoperative examination, unspecified Morbid obesity due to excess calories (HCC) Severe episode of recurrent major depressive disorder, without psychotic features (HCC) Hypothyroidism, unspecified type Ovarian cyst, left Other and unspecified ovarian cyst Pelvic pain in female Unspecified symptom associated with female genital organs Ovarian cyst, left Other and unspecified ovarian cyst documented in this encounter [facility] note* Diagnosis Pre-op evaluation- Primary Preoperative examination, unspecified Morbid obesity due to excess calories (HCC) Severe episode of recurrent major depressive disorder, without psychotic features (HCC) Hypothyroidism, unspecified type Post-operative state [Z98.890]- Primary Other postprocedural status Ovarian cyst, left Other and unspecified ovarian cyst documented in this encounter [facility] note* Diagnosis Pre-op evaluation- Primary Preoperative examination, unspecified Morbid obesity due to excess calories (HCC) Severe episode of recurrent major depressive disorder, without psychotic features (HCC) Hypothyroidism, unspecified type Post-operative state- Primary Other postprocedural status documented in this encounter [facility] note* Diagnosis Pre-op evaluation- Primary Preoperative examination, unspecified Morbid obesity due to excess calories (HCC) Severe episode of recurrent major depressive disorder, without psychotic features (HCC) Hypothyroidism, unspecified type Ovarian cyst, left Other and unspecified ovarian cyst Pelvic pain in female Unspecified symptom associated with female genital organs Pelvic pain in female- Primary Unspecified symptom associated with female genital organs documented in this encounter [facility] note* Diagnosis Pre-op evaluation- Primary Preoperative examination, unspecified Morbid obesity due to excess calories (HCC) Severe episode of recurrent major depressive disorder, without psychotic features (HCC) Hypothyroidism, unspecified type Post-operative state- Primary Other postprocedural status Adverse effect of female hormone replacement therapy, initial encounter documented in this encounter [facility] note* Diagnosis Pre-op evaluation- Primary Preoperative examination, unspecified Morbid obesity due to excess calories (HCC) Severe episode of recurrent major depressive disorder, without psychotic features (HCC) Hypothyroidism, unspecified type Menopause- Primary Symptomatic menopausal or female climacteric states documented in this encounter [facility] note* Diagnosis Pre-op evaluation- Primary Preoperative examination, unspecified Morbid obesity due to excess calories (HCC) Severe episode of recurrent major depressive disorder, without psychotic features (HCC) Hypothyroidism, unspecified type Pain- Primary [facility]ized [facility] Attachments The following attachments cannot be sent through Care Everywhere. * Coronavirus Disease (COVID-19): General Info (Sammarinese) documented in this encounterD[facility] Phone: reason for referral (narrative)* Diagnostic Procedure Only (Routine) - Pending Review Specialty Diagnoses / Procedures Referred By Alejandro t Referred To Contact [facility] Diagnoses Dysmenorrhea Procedures PELVIC US WHI US PELVIC NONOBSTETRIC REAL-TIME IMAGE COMPLETE Vilma Álvarez MD [address] [address] [facility] [address] [place] [id number] Referral ID Status Reason Start Date Expiration Date Visits Requested Visits Authorized [id number] Pending Review Auto-Generat ed Referral 2 04/26/2023 [address] [facility] for referral (narrative)* Diagnostic Procedure Only (Routine) - Closed Specialty Diagnoses / Procedures Referred By Contac t Referred To Contact [facility] Diagnoses Intramural and submucous leiomyoma of uterus History of ovarian cyst Secondary amenorrhea Procedures US FEMALE PELVIS TRANSVAG US TRANSVAGINAL Rosalina Malone MD [address] [address] [place] [address] Referral ID Status Reason Start Date Expiration Date V isits Requested Visits Authorized [id number] Closed Auto-Generate d Referral 02/09/2023 03/10/2024 1 1 [facility] for referral (narrative)* Diagnostic Procedure Only (Routine) - New Request Specialty Diagnoses / Procedures Referred By Contac t Referred To Contact [facility] Diagnoses Ovarian cyst, left Procedures US FEMALE PELVIS TRANSVAG US TRANSVAGINAL Monica Alfaro MD [address] [address] [place] [address] Referral ID Status Reason Start Date Expiration Date Visits Requested Visits Authorized [id number] New Request Auto-Generat ed Referral 4 04/29/2025 [address] [facility] for referral (narrative)* Diagnostic Procedure Only (Routine) - Closed Specialty Diagnoses / Procedures Referred By Contac t Referred To Contact [facility] Diagnoses Pelvic pain in female Procedures US DOPPLER COMPLETE DUP-SCAN ARTL PAOLA ABDL/PEL/SCROT&/RPR ORGN [facility] Monica Alfaro MD [address] [address] [place] [address] Referral ID Status Reason Start Date Expiration Date V isits Requested Visits Authorized [id number] Closed Auto-Generate d Referral 04/04/2024 05/15/2024 1 1 * Diagnostic Procedure Only (Routine) - Closed Specialty Diagnoses / Procedures Referred By Contac t Referred To Contact [facility] Diagnoses Ovarian cyst, left Procedures US FEMALE PELVIS TRANSVAG US TRANSVAGINAL Monica Alfaro MD [address] [address] [place] [address] Referral ID Status Reason Start Date Expiration Date V isits Requested Visits Authorized [id number] Closed Auto-Generate d Referral 04/04/2024 05/15/2024 1 1 [facility] for referral (narrative)* Diagnostic Procedure Only (Routine) - Closed Specialty Diagnoses / Procedures Referred By Contac t Referred To Contact [facility] Diagnoses Pelvic pain in female Procedures US DOPPLER COMPLETE DUP-SCAN ARTL PAOLA ABDL/PEL/SCROT&/RPR ORGN COM Monica Alfaro MD [address] [address] [place] [address] Referral ID Status Reason Start Date Expiration Date V isits Requested Visits Authorized [id number] Closed Auto-Generate d Referral 04/04/2024 05/15/2024 [address] [facility] for visit Narrative* Diagnostic Procedure Only (Routine) - Closed Specialty Diagnoses / Procedures Referred By Contac t Referred To Contact [facility] Diagnoses Intramural and submucous leiomyoma of uterus History of ovarian cyst Secondary amenorrhea Procedures US FEMALE PELVIS TRANSVAG US TRANSVAGINAL Rosalina Malone MD [address] [address] [place] [address] Referral ID Status Reason Start Date Expiration Date V isits Requested Visits Authorized [id number] Closed Auto-Generate d Referral 02/09/2023 03/10/2024 [facility] Diagnostic Procedure Only (Routine) - Closed Specialty Diagnoses / Procedures Referred By Contac t Referred To Contact [facility] Diagnoses Ovarian cyst, left Procedures US FEMALE PELVIS TRANSVAG US TRANSVAGINAL Monica Alfaro MD [address] [address] [place] [address] Referral ID Status Reason Start Date Expiration Date V isits Requested Visits Authorized [id number] Closed Auto-Generate d Referral 04/04/2024 05/15/2024 1 1 [facility] Summary Purpose Family History No Family History Records Found Medical History Relation Name Comments Diabetes Maternal Aunt Thyroid Disease Maternal Grandfather Diabetes Maternal Grandmother Thyroid Disease Maternal Grandmother Diabetes Maternal Uncle Diabetes Mother Thyroid Disease Mother Diabetes Paternal Grandmother Relation Name Status Comments Brother Alive Father Alive Maternal Aunt Alive Maternal Grandfather Alive Maternal Grandmother thyroid Maternal Uncle Alive Mother Alive thyroid Paternal Grandmother Relationship Condition Age at Onset Recorded Date/T kimberlee Not Specified Diabetes mellitus Unknown Advance Directives No Advanced Directives Records FoundDocuments on File Type Date Recorded Patient Dupligraph Operator Expl anation Advance Directives and Living Will Power of Loss Mitigation Specialist Documents on File Type Date Recorded Patient Dupligraph Operator Expl anation Advance Directives and Living Will Power of Loss Mitigation Specialist Latest Code Status on File Code Status Date Activated Date Inactivated Comments Full Code 02/27/2019 2:08 PM Documents on File Type Date Recorded Patient Dupligraph Operator Expl anation ACP-Advance Directive ACP-Power of Loss Mitigation Specialist ACP-Advance Directive 03/05/2019 3:33 AM Latest Code Status on File Code Status Date Activated Date Inactivated Comments Full Code 02/27/2019 2:08 PM 03/04/2019 3:57 PM Assessments Diagnosis Suicidal ideation- Primary Chief Complaint and Reason for Visit Chief Complaint RIGHT KNEE PAIN Reason for Visit Internal derangement of right knee Strain of right knee Chief Complaint right knee Reason for Visit Chondral defect of c ondyle of left femur Chondral defect of left patella Right knee pain Reason for Referral Specialty Diagnoses / Procedures Referred By Contact Referred To Contact [facility] Diagnoses Acute pain of right knee Procedures CONSULT TO PHYSICAL THERAPY PHYSICAL THERAPY EVALUATION HIGH COMPLEX 45 MINS Kailey Chandler MD [address] [place] [address] [facility] [address] [address] Referral ID Status Reason Start Date Expiration Date Visits Requested Visits Authorized [id number] Authorized Auto-Generat ed Referral 11/13/2022 11/13/2023 29 29 Specialty Diagnoses / Procedures Referred By Contac t Referred To Contact [facility] Diagnoses Neck pain Procedures [facility]SULT TO [facility]OUTPATIENT [facility] MDM 60 MINUTES Kailey Cahndler MD [address] [place] [address] Referral ID Status Reason Start Date Expiration Date Visits Requested Visits Authorized [id number] Authorized PCP Requested Referral 11/11/2023 11/10/2024 1 1 Specialty Diagnoses / Procedures Referred By Contact Referred To Contact [facility] Diagnoses Neck pain Procedures CONSULT TO PHYSICAL THERAPY PHYSICAL THERAPY EVALUATION HIGH COMPLEX 45 MINS Kailey Chandler MD [address] [place] [address] [facility] [address] [place] [id number] Referral ID Status Reason Start Date Expiration Date Visits Requested Visits Authorized [id number] Authorized Auto-Generat ed Referral 05/16/2023 05/15/2024 30 30 Medications Administered Section Inactive Administered Medications - up to 3 most recent administrations Medication Order MAR Action Action Date Dose Rate Site lidocaine (PF) 10 mg/mL (1 %) 6 mL injection (XYLOCAINE) 6 mL, Injection - FOR ORTHO USE ONLY, ONE TIME INJECTION, 1 dose, Starting on Tue02/04/23 at 1102, Until Tue02/04/23 at 1102 Given 02/04/2023 11:02 AM EDT 6 mL Knee, Right triamcinolone acetonide 40 mg injection (KeNALog 40) 40 mg, Injection - FOR ORTHO USE ONLY, ONE TIME INJECTION, 1 dose, Starting on Tue02/04/23 at 1102, Until Tue02/04/23 at 1102 Given 02/04/2023 11:02 AM EDT 40 mg Knee, Right Additional Source Comments INFORMATION SOURCE (unrecogn ized section and content) DATE CREATED AUTHOR 12/30/2017 [facility] DATE CREATED AUTHOR AUTHOR'S ORGANIZ ATION 09/17/2018 [facility] DATE CREATED AUTHOR AUTHOR'S ORGANIZ ATION 11/18/2018 [facility] DATE CREATED AUTHOR AUTHOR'S ORGANIZ ATION 03/04/2019 [facility] DATE CREATED AUTHOR AUTHOR'S ORGANIZ ATION 10/03/2019 [facility] DATE CREATED AUTHOR AUTHOR'S ORGANIZ ATION 03/20/2021 [facility] DATE CREATED AUTHOR AUTHOR'S ORGANIZ ATION 05/07/2022 [facility] DATE CREATED AUTHOR AUTHOR'S ORGANIZ ATION 09/21/2022 [facility] DATE CREATED AUTHOR AUTHOR'S ORGANIZ ATION 01/21/2023 [facility] DATE CREATED AUTHOR AUTHOR'S ORGANIZ ATION 03/18/2023 [facility] DATE CREATED AUTHOR AUTHOR'S ORGANIZ ATION 04/11/2024 [facility] DATE CREATED AUTHOR AUTHOR'S ORGANIZ ATION 10/12/2024 [facility] DATE CREATED AUTHOR AUTHOR'S ORGANIZ ATION 11/28/2024 [facility] DATE CREATED AUTHOR AUTHOR'S ORGANIZ ATION 12/09/2024 [facility] Reason for Visit (unrecogniz ed section and content) Reason Comments Anxiety Suicidal thoughts of killing herself Reason Comments Other difficulty breathing Reason Comments New Patient Cyst on ovary - pain ful; patient states excessive pain during period and symptoms of period when not on period Reason Comments Us Procedure Specialty Diagnoses / Procedures Referred By Contac t Referred To Contact [facility] Diagnoses Dysmenorrhea Procedures PELVIC US WHI US PELVIC NONOBSTETRIC REAL-TIME IMAGE COMPLETE Vilma Álvarez MD [address] [facility] [address] [place] [address] [facility] [address] [place] [address] Referral ID Status Reason Start Date Expiration Date V isits Requested Visits Authorized [id number] Closed Auto-Generate d Referral 05/03/2022 05/15/2022 1 1 Reason Comments Pelvic Pain Reason Comments New Reason Comments Review TT results Menstrual Problem Reason Comments Opened In Error Pt left without bein g seen. Specialty Diagnoses / Procedures Referred By Contact Referred To Contact [facility] Diagnoses Acute pain of right knee Procedures CONSULT TO PHYSICAL THERAPY PHYSICAL THERAPY EVALUATION HIGH COMPLEX 45 MINS Kailey Chandler MD [address] [place] [address] [facility] [address] [place] [address] Referral ID Status Reason Start Date Expiration Date Visits Requested Visits Authorized [id number] Authorized Auto-Generat ed Referral 11/13/2022 11/13/2023 29 29 Reason Comments Pre-Op Visit Reason Comments Established Patient Reason Comments Follow Up From ER Reason Comments Ovarian Cyst Reason Comments STD Reason Comments Post-Op Visit Reason Comments Opened In Error Reason Comments Post Op APPENDECTOMY/OOPOREC KRAIG Reason Comments Menopause Consult Ordered Prescriptions (unrec ognized section and content) Prescription Sig Dispensed Refills Start Date End Da te albuterol sulfate HFA (VENTOLIN HFA) 108 (90 Base) MCG/ACT inhaler Inhale 2 puffs into the lungs every 4 hours as needed for Wheezing or Shortness of Breath (cough) 18 g 0 03/19/2021 azithromycin (ZITHROMAX Z-ALTAF) 250 MG tabletIndications:COVID- 19 Take 2 tablets (500 mg) on Day 1, and then take 1 tablet (250 mg) on days 2 through 5. 1 packet 0 03/19/2021 03/23/2021 predniSONE (DELTASONE) 20 MG tablet Take 2 tablets by mouth daily for 4 days 8 tablet 0 03/19/2021 03/23/2021 Scheduled Active and Recently Administ ered Medications (unrecognized section and content) Medication Order 03/17/2021 03/18/2021 03/19/2021 ibuprofen (ADVIL;MOTRIN) tablet 800 mg (COMPLETED) 800 mg, Oral, ONCE, On Salome 03/19/21 at 0618, For 1 dose, Do not crush or chew. 0622 (Given - Provid er: Clair Woodson RN) predniSONE (DELTASONE) tablet 40 mg (COMPLETED) 40 mg, Oral, ONCE, On Salome 03/19/21 at 0752, For 1 dose 0803 (Given - Provid er: Vilma Galvin RN) Source Comments (unrecognize d section and content) In the event this informatio n is protected by the Federal Confidentiality of Alcohol and Drug Abuse Patient Records regulations: The Federal rules restrict any use of the information to criminally investigate or prosecute any alcohol or drug abuse patient.[facility] the event this information is protected by the Federal Confidentiality of Alcohol and Drug Abuse Patient Records regulations: The Federal rules restrict any use of the information to criminally investigate or prosecute any alcohol or drug abuse patient.[facility] the event this information is protected by the Federal Confidentiality of Alcohol and Drug Abuse Patient Records regulations: The Federal rules restrict any use of the information to criminally investigate or prosecute any alcohol or drug abuse patient.[facility] the event this information is protected by the Federal Confidentiality of Alcohol and Drug Abuse Patient Records regulations: The Federal rules restrict any use of the information to criminally investigate or prosecute any alcohol or drug abuse patient.[facility] the event this information is protected by the Federal Confidentiality of Alcohol and Drug Abuse Patient Records regulations: The Federal rules restrict any use of the information to criminally investigate or prosecute any alcohol or drug abuse patient.[facility] Hospital[facility] the event this information is protected by the Federal Confidentiality of Alcohol and Drug Abuse Patient Records regulations: The Federal rules restrict any use of the information to criminally investigate or prosecute any alcohol or drug abuse patient.[facility] Hospital[facility] the event this information is protected by the Federal Confidentiality of Alcohol and Drug Abuse Patient Records regulations: The Federal rules restrict any use of the information to criminally investigate or prosecute any alcohol or drug abuse patient.[facility] Hospital[facility] the event this information is protected by the Federal Confidentiality of Alcohol and Drug Abuse Patient Records regulations: The Federal rules restrict any use of the information to criminally investigate or prosecute any alcohol or drug abuse patient.[facility] Hospital[facility] the event this information is protected by the Federal Confidentiality of Alcohol and Drug Abuse Patient Records regulations: The Federal rules restrict any use of the information to criminally investigate or prosecute any alcohol or drug abuse patient.[facility] Hospital[facility] the event this information is protected by the Federal Confidentiality of Alcohol and Drug Abuse Patient Records regulations: The Federal rules restrict any use of the information to criminally investigate or prosecute any alcohol or drug abuse patient.[facility] Hospital[facility] the event this information is protected by the Federal Confidentiality of Alcohol and Drug Abuse Patient Records regulations: The Federal rules restrict any use of the information to criminally investigate or prosecute any alcohol or drug abuse patient.[facility] Hospital[facility] the event this information is protected by the Federal Confidentiality of Alcohol and Drug Abuse Patient Records regulations: The Federal rules restrict any use of the information to criminally investigate or prosecute any alcohol or drug abuse patient.[facility] Hospital[facility] the event this information is protected by the Federal Confidentiality of Alcohol and Drug Abuse Patient Records regulations: The Federal rules restrict any use of the information to criminally investigate or prosecute any alcohol or drug abuse patient.[facility] Hospital[facility] the event this information is protected by the Federal Confidentiality of Alcohol and Drug Abuse Patient Records regulations: The Federal rules restrict any use of the information to criminally investigate or prosecute any alcohol or drug abuse patient.[facility] Hospital[facility] the event this information is protected by the Federal Confidentiality of Alcohol and Drug Abuse Patient Records regulations: The Federal rules restrict any use of the information to criminally investigate or prosecute any alcohol or drug abuse patient.[facility] HospitalIn the event this information is protected by the Federal Confidentiality of Alcohol and Drug Abuse Patient Records regulations: The Federal rules restrict any use of the information to criminally investigate or prosecute any alcohol or drug abuse patient.[facility] the event this information is protected by the Federal Confidentiality of Alcohol and Drug Abuse Patient Records regulations: The Federal rules restrict any use of the information to criminally investigate or prosecute any alcohol or drug abuse patient.[facility] Hospital[facility] the event this information is protected by the Federal Confidentiality of Alcohol and Drug Abuse Patient Records regulations: The Federal rules restrict any use of the information to criminally investigate or prosecute any alcohol or drug abuse patient.[facility] HospitalIn the event this information is protected by the Federal Confidentiality of Alcohol and Drug Abuse Patient Records regulations: The Federal rules restrict any use of the information to criminally investigate or prosecute any alcohol or drug abuse patient.[facility] HospitalIn the event this information is protected by the Federal Confidentiality of Alcohol and Drug Abuse Patient Records regulations: The Federal rules restrict any use of the information to criminally investigate or prosecute any alcohol or drug abuse patient.[facility] HospitalIn the event this information is protected by the Federal Confidentiality of Alcohol and Drug Abuse Patient Records regulations: The Federal rules restrict any use of the information to criminally investigate or prosecute any alcohol or drug abuse patient.[facility] HospitalIn the event this information is protected by the Federal Confidentiality of Alcohol and Drug Abuse Patient Records regulations: The Federal rules restrict any use of the information to criminally investigate or prosecute any alcohol or drug abuse patient.[facility] HospitalIn the event this information is protected by the Federal Confidentiality of Alcohol and Drug Abuse Patient Records regulations: The Federal rules restrict any use of the information to criminally investigate or prosecute any alcohol or drug abuse patient.[facility] HospitalIn the event this information is protected by the Federal Confidentiality of Alcohol and Drug Abuse Patient Records regulations: The Federal rules restrict any use of the information to criminally investigate or prosecute any alcohol or drug abuse patient.[facility] Care Teams (unrecognized sec tion and content) Team Status: Active Member Role Status Dates No Primary Care Physician Primary Care Provider Active Team Status: Inactive Member Role Status Dates JASMINA Reynolds Attending Provider Active Team Status: Inactive Member Role Status Dates No Primary Care Physician Primary Care Provider Active JASMINA Reynolds Attending Provider, Referring Pr ovider Active Team Status: Inactive Member Role Status Dates No Primary Care Physician Primary Care Provider, Refer ring Provider Active JASMINA Tam Attending Provider Active Goals (unrecognized section and content) Goals may be documented in a n alternate sectionGoals may be documented in an alternate section FOR RECORDS PERTAINING TO PATIENTS WHO ARE OR HAVE BEEN ENROLLED IN A CHEMICAL DEPENDENCY/SUBSTANCEABUSE PROGRAM, SOME INFORMATION MAY BE OMITTED. This clinical summary was aggregated from multiple sources. Caution should be exercised in using it in the provision of clinical care. This summary normalizes information from multiple sources, and as a consequence, information in this document may materially change the coding, format and clinical context of patient data. In addition, data may be omitted in some cases. CLINICAL DECISIONS SHOULD BE BASED ON THE PRIMARY CLINICAL RECORDS. [employer] [facility]. provides no warranty or guarantee of the accuracy or completeness of information in this document.
[2024-12-09 18:00] LABS: Barbiturate Urine NEGATIVE (< 200 ng/mL); Benzodiazepine Urine NEGATIVE (< 200 ng/mL); PCP Urine NEGATIVE (< 25 ng/mL); THC Urine PRESUMPTIVE POSITIVE (< 50 ng/mL)
[2024-12-09 18:13] LABS: Alcohol, Blood (Medical)-Serum < 10.1 mg/dL (<=10.0)
[2024-12-09 18:17] LABS: AST(SGOT) 17 U/L (<=31); Alanine Aminotransfer ALT/SGPT 11 U/L (<=34); Albumin, Serum 4.0 g/dL (3.5-5.0); Alkaline Phosphatase 86 U/L (35-104); Anion Gap 12 (5-15); BUN 16 mg/dL (4-19); BUN/Creat Ratio 21.0 RATIO (10-20); Calcium,Total 9.0 mg/dL (7.6-11.0); Carbon Dioxide 20.6 mmol/L (21.0-32.0); Chloride 106 mmol/L (98-108); Estimated Creatinine Clearance 132.60 ml/min (50-250); Globulin 2.9 g/dL (2.2-4.2); Glucose 98 mg/dL (70-99); Potassium 4.1 mmol/L (3.3-5.1)
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
--- NOTE | 2024-12-09 21:10 | CM.ED ---
Social Work Placement updates: [facility]: No beds available. [facility]. Has available beds; public health social worker faxed over referral packet (20:28) woodworker called Crisis and spoke with Ana for handoff so they can follow up with [facility] and continue seeking placement for patient throughout the night. [employer] faxed over referral packet with everything except [facility]. This will need to be filled out and faxed over once placement is secured. (21:12) Monica Tse, GEAR TOOTH GRINDING MACHINE OPERATOR, CATTLE FEEDER
--- NOTE | 2024-12-10 01:13 | PCA ---
PT ACCEPTED AT [facility] [id number] [phone]
[2024-12-10 02:17] VITALS: BP 132/72; PULSE 58; RESP 15; O2SAT 98
[2024-12-10 04:50] VITALS: BP 138/72; PULSE 61; RESP 18; TEMP 36.3; O2SAT 98
== END 2024-12-10 06:45 ==
LOC: ED 17:33
PROVIDERS: Emergency Provider Emergency Medicine; Visit Provider Emergency Medicine
DX: R45.851 Suicidal ideations (principal); F41.9 Anxiety disorder, unspecified
CPT/HCPCS: 36415; 80053; 80307; 82077; 85025; 99284